=== PATIENT | female | born 1940 | race Caucasian/White ===

== ENCOUNTER 2016-07-29 08:00 | Outpatient (RCR) | payer MEDICARE, OTHER ==
--- OUTSIDE RECORDS SUMMARY | 2016-05-10 14:56 | XMS REPORT | Continuity of Care Document ---
Author Author [facility] Organization [facility] Address Unknown Phone Unavailable Care Team Providers Care Bulkhead Carpenter Name Role Phone CHALO FUENTES DO PCP Insurance Providers Payer Name Policy Number Subscriber Name Relationship Wps Medicare [id number] Jocelin Diaz 18 Self / Same As Patient [employer] [id number] Jocelin Diaz 18 Self / Same As Patient Advance Directives Directive Response Recorded Date/Time Advance Directives No 09/25/14 7:26am Health Care Power of Public Health Physician No 09/25/14 7:26am Organ Donor Yes 09/25/14 7:26am Resuscitation Status Full Code 09/25/14 7:26am Problems No known problems or medical conditions. Medications Medication Dose Route Sig Days/Qty Instructions Order Date Discontinued Date Status Montelukast Sodium 10 Mg PO BEDTIME 06/11/11 Active Potassium Chloride 1 Each PO DAILY 06/11/11 06/16/11 Discontinued Doxycycline Hyclate (Vibramycin) 100 Mg PO TWICE A DAY 100 mg BID x 10 days 06/11/11 09/25/14 Discontinued Simvastatin 40 Mg PO BEDTIME 06/11/11 09/25/14 Discontinued Cefuroxime Axetil (Ceftin) 1 Each PO TWICE A DAY 10 Days Date started: 2010 06/11/11 06/16/11 Discontinued Cyclobenzaprine HCl (Flexeril) 1 Each PO GIVE EVERY 8 HRS ON SCHEDULE PRN 06/11/11 09/25/14 Discontinued Levothyroxine Sodium (Levothroid) 1 Each PO DAILY 06/11/11 09/25/14 Discontinued Tramadol Hcl 2 Tab PO THREE TIMES A DAY PRN 06/11/11 09/25/14 Discontinued Estradiol 1 Mg PO DAILY 06/11/11 09/25/14 Discontinued Famotidine 20 Mg PO TWICE A DAY 06/11/11 09/25/14 Discontinued Clonazepam (Klonopin) 1 Each PO TID PRN 06/11/11 Active Sertraline Hcl 100 Mg PO BEDTIME 06/11/11 09/25/14 Discontinued Fluticasone Propionate 50 Mcg NS TWICE A DAY 1 spray each nostril 06/1106/16/11 Discontinued Furosemide 40 Mg PO DAILY 06/12/11 06/16/11 Discontinued Budesonide/Formoterol Fumarate 2 Puff IH TWICE A DAY 06/12/11 Discontinued Tiotropium [place] 0 IH DAILY 06/12/11 Active Aspirin 81 Mg PO BEDTIME 06/12/11 Active Budesonide/Formoterol Fumarate 2 Puff IH RESPIRATORY TWICE A DAY 04/1809/25/14 Discontinued Cefuroxime Axetil (Ceftin) 1 Each PO TWICE A DAY 06/16/11 09/25/14 Discontinued Prednisone 20 Mg PO TWICE A DAY 7 Days 06/16/11 09/25/14 Discontinued Levothyroxine Sodium (Levothroid) 50 Mcg PO DAILY 09/25/14 Active Sertraline Hcl 150 Mg PO BEDTIME 09/25/14 Active Hydrocodone Bit/Acetaminophen 1 Tab PO EVERY 6 HOURS PRN PAIN Active Fluticasone/Salmeterol 0 IH TWICE A DAY 1 PUFF 09/25/14 Active Fexofenadine Hcl 180 Mg PO DAILY 09/25/14 Active Ubidecarenone 200 Mg PO DAILY 09/25/14 Active Docosahexanoic Acid/Epa 3,000 Mg PO DAILY 09/25/14 Active Fluticasone Propionate 1 Sprays NS EACH NOSTRIL DAILY 09/25/14 Active Atorvastatin 20 Mg PO DAILY 09/25/14 Active Pyridoxine/Melatonin 3 Mg PO NEEDED PRN SLEEP 09/25/14 Active Multivitamins 1 Tab PO DAILY 09/25/14 Active Omeprazole 10 Mg PO DAILY 09/25/14 Active Albuterol Sulfate 2 Puff IH EVERY 4HRS PRN SHORTNESS OF BREATH Active Social History Social History Problem Response Recorded Date/Time Recent Foreign Travel No 09/25/2014 7:28am Smoking Status Former Smoker 09/25/2014 7:26am Query Response Start Date Stop Date Smoking Status Former Smoker 09/25/2004 Hospital Discharge Instructions No hospital discharge instructions. Plan of Care No plan of care. Functional Status No functional status results. Allergies, Adverse Reactions, Alerts Allergen Type Severity Reaction Status Last Updated Moxifloxacin HCl Allergy Active 06/11/11 azithromycin ([id number]) Allergy Active 06/11/11 Immunizations Name Given Type Date of Pneumonia Vaccine 07/25/14 Historical Date of Influenza Vaccine 07/25/14 Historical Vital Signs Acute Vital Signs Vital Response Date/Time Temperature (Fahrenheit) 98.9 degrees F (97.6 - 99.5) Temperature (Calculated Celsius) 37.15263 degrees C (36.4 - 37.5) Temperature Source Tympanic Pulse Rate (adult) 83 bpm (60 - 90) Respiratory Rate 18 bpm (12 - 24) O2 Sat by Pulse Oximetry 95 % (88 - 100) Blood Pressure 127/78 mm Hg Height (Feet) 5 feet Height (Inches) 6.00 inches Height (Calculated Centimeters) 167.616294 cm Weight (Pounds) 222 pounds Weight (Calculated Grams) 121511.507 gm Weight (Calculated Kilograms) 100.279604 kilograms Calculated BMI 35.83 Results Laboratory Results Test Name Result Units Flags Reference Collection Date/Time Result Date/ Time Comments Sodium Level 137 MMOL/L 135-145 09/18/2014 1:45pm 09/18/2014 2:16pm Potassium Level 4.6 MMOL/L 3.6-5.0 09/18/2014 1:45pm 09/18/2014 2:16pm Chloride Level 104 MMOL/L 98-107 09/18/2014 1:45pm 09/18/2014 2:16pm Carbon Dioxide Level 24 MMOL/L 21-32 09/18/2014 1:45pm 09/18/2014 2: 16pm Blood Urea Nitrogen 21 MG/DL H 7-18 09/18/2014 1:45pm 09/18/2014 2:16pm Creatinine 0.84 MG/DL 0.60-1.30 09/18/2014 1:45pm 09/18/2014 2:16pm BUN/Creatinine Ratio 25 09/18/2014 1:45pm 09/18/2014 2:16pm Estimat Glomerular Filtration Rate > 60 09/18/2014 1:45pm 2014 2:16pm GFR INTERPRETIVE DATA UNITS FOR ESTIMATED GFR (eGFR): mL/min/1.73 M2 REFERENCE RANGE FOR ESTIMATED GFR (eGFR) eGFR NORMAL eGFR >60 MODERATELY DECREASED eGFR 30-59 SEVERLY DECREASED eGFR 15-29 KIDNEY FAILURE <15 (OR DIALYSIS) Glucose Level 96 MG/DL 70-105 09/18/2014 1:45pm 09/18/2014 2:16pm Calcium Level 9.5 MG/DL 8.5-10.1 09/18/2014 1:45pm 09/18/2014 2:16pm Total Bilirubin 0.5 MG/DL 0.1-1.0 09/18/2014 1:45pm 09/18/2014 2:16pm Alkaline Phosphatase 92 U/L 40-136 09/18/2014 1:45pm 09/18/2014 2:16pm Aspartate Amino Transf (AST/SGOT) 25 U/L 5-34 09/18/2014 1:45pm 2014 2:16pm Alanine Aminotransferase (ALT/SGPT) 10 U/L 0-55 09/18/2014 1:45pm 09/18 2:16pm Total Protein 7.3 G/DL 6.4-8.2 09/18/2014 1:45pm 09/18/2014 2:16pm Albumin 3.8 G/DL 3.2-4.5 09/18/2014 1:45pm 09/18/2014 2:16pm Triglycerides Level 71 MG/DL <150 09/18/2014 1:45pm 09/18/2014 2:16pm Cholesterol Level 173 MG/DL < 200 09/18/2014 1:45pm 09/18/2014 2:16pm HDL Cholesterol 70 MG/DL H 40-60 09/18/2014 1:45pm 09/18/2014 2:16pm LDL Cholesterol Direct 85 MG/DL 1-129 09/18/2014 1:45pm 09/18/2014 2: 16pm VLDL Cholesterol 14 MG/DL 5-40 09/18/2014 1:45pm 09/18/2014 2:16pm White Blood Count 7.4 10^3/uL 4.3-11.0 09/25/2014 7:09/25/2014 7: 39am Red Blood Count 4.47 10^6/uL 4.35-5.85 09/25/2014 7:09/25/2014 7: 39am Hemoglobin 12.6 G/DL 11.5-16.0 09/25/2014 7:09/25/2014 7:39am Hematocrit 39 % 35-52 09/25/2014 7:09/25/2014 7:39am Mean Corpuscular Volume 86 FL 80-99 09/25/2014 7:09/25/2014 7: 39am Mean Corpuscular Hemoglobin 28 PG 25-34 09/25/2014 7:09/25/2014 7: 39am Mean Corpuscular Hemoglobin Concent 33 G/DL 32-36 09/25/2014 7: 7:39am Red Cell Distribution Width 14.6 % H 10.0-14.5 09/25/2014 7:2014 7:39am Platelet Count 273 10^3/uL 130-400 09/25/2014 7:09/25/2014 7:39am Mean Platelet Volume 9.2 FL 7.4-10.4 09/25/2014 7:09/25/2014 7: 39am Neutrophils (%) (Auto) 65 % 42-75 09/25/2014 7:09/25/2014 7:39am Lymphocytes (%) (Auto) 19 % 12-44 09/25/2014 7:09/25/2014 7:39am Monocytes (%) (Auto) 10 % 0-12 09/25/2014 7:09/25/2014 7:39am Eosinophils (%) (Auto) 5 % 0-10 09/25/2014 7:09/25/2014 7:39am Basophils (%) (Auto) 1 % 0-10 09/25/2014 7:09/25/2014 7:39am Neutrophils # (Auto) 4.8 X 10^3 1.8-7.8 09/25/2014 7:09/25/2014 7: 39am Lymphocytes # (Auto) 1.4 X 10^3 1.0-4.0 09/25/2014 7:09/25/2014 7: 39am Monocytes # (Auto) 0.7 X 10^3 0.0-1.0 09/25/2014 7:09/25/2014 7: 39am Eosinophils # (Auto) 0.4 10^3/uL H 0.0-0.3 09/25/2014 7:09/25/2014 7 :39am Basophils # (Auto) 0.1 10^3/uL 0.0-0.1 09/25/2014 7:09/25/2014 7: 39am Prothrombin Time 11.6 SEC L 12.2-14.7 09/25/2014 7:09/25/2014 7: 47am INR Comment 0.9 0.8-1.4 09/25/2014 7:09/25/2014 7:47am INTERPRETIVE DATA SUGGESTED THERAPEUTIC RANGE FOR INR'S: VENOUS THROMBOSIS, PULMONARY EMBOLISM, OR PREVENTION OF SYSTEMIC EMBOLISM (EG. IN ATRIAL FIBRILLATION): 2.0 - 3.0 MECHANICAL PROSTHETIC HEART VALVES: 2.5 - 3.5* *NOTE: INR'S UP TO 4.5 MAY BE NECESSARY IN SELECTED GROUPS OF HIGH RISK PATIENTS. [employer] [place] [employer] OF CHEST PHYSICIANS CONSENSUS CONFERENCE ON ANTITHROMBOTIC THERAPY (2000). Activated Partial Thromboplast Time 30 SEC 24-35 09/25/2014 7: 7:47am Sodium Level 140 MMOL/L 135-145 09/25/2014 7:09/25/2014 7:57am Potassium Level 4.2 MMOL/L 3.6-5.0 09/25/2014 7:09/25/2014 7:57am Chloride Level 106 MMOL/L 98-107 09/25/2014 7:09/25/2014 7:57am Carbon Dioxide Level 21 MMOL/L 21-32 09/25/2014 7:09/25/2014 7: 57am Blood Urea Nitrogen 25 MG/DL H 02-2209/25/2014 7:09/25/2014 7:57am Creatinine 0.88 MG/DL 0.60-1.30 09/25/2014 7:09/25/2014 7:57am BUN/Creatinine Ratio 28 09/25/2014 7:09/25/2014 7:57am Estimat Glomerular Filtration Rate > 60 09/25/2014 7:2014 7:57am GFR INTERPRETIVE DATA UNITS FOR ESTIMATED GFR (eGFR): mL/min/1.73 M2 REFERENCE RANGE FOR ESTIMATED GFR (eGFR) eGFR NORMAL eGFR >60 MODERATELY DECREASED eGFR 30-59 SEVERLY DECREASED eGFR 15-29 KIDNEY FAILURE <15 (OR DIALYSIS) Glucose Level 92 MG/DL 70-105 09/25/2014 7:09/25/2014 7:57am Calcium Level 9.3 MG/DL 8.5-10.1 09/25/2014 7:09/25/2014 7:57am Total Bilirubin 0.5 MG/DL 0.1-1.0 09/25/2014 7:09/25/2014 7:57am Alkaline Phosphatase 92 U/L 40-136 09/25/2014 7:09/25/2014 7:57am Aspartate Amino Transf (AST/SGOT) 28 U/L 5-34 09/25/2014 7:2014 7:57am Alanine Aminotransferase (ALT/SGPT) 9 U/L 0-55 09/25/2014 7:2014 7:57am Total Protein 7.3 G/DL 6.4-8.2 09/25/2014 7:09/25/2014 7:57am Albumin 3.8 G/DL 3.2-4.5 09/25/2014 7:09/25/2014 7:57am Triglycerides Level 95 MG/DL <150 09/25/2014 7:09/25/2014 7:57am Cholesterol Level 182 MG/DL < 200 09/25/2014 7:09/25/2014 7:57am HDL Cholesterol 71 MG/DL H 40-60 09/25/2014 7:09/25/2014 7:57am LDL Cholesterol Direct 92 MG/DL 1-129 09/25/2014 7:09/25/2014 7: 57am VLDL Cholesterol 19 MG/DL 5-40 09/25/2014 7:09/25/2014 7:57am Procedures Procedure Status Date Provider(s) Color Doppler echocardiography completed 08/29/14 CHALO FUENTES DO Tracing only of electrocardiogram completed 09/25/14 CARLOS RESENDIZ MD Encounters Encounter Location Date/Time Departed Surgical Day Care [facility] 09/25/14 7:09am Registered Clinic Via [facility] 09/18/14 12:09pm Registered Clinic Via [facility] 08/29/14 10:01am
[~2016-07-29 08:00] MED LIST: ACYC30OI TP; ASP81TEC PO; ASPI-808 PO; ATOR20TA66 PO; BACL10TA PO; BUDE6HFA IH; BUSP5TAB59 PO; CEFU500T5 PO; CHOL10007 PO; CLON0.5T PO; CLON0.5T3 PO; CYCL10TA9 PO; DOCU100C37 PO; DOXY100C2 PO; ESTR1TAB24 PO; FAMO20TA73 PO; FEXO180T84 PO; FLT05NA16 NS; FLUT1DIS3 IH; FLUT50DI NS; FRSM40T PO; HYDR-3714 PO; HYDR1TAB8 PO; IPRA3AMP IH; LACT1CAP64 PO; LVT.025T PO; LVT.05T PO; MAGN250T PO; MELA1TAB11 PO; MELA5TAB14 PO; MNTL10T PO; MONT10TA21 PO; MULT-608 PO; OMEG1CAP51 PO; OMEP10CA4 PO; OMEP20CA12 PO; OXYC-471 PO; POTA20TA15 PO; PRD20T PO; PREG75CA PO; RT-ALBUINH IH; SERT100T PO; SIMV40TA4 PO; TIOT18CA IH; TRAM50TA2 PO; UBID200C2 PO; VALA10004 PO
== END 2016-08-08 | disposition home or self-care (01) ==
LOC: PULM 08:00
PROVIDERS: ATTEND Family Medicine
DX: J44.9 Chronic obstructive pulmonary disease, unspecified (principal); I27.2 Other secondary pulmonary hypertension
CPT/HCPCS: 99211

== ENCOUNTER → 2016-08-11 | Outpatient (CLI) | payer MEDICARE, OTHER ==
--- OUTSIDE RECORDS SUMMARY | 2016-08-11 11:14 | XMS REPORT | Continuity of Care Document ---
Author Author [facility] Organization [facility] Address Unknown Phone Unavailable Care Team Providers Care Aluminum Container Tester Name Role Phone CHALO FUENTES DO PCP Insurance Providers Payer Name Policy Number Subscriber Name Relationship Wps Medicare [id number] Jocelin Diaz 18 Self / Same As Patient [employer] [employer] [id number] Jocelin Diaz 18 Self / Same As Patient Advance Directives Directive Response Recorded Date/Time Advance Directives No 09/25/14 7:26am Health Care Power of Gasket Maker No 09/25/14 7:26am Organ Donor Yes 09/25/14 [...] IH TWICE A DAY 06/12/11 Discontinued Tiotropium [place] 0 IH DAILY 06/12/11 Active Aspirin 81 [...] Updated Moxifloxacin HCl Allergy Active 06/11/11 azithromycin ([id number]) Allergy Active 06/11/11 Immunizations Name Given Type Date of Pneumonia Vaccine 07/25/14 Historical Date of Influenza Vaccine 07/25/14 Historical Vital Signs Acute Vital Signs Vital Response Date/Time Temperature (Fahrenheit) 98.9 degrees F (97.6 - 99.5) Temperature (Calculated Celsius) 37.87092 degrees C (36.4 - 37.5) Temperature Source Tympanic Pulse Rate (adult) 83 bpm (60 - 90) Respiratory Rate 18 bpm (12 - 24) O2 Sat by Pulse Oximetry 95 % (88 - 100) Blood Pressure 127/78 mm Hg Height (Feet) 5 feet Height (Inches) 6.00 inches Height (Calculated Centimeters) 167.769453 cm Weight (Pounds) 222 pounds Weight (Calculated Grams) 265931.507 gm Weight (Calculated Kilograms) 100.758303 kilograms Calculated BMI 35.83 Results Laboratory Results [...] SELECTED GROUPS OF HIGH RISK PATIENTS. [employer]IX[employer] [place] [employer] OF CHEST PHYSICIANS CONSENSUS CONFERENCE ON [...] Location Date/Time Departed Surgical Day Care Via [facility] 09/25/14 7:09am Registered Clinic [facility] 09/18/14 12:09pm Registered Clinic [facility] 08/29/14 10:01am
--- NOTE | 2016-08-11 22:17 | Diagnostic Imaging Report ---
EXAMINATION: Right breast ultrasound. INDICATION: Right axillary mass followup. COMPARISON: 05/04/16. FINDINGS: The right axilla demonstrates a 2.2 x 0.8 x 1.0 cm hyperechoic smoothly marginated lobulated lesion without significant change from 05/04/16. This is probably a lymph node. IMPRESSION: Unchanged 2.2 cm benign-appearing lesion in the right axilla, probably a mildly enlarged lymph node. A followup ultrasound is suggested when the patient is due for her next bilateral mammogram along with a clinical exam followup. ACR BI-RADS Category 3: Probably benign findings. Result letter will be mailed to the patient. Note: At least 10% of breast cancer is not imaged by mammography. Dictated by: Dictated on workstation # [id number]
== END ==
LOC: RAD 11:11
PROVIDERS: ATTEND Family Medicine
DX: R59.0 Localized enlarged lymph nodes (principal)

== ENCOUNTER → 2016-09-07 | Outpatient (CLI) | payer MEDICARE, OTHER ==
--- OUTSIDE RECORDS SUMMARY | 2016-09-07 12:27 | XMS REPORT | Continuity of Care Document ---
Author Author [facility] Organization [facility] Address Unknown Phone Unavailable Care Team Providers Care Helpdesk Administrator Name Role Phone CHALO FUENTES DO PCP Insurance Providers Payer Name Policy Number Subscriber Name Relationship Wps Medicare [id number] Jocelin Diaz 18 Self / Same As Patient [employer] [id number] Jocelin Diaz 18 Self / Same As Patient Advance Directives Directive Response Recorded Date/Time Advance Directives No 09/25/14 7:26am Health Care Power of Auto Clocks Repairer No 09/25/14 7:26am Organ Donor Yes 09/25/14 [...] IH TWICE A DAY 06/12/11 Discontinued Tiotropium [place] 0 IH DAILY 06/12/11 Active Aspirin 81 [...] Updated Moxifloxacin HCl Allergy Active 06/11/11 azithromycin ([id number]) Allergy Active 06/11/11 Immunizations Name Given Type Date of Pneumonia Vaccine 07/25/14 Historical Date of Influenza Vaccine 07/25/14 Historical Vital Signs Acute Vital Signs Vital Response Date/Time Temperature (Fahrenheit) 98.9 degrees F (97.6 - 99.5) Temperature (Calculated Celsius) 37.45880 degrees C (36.4 - 37.5) Temperature Source Tympanic Pulse Rate (adult) 83 bpm (60 - 90) Respiratory Rate 18 bpm (12 - 24) O2 Sat by Pulse Oximetry 95 % (88 - 100) Blood Pressure 127/78 mm Hg Height (Feet) 5 feet Height (Inches) 6.00 inches Height (Calculated Centimeters) 167.869923 cm Weight (Pounds) 222 pounds Weight (Calculated Grams) 136211.507 gm Weight (Calculated Kilograms) 100.304304 kilograms Calculated BMI 35.83 Results Laboratory Results [...] SELECTED GROUPS OF HIGH RISK PATIENTS. [employer]IX[employer] [place] [employer] OF CHEST PHYSICIANS CONSENSUS CONFERENCE ON [...] Location Date/Time Departed Surgical Day Care Via [facility] 09/25/14 7:09am Registered Clinic [facility] 09/18/14 12:09pm Registered Clinic Via [facility] 08/29/14 10:01am
--- NOTE | 2016-09-07 12:59 | Diagnostic Imaging Report ---
INDICATION: Cough for several weeks and antibiotics is not helping, feels like she has fluid on her lungs. FINDINGS: Frontal and lateral views of the chest are compared to an exam from April 16. The heart size is normal. There is calcification of the mitral valve annulus. Interstitial disease has increased. This is mainly central and probably represents pulmonary edema. No pleural effusions are present. Pulmonary vessels appear normal. A hiatal hernia is present. IMPRESSION: 1. Interstitial disease has increased. This is mainly central and probably represents some edema. 2. Heart size is normal. There is calcification of the mitral valve annulus. Dictated by: Dictated on workstation # [id number]
== END ==
LOC: RAD 12:23
PROVIDERS: ATTEND Family Medicine
DX: R05 Cough (principal); R06.00 Dyspnea, unspecified
CPT/HCPCS: 71020

== ENCOUNTER 2016-10-07 08:00 | Outpatient (RCR) | payer MEDICARE, OTHER ==
--- OUTSIDE RECORDS SUMMARY | 2016-10-05 08:16 | XMS REPORT | Continuity of Care Document ---
Author Author [facility] Organization [facility] Address Unknown Phone Unavailable Care Team Providers Care Critical Care Physician Assistant Name Role Phone CHALO FUENTES DO PCP Insurance Providers Payer Name Policy Number Subscriber Name Relationship Wps Medicare [id number] Jocelin Diaz 18 Self / Same As Patient [employer] [id number] Jocelin Diaz 18 Self / Same As Patient Advance Directives Directive Response Recorded Date/Time Advance Directives No 09/25/14 7:26am Health Care Power of Speeder Operator No 09/25/14 7:26am Organ Donor Yes 09/25/14 [...] IH TWICE A DAY 06/12/11 Discontinued Tiotropium [place] 0 IH DAILY 06/12/11 Active Aspirin 81 [...] Updated Moxifloxacin HCl Allergy Active 06/11/11 azithromycin ([id number]) Allergy Active 06/11/11 Immunizations Name Given Type Date of Pneumonia Vaccine 07/25/14 Historical Date of Influenza Vaccine 07/25/14 Historical Vital Signs Acute Vital Signs Vital Response Date/Time Temperature (Fahrenheit) 98.9 degrees F (97.6 - 99.5) Temperature (Calculated Celsius) 37.95472 degrees C (36.4 - 37.5) Temperature Source Tympanic Pulse Rate (adult) 83 bpm (60 - 90) Respiratory Rate 18 bpm (12 - 24) O2 Sat by Pulse Oximetry 95 % (88 - 100) Blood Pressure 127/78 mm Hg Height (Feet) 5 feet Height (Inches) 6.00 inches Height (Calculated Centimeters) 167.787818 cm Weight (Pounds) 222 pounds Weight (Calculated Grams) 196330.507 gm Weight (Calculated Kilograms) 100.688669 kilograms Calculated BMI 35.83 Results Laboratory Results [...] SELECTED GROUPS OF HIGH RISK PATIENTS. SIXTH [place] [employer] CHEST PHYSICIANS CONSENSUS CONFERENCE ON [...] Location Date/Time Departed Surgical Day Care Via [facility] 09/25/14 7:09am Registered Clinic Via [facility] 09/18/14 12:09pm Registered Clinic [facility] 08/29/14 10:01am
== END 2017-01-03 | disposition home or self-care (01) ==
LOC: PULM 08:00
PROVIDERS: ATTEND Family Medicine
DX: J44.9 Chronic obstructive pulmonary disease, unspecified (principal); I27.2 Other secondary pulmonary hypertension

== ENCOUNTER 2017-04-26 09:00 | Outpatient (RCR) | payer MEDICARE, OTHER ==
[~2017-04-26 09:00] MED LIST changes: -MAGN250T PO; +MAGN250T2 PO
== END 2017-05-01 | disposition home or self-care (01) ==
LOC: PULM 09:00
PROVIDERS: ATTEND Family Medicine
DX: J44.1 Chronic obstructive pulmonary disease with (acute) exacerbation (principal)
CPT/HCPCS: 99211

== ENCOUNTER 2017-05-05 09:54 | Outpatient (RCR) | payer MEDICARE, OTHER | END 2017-05-07 | disposition home or self-care (01) | LOC: PULM 09:54 | PROVIDERS: ATTEND Family Medicine | DX: J44.1 Chronic obstructive pulmonary disease with (acute) exacerbation (principal) ==

== ENCOUNTER 2017-07-26 09:00 | Outpatient (RCR) | payer MEDICARE, OTHER | END 2017-08-08 | disposition home or self-care (01) | LOC: PULM 09:00 | PROVIDERS: ATTEND Family Medicine | DX: J44.1 Chronic obstructive pulmonary disease with (acute) exacerbation (principal) ==

== ENCOUNTER 2017-10-11 10:00 | Outpatient (RCR) | payer MEDICARE, OTHER | END 2017-11-09 | disposition home or self-care (01) | LOC: PULM 10:00 | PROVIDERS: ATTEND Family Medicine | DX: J44.1 Chronic obstructive pulmonary disease with (acute) exacerbation (principal) ==

== ENCOUNTER 2018-06-12 06:46 | Outpatient (CLI) | payer MEDICARE, OTHER ==
[~2018-06-12] VITALS: Ht 165.1 cm; Wt 91.9 kg
[~2018-06-12 06:46] MED LIST changes: -IPRA3AMP IH; +IPRA3AMP31 IH
[2018-06-13] MEDS ORDERED: MONT10TA24 PO (14:48)
[2018-06-13] MEDS ORDERED: CALC-962 PO (14:48)
[2018-06-13] MEDS ORDERED: LEVO75TA6 PO (14:48)
[2018-06-13] MEDS ORDERED: ASPI-999 PO (14:48)
[2018-06-13] MEDS ORDERED: ATOR20TA66 PO (14:48)
[2018-06-13] MEDS ORDERED: SERT100T8 PO (14:48)
[2018-06-13] MEDS ORDERED: FLUT9.9S NS (14:48)
== END 2018-06-13 15:05 | disposition home or self-care (01) ==
LOC: PREOP 06:46
PROVIDERS: ATTEND Specialist
DX: Z01.818 Encounter for other preprocedural examination (principal)

== ENCOUNTER 2018-06-16 08:31 | Day surgery (SDC) | payer MEDICARE, OTHER ==
[~2018-06-16] VITALS: Ht 165.1 cm; Wt 91.9 kg
[~2018-06-16 08:31] MED LIST changes: +ASPI-999 PO; +CALC-962 PO; +FLUT9.9S NS; +LEVO75TA6 PO; +MONT10TA24 PO; +SERT100T8 PO
[2018-06-16] MEDS: TETRACAINE 0.5% OPHTH SOLN 4 ML BTL (SINGLE DOSE ONLY) OU PRN ×3 (08:44→09:00)
[2018-06-16] MEDS ORDERED: TIMOLOL MALEATE 0.5% 5 ML (TIMOPTIC) BTL OU PRN (08:45)
[2018-06-16] MEDS ORDERED: MOXIFLOXACIN OPHTH SOLN 5 MG/ML 0.3 ML SYRINGE OP ONE (08:45)
[2018-06-16] MEDS ORDERED: POVIDONE (BETADINE) OPHTH SOLN 5% 30 ML OP ONE (08:45)
[2018-06-16] MEDS ORDERED: LIDOCAINE PF 1% 2 ML AMP IR PRN (08:45)
[2018-06-16 08:48] VITALS: BP 112/73
[2018-06-16] MEDS: PHENYLEPHRINE 10% OPHTH (NEO-SYN) 5 ML BTL OU SCH ×3 (08:52→09:00)
[2018-06-16] MEDS: CYCLOPENTOLATE 1% (CYCLOGYL) 2 ML DROPS OP SCH ×3 (08:52→09:00)
[2018-06-16] MEDS ORDERED: MIDAZOLAM 2 MG/2 ML (VERSED) VIAL ONE (08:55)
--- NOTE | 2018-06-16 09:08 | Ophthalmologist Pre-Op Note ---
Pre-Operative Progress Note H&P Reviewed The H&P was reviewed, patient examined and no changes noted. Date H&P Reviewed: Jun 16, 2018 Time H&P Reviewed: 09:01 Pre-Op Dx Cataract, Right Eye GEMMA SCOTT MD Jun 16, 2018 09:08
[2018-06-16] MEDS ORDERED: acetaZOLAMIDE ER 500 MG CAP (DIAMOX SEQUELS) PO ONE (09:30)
--- NOTE | 2018-06-16 09:36 | Anesthesia-General Post-Op ---
MAC Patient Condition Mental Status/LOC: Same as Preop Cardiovascular: Satisfactory Nausea/Vomiting: Absent Respiratory: Satisfactory Pain: Controlled Complications: Absent Post Op Complications Complications None Follow Up Care/Instructions Patient Instructions None needed. Anesthesiology Discharge Order Discharge Order Patient is doing well, no complaints, stable vital signs, no apparent adverse anesthesia problems. No complications reported per nursing. AMY AGUIRRE CRNA Jun 16, 2018 09:36
--- NOTE | 2018-06-16 09:37 | Ophthalmology Operative Report ---
Cataract removal/placement IOL PREOPERATIVE DIAGNOSIS: Cataract Right Eye POSTOPERATIVE DIAGNOSIS: Cataract Right Eye PROCEDURE: Cataract removal and placement of posterior chamber implant, right eye SURGEON: Malcolm Scott ANESTHESIA: Topical with sedation COMPLICATIONS: None ESTIMATED BLOOD LOSS: Minimal DESCRIPTION OF PROCEDURE: After proper informed consent was obtained, the patient, a 77 female, was taken to the Operating Room and the right eye was anesthetized with tetracaine. The right eye was then prepped and draped in the usual manner. A wire lid speculum was placed. A paracentesis was made at the left hand position. Preservative free lidocaine was injected into the anterior chamber followed by viscoelastic. A clear corneal incision was made in the temporal position. A capsulorrhexis was preformed and the central nuclear and cortical material were removed. The posterior capsule was polished and Leodan 23.0 AU00T0 IOL was placed into the capsular bag. The residual viscoelastic was aspirated and balanced saline solution was injected into the anterior chamber. The wound was checked and found to be water tight. The patient tolerated the procedure well without complications. MALCOLM SCOTT MD Jun 16, 2018 09:37
[2018-06-16 09:47] VITALS: BP 117/65
== END 2018-06-16 09:47 | disposition home or self-care (01) ==
LOC: SDC 08:31
PROVIDERS: ATTEND Specialist
DX: H25.11 Age-related nuclear cataract, right eye (principal); F41.9 Anxiety disorder, unspecified; F32.9 Major depressive disorder, single episode, unspecified; E03.9 Hypothyroidism, unspecified; F43.10 Post-traumatic stress disorder, unspecified; I50.9 Heart failure, unspecified; G47.33 Obstructive sleep apnea (adult) (pediatric); Z87.891 Personal history of nicotine dependence; K21.9 Gastro-esophageal reflux disease without esophagitis; G62.9 Polyneuropathy, unspecified; Z79.82 Long term (current) use of aspirin; Z79.899 Other long term (current) drug therapy; Z96.659 Presence of unspecified artificial knee joint

== ENCOUNTER 2018-07-04 05:37 | Outpatient (CLI) | payer MEDICARE, OTHER | END 2018-07-04 09:42 | disposition home or self-care (01) | LOC: PREOP 05:37 | PROVIDERS: ATTEND Specialist | DX: Z01.818 Encounter for other preprocedural examination (principal) ==

== ENCOUNTER 2018-07-05 07:34 | Day surgery (SDC) | payer MEDICARE, OTHER ==
[~2018-07-05] VITALS: Ht 165.1 cm; Wt 91.9 kg
[2018-07-05] MEDS ORDERED: TIMOLOL MALEATE 0.5% 5 ML (TIMOPTIC) BTL OU PRN (07:45)
[2018-07-05] MEDS ORDERED: POVIDONE (BETADINE) OPHTH SOLN 5% 30 ML OP ONE (07:45)
[2018-07-05] MEDS ORDERED: LIDOCAINE PF 1% 2 ML AMP IR PRN (07:45)
[2018-07-05 07:47] VITALS: BP 97/60
[2018-07-05] MEDS: TETRACAINE 0.5% OPHTH SOLN 4 ML BTL (SINGLE DOSE ONLY) OU PRN ×4 (07:51→08:17)
[2018-07-05] MEDS: PHENYLEPHRINE 10% OPHTH (NEO-SYN) 5 ML BTL OU SCH ×3 (07:59→08:18)
[2018-07-05] MEDS: CYCLOPENTOLATE 1% (CYCLOGYL) 2 ML DROPS OP SCH ×3 (07:59→08:18)
[2018-07-05] MEDS ORDERED: MIDAZOLAM 2 MG/2 ML (VERSED) VIAL ONE (08:16)
--- NOTE | 2018-07-05 08:39 | Ophthalmologist Pre-Op Note ---
Pre-Operative Progress Note H&P Reviewed The H&P was reviewed, patient examined and no changes noted. Date H&P Reviewed: Jul 05, 2018 Time H&P Reviewed: 08:39 Pre-Op Dx Cataract, Left Eye GEMMA SCOTT MD Jul 05, 2018 08:39
[2018-07-05] MEDS ORDERED: acetaZOLAMIDE ER 500 MG CAP (DIAMOX SEQUELS) PO ONE (09:00)
--- NOTE | 2018-07-05 09:01 | Ophthalmology Operative Report ---
Cataract removal/placement IOL PREOPERATIVE DIAGNOSIS: Cataract Left Eye POSTOPERATIVE DIAGNOSIS: Cataract Left Eye PROCEDURE: Cataract removal and placement of posterior chamber implant, left eye SURGEON: Malcolm Scott ANESTHESIA: Topical with sedation COMPLICATIONS: None ESTIMATED BLOOD LOSS: Minimal DESCRIPTION OF PROCEDURE: After proper informed consent was obtained, the patient, a 77 female, was taken to the Operating Room and the left eye was anesthetized with tetracaine. The left eye was then prepped and draped in the usual manner. A wire lid speculum was placed. A paracentesis was made at the left hand position. Preservative free lidocaine was injected into the anterior chamber followed by viscoelastic. A clear corneal incision was made in the temporal position. A capsulorrhexis was preformed and the central nuclear and cortical material were removed. The posterior capsule was polished and an Leodan 24.0 AU00T0 was placed into the capsular bag. The residual viscoelastic was aspirated and balanced saline solution was injected into the anterior chamber. The wound was checked and found to be water tight. The patient tolerated the procedure well without complications. MALCOLM SCOTT MD Jul 05, 2018 09:01
[2018-07-05 09:10] VITALS: BP 113/50
--- NOTE | 2018-07-05 10:46 | Anesthesia-General Post-Op ---
MAC Patient Condition Mental Status/LOC: Same as Preop Cardiovascular: Satisfactory Nausea/Vomiting: Absent Respiratory: Satisfactory Pain: Controlled Complications: Absent Post Op Complications Complications None Follow Up Care/Instructions Patient Instructions None needed. Anesthesiology Discharge Order Discharge Order Patient is doing well, no complaints, stable vital signs, no apparent adverse anesthesia problems. No complications reported per nursing. AMY AGUIRRE CRNA Jul 05, 2018 10:46
== END 2018-07-05 09:10 | disposition home or self-care (01) ==
LOC: SDC 07:34
PROVIDERS: ATTEND Specialist
DX: H25.12 Age-related nuclear cataract, left eye (principal); Z80.1 Family history of malignant neoplasm of trachea, bronchus and lung; Z87.891 Personal history of nicotine dependence; Z96.652 Presence of left artificial knee joint; J43.9 Emphysema, unspecified; F43.10 Post-traumatic stress disorder, unspecified; F41.9 Anxiety disorder, unspecified; F32.9 Major depressive disorder, single episode, unspecified; E03.9 Hypothyroidism, unspecified; I27.20 Pulmonary hypertension, unspecified; I50.9 Heart failure, unspecified; Z99.81 Dependence on supplemental oxygen; G62.9 Polyneuropathy, unspecified; K21.9 Gastro-esophageal reflux disease without esophagitis; Z79.82 Long term (current) use of aspirin; Z79.899 Other long term (current) drug therapy

== ENCOUNTER 2019-01-29 01:52 | Emergency (ER) | payer MEDICARE, OTHER ==
[~2019-01-29] VITALS: Ht 165.1 cm; Wt 96.6 kg
--- OUTSIDE RECORDS SUMMARY | 2019-01-29 02:00 | XMS REPORT | Continuity of Care Document ---
Author Organization Unknown Address Unknown Allergies Active Description Code Type Severity Reaction Onset Reported/Identified Relationship to Patient Clinical Status Yes azithromycin [id number] Drug Allergy Unknown N/A 02/03/2016 Yes moxifloxacin HCl [id number] Drug Allergy Unknown N/A 02/03/2016 Yes gabapentin [id number] Drug Allergy Moderate MUSCLE WEAKNESS 06/13/2018 Yes pregabalin [id number] Drug Allergy Moderate MUSCLE WEAKNESS 06/13/2018 Medications There is no data. Problems Date Dx Coded Attending Type Code Diagnosis Diagnosed By 06/16/2011 Ot 244.9 HYPOTHYROIDISM NOS 06/16/2011 Ot 272.4 HYPERLIPIDEMIA NEC/NOS 06/16/2011 Ot 276.1 HYPOSMOLALITY 06/16/2011 Ot 300.00 ANXIETY STATE NOS 06/16/2011 Ot 309.81 POSTTRAUMATIC STRESS DISORDER 06/16/2011 Ot 486 PNEUMONIA, ORGANISM NOS 06/16/2011 Ot 491.21 OBSTR CHRONIC BRONCHITIS, W (ACUTE) EXAC 06/16/2011 Ot 493.90 ASTHMA, UNSPECIFIED 06/16/2011 Ot 780.57 UNSPECIFIED SLEEP APNEA 06/16/2011 Ot 799.02 HYPOXEMIA 06/16/2011 Ot V15.82 HISTORY OF TOBACCO USE 09/18/2014 Ot 241.0 09/18/2014 Ot 244.9 09/18/2014 Ot 241.0 09/18/2014 Ot 300.01 09/18/2014 Ot 311 09/18/2014 Ot 327.23 09/18/2014 Ot 401.9 09/18/2014 Ot 496 09/18/2014 Ot 716.90 09/18/2014 Ot V76.12 09/18/2014 Ot 784.0 09/18/2014 Ot 331.9 09/18/2014 Ot 379.91 09/18/2014 Ot 733.00 09/18/2014 Ot 780.4 09/18/2014 Ot 784.0 09/18/2014 Ot 433.10 09/18/2014 Ot 496 09/18/2014 Ot 397.0 09/18/2014 Ot 424.0 09/18/2014 Ot 429.3 09/18/2014 Ot 785.2 09/18/2014 Ot V76.12 09/18/2014 Ot 737.30 09/18/2014 Ot 786.09 09/18/2014 Ot 793.19 09/18/2014 Ot 786.2 09/18/2014 Ot V12.61 09/18/2014 Ot 443.9 09/18/2014 Ot 781.3 09/18/2014 Ot 781.99 09/18/2014 Ot V81.5 09/18/2014 Ot 733.90 09/18/2014 Ot 496 09/18/2014 Ot 780.60 09/18/2014 Ot 786.2 09/18/2014 YARONNDER DO, ISIS S Ot V76.12 09/18/2014 YARONNDKIMBERLY DO, ISIS S Ot 397.0 09/18/2014 YARONNDKIMBERLY DOJOVIISIS S Ot 424.0 09/18/2014 YARONNDKIMBERLY DO, ISIS S Ot 785.2 09/18/2014 YARONNDKIMBERLY DO, ISIS S Ot V76.12 09/18/2014 YARONNDER DO, ISIS S Ot 496 09/18/2014 YARONND DO, ISIS S Ot 786.09 09/18/2014 YARONNDKIMBERLY DO, ISIS S Ot 785.2 09/18/2014 ALFREDO DO, ISIS S Ot 786.09 09/25/2014 CARLOS RESENDIZ MD Ot 244.9 HYPOTHYROIDISM NOS 09/25/2014 CARLOS RESENDIZ MD Ot 272.4 HYPERLIPIDEMIA NEC/NOS 09/25/2014 CARLOS RESENDIZ MD Ot 278.00 OBESITY, NOS 09/25/2014 CARLOS RESENDIZ MD Ot 327.23 OBSTRUCTIVE SLEEP APNEA (ADULT) (PEDIATR 09/25/2014 CARLOS RESENDIZ MD Ot 401.9 HYPERTENSION NOS 09/25/2014 CARLOS RESENDIZ MD Ot 414.01 CORONARY ATHEROSCLEROSIS OF [place] CORON 09/25/2014 CARLOS RESENDIZ MD Ot 416.8 CHR PULMON HEART DIS NEC 09/25/2014 CARLOS RESENDIZ MD Ot 424.1 AORTIC VALVE DISORDER 09/25/2014 CARLOS RESENDIZ MD Ot 496 CHR AIRWAY OBSTRUCT NEC 09/25/2014 MARTÍN WORTHINGTON, CARLOS Chacon Ot 786.09 RESPIRATORY ABNORM NEC 09/25/2014 CARLOS RESENDIZ MD Ot 794.30 ABN CARDIOVASC STUDY NOS 09/25/2014 MARTÍN WORTHINGTON, CARLOS Chacon Ot V15.82 HISTORY OF TOBACCO USE 09/25/2014 CARLOS RESENDIZ MD Ot V58.69 OTH MED,LT,CURRENT USE 09/25/2014 CARLOS RESENDIZ MD Ot V85.35 BODY MASS INDEX 35.0-35.9, ADULT 09/26/2014 JOVI COLBY DOQUELINE S Ot 785.2 09/26/2014 JOVI COLBY DOQUELINE S Ot 786.09 06/22/2015 IRA SALMERON DO Ot B02.9 ZOSTER WITHOUT COMPLICATIONS 06/22/2015 IRA SALMERON DO Ot F17.211 NICOTINE DEPENDENCE, CIGARETTES, IN KEVEN 06/22/2015 IRA SALMERON DO Ot J44.9 CHRONIC OBSTRUCTIVE PULMONARY DISEASE, U 06/22/2015 IRA SALMERON DO Ot Z79.899 OTHER CERAMIC RESTORER (CURRENT) DRUG THERAPY 10/26/2015 YARONNDJOVI HARRIS DOQUELINE S Ot G47.33 OBSTRUCTIVE SLEEP APNEA (ADULT) (PEDIATR 10/26/2015 YARONNDJOVI HARRIS DOQUELINE S Ot G47.61 PERIODIC LIMB MOVEMENT DISORDER 10/30/2015 YARONNDKIMBERLY MARTINEZ ISIS S Ot G47.33 10/30/2015 YARONNDKIMBERLY MARTINEZ ISIS S Ot G47.61 02/05/2016 YARONNDJOVI HARRIS DOQUELINE S Ot E03.9 HYPOTHYROIDISM, UNSPECIFIED 02/05/2016 YARONNDER DO ISIS S Ot 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 02/05/2016 YARONNDKIMBERLY MARTINEZ ISIS S Ot F42 OBSESSIVE-COMPULSIVE DISORDER 02/05/2016 YARONNDKIMBERLY MARTINEZ ISIS S Ot I25.10 ATHSCL HEART DISEASE OF [place] CORONARY 02/05/2016 YARONNDKIMBERLY MARTINEZ ISIS S Ot I27.2 OTHER SECONDARY PULMONARY HYPERTENSION 02/05/2016 JOVI COLBY DOQUELINE S Ot J18.9 PNEUMONIA, UNSPECIFIED ORGANISM 02/05/2016 YARONNDER DO, ISIS S Ot J44.9 CHRONIC OBSTRUCTIVE PULMONARY DISEASE, U 02/05/2016 AMA COLBY DOLINE S Ot K21.9 GASTRO-ESOPHAGEAL REFLUX DISEASE WITHOUT 03/29/2016 Ot V76.12 OTH SCREEN MAMMO- MALIGN NEOPLASM OF [place] 03/29/2016 Ot 737.30 IDIOPATHIC SCOLIOSIS 03/29/2016 Ot 786.09 RESPIRATORY ABNORM NEC 03/29/2016 Ot 793.19 OTHER NONSPECIFIC ABNORMAL FINDING OF [place] 03/29/2016 Ot 786.2 COUGH 03/29/2016 Ot V12.61 PERSONAL HISTORY, PNEUMONIA (RECURRENT) 03/29/2016 Ot 443.9 PERIPH VASCULAR DIS NOS 03/29/2016 Ot 781.3 LACK OF COORDINATION 03/29/2016 Ot 781.99 NERV/MUSCULOSKEL SYS SYMP NEC 03/29/2016 Ot V81.5 SCREEN FOR NEPHROPATHY 03/29/2016 Ot 733.90 BONE CARTILAGE DIS NOS 03/29/2016 Ot 496 CHR AIRWAY OBSTRUCT NEC 03/29/2016 Ot 780.60 FEVER, UNSPECIFIED 03/29/2016 Ot 786.2 COUGH 03/29/2016 ALFREDO MARTINEZ ISIS S Ot V76.12 OTH SCREEN MAMMO-MALIGN NEOPLASM OF [place] 03/29/2016 AMA COLBY DOLINE S Ot 397.0 TRICUSPID VALVE DISEASE 03/29/2016 ALFREDO ISIS S Ot 424.0 MITRAL VALVE DISORDER 03/29/2016 ALFREDO ISIS S Ot 785.2 CARDIAC MURMURS NEC 03/29/2016 ALFREDO MARTINEZ ISIS S Ot V76.12 OTH SCREEN MAMMO-MALIGN NEOPLASM OF [place] 03/29/2016 PEDROKIMBERLY ISIS S Ot 496 CHR AIRWAY OBSTRUCT NEC 03/29/2016 YARONLUZMARIAKIMBERLY MARTINEZ ISIS S Ot 786.09 RESPIRATORY ABNORM NEC 03/29/2016 ALFREDO MARTINEZ ISIS S Ot 785.2 CARDIAC MURMURS NEC 03/29/2016 YARONNDKIMBERLY MARTINEZ ISIS S Ot 786.09 RESPIRATORY ABNORM NEC 03/29/2016 MARTÍN WORTHINGTON, CARLOS Chacon Ot 272.4 HYPERLIPIDEMIA NEC/NOS 03/29/2016 CARLOS RESENDIZ MD Ot 785.2 CARDIAC MURMURS NEC 03/29/2016 CARLOS RESENDIZ MD Ot 786.05 SHORTNESS OF BREATH 03/29/2016 MARTÍN WORTHINGTON, CARLOS Chacon Ot 786.50 CHEST PAIN NOS 04/19/2016 ORENDER DO, ISIS S Ot R06.00 DYSPNEA, UNSPECIFIED 04/19/2016 ORENDER DO, ISIS S Ot R50.9 FEVER, UNSPECIFIED 04/19/2016 ORENDER DO, ISIS S Ot R06.00 DYSPNEA, UNSPECIFIED 04/19/2016 ORENDER DO, ISIS S Ot R50.9 FEVER, UNSPECIFIED 04/23/2016 ORENDER DO, ISIS S Ot R06.00 DYSPNEA, UNSPECIFIED 04/23/2016 ORENDER DO, ISIS S Ot R50.9 FEVER, UNSPECIFIED 04/26/2016 ORENDER DO, ISIS S Ot R06.00 DYSPNEA, UNSPECIFIED 04/26/2016 ORENDER DO, ISIS S Ot R50.9 FEVER, UNSPECIFIED 05/04/2016 Ot 737.30 IDIOPATHIC SCOLIOSIS 05/04/2016 Ot 786.09 RESPIRATORY ABNORM NEC 05/04/2016 Ot 793.19 OTHER NONSPECIFIC ABNORMAL FINDING OF [place] 05/04/2016 Ot 786.2 COUGH 05/04/2016 Ot V12.61 PERSONAL HISTORY, PNEUMONIA (RECURRENT) 05/04/2016 Ot 443.9 PERIPH VASCULAR DIS NOS 05/04/2016 Ot 781.3 LACK OF COORDINATION 05/04/2016 Ot 781.99 NERV/MUSCULOSKEL SYS SYMP NEC 05/04/2016 Ot V81.5 SCREEN FOR NEPHROPATHY 05/04/2016 Ot 733.90 BONE CARTILAGE DIS NOS 05/04/2016 Ot 496 CHR AIRWAY OBSTRUCT NEC 05/04/2016 Ot 780.60 FEVER, UNSPECIFIED 05/04/2016 Ot 786.2 COUGH 05/04/2016 YARONNDER DO, ISIS S Ot V76.12 OTH SCREEN MAMMO-MALIGN NEOPLASM OF [place] 05/04/2016 YARONNDER DO, ISIS S Ot 397.0 TRICUSPID VALVE DISEASE 05/04/2016 YARONNDER DO, ISIS S Ot 424.0 MITRAL VALVE DISORDER 05/04/2016 YARONNDER DO, ISIS S Ot 785.2 CARDIAC MURMURS NEC 05/04/2016 YARONNDER DO, ISIS S Ot V76.12 OTH SCREEN MAMMO-MALIGN NEOPLASM OF [place] 05/04/2016 YARONNDKIMBERLY MARTINEZ, ISIS S Ot 496 CHR AIRWAY OBSTRUCT NEC 05/04/2016 ALFREDO MARTINEZ, ISIS S Ot 786.09 RESPIRATORY ABNORM NEC 05/04/2016 YARONNDER , ISIS S Ot 785.2 CARDIAC MURMURS NEC 05/04/2016 YARONNDKIMBERLY MARTINEZ, ISIS S Ot 786.09 RESPIRATORY ABNORM NEC 05/04/2016 MARTÍN WORTHINGTON, CARLOS Chacon Ot 272.4 HYPERLIPIDEMIA NEC/NOS 05/04/2016 MARTÍN WORTHINGTON, CARLOS Chacon Ot 785.2 CARDIAC MURMURS NEC 05/04/2016 MARTÍN WORTHINGTON, CARLOS Chacon Ot 786.05 SHORTNESS OF BREATH 05/04/2016 MARTÍN WORTHINGTON, CARLOS Chacon Ot 786.50 CHEST PAIN NOS 05/04/2016 YARONNDER DO ISIS S Ot R06.00 DYSPNEA, UNSPECIFIED 05/04/2016 YARONNDER DO, ISIS S Ot R50.9 FEVER, UNSPECIFIED 05/04/2016 YARONNDER DO, ISIS S Ot R06.00 DYSPNEA, UNSPECIFIED 05/04/2016 ORENDER DO, ISIS S Ot R50.9 FEVER, UNSPECIFIED 05/10/2016 ORENDER DO, ISIS S Ot R06.00 DYSPNEA, UNSPECIFIED 05/10/2016 ORENDER DO, ISIS S Ot R50.9 FEVER, UNSPECIFIED 05/11/2016 ORENDER DO, ISIS S Ot I27.2 OTHER SECONDARY PULMONARY HYPERTENSION 05/11/2016 YARONNDER DO ISIS S Ot J44.9 CHRONIC OBSTRUCTIVE PULMONARY DISEASE, U 05/13/2016 YARONNDER DO, ISIS S Ot N64.4 MASTODYNIA 05/13/2016 ORENDER DO, ISIS S Ot R06.00 DYSPNEA, UNSPECIFIED 05/13/2016 ORENDER DO, ISIS S Ot R50.9 FEVER, UNSPECIFIED 06/10/2016 Ot 737.30 IDIOPATHIC SCOLIOSIS 06/10/2016 Ot 786.09 RESPIRATORY ABNORM NEC 06/10/2016 Ot 793.19 OTHER NONSPECIFIC ABNORMAL FINDING OF [place] 06/10/2016 Ot 786.2 COUGH 06/10/2016 Ot V12.61 PERSONAL HISTORY, PNEUMONIA (RECURRENT) 06/10/2016 Ot 443.9 PERIPH VASCULAR DIS NOS 06/10/2016 Ot 781.3 LACK OF COORDINATION 06/10/2016 Ot 781.99 NERV/MUSCULOSKEL SYS SYMP NEC 06/10/2016 Ot V81.5 SCREEN FOR NEPHROPATHY 06/10/2016 Ot 733.90 BONE CARTILAGE DIS NOS 06/10/2016 Ot 496 CHR AIRWAY OBSTRUCT NEC 06/10/2016 Ot 780.60 FEVER, UNSPECIFIED 06/10/2016 Ot 786.2 COUGH 06/10/2016 YARONNDKIMBERLY DO, ISIS S Ot V76.12 OTH SCREEN MAMMO-MALIGN NEOPLASM OF [place] 06/10/2016 YARONNDER DO ISIS S Ot 397.0 TRICUSPID VALVE DISEASE 06/10/2016 ALFREDO DO, ISIS S Ot 424.0 MITRAL VALVE DISORDER 06/10/2016 YARONNDKIMBERLY DO, ISIS S Ot 785.2 CARDIAC MURMURS NEC 06/10/2016 JOVI COLBY DOQUELINE S Ot V76.12 OTH SCREEN MAMMO-MALIGN NEOPLASM OF [place] 06/10/2016 YARONNDER DO, ISIS S Ot 496 CHR AIRWAY OBSTRUCT NEC 06/10/2016 YARONNDJOVI HARRIS DOQUELINE S Ot 786.09 RESPIRATORY ABNORM NEC 06/10/2016 ALFREDO MARTINEZ ISIS S Ot 785.2 CARDIAC MURMURS NEC 06/10/2016 ALFREDO MARTINEZ ISIS S Ot 786.09 RESPIRATORY ABNORM NEC 06/10/2016 CARLOS RESENDIZ MD Ot 272.4 HYPERLIPIDEMIA NEC/NOS 06/10/2016 CARLOS RESENDIZ MD Ot 785.2 CARDIAC MURMURS NEC 06/10/2016 CARLOS RESENDIZ MD Ot 786.05 SHORTNESS OF BREATH 06/10/2016 CARLOS RESENDIZ MD Ot 786.50 CHEST PAIN NOS 06/10/2016 YARONNDKIMBERLY MARTINEZ ISIS S Ot 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 OTHER SECONDARY PULMONARY HYPERTENSION 06/10/2016 ALFREDO DO ISIS S Ot J44.9 CHRONIC OBSTRUCTIVE PULMONARY DISEASE, U 06/10/2016 YARONNDKIMBERLY MARTINEZ ISIS S Ot R06.00 DYSPNEA, UNSPECIFIED 06/10/2016 ALFREDO MARTINEZ ISIS S Ot R50.9 FEVER, UNSPECIFIED 06/10/2016 AMA CLOBY DOLINE S Ot N64.4 MASTODYNIA 06/10/2016 AMA COLBY DOLINE S Ot R06.00 DYSPNEA, UNSPECIFIED 06/10/2016 AMA COLBY DOLINE S Ot R50.9 FEVER, UNSPECIFIED 06/10/2016 ISIS COLBY DO S Ot M85.89 OTH DISRD OF BONE DENSITY AND STRUCTURE, 06/11/2016 Ot 737.30 IDIOPATHIC SCOLIOSIS 06/11/2016 Ot 786.09 RESPIRATORY ABNORM NEC 06/11/2016 Ot 793.19 OTHER NONSPECIFIC ABNORMAL FINDING OF [place] 06/11/2016 Ot 786.2 COUGH 06/11/2016 Ot V12.61 PERSONAL HISTORY, PNEUMONIA (RECURRENT) 06/11/2016 Ot 443.9 PERIPH VASCULAR DIS NOS 06/11/2016 Ot 781.3 LACK OF COORDINATION 06/11/2016 Ot 781.99 NERV/MUSCULOSKEL SYS SYMP NEC 06/11/2016 Ot V81.5 SCREEN FOR NEPHROPATHY 06/11/2016 Ot 733.90 BONE CARTILAGE DIS NOS 06/11/2016 Ot 496 CHR AIRWAY OBSTRUCT NEC 06/11/2016 Ot 780.60 FEVER, UNSPECIFIED 06/11/2016 Ot 786.2 COUGH 06/11/2016 AMA COLBY DOLINE S Ot V76.12 OTH SCREEN MAMMO-MALIGN NEOPLASM OF [place] 06/11/2016 ALFREDO MARTINEZ ISIS S Ot 397.0 TRICUSPID VALVE DISEASE 06/11/2016 PEDROKIMBERLY ISIS S Ot 424.0 MITRAL VALVE DISORDER 06/11/2016 ALFREDO MARTINEZ ISIS S Ot 785.2 CARDIAC MURMURS NEC 06/11/2016 ALFREDO MARTINEZ ISIS S Ot V76.12 OTH SCREEN MAMMO-MALIGN NEOPLASM OF [place] 06/11/2016 YARONNDER AMA MARTINEZLINE S Ot 496 CHR AIRWAY OBSTRUCT NEC 06/11/2016 YARONNDKIMBERLY MARTINEZ ISIS S Ot 786.09 RESPIRATORY ABNORM NEC 06/11/2016 ALFREDO MARTINEZ ISIS S Ot 785.2 CARDIAC MURMURS NEC 06/11/2016 YARONNDKIMBERLY MARTINEZ ISIS S Ot 786.09 RESPIRATORY ABNORM NEC 06/11/2016 MARTÍN WORTHINGTON, CARLOS Chacon Ot 272.4 HYPERLIPIDEMIA NEC/NOS 06/11/2016 CARLOS RESENDIZ MD Ot 785.2 CARDIAC MURMURS NEC 06/11/2016 CARLOS RESENDIZ MD Ot 786.05 SHORTNESS OF BREATH 06/11/2016 CARLOS RESENDIZ MD Ot 786.50 CHEST PAIN NOS 06/11/2016 ORENDER DO, ISIS S Ot I27.2 OTHER SECONDARY PULMONARY HYPERTENSION 06/11/2016 ORENDER DO, ISIS S Ot J44.9 CHRONIC OBSTRUCTIVE PULMONARY DISEASE, U 06/11/2016 ORENDER DO, ISSI S Ot R06.00 DYSPNEA, UNSPECIFIED 06/11/2016 ORENDER DO, ISIS S Ot R50.9 FEVER, UNSPECIFIED 06/11/2016 ORENDER DO, ISIS S Ot N64.4 MASTODYNIA 06/11/2016 ORENDER DO, ISIS S Ot R06.00 DYSPNEA, UNSPECIFIED 06/11/2016 ORENDER DO, ISIS S Ot R50.9 FEVER, UNSPECIFIED 06/11/2016 ORENDER DO, ISIS S Ot M85.89 OTH DISRD OF BONE DENSITY AND STRUCTURE, 06/29/2016 ORENDER DO, ISIS S Ot I27.2 OTHER SECONDARY PULMONARY HYPERTENSION 06/29/2016 ORENDER DO, ISIS S Ot J44.9 CHRONIC OBSTRUCTIVE PULMONARY DISEASE, U 06/30/2016 ORENDER DO, ISIS S Ot M85.80 OTH DISRD OF BONE DENSITY AND STRUCTURE, 07/05/2016 ORENDER DO, ISIS S Ot I27.2 OTHER SECONDARY PULMONARY HYPERTENSION 07/05/2016 ORENDER DO, ISIS S Ot J44.9 CHRONIC OBSTRUCTIVE PULMONARY DISEASE, U 07/13/2016 ORENDER DO, ISIS S Ot M81.0 AGE-RELATED OSTEOPOROSIS W/O CURRENT PAT 07/16/2016 ORENDER DO, ISIS S Ot M81.0 AGE-RELATED OSTEOPOROSIS W/O CURRENT PAT 07/16/2016 ORENDER DO, ISIS S Ot N64.4 MASTODYNIA 08/05/2016 ORENDER DO, ISIS S Ot M81.0 AGE-RELATED OSTEOPOROSIS W/O CURRENT PAT 08/05/2016 ORENDER DO, ISIS S Ot M81.0 AGE-RELATED OSTEOPOROSIS W/O CURRENT PAT 08/08/2016 ORENDER DO, ISIS S Ot I27.2 OTHER SECONDARY PULMONARY HYPERTENSION 08/08/2016 ORENDER DO, ISIS S Ot J44.9 CHRONIC OBSTRUCTIVE PULMONARY DISEASE, U 08/12/2016 ORENDER DO, ISIS S Ot R59.0 LOCALIZED ENLARGED LYMPH NODES 09/08/2016 ORENDER DO, ISIS S Ot R59.0 LOCALIZED ENLARGED LYMPH NODES 09/08/2016 ORENDER DO, ISIS S Ot R05 COUGH 09/08/2016 ORENDER DO, ISIS S Ot R06.00 DYSPNEA, UNSPECIFIED 09/09/2016 ORENDER DO, ISIS S Ot R59.0 LOCALIZED ENLARGED LYMPH NODES 09/29/2016 ORENDER DO, ISIS S Ot R05 COUGH 09/29/2016 ORENDER DO, ISIS S Ot R06.00 DYSPNEA, UNSPECIFIED 10/04/2016 ORENDER DO, ISIS S Ot R05 COUGH 10/04/2016 ORENDER DO, ISIS S Ot R06.00 DYSPNEA, UNSPECIFIED 10/05/2016 ORENDER DO, ISIS S Ot I27.2 OTHER SECONDARY PULMONARY HYPERTENSION 10/05/2016 ORENDER DO, ISIS S Ot J44.9 CHRONIC OBSTRUCTIVE PULMONARY DISEASE, U 10/06/2016 ORENDER DO, ISIS S Ot I27.2 OTHER SECONDARY PULMONARY HYPERTENSION 10/06/2016 ORENDER DO, ISIS S Ot J44.9 CHRONIC OBSTRUCTIVE PULMONARY DISEASE, U 10/28/2016 ORENDER DO, ISIS S Ot I27.2 OTHER SECONDARY PULMONARY HYPERTENSION 10/28/2016 ORENDER DO, ISIS S Ot J44.9 CHRONIC OBSTRUCTIVE PULMONARY DISEASE, U 11/01/2016 ORENDER DO, ISIS S Ot I27.2 OTHER SECONDARY PULMONARY HYPERTENSION 11/01/2016 ORENDER DO, ISIS S Ot J44.9 CHRONIC OBSTRUCTIVE PULMONARY DISEASE, U 01/03/2017 ORENDER DO, ISIS S Ot I27.2 OTHER SECONDARY PULMONARY HYPERTENSION 01/03/2017 ORENDER DO, ISIS S Ot J44.9 CHRONIC OBSTRUCTIVE PULMONARY DISEASE, U 02/02/2017 ORENDER DO, ISIS S Ot J44.1 CHRONIC OBSTRUCTIVE PULMONARY DISEASE W 02/28/2017 ORENDER DO, ISIS S Ot J44.1 CHRONIC OBSTRUCTIVE PULMONARY DISEASE W 03/04/2017 ORENDER DO, ISIS S Ot J44.1 CHRONIC OBSTRUCTIVE PULMONARY DISEASE W 04/14/2017 ORENDER DO, ISIS S Ot J44.1 CHRONIC OBSTRUCTIVE PULMONARY DISEASE W 05/01/2017 ORENDER DO, ISIS S Ot J44.1 CHRONIC OBSTRUCTIVE PULMONARY DISEASE W 05/06/2017 ORENDER DO, ISIS S Ot J44.1 CHRONIC OBSTRUCTIVE PULMONARY DISEASE W 05/07/2017 ORENDER DO, ISIS S Ot J44.1 CHRONIC OBSTRUCTIVE PULMONARY DISEASE W 05/10/2017 ORENDER DO, ISIS S Ot J44.1 CHRONIC OBSTRUCTIVE PULMONARY DISEASE W 05/11/2017 ORENDER DO, ISIS S Ot J44.1 CHRONIC OBSTRUCTIVE PULMONARY DISEASE W 06/15/2017 ORENDER DO, ISIS S Ot J44.1 CHRONIC OBSTRUCTIVE PULMONARY DISEASE W 07/05/2017 ORENDER DO, ISIS S Ot J44.1 CHRONIC OBSTRUCTIVE PULMONARY DISEASE W 07/08/2017 ORENDER DO, ISIS S Ot J44.1 CHRONIC OBSTRUCTIVE PULMONARY DISEASE W 08/08/2017 ORENDER DO, ISIS S Ot J44.1 CHRONIC OBSTRUCTIVE PULMONARY DISEASE W 08/11/2017 ORENDER DO, ISIS S Ot J44.1 CHRONIC OBSTRUCTIVE PULMONARY DISEASE W 08/12/2017 ORENDER DO, ISIS S Ot J44.1 CHRONIC OBSTRUCTIVE PULMONARY DISEASE W 09/30/2017 ORENDER DO, ISIS S Ot J44.1 CHRONIC OBSTRUCTIVE PULMONARY DISEASE W 11/02/2017 ORENDER DO, ISIS S Ot J44.1 CHRONIC OBSTRUCTIVE PULMONARY DISEASE W 11/09/2017 ORENDER DO, ISIS S Ot J44.1 CHRONIC OBSTRUCTIVE PULMONARY DISEASE W 11/10/2017 ORENDER DO, ISIS S Ot J44.1 CHRONIC OBSTRUCTIVE PULMONARY DISEASE W 06/13/2018 ORENDER DO, ISIS S Ot I27.2 OTHER SECONDARY PULMONARY HYPERTENSION 06/13/2018 ORENDER DO, ISIS S Ot J44.9 CHRONIC OBSTRUCTIVE PULMONARY DISEASE, U 06/13/2018 YARONNDER DO, ISIS S Ot J44.1 CHRONIC OBSTRUCTIVE PULMONARY DISEASE W 06/13/2018 SONIA WORTHINGTON, GEMMA Lee Ot Z01.818 ENCOUNTER FOR OTHER PREPROCEDURAL EXAMIN 06/14/2018 ORENDER DO, ISIS S Ot V76.12 OTH SCREEN MAMMO-MALIGN NEOPLASM OF [place] 06/14/2018 ORENDER DO, ISIS S Ot 397.0 TRICUSPID VALVE DISEASE 06/14/2018 ORENDER DO, ISIS S Ot 424.0 MITRAL VALVE DISORDER 06/14/2018 ORENDER DO, ISIS S Ot 785.2 CARDIAC MURMURS NEC 06/14/2018 ORENDER DO, ISIS S Ot V76.12 OTH SCREEN MAMMO-MALIGN NEOPLASM OF [place] 06/14/2018 ORENDER DO, ISIS S Ot 496 CHR AIRWAY OBSTRUCT NEC 06/14/2018 ORENDER DO, ISIS S Ot 786.09 RESPIRATORY ABNORM NEC 06/14/2018 ORENDER DO, ISIS S Ot 785.2 CARDIAC MURMURS NEC 06/14/2018 ORENDER DO, ISIS S Ot 786.09 RESPIRATORY ABNORM NEC 06/14/2018 MARTÍN WORTHINGTON, CARLOS Chacon Ot 272.4 HYPERLIPIDEMIA NEC/NOS 06/14/2018 MARTÍN WORTHINGTON, CARLOS Chacon Ot 785.2 CARDIAC MURMURS NEC 06/14/2018 MARTÍN WORTHINGTON, CARLOS Chacon Ot 786.05 SHORTNESS OF BREATH 06/14/2018 MARTÍN WORTHINGTON, CARLOS Chacon Ot 786.50 CHEST PAIN NOS 06/14/2018 ORENDER DO, ISIS S Ot R06.00 DYSPNEA, UNSPECIFIED 06/14/2018 ORENDER DO, ISIS S Ot R50.9 FEVER, UNSPECIFIED 06/14/2018 ORENDER DO, ISIS S Ot N64.4 MASTODYNIA 06/14/2018 ORENDER DO, ISIS S Ot R06.00 DYSPNEA, UNSPECIFIED 06/14/2018 ORENDER DO, ISIS S Ot R50.9 FEVER, UNSPECIFIED 06/14/2018 ORENDER DO, ISIS S Ot M85.80 OTH DISRD OF BONE DENSITY AND STRUCTURE, 06/14/2018 ORENDER DO, ISIS S Ot M81.0 AGE-RELATED OSTEOPOROSIS W/O CURRENT PAT 06/14/2018 YARONNDER DO, ISIS S Ot R59.0 LOCALIZED ENLARGED LYMPH NODES 06/14/2018 YARONNDER DO, ISIS S Ot R05 COUGH 06/14/2018 ORENDER DO, ISIS S Ot R06.00 DYSPNEA, UNSPECIFIED 06/14/2018 ORENDER DO, ISIS S Ot I27.2 OTHER SECONDARY PULMONARY HYPERTENSION 06/14/2018 YARONNDER DO, ISIS S Ot J44.9 CHRONIC OBSTRUCTIVE PULMONARY DISEASE, U 06/14/2018 ORENDER DO, ISIS S Ot J44.1 CHRONIC OBSTRUCTIVE PULMONARY DISEASE W 06/16/2018 GEMMA SCOTT MD, Ot E03.9 HYPOTHYROIDISM, UNSPECIFIED 06/16/2018 GEMMA SCOTT MD, Ot F32.9 MAJOR DEPRESSIVE DISORDER, SINGLE EPISOD 06/16/2018 GEMMA SCOTT MD, Ot F41.9 ANXIETY DISORDER, UNSPECIFIED 06/16/2018 GEMMA SCOTT MD, Ot F43.10 POST-TRAUMATIC STRESS DISORDER, UNSPECIF 06/16/2018 GEMMA SCOTT MD, Ot G47.33 OBSTRUCTIVE SLEEP APNEA (ADULT) (PEDIATR 06/16/2018 GEMMA SCOTT MD, Ot G62.9 POLYNEUROPATHY, UNSPECIFIED 06/16/2018 GEMMA SCOTT MD, Ot H25.11 AGE-RELATED NUCLEAR CATARACT, RIGHT EYE 06/16/2018 GEMMA SCOTT MD, Ot I50.9 HEART FAILURE, UNSPECIFIED 06/16/2018 GEMMA SCOTT MD, Ot K21.9 GASTRO-ESOPHAGEAL REFLUX DISEASE WITHOUT 06/16/2018 GEMMA SCOTT MD, Ot Z79.82 CERAMIC RESTORER (CURRENT) USE OF ASPIRIN 06/16/2018 GEMMA SCOTT MD, Ot Z79.899 OTHER ALF (CURRENT) DRUG THERAPY 06/16/2018 GEMMA SCOTT MD, Ot Z87.891 PERSONAL HISTORY OF NICOTINE DEPENDENCE 06/16/2018 GEMMA SCOTT MD, Ot Z96.659 PRESENCE OF UNSPECIFIED ARTIFICIAL KNEE 06/20/2018 GEMMA SCOTT MD, Ot E03.9 HYPOTHYROIDISM, UNSPECIFIED 06/20/2018 GEMMA SCOTT MD Ot F32.9 MAJOR DEPRESSIVE DISORDER, SINGLE EPISOD 06/20/2018 GEMMA SCOTT MD, Ot F41.9 ANXIETY DISORDER, UNSPECIFIED 06/20/2018 GEMMA SCOTT MD Ot F43.10 POST-TRAUMATIC STRESS DISORDER, UNSPECIF 06/20/2018 GEMMA SCOTT MD Ot G47.33 OBSTRUCTIVE SLEEP APNEA (ADULT) (PEDIATR 06/20/2018 GEMMA SCOTT MD Ot G62.9 POLYNEUROPATHY, UNSPECIFIED 06/20/2018 GEMMA SCOTT MD Ot H25.11 AGE-RELATED NUCLEAR CATARACT, RIGHT EYE 06/20/2018 GEMMA SCOTT MD Ot I50.9 HEART FAILURE, UNSPECIFIED 06/20/2018 GEMMA SCOTT MD, Ot K21.9 GASTRO-ESOPHAGEAL REFLUX DISEASE WITHOUT 06/20/2018 GEMMA SCOTT MD Ot Z79.82 CERAMIC RESTORER (CURRENT) USE OF ASPIRIN 06/20/2018 GEMMA SCOTT MD Ot Z79.899 OTHER CERAMIC RESTORER (CURRENT) DRUG THERAPY 06/20/2018 GEMMA SCOTT MD Ot Z87.891 PERSONAL HISTORY OF NICOTINE DEPENDENCE 06/20/2018 GEMMA SCOTT MD Ot Z96.659 PRESENCE OF UNSPECIFIED ARTIFICIAL KNEE 07/04/2018 GEMMA SCOTT MD Ot Z01.818 ENCOUNTER FOR OTHER PREPROCEDURAL EXAMIN 07/05/2018 GEMMA SCOTT MD Ot E03.9 HYPOTHYROIDISM, UNSPECIFIED 07/05/2018 GEMMA SCOTT MD Ot F32.9 MAJOR DEPRESSIVE DISORDER, SINGLE EPISOD 07/05/2018 GEMMA SCOTT MD, Ot F41.9 ANXIETY DISORDER, UNSPECIFIED 07/05/2018 GEMMA SCOTT MD Ot F43.10 POST-TRAUMATIC STRESS DISORDER, UNSPECIF 07/05/2018 GEMAM SCOTT MD Ot G62.9 POLYNEUROPATHY, UNSPECIFIED 07/05/2018 GEMMA SCOTT MD Ot H25.12 AGE-RELATED NUCLEAR CATARACT, LEFT EYE 07/05/2018 GEMMA SCOTT MD Ot I27.20 PULMONARY HYPERTENSION, UNSPECIFIED 07/05/2018 GEMMA SCOTT MD, Ot I50.9 HEART FAILURE, UNSPECIFIED 07/05/2018 GEMAM SCOTT MD, Ot J43.9 EMPHYSEMA, UNSPECIFIED 07/05/2018 GEMMA SCOTT MD, Ot K21.9 GASTRO-ESOPHAGEAL REFLUX DISEASE WITHOUT 07/05/2018 GEMMA SCOTT MD, Ot Z79.82 CERAMIC RESTORER (CURRENT) USE OF ASPIRIN 07/05/2018 GEMMA SCOTT MD Ot Z79.899 OTHER CERAMIC RESTORER (CURRENT) DRUG THERAPY 07/05/2018 GEMMA SCOTT MD, Ot Z80.1 FAMILY HISTORY OF MALIG NEOPLASM OF TRAC 07/05/2018 GEMMA SCOTT MD, Ot Z87.891 PERSONAL HISTORY OF NICOTINE DEPENDENCE 07/05/2018 GEMMA SCOTT MD Ot Z96.652 PRESENCE OF LEFT ARTIFICIAL KNEE JOINT 07/05/2018 GEMMA SCOTT MD Ot Z99.81 DEPENDENCE ON SUPPLEMENTAL OXYGEN 07/06/2018 GEMMA SCOTT MD Ot E03.9 HYPOTHYROIDISM, UNSPECIFIED 07/06/2018 GEMMA SCOTT MD Ot F32.9 MAJOR DEPRESSIVE DISORDER, SINGLE EPISOD 07/06/2018 GEMMA SCOTT MD, Ot F41.9 ANXIETY DISORDER, UNSPECIFIED 07/06/2018 GEMMA SCOTT MD, Ot F43.10 POST-TRAUMATIC STRESS DISORDER, UNSPECIF 07/06/2018 GEMMA SCOTT MD Ot G62.9 POLYNEUROPATHY, UNSPECIFIED 07/06/2018 GEMMA SCOTT MD Ot H25.12 AGE-RELATED NUCLEAR CATARACT, LEFT EYE 07/06/2018 GEMMA SCOTT MD Ot I27.20 PULMONARY HYPERTENSION, UNSPECIFIED 07/06/2018 GEMMA SCOTT MD Ot I50.9 HEART FAILURE, UNSPECIFIED 07/06/2018 GEMMA SCOTT MD, Ot J43.9 EMPHYSEMA, UNSPECIFIED 07/06/2018 GEMMA SCOTT MD, Ot K21.9 GASTRO-ESOPHAGEAL REFLUX DISEASE WITHOUT 07/06/2018 GEMMA SCOTT MD, Ot Z79.82 CERAMIC RESTORER (CURRENT) USE OF ASPIRIN 07/06/2018 GEMMA SCOTT MD Ot Z79.899 OTHER CERAMIC RESTORER (CURRENT) DRUG THERAPY 07/06/2018 GEMMA SCOTT MD Ot Z80.1 FAMILY HISTORY OF MALIG NEOPLASM OF TRAC 07/06/2018 GEMMA SCOTT MD Ot Z87.891 PERSONAL HISTORY OF NICOTINE DEPENDENCE 07/06/2018 GEMMA SCOTT MD Ot Z96.652 PRESENCE OF LEFT ARTIFICIAL KNEE JOINT 07/06/2018 GEMMA SCOTT MD Ot Z99.81 DEPENDENCE ON SUPPLEMENTAL OXYGEN Procedures There is no data. Results Test Result Range Complete blood count (CBC) with automated white blood cell (WBC) differential - 03/29/16 13:19 Blood leukocytes automated count (number/volume) 6.9 10*3/uL 4.3-11.0 Blood erythrocytes automated count (number/volume) 4.56 10*6/uL 4.35-5.85 Venous blood hemoglobin measurement (mass/volume) 12.5 g/dL 11.5-16.0 Blood hematocrit (volume fraction) 39 % 35-52 Automated erythrocyte mean corpuscular volume 86 [foz_us] 80-99 Automated erythrocyte mean corpuscular hemoglobin (mass per erythrocyte) 27 pg 25-34 Automated erythrocyte mean corpuscular hemoglobin concentration measurement (mass/volume) 32 g/dL 32-36 Automated erythrocyte distribution width ratio 14.7 % 10.0- 14.5 Automated blood platelet count (count/volume) 238 10*3/uL 130-400 Automated blood platelet mean volume measurement 9.4 [foz_us] 7.4-10.4 Automated blood neutrophils/100 leukocytes 67 % 42-75 Automated blood lymphocytes/100 leukocytes 20 % 12-44 Blood monocytes/100 leukocytes 13 % 0-12 Automated blood eosinophils/100 leukocytes 0 % 0-10 Automated blood basophils/100 leukocytes 0 % 0-10 Blood neutrophils automated count (number/volume) 4.6 10*3 1.8-7.8 Blood lymphocytes automated count (number/volume) 1.4 10*3 1.0-4.0 Blood monocytes automated count (number/volume) 0.9 10*3 0.0- 1.0 Automated eosinophil count 0.0 10*3/uL 0.0-0.3 Automated blood basophil count (count/volume) 0.0 10*3/uL 0.0-0.1 Encounters ACCT No. Visit Date/Time Discharge Status Pt. Type Provider Facility Loc./Unit Complaint 05/201801/17/2019 08:50:38 01/17/2019 23:59:59 CLS Outpatient Isis Colby S. [id number] 07/05/2018 07:34:00 07/05/2018 09:10:00 DIS Outpatient GEMMA SCOTT MD [facility] CATARACT LEFT EYE [id number] 07/04/2018 05:37:00 07/04/2018 09:42:00 DIS Outpatient GEMMA SCOTT MD [facility] PREOP CATARACT LEFT [id number] 06/16/2018 08:31:00 06/16/2018 09:47:00 DIS Outpatient GEMMA SCOTT MD [facility] CATARACT RIGHT EYE [id number] 06/12/2018 06:46:00 06/13/2018 15:05:00 DIS Outpatient GEMMA SCOTT MD [facility] PREOP CATARACT RIGHT EYE [id number] 11/10/2017 13:00:00 11/10/2017 23:59:59 CLS Preadmit ORENDER DO ISIS S [facility] PUL COPD [id number] 10/11/2017 10:00:00 11/09/2017 00:01:00 DIS Outpatient ORENDER DO ISIS S [facility] PUL COPD [id number] 08/29/2017 16:28:00 08/29/2017 23:59:59 CLS Preadmit ORENDER DO, ISIS S [facility] M85.89 [id number] 07/26/2017 09:00:00 08/08/2017 00:01:00 DIS Outpatient ORENDER DO ISIS S [facility] PUL COPD [id number] 05/05/2017 09:54:00 05/07/2017 00:01:00 DIS Outpatient ORENDER DO ISIS S [facility] PUL COPD [id number] 04/26/2017 09:00:00 05/01/2017 00:01:00 DIS Outpatient ORENDER DO, ISIS S [facility] PULM COPD [id number] 01/04/2017 15:00:00 01/04/2017 23:59:59 CLS Preadmit YARONNDER DO, ISIS S [facility] PUL COPD, PULMONARY HYPERTENSION [id number] 10/07/2016 08:00:00 01/03/2017 00:01:00 DIS Outpatient ORENDER DO ISIS S [facility] PUL COPD, PULMONARY HYPERTENSION [id number] 09/07/2016 12:23:00 09/07/2016 23:59:59 CLS Outpatient ORENDER DO ISIS S [facility] RAD COUGH,DYSPNEA [id number] 08/11/2016 11:11:00 08/11/2016 23:59:59 CLS Outpatient ORENDER DO ISIS S [facility] RAD RT AXILLA LYMPH NODE [id number] 07/29/2016 08:00:00 08/08/2016 00:01:00 DIS Outpatient ORENDER DO ISIS S [facility] COPD, PULMONARY HYPERTENSION [id number] 07/09/2016 13:03:00 07/09/2016 23:59:59 CLS Outpatient ORENDER DO ISIS S [facility] SDC OSTEOPOROSIS WO CURRENT FRACTURE [id number] 06/10/2016 10:54:00 06/10/2016 23:59:59 CLS Outpatient ORENDER DO ISIS S [facility] RAD OSTEOPENIA [id number] 05/04/2016 09:47:00 05/04/2016 23:59:59 CLS Outpatient ORENDER DO, ISIS S [facility] RAD L AXILLARY TENDERNESS/FULLNESS [id number] 04/16/2016 09:33:00 04/16/2016 23:59:59 CLS Outpatient ORENDER DO, ISIS S [facility] RAD FEBRILE ILLNESS,DYSPNEA [id number] 03/29/2016 13:01:00 03/29/2016 23:59:59 CLS Outpatient ORENDER DO ISIS S [facility] RAD FEBRILE ILLNESS,DYSPNEA [id number] 02/03/2016 19:20:00 02/05/2016 14:45:00 DIS Inpatient YARONJOVI GUTHRIE DOQUELINE S [facility] 4TH HYPOXIA, FLUID OVERLOAD [id number] 10/25/2015 20:15:00 10/26/2015 06:40:00 DIS Outpatient JOVI COLBY DOQUELINE S [facility] SLEEP LANEY, [id number] 06/22/2015 03:54:00 06/22/2015 05:47:00 DIS Emergency IRA SALMERON DO [facility] ER POSSIBLE ALLERGIC REACTION [id number] 09/25/2014 08:00:00 09/25/2014 23:59:59 CLS Outpatient CARLOS RESENIDZ MD [facility] CATH ABNORMAL STRESS, CAD,LVH [id number] 09/18/2014 12:09:00 09/18/2014 23:59:59 CLS Outpatient CARLOS RESENDIZ MD [facility] CARD CP,HEART MURMUR,SOB [id number] 08/29/2014 10:00:00 08/29/2014 23:59:59 CLS Outpatient ALFREDO MARTINEZ ISIS S [facility] CARD CARDIAC MURMUR [id number] 05/15/2014 14:14:00 05/15/2014 23:59:59 CLS Outpatient ALFREDO MARTINEZ ISIS S [facility] RT DYSPNEA,COPD [id number] 04/25/2014 13:30:00 04/25/2014 23:59:59 CLS Outpatient YARONNDER DO ISIS S [facility] RAD ROUTINE [id number] 10/09/2013 10:52:00 10/09/2013 23:59:59 CLS Outpatient ALFREDO MARTINEZ ISIS S [facility] CARD CARDIAC MURMUR,LVH [id number] 04/04/2013 09:49:00 04/04/2013 23:59:59 CLS Outpatient ALFREDO MARTINEZ ISIS S [facility] RAD SCREENING [id number] 09/04/2012 13:24:00 Document Registration [id number] 10/01/2011 08:28:00 Document Registration [id number] 08/10/2011 09:26:00 Document Registration [id number] 07/05/2011 13:07:00 Document Registration [id number] 06/11/2011 18:17:00 Document Registration [id number] 06/08/2011 15:18:00 Document Registration [id number] 04/23/2011 13:22:00 Document Registration [id number] 11/11/2010 07:15:00 Document Registration [id number] 10/01/2010 08:56:00 Document Registration [id number] 06/30/2010 17:07:00 Document Registration [id number] 06/08/2010 12:43:00 Document Registration [id number] 06/01/2010 11:22:00 Document Registration [id number] 05/01/2010 17:45:00 Document Registration [id number] 10/29/2009 13:14:00 Document Registration [id number] 08/27/2009 20:54:00 Document Registration [id number] 08/14/2009 11:07:00 Document Registration [id number] 07/30/2009 12:17:00 Document Registration
--- NOTE | 2019-01-29 03:36 | ED Fall/Injury ---
General Chief Complaint: General Problems/Pain Stated Complaint: HEAD IS SORE Nursing Triage Note: Patient advises that she fell asleep and fell off the couch. She has bruising noted to the right cheek as well as a hematoma to the right side of her head. Source: patient Exam Limitations: no limitations History of Present Illness Date Seen by Provider: Jan 29, 2019 Time Seen by Provider: 02:20 Initial Comments Here with report of fall off a couch onto a hardwood floor. She complains of pain to the area of the right side of the head and right cheek. She has bruising over the same areas including over the right baptist. Denies loss of consciousness. States that she was on the couch, which is a leather couch, and had fallen asleep. She slipped off because the couches slippery and fell to the floor. This is the second time she's done that. Denies other significant injury but does have some pain in the right shoulder. She is able to move the shoulder without difficulty and is not worried about fracture there. She is on oxygen at nighttime or when sleeping and as needed. She was a little hypoxic on arrival and that cleared with oxygen pretty quickly. Occurred: just prior to arrival (approximately one hour ago) Severity: moderate Injuries/Pain Location: head, face Context: other Loss of Consciousness: no loss of consciousness Associated Symptoms (Fall): No Abdominal Pain, No Chest Pain, No Confusion; Headache; No Nausea/Vomiting Allergies and Home Medications Allergies Coded Allergies: gabapentin (Verified Allergy, Intermediate, MUSCLE WEAKNESS, 01/29/19) pregabalin (Verified Allergy, Intermediate, MUSCLE WEAKNESS, 01/29/19) azithromycin (Verified Allergy, Unknown, 01/29/19) moxifloxacin HCl (Verified Allergy, Unknown, 01/29/19) Home Medications Aspirin 81 Mg Tab.chew, 81 MG PO DAILY, (Reported) Atorvastatin Calcium 20 Mg Tablet, 20 MG PO HS, (Reported) Buspirone HCl 5 Mg Tablet, 5 MG PO TID, (Reported) Calcium Citrate/Vitamin D3 1 Each Tablet, 1 EACH PO DAILY, (Reported) Clonazepam 0.5 Mg Tablet, 0.5 MG PO BID, (Reported) Fluticasone Propionate 9.9 Ml [place].susp, 1 SPRAY NS BID, (Reported) 1 SPRAY EACH NARE DAILY Levothyroxine Sodium 75 Mcg Tablet, 75 MCG PO DAILY, (Reported) Montelukast Sodium 10 Mg Tablet, 10 MG PO DAILY, (Reported) Omeprazole 20 Mg Capsule.dr, 20 MG PO DAILY, (Reported) Sertraline HCl 100 Mg Tablet, 200 MG PO HS, (Reported) Patient Home Medication List Home Medication List Reviewed: Yes Review of Systems Review of Systems Constitutional: see HPI; No chills, No fever Eyes: No Symptoms Reported Ears, Nose, Mouth, Throat: see HPI; denies epistaxis Respiratory: short of breath; No wheezing Cardiovascular: no symptoms reported Gastrointestinal: no symptoms reported Musculoskeletal: see HPI, joint pain, muscle pain Skin: change in color; No lesions Psychiatric/Neurological: Headache; Denies Weakness Past Qrsqxyq-Bozyhg-Mjeoow Hx Past Med/Social Hx: Reviewed Nursing Past Med/Soc Hx Patient Social History Alcohol Use: Denies Use Recreational Drug Use: No Recent Foreign Travel: No Contact w/Someone Who Travel: No Recent Infectious Disease Expo: No Recent Hopitalizations: Yes Immunizations Up To Date Date of Pneumonia Vaccine: Jul 25, 2014 Date of Influenza Vaccine: Jul 25, 2014 Past Medical History Surgeries: Yes (EGD/COLONOSCOPY, CARDIAC CATH; TLK 01/2016 Dr. Gastelum) Orthopedic Respiratory: Yes (o2 @ night, COPD) Pneumonia, Chronic Bronchitis, Sleep Apnea, COPD Currently Using CPAP: Yes Cardiac: Yes (changes in last echo, CAROTID DISEASE) Coronary Artery Disease, High Cholesterol, Valvular Heart Disease Neurological: No Reproductive Disorders: No Gastrointestinal: Yes Colitis, Gastroesophageal Reflux Musculoskeletal: No Osteoporosis, Arthritis, Chronic Back Pain Endocrine: Yes Hypothyroidsim Cancer: No Psychosocial: Yes Anxiety, Depression Integumentary: Yes (SHINGLES LEFT ARM 06/22/15) Blood Disorders: No Family Medical History Reviewed Nursing Family Hx Cardiovascular disease 19 FATHER 19 MOTHER Deafness or hearing loss 19 FATHER Diabetes mellitus 19 MOTHER FH: COPD (chronic obstructive pulmonary disease) 19 FATHER FH: cancer 19 FATHER G8 SISTER FH: emphysema 19 FATHER Thyroid disease 19 MOTHER (hypothyroidism) Physical Exam Vital Signs Vital Signs - First Documented 01/29/19 02:07 Temp 98.4 Pulse 67 Resp 14 B/P (MAP) 139/79 (99) Pulse Ox 94 O2 Delivery Room Air Capillary Refill : Less Than 3 Seconds Height, Weight, BMI Height: 5'5.00" Weight: 213lbs. 9.0oz. 96.468679rw; 37.5 BMI Method:Stated General Appearance: WD/WN, no apparent distress HEENT: PERRL/EOMI, pharynx normal Neck: non-tender, full range of motion, supple, normal inspection Cardiovascular: regular rate, rhythm, no murmur Respiratory: lungs clear, normal breath sounds Back: normal inspection, no CVA tenderness, no vertebral tenderness Extremities: normal range of motion, other (mild tenderness around the left shoulder but normal range of motion) Neurologic/Psychiatric: alert, oriented x 3 Skin: warm/dry, ecchymosis (right cheek and right-sided head just above the baptist. Both areas about 3 x 3 cm.) Progress/Results/Core Measures Results/Orders My Orders Orders - KATIE FANG MD Ct Head/Face/Cervical Wo (01/29/19 02:20) Vital Signs/I&O 01/29/19 02:07 Temp 98.4 Pulse 67 Resp 14 B/P (MAP) 139/79 (99) Pulse Ox 94 O2 Delivery Room Air Blood Pressure Mean: 99 Progress Progress Note : Progress Note Seen and evaluated. CT head, face and neck ordered. Patient placed on O2 and had rapid resolution of oxygen saturation. 0330: No acute findings on CT. I did discuss with her regarding safety at home as well as use of oxygen and CPAP. Discharged home with return precautions. Patient verbalize understanding instructions and agreement with plan. Diagnostic Imaging Diagonstic Imaging: CT Plain Films/CT/US/NM/MRI: facial bones, c-spine, head Comments Right frontal scalp contusion. No skull fracture or intracranial hemorrhage. There is right facial soft tissue swelling. Otherwise negative maxillofacial CT. Cervical spondylosis. No cervical fracture. Departure Impression Primary Impression: Scalp contusion Qualified Codes: S00.03XA - Contusion of scalp, initial encounter Additional Impressions: Facial contusion Qualified Codes: S00.83XA - Contusion of other part of head, initial encounter Minor closed head injury Disposition: HOME, SELF-CARE Condition: Improved Departure-Patient Inst. Decision time for Depature: 03:37 Referrals: CHALO FUENTES DO (PCP/Family) Primary Care Physician Patient Instructions: Closed Head Injury (DC), Contusion (DC) Add. Discharge Instructions: All discharge instructions reviewed with patient and/or family. Voiced understanding. Continue home medications as previously prescribed. You should use her nebulizer treatments as prescribed. Use oxygen and CPAP while sleeping at all times when sleeping. Follow up with your Dr. in a few days for recheck. Return for worsening, fever, vomiting, weakness, breathing problems or other concerns as needed. Give plenty of rest and take it easy over the next few days to allow yourself to heal. Copy Copies To 1: CHALO FUENTES TIMOTHY D MD Jan 29, 2019 03:36
[2019-01-29 03:46] VITALS: BP 136/77
--- NOTE | 2019-01-29 06:24 | Diagnostic Imaging Report ---
PROCEDURE: CT head, face, and cervical spine without contrast. TECHNIQUE: Multiple contiguous axial images were obtained through the head, neck, and facial bones without the use of intravenous contrast. Sagittal and coronal reformations through the cervical spine and facial bones were also performed. Auto Exposure Controls were utilized during the CT exam to meet ALARA standards for radiation dose reduction. INDICATION: Right head and facial bruising. COMPARISON: MRI brain without and with IV contrast 08/10/2011 FINDINGS: CT head and maxillofacial: Scalp contusion overlying the right frontal convexity. No underlying calvarial fracture. The skull base and maxillofacial structures are intact. The paranasal sinuses and mastoids are clear. Moderate to advanced generalized cerebral and cerebellar parenchymal volume loss. No intracranial hemorrhage, mass effect, hydrocephalus or extra-axial fluid collections. CT cervical spine: Normal alignment. Vertebral body heights are preserved. No fractures. Moderate degenerative endplate changes are greatest at C4-C5. Soft tissue windows demonstrate no evidence of high-grade spinal canal narrowing. Moderate atherosclerotic calcifications in the carotid bifurcations. IMPRESSION: 1. Scalp contusion overlying the right frontal convexity. No fractures. 2. No acute intracranial or cervical spine CT findings. Dictated by: Dictated on workstation # [id number]
== END 2019-01-29 03:48 | disposition home or self-care (01) ==
LOC: EDUNIT# 01:52 → ER 01:55
DX: S09.90XA Unspecified injury of head, initial encounter (principal); S00.03XA Contusion of scalp, initial encounter; S00.83XA Contusion of other part of head, initial encounter; J44.9 Chronic obstructive pulmonary disease, unspecified; I25.10 Atherosclerotic heart disease of native coronary artery without angina pectoris; E78.00 Pure hypercholesterolemia, unspecified; K21.9 Gastro-esophageal reflux disease without esophagitis; E03.9 Hypothyroidism, unspecified; F41.9 Anxiety disorder, unspecified; F32.9 Major depressive disorder, single episode, unspecified; M81.0 Age-related osteoporosis without current pathological fracture; Z82.49 Family history of ischemic heart disease and other diseases of the circulatory system; Z87.19 Personal history of other diseases of the digestive system; Z87.01 Personal history of pneumonia (recurrent); Z88.8 Allergy status to other drugs, medicaments and biological substances; Z88.1 Allergy status to other antibiotic agents; Z79.82 Long term (current) use of aspirin; Z79.51 Long term (current) use of inhaled steroids; W08.XXXA Fall from other furniture, initial encounter
CPT/HCPCS: 70450; 70486; 72125

== ENCOUNTER → 2019-02-21 | Outpatient (CLI) | payer MEDICARE, OTHER ==
--- NOTE | 2019-02-21 14:12 | Diagnostic Imaging Report ---
Indication: Head trauma AP and lateral views of the skull show no linear skull fractures. Paranasal sinuses are clear. Impression: Negative skull Dictated by: Dictated on workstation # [id number]
== END ==
LOC: RAD 13:22
PROVIDERS: ATTEND Family Medicine
DX: S09.90XA Unspecified injury of head, initial encounter (principal)
CPT/HCPCS: 70250

== ENCOUNTER → 2019-03-21 | Outpatient (CLI) | payer MEDICARE, OTHER ==
[~2019-03-21] MED LIST changes: -OMEP20CA12 PO; +OMEP20CA13 PO
--- NOTE | 2019-03-21 15:08 | Diagnostic Imaging Report ---
PROCEDURE: US left lower extremity venous. TECHNIQUE: Multiple real-time grayscale images were obtained over the left lower extremity in various projections. Additional duplex Doppler and color Doppler images were also obtained. INDICATION: Left lower extremity pain and swelling. FINDINGS: There is no evidence of a left lower extremity DVT. Left lower extremity deep venous system shows normal compressibility with normal response to augmentation and Valsalva. No fluid collection or mass is seen. IMPRESSION: No evidence of left lower extremity DVT. Dictated by: Dictated on workstation # [id number]
== END ==
LOC: RAD 14:33
PROVIDERS: ATTEND Nurse Practitioner Family
DX: M79.89 Other specified soft tissue disorders (principal)

== ENCOUNTER → 2019-05-23 | Outpatient (CLI) | payer MEDICARE, OTHER ==
--- NOTE | 2019-05-23 16:33 | Diagnostic Imaging Report ---
INDICATION: Redness and swelling of the right foot. Two weeks post toenail removal of the great toe. TECHNIQUE: Multiple real time hairston scale sonographic images were obtained of the soft tissues of the right foot. CORRELATION STUDY: None. FINDINGS: Limited ultrasound imaging of the soft tissues of the right foot demonstrates subcutaneous soft tissue edema to be present. This is most pronounced along the anterior aspect of the right foot in lateral right ankle region. This is in the area of the redness and swelling. A definitive encapsulated and/or potentially drainable fluid collection reflecting abscess does not appear to be suggested. IMPRESSION: 1.Extensive subcutaneous edema over the foot and ankle. However, definitive drainable abscess does not appear to be suggested. Features may be reflective of underlying cellulitis. Dictated by: Dictated on workstation # [id number]
== END ==
LOC: RAD 15:55
PROVIDERS: ATTEND Nurse Practitioner Family
DX: M79.89 Other specified soft tissue disorders (principal); R60.9 Edema, unspecified
CPT/HCPCS: 76881

== ENCOUNTER 2019-08-29 13:15 | Outpatient (RCR) | payer MEDICARE, OTHER ==
[2019-08-22] MEDS: FERRIC CARBOXYMALTOSE INJ 750 MG in NS (IVPB) 250 ML IV SCH (13:38)
[2019-08-22 15:00] VITALS: BP 115/73
[~2019-08-29] VITALS: Ht 165.1 cm; Wt 96.6 kg
[2019-08-29 13:00] VITALS: BP 134/62
[~2019-08-29 13:15] MED LIST changes: +OMEP-280 PO; -OMEP20CA13 PO
[2019-08-29] MEDS: FERRIC CARBOXYMALTOSE INJ 750 MG in NS (IVPB) 250 ML IV SCH (13:41)
== END 2019-08-29 14:05 | disposition home or self-care (01) ==
LOC: SDC 13:15
PROVIDERS: ATTEND Family Medicine
DX: D50.9 Iron deficiency anemia, unspecified (principal)
CPT/HCPCS: 96365

== ENCOUNTER 2019-10-04 10:00 | Outpatient (CLI) | payer MEDICARE, OTHER ==
[~2019-10-04] VITALS: Ht 165.1 cm; Wt 96.6 kg
[~2019-10-04 10:00] MED LIST changes: -MONT10TA24 PO; +MONT10TA26 PO; -OMEP-280 PO; +OMEP20CA18 PO
[2019-10-04] MEDS ORDERED: MULT-1021 PO (10:08)
[2019-10-04] MEDS ORDERED: UBID100C17 PO (10:08)
== END 2019-10-04 11:48 | disposition home or self-care (01) ==
LOC: PREOP 10:00
PROVIDERS: ATTEND Specialist
DX: Z01.818 Encounter for other preprocedural examination (principal)

== ENCOUNTER 2019-10-05 08:58 | Day surgery (SDC) | payer MEDICARE, OTHER ==
[~2019-10-05] VITALS: Ht 165 cm; Wt 96.6 kg
[~2019-10-05 08:58] MED LIST changes: +MULT-1021 PO; +UBID100C17 PO
[2019-10-05] MEDS ORDERED: PHENYLEPHRINE 10% OPHTH (NEO-SYN) 5 ML BTL OU PRN (09:00)
[2019-10-05] MEDS ORDERED: TROPICAMIDE 1% OPH SOLN (MYDRIACYL) 15 ML BTL OU PRN (09:00)
[2019-10-05] MEDS ORDERED: TETRACAINE 0.5% OPHTH SOLN 4 ML BTL (SINGLE DOSE ONLY) OU PRN (09:00)
--- NOTE | 2019-10-05 09:37 | Ophthalmologist Pre-Op Note ---
Pre-Operative Progress Note H&P Reviewed The H&P was reviewed, patient examined and no changes noted. Date H&P Reviewed: Oct 05, 2019 Time H&P Reviewed: 09:36 Pre-Op Dx Secondary Cataract, Bilateral Eyes GEMMA SCOTT MD Oct 05, 2019 09:36
[2019-10-05 09:52] VITALS: BP 115/52
--- NOTE | 2019-10-05 09:58 | Ophthalmology Operative Report ---
YAG Capsulotomy PREOPERATIVE DIAGNOSIS: Secondary Cataract Bilateral POSTOPERATIVE DIAGNOSIS: Secondary Cataract Bilateral PROCEDURE: YAG Capsulotomy, Bilateral SURGEON: Malcolm Scott ANESTHESIA: Topical anesthesia COMPLICATIONS: None ESTIMATED BLOOD LOSS: Minimal DESCRIPTION OF PROCEDURE: After proper informed consent was obtained, the patient's, a 78 female , received one drop of Tropicamide and one drop of Tetracaine in each eye. The patient was then placed at the YAG laser and using a power of [ 4.8] millijoules and bursts [ 28] right eye and [ 26] left eye were used to fashion a central capsulotomy. The patient tolerated the procedure well without complications. MALCOLM SCOTT MD Oct 05, 2019 09:58
== END 2019-10-05 09:45 | disposition home or self-care (01) ==
LOC: SDC 08:58
PROVIDERS: ATTEND Specialist
DX: H26.493 Other secondary cataract, bilateral (principal); I51.9 Heart disease, unspecified; J43.9 Emphysema, unspecified; E03.9 Hypothyroidism, unspecified; F32.9 Major depressive disorder, single episode, unspecified; F43.10 Post-traumatic stress disorder, unspecified; F41.9 Anxiety disorder, unspecified; Z79.899 Other long term (current) drug therapy; Z96.652 Presence of left artificial knee joint; Z87.891 Personal history of nicotine dependence; Z83.511 Family history of glaucoma; Z83.3 Family history of diabetes mellitus; Z80.7 Family history of other malignant neoplasms of lymphoid, hematopoietic and related tissues; Z80.1 Family history of malignant neoplasm of trachea, bronchus and lung

== ENCOUNTER → 2019-10-22 | Outpatient (CLI) | payer MEDICARE, OTHER ==
--- NOTE | 2019-10-22 14:45 | Diagnostic Imaging Report ---
INDICATION: Lower back pain. COMPARISON: Imaging from the same date as well as radiographs of the chest dated 09/07/2016. TECHNIQUE: Three radiographs of the thoracic spine dated 10/22/2019. FINDINGS: Moderate vertebral body height loss and anterior wedge deformity is identified associated with T12. This is new since prior radiographs from 2017. There is approximately 50% loss of vertebral body height. There appears to be some vertebral body height loss involving the middle column of the T12 vertebral body. Vertebral body heights otherwise appear similar to the prior examination. Mild multilevel disc space height loss with associated multilevel anterior osteophyte formation. These degenerative changes are greatest within the lower thoracic spine. No large volume pleural effusion. IMPRESSION: Moderate compression and wedge deformity of T12, possibly involving two columns, appearing new since 2017. Recommend clinical correlation for pain at this location. If there is clinical concern that this is recent in nature, a CT of the thoracic spine at this location would be recommended. Mild scattered degenerative changes. Called and faxed at 2:44 p.m. by cvb. Dictated by: Dictated on workstation # [id number]
--- NOTE | 2019-10-22 15:26 | Diagnostic Imaging Report ---
INDICATION: Back injury. COMPARISON: Imaging from same date as well as radiographs dated 09/07/2016. TECHNIQUE: Frontal and lateral radiographs of the lumbar spine dated 10/22/2019. FINDINGS: Five lumbar type vertebral bodies are present. Mild apex left curvature of the visualized thoracolumbar spine. No significant anterolisthesis or retrolisthesis. Moderate vertebral body height loss and anterior wedge deformity of T12 is present, which is new since 2017. Otherwise, vertebral body heights are well-maintained. Mild disc space height loss at L2/L3. Mild multilevel anterior osteophyte formation. Scattered facet joint degenerative changes. The sacroiliac joints are intact. Mild scattered vascular calcifications. IMPRESSION: Moderate compression deformity of the T12 vertebral body. This is of uncertain chronicity, though this does appear new since 2017. If this is the region of clinical concern, then a dedicated CT of the thoracic spine is recommended for further evaluation as this could relate to a two column fracture. Mild curvature of the spine with associated mild multilevel degenerative changes. Report faxed to Yadira Bales APRN, at 3:20 p.m. 10/22/2019/cb Report given to nurse (Lois) at 3:26 p.m. 10/22/2019/cb Dictated by: Dictated on workstation # [id number]
== END ==
LOC: RAD 13:56
PROVIDERS: ATTEND Nurse Practitioner Family
DX: M47.816 Spondylosis without myelopathy or radiculopathy, lumbar region (principal); M47.814 Spondylosis without myelopathy or radiculopathy, thoracic region
CPT/HCPCS: 72072; 72100

== ENCOUNTER → 2019-10-24 | Outpatient (CLI) | payer MEDICARE, OTHER ==
--- NOTE | 2019-10-24 11:04 | Diagnostic Imaging Report ---
PROCEDURE: CT thoracic spine without contrast. TECHNIQUE: Multiple axial computerized tomography images were obtained from the base of the thoracic spine to the vertex without intravenous contrast. Auto Exposure Controls were utilized during the CT exam to meet ALARA standards for radiation dose reduction. INDICATION: A lower thoracic compression fracture. Study is performed for further evaluation. Correlation made with plain films from 10/22/2019. There is normal thoracic kyphotic curvature. There is a fracture involving the T12 vertebral body, correlating with plain films performed 2 days earlier. This does show some involvement of the superior endplate. There is slight retropulsion present. Although, acuity of this is indeterminate. No paraspinous hematoma is identified. Remaining thoracic vertebrae show normal stature. Bony canal is patent. IMPRESSION: Age-indeterminate T12 vertebral body fracture with slight retropulsion. MRI of the thoracic spine could be performed to evaluate acuity. If this is acute, this may be amenable to kyphoplasty. Dictated by: Dictated on workstation # [id number]
== END ==
LOC: RAD 09:44
PROVIDERS: ATTEND Family Medicine
DX: M48.54XA Collapsed vertebra, not elsewhere classified, thoracic region, initial encounter for fracture (principal)
CPT/HCPCS: 72128

== ENCOUNTER 2019-11-16 13:45 | Emergency (ER) | payer MEDICARE, OTHER ==
[~2019-11-16] VITALS: Ht 162.5 cm; Wt 88.9 kg
[2019-11-16 14:27] LABS: BASOPHILS # (AUTO) 0.1 10^3/uL (0.0-0.1); BASOPHILS % (AUTO) 1 % (0-10); EOSINOPHILS # (AUTO) 0.3 10^3/uL (0.0-0.3); EOSINOPHILS % (AUTO) 3 % (0-10); HEMATOCRIT 43 % (35-52); HEMOGLOBIN 13.8 G/DL (11.5-16.0); LYMPHOCYTES # (AUTO) 1.1 X 10^3 (1.0-4.0); LYMPHOCYTES % (AUTO) 11 % (12-44); MEAN CORPUSCULAR HEMOGLOBIN 29 PG (25-34); MEAN CORPUSCULAR HGB CONC 32 G/DL (32-36); MEAN CORPUSCULAR VOLUME 90 FL (80-99); MEAN PLATELET VOLUME 9.4 FL (7.4-10.4); MONOCYTES # (AUTO) 0.8 X 10^3 (0.0-1.0); MONOCYTES % (AUTO) 8 % (0-12); NEUTROPHILS # (AUTO) 7.7 X 10^3 (1.8-7.8); NEUTROPHILS % (AUTO) 77 % (42-75); PLATELET COUNT 299 10^3/uL (130-400); RED CELL DISTRIBUTION WIDTH 17.9 % (10.0-14.5)
--- NOTE | 2019-11-16 14:27 | ED GI ---
General Chief Complaint: Rect Problems Stated Complaint: BLOODY STOOL Nursing Triage Note: Pt c/o blood in stool for 3-4 days. Pt describes as black and tarry with red. Pt reports taking Ultram when this began but doctor recently switched to hydrocodone 5/325. Sepsis Screen: No Definite Risk Source of Information: Patient Exam Limitations: No Limitations History of Present Illness Date Seen by Provider: Nov 16, 2019 Time Seen by Provider: 14:25 Initial Comments To ER by private vehicle with reports of blood in stool for 3-4 days. She states it started dark and tarry a few days ago and she brought a sample of this in a plastic Ziploc bag. Today it became more bright red, so she added this to the sample from a few days ago in the Ziploc bag for us to view. Had some abdominal pain at the onset of this but hasn't had any abdominal pain. She does have a history of anemia about that. Timing/Duration: 3-4 Days Severity/Quality: Mild Radiation: No Radiation Activities at Onset: None Associated Symptoms: Denies Symptoms Allergies and Home Medications Allergies Coded Allergies: gabapentin (Verified Allergy, Intermediate, MUSCLE WEAKNESS, 01/29/19) pregabalin (Verified Allergy, Intermediate, MUSCLE WEAKNESS, 01/29/19) azithromycin (Verified Allergy, Unknown, 01/29/19) moxifloxacin HCl (Verified Allergy, Unknown, 01/29/19) Home Medications Aspirin 81 Mg Tab.chew, 81 MG PO DAILY, (Reported) Atorvastatin Calcium 20 Mg Tablet, 20 MG PO HS, (Reported) Buspirone HCl 5 Mg Tablet, 5 MG PO TID, (Reported) Calcium Citrate/Vitamin D3 1 Each Tablet, 1 EACH PO DAILY, (Reported) Clonazepam 0.5 Mg Tablet, 0.5 MG PO BID, (Reported) Fluticasone Propionate 9.9 Ml [place].susp, 1 SPRAY NS BID, (Reported) 1 SPRAY EACH NARE DAILY Levothyroxine Sodium 75 Mcg Tablet, 75 MCG PO DAILY, (Reported) Montelukast Sodium 10 Mg Tablet, 10 MG PO DAILY, (Reported) Multivits-Min/Iron/FA/Lutein 1 Each Tablet, 1 EACH PO DAILY, (Reported) Omeprazole 20 Mg Capsule.dr, 20 MG PO DAILY, (Reported) Sertraline HCl 100 Mg Tablet, 200 MG PO HS, (Reported) Ubidecarenone 100 Mg Capsule, 100 MG PO DAILY, (Reported) Patient Home Medication List Home Medication List Reviewed: Yes Review of Systems Review of Systems Constitutional: see HPI EENTM: No Symptoms Reported Respiratory: No Symptoms Reported Cardiovascular: No Symptoms Reported Gastrointestinal: See HPI, Abdominal Pain, Rectal Bleeding Genitourinary: No Symptoms Reported Musculoskeletal: no symptoms reported Skin: no symptoms reported Psychiatric/Neurological: No Symptoms Reported Endocrine: No Symptoms Reported Hematologic/Lymphatic: No Symptoms Reported Past Mzhqrjd-Jexahj-Cjxunz Hx Patient Social History Alcohol Use: Occasionally Uses Recreational Drug Use: No Smoking Status: Former Smoker 2nd Hand Smoke Exposure: No Recent Foreign Travel: No Contact w/Someone Who Travel: No Recent Infectious Disease Expo: No Recent Hopitalizations: Yes Immunizations Up To Date Date of Pneumonia Vaccine: Jul 25, 2014 Date of Influenza Vaccine: Jul 25, 2014 Past Medical History Surgeries: Yes (EGD/COLONOSCOPY, CARDIAC CATH; TLK 01/2016 Dr. Gastelum) Orthopedic Respiratory: Yes (o2 @ night, COPD) Pneumonia, Chronic Bronchitis, Sleep Apnea, COPD Currently Using CPAP: Yes Cardiac: Yes (changes in last echo, CAROTID DISEASE) Coronary Artery Disease, High Cholesterol, Valvular Heart Disease Neurological: No Reproductive Disorders: No Gastrointestinal: Yes Colitis, Gastroesophageal Reflux Musculoskeletal: No Osteoporosis, Arthritis, Chronic Back Pain Endocrine: Yes Hypothyroidsim Cancer: No Psychosocial: Yes Anxiety, Depression Integumentary: Yes (SHINGLES LEFT ARM 06/22/15) Blood Disorders: No Family Medical History Cardiovascular disease 19 FATHER 19 MOTHER Deafness or hearing loss 19 FATHER Diabetes mellitus 19 MOTHER FH: COPD (chronic obstructive pulmonary disease) 19 FATHER FH: cancer 19 FATHER G8 SISTER FH: emphysema 19 FATHER Thyroid disease 19 MOTHER (hypothyroidism) Physical Exam Vital Signs Vital Signs - First Documented 11/16/19 14:09 Temp 36.1 Pulse 106 Resp 20 B/P (MAP) 128/91 (103) Pulse Ox 96 O2 Delivery Room Air Capillary Refill : Less Than 3 Seconds Height/Weight/BMI Height: 5'5.00" Weight: 213lbs. 9.0oz. [id number]; 33.00 BMI Method:Stated General Appearance: WD/WN, no apparent distress Respiratory: no respiratory distress, no accessory muscle use Gastrointestinal: normal bowel sounds, non tender, soft; No distended, No guarding, No rebound, No tenderness Extremities: normal range of motion, non-tender Neurologic/Psychiatric: alert, normal mood/affect, oriented x 3 Skin: normal color, warm/dry Progress/Results/Core Measures Results/Orders Lab Results Laboratory Tests Test 11/16/19 14:19 Range/Units White Blood Count 10.0 4.3-11.0 10^3/uL Red Blood Count 4.75 4.35-5.85 10^6/uL Hemoglobin 13.8 11.5-16.0 G/DL Hematocrit 43 35-52 % Mean Corpuscular Volume 90 80-99 FL Mean Corpuscular Hemoglobin 29 25-34 PG Mean Corpuscular Hemoglobin Concent 32 32-36 G/DL Red Cell Distribution Width 17.9 H 10.0-14.5 % Platelet Count 299 130-400 10^3/uL Mean Platelet Volume 9.4 7.4-10.4 FL Neutrophils (%) (Auto) 77 H 42-75 % Lymphocytes (%) (Auto) 11 L 12-44 % Monocytes (%) (Auto) 8 0-12 % Eosinophils (%) (Auto) 3 0-10 % Basophils (%) (Auto) 1 0-10 % Neutrophils # (Auto) 7.7 1.8-7.8 X 10^3 Lymphocytes # (Auto) 1.1 1.0-4.0 X 10^3 Monocytes # (Auto) 0.8 0.0-1.0 X 10^3 Eosinophils # (Auto) 0.3 0.0-0.3 10^3/uL Basophils # (Auto) 0.1 0.0-0.1 10^3/uL Prothrombin Time 13.1 12.2-14.7 SEC INR Comment 1.0 0.8-1.4 Sodium Level 136 135-145 MMOL/L Potassium Level 4.3 3.6-5.0 MMOL/L Chloride Level 102 98-107 MMOL/L Carbon Dioxide Level 21 21-32 MMOL/L Anion Gap 13 5-14 MMOL/L Blood Urea Nitrogen 17 7-18 MG/DL Creatinine 0.99 0.60-1.30 MG/DL Estimat Glomerular Filtration Rate 54 BUN/Creatinine Ratio 17 Glucose Level 103 70-105 MG/DL Calcium Level 9.5 8.5-10.1 MG/DL Corrected Calcium 9.2 8.5-10.1 MG/DL Total Bilirubin 0.3 0.1-1.0 MG/DL Aspartate Amino Transf (AST/SGOT) 34 5-34 U/L Alanine Aminotransferase (ALT/SGPT) 11 0-55 U/L Alkaline Phosphatase 140 H 40-136 U/L Total Protein 8.5 H 6.4-8.2 GM/DL Albumin 4.4 3.2-4.5 GM/DL My Orders Orders - BESSY MARTINEZ APRN Cbc With Automated Diff (11/16/19 14:04) Comprehensive Metabolic Panel (11/16/19 14:04) Protime With Inr (11/16/19 14:04) Ct Abdomen/Pelvis W (11/16/19 14:45) Ns Iv 500 Ml (Sodium Chloride 0.9%) (11/16/19 14:45) Iohexol Injection (Omnipaque 350 Mg/Ml 1 (11/16/19 15:00) Received Contrast (Hold Metformin- Contr (11/16/19 15:00) Ns (Ivpb) (Sodium Chloride 0.9% Ivpb Bag (11/16/19 15:00) Medications Given in ED Current Medications Medications Dose Ordered Sig/Belén Route Start Time Stop Time Status Last Admin Dose Admin Iohexol 100 ml ONCE ONCE IV 11/16/19 15:00 11/16/19 15:01 DC 11/16/19 15:16 100 ML Sodium Chloride 100 ml ONCE ONCE IV 11/16/19 15:00 11/16/19 15:01 DC 11/16/19 15:16 80 ML Vital Signs/I&O 11/16/19 14:09 Temp 36.1 Pulse 106 Resp 20 B/P (MAP) 128/91 (103) Pulse Ox 96 O2 Delivery Room Air Blood Pressure Mean: 103 Departure Communication (Admissions) She is hemodynamically stable without laboratory abnormality. No indication for admission, she is not on anticoagulation. No fever no chills no nausea. I would suspect that the abdominal pain that she had last was related to a bout of diverticulitis as she points to the left lower quadrant as the site of her pain though she is nontender there today. Because of the ongoing rectal bleeding I will prescribe antibiotics using Bactrim plus metronidazole. Have her follow-up with surgery for colonoscopy. Impression Primary Impression: Diverticulosis Disposition: HOME, SELF-CARE Condition: Stable Departure-Patient Inst. Decision time for Depature: 15:23 Referrals: CHALO FUENTES DO (PCP/Family) Primary Care Physician Patient Instructions: Diverticulosis Add. Discharge Instructions: 1. Continue the stool softeners 2. Start the antibiotics as directed. Do not mix it with alcohol. Return to ER for any fevers vomiting or recurrent abdominal pain. Call one of the surgeons listed next week to make an appointment to be seen to discuss whether or not they feel a colonoscopy is warranted. All discharge instructions reviewed with patient and/or family. Voiced unde rstanding. Scripts Metronidazole (Metronidazole) 500 Mg Tablet 500 MG PO TID, #15 TAB 0 Refills Prov: BESSY MARTINEZ APRN 11/16/19 Sulfamethoxazole/Trimethoprim (Bactrim Ds Tablet) 1 Each Tablet 1 EACH PO BID, #10 TAB Prov: BESSY MARTINEZ APRN 11/16/19 Copy Copies To 1: SAW AVILES DO; JANKI PAGAN DO; CHALO FUENTES PETER J APRN Nov 16, 2019 14:27
[2019-11-16 14:36] LABS: PROTHROMBIN TIME PATIENT 13.1 SEC (12.2-14.7)
[2019-11-16 14:37] LABS: ALBUMIN 4.4 GM/DL (3.2-4.5); POTASSIUM 4.3 MMOL/L (3.6-5.0)
[2019-11-16 14:38] LABS: CALCIUM 9.5 MG/DL (8.5-10.1)
[2019-11-16 14:39] LABS: TOTAL PROTEIN 8.5 GM/DL (6.4-8.2)
[2019-11-16 14:41] LABS: BILIRUBIN,TOTAL 0.3 MG/DL (0.1-1.0)
[2019-11-16 14:43] LABS: CREATININE SERUM 0.99 MG/DL (0.60-1.30)
[2019-11-16] MEDS ORDERED: NS IV 500 ML 500 ML IV SCH (14:45)
[2019-11-16] MEDS ORDERED: IOHEXOL 350 MG/ML 100 ML (OMNIPAQUE 350) VIAL IV ONE (15:00)
[2019-11-16] MEDS ORDERED: HOLD METFORMIN - RECEIVED CONTRAST 20 ML VIAL IV SCH (15:00)
[2019-11-16] MEDS ORDERED: NS 100 ML (IVPB) BAG IV ONE (15:00)
[2019-11-16] MEDS ORDERED: METR-145 PO (15:25)
[2019-11-16] MEDS ORDERED: SULF1TAB35 PO (15:25)
--- NOTE | 2019-11-16 15:38 | Diagnostic Imaging Report ---
PROCEDURE: CT abdomen and pelvis with contrast. TECHNIQUE: Multiple contiguous axial images were obtained through the abdomen and pelvis after administration of intravenous contrast. Auto Exposure Controls were utilized during the CT exam to meet ALARA standards for radiation dose reduction. INDICATION: Blood in stool. COMPARISON: 03/07/2009. FINDINGS: Included portions of the lung bases show background chronic-appearing interstitial changes. No acute abnormalities are seen. Note is made of mild hiatal hernia. CT abdomen: There is colonic diverticulosis, but no CT evidence of acute diverticulitis. Small bowel loops are nondistended. Normal appendix is identified. Benign-appearing left renal cyst is noted. Otherwise, kidneys, adrenal glands, spleen, pancreas, and liver have a normal CT appearance. There is no loculated fluid collection, free fluid, nor free air within the abdomen. No abnormal mesenteric or retroperitoneal adenopathy is seen. There is mild scattered calcified aortic and arterial atherosclerosis. T12 fracture is again identified. There has been interval loss in vertebral body height Osseous structures show no acute abnormalities. CT pelvis: Urinary bladder is grossly unremarkable. There is no loculated fluid collection, free fluid, nor free air within the pelvis. No abnormal lymph nodes are identified. Osseous structures show no new acute abnormalities. IMPRESSION: 1. No acute abnormalities are seen within the abdomen or pelvis. 2. Colonic diverticulosis, but no CT evidence of acute diverticulitis. 3. Small hiatal hernia. Dictated by: Dictated on workstation # [id number]
[2019-11-16 17:18] VITALS: BP 138/64
== END 2019-11-16 17:18 | disposition home or self-care (01) ==
LOC: EDUNIT# 13:45 → ER 13:48
DX: K57.90 Diverticulosis of intestine, part unspecified, without perforation or abscess without bleeding (principal); J44.9 Chronic obstructive pulmonary disease, unspecified; I25.10 Atherosclerotic heart disease of native coronary artery without angina pectoris; E78.00 Pure hypercholesterolemia, unspecified; K21.9 Gastro-esophageal reflux disease without esophagitis; E03.9 Hypothyroidism, unspecified; F41.9 Anxiety disorder, unspecified; F32.9 Major depressive disorder, single episode, unspecified; Z79.82 Long term (current) use of aspirin; Z88.1 Allergy status to other antibiotic agents; Z88.8 Allergy status to other drugs, medicaments and biological substances; Z79.51 Long term (current) use of inhaled steroids; Z87.891 Personal history of nicotine dependence; Z82.49 Family history of ischemic heart disease and other diseases of the circulatory system
CPT/HCPCS: 36415; 74177; 80053; 85025; 85610

== ENCOUNTER → 2020-10-10 | Outpatient (CLI) | payer MEDICARE, OTHER ==
[~2020-10-10] MED LIST changes: +METR-145 PO; -MONT10TA26 PO; +MONT10TA32 PO; -OXYC-471 PO; +OXYC1TAB11 PO; +SERT-414 PO; -SERT100T8 PO; +SULF1TAB35 PO
--- NOTE | 2020-10-10 11:14 | Diagnostic Imaging Report ---
PROCEDURE: US Gallbladder. TECHNIQUE: Multiple real-time grayscale images were obtained over the right upper quadrant in various projections. INDICATION: Abdominal pain and nausea. FINDINGS: Liver is normal in size at 16 cm. No discrete liver mass is detected. Portal vein is patent and shows normal direction of flow. Gallbladder is without stones or sludge. No wall thickening or biliary ductal dilatation is seen. The visualized pancreas is unremarkable. Aorta is mostly obscured by bowel gas. IVC is patent. Right kidney is without calculi or hydronephrosis. There is no ascites. IMPRESSION: Unremarkable gallbladder ultrasound. Dictated by: Dictated on workstation # [id number]
== END ==
LOC: RAD 09:28
PROVIDERS: ATTEND Internal Medicine Gastroenterology
DX: R11.0 Nausea (principal); R10.9 Unspecified abdominal pain
CPT/HCPCS: 76705

== ENCOUNTER → 2020-10-17 | Outpatient (CLI) | payer MEDICARE, OTHER ==
--- NOTE | 2020-10-17 12:05 | Diagnostic Imaging Report ---
INDICATION: Abdominal pain INDICATION: Abdominal pain TECHNIQUE: Multiple real time hairston scale sonographic images along with duplex Doppler imaging was obtained of the abdominal aorta and mesenteric arteries. CORRELATION STUDY: None FINDINGS: This is a very markedly limited and essentially nondiagnostic mesenteric arterial Doppler examination. A large amount of bowel gas obscures assessment in visualization of the abdominal aorta as well as the mesenteric artery branches. IMPRESSION: 1. Nondiagnostic abdominal Doppler ultrasound examination. Dictated by: Dictated on workstation # [id number]
== END ==
LOC: RAD 08:41
PROVIDERS: ATTEND Internal Medicine Gastroenterology
DX: R10.9 Unspecified abdominal pain (principal); R11.2 Nausea with vomiting, unspecified; R14.0 Abdominal distension (gaseous)
CPT/HCPCS: 76705

== ENCOUNTER → 2020-10-24 | Outpatient (CLI) | payer MEDICARE, OTHER ==
[~2020-10-24] MED LIST changes: +CATHETER FLUSH 10 ML SYR IV PRN
--- NOTE | 2020-10-24 14:29 | Diagnostic Imaging Report ---
INDICATION: Nausea Patient received of 5.45 mCi intravenous dose Tc 99 Choletec. After 45 minutes the patient ingested 8 ounces of a fatty meal of ensure and imaging continued an additional one hour. There is prompt homogenous distribution of radiopharmacy throughout the liver parenchyma activity was accumulating within the central biliary ducts as well as in the gallbladder within 15 minutes. Activity promptly spilled into the proximal small bowel. With stimulation via a fatty meal ingestion. There was vigorous gallbladder contraction. The ejection fraction was 81%. IMPRESSION: This is a normal HIDA scan with normal gallbladder ejection fraction. Dictated by: Dictated on workstation # [id number]
== END ==
LOC: CARD 10:57
PROVIDERS: ATTEND Internal Medicine Gastroenterology
DX: R10.9 Unspecified abdominal pain (principal); R11.0 Nausea
CPT/HCPCS: 78227; A9537

== ENCOUNTER 2021-03-27 11:52 | Inpatient (IN) | payer MEDICARE, OTHER ==
[~2021-03-27] VITALS: Ht 160 cm; Wt 86.9 kg
[~2021-03-27 11:52] MED LIST changes: -CATHETER FLUSH 10 ML SYR IV PRN; -SULF1TAB35 PO; +SULF1TAB38 PO
[2021-03-27 12:37] LABS: BASOPHILS # (AUTO) 0.1 10^3/uL (0.0-0.1); BASOPHILS % (AUTO) 1 % (0-10); EOSINOPHILS % (AUTO) 0 % (0-10); HEMATOCRIT 25 % (35-52); HEMOGLOBIN 7.6 g/dL (11.5-16.0); LYMPHOCYTES # (AUTO) 1.1 10^3/uL (1.0-4.0); LYMPHOCYTES % (AUTO) 9 % (12-44); MEAN CORPUSCULAR HEMOGLOBIN 28 pg (25-34); MEAN CORPUSCULAR HGB CONC 30 g/dL (32-36); MEAN CORPUSCULAR VOLUME 91 fL (80-99); MEAN PLATELET VOLUME 9.6 fL (9.0-12.2); MONOCYTES # (AUTO) 0.9 10^3/uL (0.0-1.0); MONOCYTES % (AUTO) 7 % (0-12); NEUTROPHILS # (AUTO) 9.8 10^3/uL (1.8-7.8); NEUTROPHILS % (AUTO) 82 % (42-75); PLATELET COUNT 282 10^3/uL (130-400)
[2021-03-27 12:54] LABS: ALBUMIN 3.4 GM/DL (3.2-4.5); POTASSIUM 4.1 MMOL/L (3.6-5.0)
[2021-03-27 12:55] LABS: CALCIUM 8.5 MG/DL (8.5-10.1)
[2021-03-27 12:56] LABS: TOTAL PROTEIN 6.5 GM/DL (6.4-8.2)
[2021-03-27 12:58] LABS: BILIRUBIN,TOTAL 0.3 MG/DL (0.1-1.0)
[2021-03-27 13:00] LABS: CREATININE SERUM 1.05 MG/DL (0.60-1.30)
[2021-03-27 13:12] LABS: PROTHROMBIN TIME PATIENT 13.8 SEC (12.2-14.7)
--- NOTE | 2021-03-27 13:21 | ED GI ---
General Chief Complaint: Rect Problems Stated Complaint: RECTAL BLEEDING, WEAKNESS Nursing Triage Note: Pt arrival to ER via wheelchair with complaint of blood in stool last PM. Pt states that this has been going on for months off and on. Pt had a hemagloban in the 9.4 range in February and it then went back up. Pt states that she had one yesterday with results of 9.7 Pt states that she takes iron for the anemia. Pt believes that this is probably caused by her recent constipation. Pt states that she took stool softners for two days prior to last nights BM which was hard and dark with some bleeding. Source of Information: Patient Exam Limitations: No Limitations (BESSY MARTINEZ APRN) History of Present Illness Date Seen by Provider: Mar 27, 2021 Time Seen by Provider: 13:17 Initial Comments To ER with rectal bleeding and general weakness. She is had some issues with rectal bleeding over the years. She had colonoscopy, stool studies lab studies done by Dr. Hussein from gastroenterology at [facility]. 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 Starting last night she had some grape jelly consistency blood (which she has pictures of) per rectum. She has had some intermittent periumbilical abdominal pain though none currently no fever no chills and she is only on a baby aspirin daily. She has had a small amount of rectal bleeding today. She does report feeling generally weak. Her hemoglobin yesterday was 9.4. Timing/Duration: 2-3 Days Severity/Quality: Other Activities at Onset: None Associated Symptoms: Nausea/Vomiting (BESSY MARTINEZ APRN) Allergies and Home Medications Allergies Coded Allergies: gabapentin (Verified Allergy, Intermediate, MUSCLE WEAKNESS, 01/29/19) pregabalin (Verified Allergy, Intermediate, MUSCLE WEAKNESS, 01/29/19) azithromycin (Verified Allergy, Unknown, 01/29/19) moxifloxacin HCl (Verified Allergy, Unknown, 01/29/19) Home Medications Amoxicillin 500 Mg Capsule, 1,000 MG PO BID Prescribed by: BESSY MARTINEZ on 03/27/21 5288 Last Action: New Order Aspirin 81 Mg Tab.chew, 81 MG PO DAILY, (Reported) Atorvastatin Calcium 20 Mg Tablet, 20 MG PO HS, (Reported) Buspirone HCl 5 Mg Tablet, 5 MG PO TID, (Reported) Last Action: Continued Calcium Citrate/Vitamin D3 1 Each Tablet, 1 EACH PO DAILY, (Reported) Clonazepam 0.5 Mg Tablet, 0.5 MG PO BID, (Reported) Fluticasone Propionate 9.9 Ml [place].susp, 1 SPRAY NS BID, (Reported) 1 SPRAY EACH NARE DAILY Levothyroxine Sodium 75 Mcg Tablet, 75 MCG PO DAILY, (Reported) Last Action: Continued Metronidazole 500 Mg Tablet, 500 MG PO TID Prescribed by: BESSY MARTINEZ on 11/16/19 1525 Montelukast Sodium 10 Mg Tablet, 10 MG PO DAILY, (Reported) Multivits-Min/Iron/FA/Lutein 1 Each Tablet, 1 EACH PO DAILY, (Reported) Omeprazole 20 Mg Capsule.dr, 20 MG PO DAILY, (Reported) Sertraline HCl 100 Mg Tablet, 200 MG PO HS, (Reported) Last Action: Continued Sulfamethoxazole/Trimethoprim 1 Each Tablet, 1 EACH PO BID Prescribed by: BESSY MARTINEZ on 11/16/19 1525 Ubidecarenone 100 Mg Capsule, 100 MG PO DAILY, (Reported) Patient Home Medication List Home Medication List Reviewed: Yes (BESSY MARTINEZ APRN) Review of Systems Review of Systems Constitutional: see HPI EENTM: No Symptoms Reported Respiratory: No Symptoms Reported Cardiovascular: No Symptoms Reported Gastrointestinal: See HPI, Rectal Bleeding Genitourinary: No Symptoms Reported Musculoskeletal: no symptoms reported Skin: no symptoms reported Psychiatric/Neurological: No Symptoms Reported Endocrine: No Symptoms Reported Hematologic/Lymphatic: No Symptoms Reported (BESSY MARTINEZ APRN) Past Bkkatqq-Ojesdo-Tyiour Hx Patient Social History Tobacco Use?: No Use of E-Cig and/or Vaping dev: No Substance use?: No Alcohol Use?: No Pt feels they are or have been: No (BESSY MARTINEZ APRN) Immunizations Up To Date Influenza Vaccine Up-to-Date: No; Not Current Second COVID19 Vaccination Maikel: 12/26 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 Gastelum) Orthopedic Respiratory: Yes (o2 @ night, COPD) Pneumonia, Chronic Bronchitis, Sleep Apnea, COPD Currently Using CPAP: Yes Cardiac: Yes (changes in last echo, CAROTID DISEASE) Coronary Artery Disease, High Cholesterol, Valvular Heart Disease Neurological: No Reproductive Disorders: No Gastrointestinal: Yes Colitis, Gastroesophageal Reflux Musculoskeletal: No Osteoporosis, Arthritis, Chronic Back Pain Endocrine: Yes Hypothyroidsim Cancer: No Psychosocial: Yes Anxiety, Depression Integumentary: Yes (SHINGLES LEFT ARM 06/22/15) Blood Disorders: No (BESSY MARTINEZ APRN) Family Medical History Cardiovascular disease 19 FATHER 19 MOTHER Deafness or hearing loss 19 FATHER Diabetes mellitus 19 MOTHER FH: COPD (chronic obstructive pulmonary disease) 19 FATHER FH: cancer 19 FATHER G8 SISTER FH: emphysema 19 FATHER Thyroid disease 19 MOTHER (hypothyroidism) Physical Exam Vital Signs Vital Signs - First Documented 03/27/21 11:59 Temp 36.8 Pulse 100 Resp 20 B/P (MAP) 143/81 (101) Pulse Ox 97 O2 Delivery Room Air (MAGDALENA JOHNSON MD) Vital Signs Capillary Refill : (BESSY MARTINEZ APRN) Height/Weight/BMI Height: 5'5.00" Weight: 213lbs. 9.0oz. 96.390796nu; 32.00 BMI Method:Stated General Appearance: WD/WN, no apparent distress Neck: non-tender, full range of motion Respiratory: no respiratory distress, no accessory muscle use Cardiovascular: regular rate, rhythm, no murmur Gastrointestinal: normal bowel sounds, non tender, soft Extremities: normal range of motion, non-tender Neurologic/Psychiatric: alert, normal mood/affect, oriented x 3 Skin: normal color, warm/dry (BESSY MARTINEZ APRN) Progress/Results/Core Measures Results/Orders Lab Results Laboratory Tests Test 03/27/21 12:20 03/27/21 12:30 03/27/21 12:57 Range/Units B-Type Natriuretic Peptide 36.6 <100.0 PG/ML White Blood Count 12.0 H 4.3-11.0 10^3/uL Red Blood Count 2.76 L 3.80-5.11 10^6/uL Hemoglobin 7.6 L 11.5-16.0 g/dL Hematocrit 25 L 35-52 % Mean Corpuscular Volume 91 80-99 fL Mean Corpuscular Hemoglobin 28 25-34 pg Mean Corpuscular Hemoglobin Concent 30 L 32-36 g/dL Red Cell Distribution Width 13.7 10.0-14.5 % Platelet Count 282 130-400 10^3/uL Mean Platelet Volume 9.6 9.0-12.2 fL Immature Granulocyte % (Auto) 2 % Neutrophils (%) (Auto) 82 H 42-75 % Lymphocytes (%) (Auto) 9 L 12-44 % Monocytes (%) (Auto) 7 0-12 % Eosinophils (%) (Auto) 0 0-10 % Basophils (%) (Auto) 1 0-10 % Neutrophils # (Auto) 9.8 H 1.8-7.8 10^3/uL Lymphocytes # (Auto) 1.1 1.0-4.0 10^3/uL Monocytes # (Auto) 0.9 0.0-1.0 10^3/uL Eosinophils # (Auto) 0.0 0.0-0.3 10^3/uL Basophils # (Auto) 0.1 0.0-0.1 10^3/uL Immature Granulocyte # (Auto) 0.2 H 0.0-0.1 10^3/uL Sodium Level 135 135-145 MMOL/L Potassium Level 4.1 3.6-5.0 MMOL/L Chloride Level 104 98-107 MMOL/L Carbon Dioxide Level 20 L 21-32 MMOL/L Anion Gap 11 5-14 MMOL/L Blood Urea Nitrogen 25 H 7-18 MG/DL Creatinine 1.05 0.60-1.30 MG/DL Estimat Glomerular Filtration Rate 50 BUN/Creatinine Ratio 24 Glucose Level 108 H 70-105 MG/DL Calcium Level 8.5 8.5-10.1 MG/DL Corrected Calcium 9.0 8.5-10.1 MG/DL Total Bilirubin 0.3 0.1-1.0 MG/DL Aspartate Amino Transf (AST/SGOT) 27 5-34 U/L Alanine Aminotransferase (ALT/SGPT) 12 0-55 U/L Alkaline Phosphatase 56 40-136 U/L Total Protein 6.5 6.4-8.2 GM/DL Albumin 3.4 3.2-4.5 GM/DL Prothrombin Time 13.8 12.2-14.7 SEC INR Comment 1.0 0.8-1.4 (MAGDALENA JOHNSON MD) Vital Signs/I&O 03/27/21 03/27/21 03/27/21 03/27/21 11:59 14:41 14:56 15:43 Temp 36.8 36.3 36.4 36.5 Pulse 100 93 92 91 Resp 20 18 18 18 B/P (MAP) 143/81 (101) 116/87 115/55 115/60 Pulse Ox 97 95 97 96 O2 Delivery Room Air Room Air Room Air (MAGDALENA JOHNSON MD) Blood Pressure Mean: 101 Departure Communication (Admissions) 1320-her abdomen is flat soft and nontender her blood pressure is 10 over 70 her heart rate is 80s. She is alert and oriented very pleasant. 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 She feels very strongly about not being admitted to the hospital. As such we will give her a unit of blood here and discharged home. This is likely a diverticular bleed that has stopped. She has no abdominal cramping pain or bleeding for at least 6 hours now. 1544-remains hemodynamically stable here. I discussed the case with Dr. Chaves including the drop in hemoglobin. 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 Additionally we only have 1 bed in the entire hospital and needs intensive care. She does not need intensive care unit monitoring. Other local hospitals are on diversion so if she were to be admitted she would need to be transferred and at this time her condition is not grave enough to warrant that. 1727-Had recurrent large volume blood stool here. Will admit observation. I did send in some amoxicillin for right lower dental pain that shes been having as well. Remains hemodynamically stable. (BESSY MARTINEZ APRN) Impression Primary Impression: Rectal bleed Additional Impression: Symptomatic anemia Disposition: 01 HOME, SELF-CARE Condition: Stable Departure-Patient Inst. Decision time for Depature: 16:16 (BESSY MARTINEZ APRN) Referrals: CHALO FUENTES DO (PCP/Family) Primary Care Physician Patient Instructions: Bloody Stools Add. Discharge Instructions: All discharge instructions reviewed with patient and/or family. Voiced understanding. 1. Call Dr. Hussein Tuesday to make an appointment to be seen for follow-up. Return to ER for any concerns. Do not take your aspirin for the next week. Return promptly to ER for any pain or recurrent bleeding. Scripts Amoxicillin (Amoxicillin) 500 Mg Capsule 1000 MG PO BID, #28 CAP Prov: BESSY MARTINEZ APRN 03/27/21 ATTENDING PHYSICIAN NOTE: I was physically present as attending physician in the emergency department during the care of this patient, but I was not directly involved in the decision making or delivery of care for this patient. (MAGDALENA JOHNSON MD) BESSY MARTINEZ APRN Mar 27, 2021 13:21 MAGDALENA JOHNSON MD Mar 29, 2021 20:23
[2021-03-27] MEDS ORDERED: NS (IVPB) 250 ML ONE (14:20)
[2021-03-27 14:41] VITALS: BP 116/87
[2021-03-27 14:56] VITALS: BP 115/55
[2021-03-27 15:43] VITALS: BP 115/60
--- NOTE | 2021-03-27 16:59 | Diagnostic Imaging Report ---
INDICATION: Cough, shortness of breath. COMPARISON: 06/22/2015. EXAMINATION: Single view of the chest. FINDINGS: Cardiac enlargement and mild central vascular congestion. There is no pneumothorax or effusion. Osseous structures are normal. IMPRESSION: Cardiac enlargement with central vascular congestion. Dictated by: Dictated on workstation # [id number]
[2021-03-27] MEDS ORDERED: AMOX500C2 PO (17:27)
[2021-03-27] MEDS ORDERED: CATHETER FLUSH 10 ML SYR IV PRN (18:30)
[2021-03-27 21:33] LABS: HEMOGLOBIN 8.1 g/dL (11.5-16.0)
[2021-03-27] MEDS: CATHETER FLUSH 10 ML SYR IV SCH (22:20)
[2021-03-28 01:47] LABS: HEMOGLOBIN 7.7 g/dL (11.5-16.0)
[2021-03-28 06:42] LABS: BASOPHILS # (AUTO) 0.1 10^3/uL (0.0-0.1); BASOPHILS % (AUTO) 1 % (0-10); EOSINOPHILS # (AUTO) 0.1 10^3/uL (0.0-0.3); EOSINOPHILS % (AUTO) 1 % (0-10); HEMATOCRIT 24 % (35-52); HEMOGLOBIN 7.4 g/dL (11.5-16.0); LYMPHOCYTES # (AUTO) 1.7 10^3/uL (1.0-4.0); LYMPHOCYTES % (AUTO) 13 % (12-44); MEAN CORPUSCULAR HEMOGLOBIN 28 pg (25-34); MEAN CORPUSCULAR HGB CONC 31 g/dL (32-36); MEAN CORPUSCULAR VOLUME 90 fL (80-99); MEAN PLATELET VOLUME 9.7 fL (9.0-12.2); MONOCYTES # (AUTO) 1.4 10^3/uL (0.0-1.0); MONOCYTES % (AUTO) 11 % (0-12); NEUTROPHILS # (AUTO) 9.3 10^3/uL (1.8-7.8); NEUTROPHILS % (AUTO) 73 % (42-75); PLATELET COUNT 257 10^3/uL (130-400); WHITE BLOOD COUNT 12.8 10^3/uL (4.3-11.0)
[2021-03-28 06:54] LABS: POTASSIUM 4.3 MMOL/L (3.6-5.0)
[2021-03-28] MEDS: CATHETER FLUSH 10 ML SYR IV SCH ×3 (06:54→22:00)
[2021-03-28 06:55] LABS: CALCIUM 8.1 MG/DL (8.5-10.1)
[2021-03-28 07:00] LABS: CREATININE SERUM 1.05 MG/DL (0.60-1.30)
--- NOTE | 2021-03-28 08:43 | Consultation - Surgery ---
ZONIA RAMIREZ 03/28/21 0843: History of Present Illness History of Present Illness Patient Consulted On(davis/time) 03/28/21 08:38 Date Seen by Provider: Mar 28, 2021 Time Seen by Provider: 08:30 History of Present Illness PT is an 80 y.o female in hospital for rectal bleeding. PT reports a history of rectal bleeding since about October or November. She reports rectal bleeding which started on Tuesday and increased in amount on . She also complained of weakness that started at that time. She went to the ED on Tuesday, and reports they were going to send her home but had another bout of rectal bleeding just before leaving the ED, which resulted in her hospital admission. The bleeding consisted of dark clots and red blood, no stool mixed with the blood/ clots. Reports some periumblical pain associated with the bleeding. She denies vomiting, fevers and chills. Allergies and Home Medications Allergies Coded Allergies: gabapentin (Verified Allergy, Intermediate, MUSCLE WEAKNESS, 01/29/19) pregabalin (Verified Allergy, Intermediate, MUSCLE WEAKNESS, 01/29/19) azithromycin (Verified Allergy, Unknown, 01/29/19) moxifloxacin HCl (Verified Allergy, Unknown, 01/29/19) Home Medications Amoxicillin 500 Mg Capsule, 1,000 MG PO BID Prescribed by: BESSY MARTINEZ on 03/27/217 Last Action: New Order Aspirin 81 Mg Tab.chew, 81 MG PO DAILY, (Reported) Atorvastatin Calcium 20 Mg Tablet, 20 MG PO HS, (Reported) Buspirone HCl 5 Mg Tablet, 5 MG PO TID, (Reported) Last Action: Continued Calcium Citrate/Vitamin D3 1 Each Tablet, 1 EACH PO DAILY, (Reported) Clonazepam 0.5 Mg Tablet, 0.5 MG PO BID, (Reported) Fluticasone Propionate 9.9 Ml Graham.susp, 1 SPRAY NS BID, (Reported) 1 SPRAY EACH NARE DAILY Levothyroxine Sodium 75 Mcg Tablet, 75 MCG PO DAILY, (Reported) Last Action: Continued Metronidazole 500 Mg Tablet, 500 MG PO TID Prescribed by: BESSY MARTINEZ on 11/16/19 1525 Montelukast Sodium 10 Mg Tablet, 10 MG PO DAILY, (Reported) Multivits-Min/Iron/FA/Lutein 1 Each Tablet, 1 EACH PO DAILY, (Reported) Omeprazole 20 Mg Capsule.dr, 20 MG PO DAILY, (Reported) Sertraline HCl 100 Mg Tablet, 200 MG PO HS, (Reported) Last Action: Continued Sulfamethoxazole/Trimethoprim 1 Each Tablet, 1 EACH PO BID Prescribed by: BESSY MARTINEZ on 11/16/19 1525 Ubidecarenone 100 Mg Capsule, 100 MG PO DAILY, (Reported) Past Bngiyfk-Mhezhp-Rjxigl Hx Patient Social History Smoking Status: Former Smoker 2nd Hand Smoke Exposure: No Recent Hopitalizations: Yes Alcohol Use?: No Have you traveled recently?: No Immunizations Up To Date Date of Pneumonia Vaccine: Jul 25, 2014 Date of Influenza Vaccine: Jul 25, 2014 Surgeries History of Surgeries: Yes (EGD/COLONOSCOPY, CARDIAC CATH; TLK 01/2016 Dr. Gastelum) Surgeries: Orthopedic Respiratory History of Respiratory Disorde: Yes (o2 @ night, COPD) Respiratory Disorders: Pneumonia, Chronic Bronchitis, Sleep Apnea, COPD Cardiovascular History of Cardiac Disorders: Yes (changes in last echo, CAROTID DISEASE) Cardiac Disorders: High Cholesterol, Valvular Heart Disease Neurological History of Neurological Disord: No Reproductive System Hx Reproductive Disorders: No Gastrointestinal History of Gastrointestinal Di: Yes Gastrointestinal Disorders: Gastroesophageal Reflux, Diverticulosis Musculoskeletal History of Musculoskeletal Dis: No Cancer History of Cancer: No Psychosocial History of Psychiatric Problem: Yes Behavioral Health Disorders: Anxiety, Depression Integumentary History of Skin or Integumenta: Yes (SHINGLES LEFT ARM ) Blood Transfusions History of Blood Disorders: No Family Medical History Family Medial History: Cardiovascular disease 19 FATHER 19 MOTHER Deafness or hearing loss 19 FATHER Diabetes mellitus 19 MOTHER FH: COPD (chronic obstructive pulmonary disease) 19 FATHER FH: cancer 19 FATHER G8 SISTER FH: emphysema 19 FATHER Thyroid disease 19 MOTHER (hypothyroidism) Review of Systems-General Constitutional: No chills, No fever EENTM: No hearing loss, No blurred vision Respiratory: No cough; short of breath Gastrointestinal: RLQ; No vomiting Genitourinary: No dysuria, No frequency Musculoskeletal: No back pain, No muscle cramps Skin: No change in color, No change in hair/nails Psychiatric/Neurological: Anxiety Physical Exam-General Problems Physical Exam Vital Signs Vital Signs - First Documented 03/27/21 11:59 Temp 36.8 Pulse 100 Resp 20 B/P (MAP) 143/81 (101) Pulse Ox 97 O2 Delivery Room Air Capillary Refill : Eyes: Bilateral Eye PERRL HEENT: PERRL/EOMI; No scleral icterus (R), No scleral icterus (L) Neck: non-tender, full range of motion, supple, normal inspection Respiratory: chest non-tender, normal breath sounds Cardiovascular: regular rate, rhythm, no edema, no JVD Gastrointestinal: non tender, soft, no organomegaly, no pulsatile mass Skin: normal color, warm/dry Lymphatic: no adenopathy Data Review Labs Laboratory Tests 03/27/21 12:20: B-Type Natriuretic Peptide 36.6 03/27/21 12:30: White Blood Count 12.0H, Red Blood Count 2.76L, Hemoglobin 7.6L, Hematocrit 25L, Mean Corpuscular Volume 91, Mean Corpuscular Hemoglobin 28, Mean Corpuscular Hemoglobin Concent 30L, Red Cell Distribution Width 13.7, Platelet Count 282, Mean Platelet Volume 9.6, Immature Granulocyte % (Auto) 2, Neutrophils (%) (Auto) 82H, Lymphocytes (%) (Auto) 9L, Monocytes (%) (Auto) 7, Eosinophils (%) (Auto) 0, Basophils (%) (Auto) 1, Neutrophils # (Auto) 9.8H, Lymphocytes # (Auto) 1.1, Monocytes # (Auto) 0.9, Eosinophils # (Auto) 0.0, Basophils # (Auto) 0.1, Immature Granulocyte # (Auto) 0.2H, Sodium Level 135, Potassium Level 4.1, Chloride Level 104, Carbon Dioxide Level 20L, Anion Gap 11, Blood Urea Nitrogen 25H, Creatinine 1.05, Estimat Glomerular Filtration Rate 50, BUN/Creatinine Ratio 24, Glucose Level 108H, Calcium Level 8.5, Corrected Calcium 9.0, Total Bilirubin 0.3, Aspartate Amino Transf (AST/SGOT) 27, Alanine Aminotransferase (ALT/SGPT) 12, Alkaline Phosphatase 56, Total Protein 6.5, Albumin 3.4 03/27/21 12:57: Prothrombin Time 13.8, INR Comment 1.0 03/27/21 21:21: Hemoglobin 8.1L, Hematocrit 26L 03/28/21 00:02: Hemoglobin 7.7L, Hematocrit 25L 03/28/21 06:04: Hemoglobin 7.4L, Hematocrit 24L, White Blood Count 12.8H, Red Blood Count 2.67L, Mean Corpuscular Volume 90, Mean Corpuscular Hemoglobin 28, Mean Corpuscular Hemoglobin Concent 31L, Red Cell Distribution Width 15.2H, Platelet Count 257, Mean Platelet Volume 9.7, Immature Granulocyte % (Auto) 3, Neutrophils (%) (Auto) 73, Lymphocytes (%) (Auto) 13, Monocytes (%) (Auto) 11, Eosinophils (%) (Auto) 1, Basophils (%) (Auto) 1, Neutrophils # (Auto) 9.3H, Lymphocytes # (Auto) 1.7, Monocytes # (Auto) 1.4H, Eosinophils # (Auto) 0.1, Basophils # (Auto) 0.1, Immature Granulocyte # (Auto) 0.3H, Sodium Level 134L, Potassium Level 4.3, Chloride Level 104, Carbon Dioxide Level 20L, Anion Gap 10, Blood Urea Nitrogen 26H, Creatinine 1.05, Estimat Glomerular Filtration Rate 50, BUN/Creatinine Ratio 25, Glucose Level 137H, Calcium Level 8.1L Assessment/Plan Assessment/Plan Assessment/Plan blood per rectum Monitor medical status per hospitalist. Schedule outpatient EGD and Colonoscopy d/t Hx of rectal bleeding and GERD. JANKI PAGAN DO 03/28/21 1429: History of Present Illness History of Present Illness History of Present Illness Consult requested for lower GI bleed by Dr. Bo. Patient is an 80-year-old female who has had multiple episodes of bleeding per rectum. She has had colonoscopy last December from GI she states for lower bleeding. Patient states this is approximately the third time that she has had bleeding. Patient states that this is been going on since last Tuesday so she has had 4 days of bright red blood and clots. She has no abdominal pain at this time but states that she had some slight discomfort in the periumbilical region. Patient was transfused 1 u nit of packed red blood cells in the emergency department. Patient has not required transfusion again. Patient hemoglobin last check was 7.4. Patient states it seems like she might be slowing down on the amount of bleeding. No other complaints at this time. She denies any nausea vomiting fever sweats chills shortness of breath or chest pain. Allergies and Home Medications Allergies Coded Allergies: gabapentin (Verified Allergy, Intermediate, MUSCLE WEAKNESS, 01/29/19) pregabalin (Verified Allergy, Intermediate, MUSCLE WEAKNESS, 01/29/19) azithromycin (Verified Allergy, Unknown, 01/29/19) moxifloxacin HCl (Verified Allergy, Unknown, 01/29/19) Home Medications Amoxicillin 500 Mg Capsule, 1,000 MG PO BID Prescribed by: BESSY MARTINEZ on 03/27/21 1727 Last Action: New Order Aspirin 81 Mg Tab.chew, 81 MG PO DAILY, (Reported) Atorvastatin Calcium 20 Mg Tablet, 20 MG PO HS, (Reported) Buspirone HCl 5 Mg Tablet, 5 MG PO TID, (Reported) Last Action: Continued Calcium Citrate/Vitamin D3 1 Each Tablet, 1 EACH PO DAILY, (Reported) Clonazepam 0.5 Mg Tablet, 0.5 MG PO BID, (Reported) Fluticasone Propionate 9.9 Ml Graham.susp, 1 SPRAY NS BID, (Reported) 1 SPRAY EACH NARE DAILY Levothyroxine Sodium 75 Mcg Tablet, 75 MCG PO DAILY, (Reported) Last Action: Continued Metronidazole 500 Mg Tablet, 500 MG PO TID Prescribed by: BESSY MARTINEZ on 11/16/19 152 Montelukast Sodium 10 Mg Tablet, 10 MG PO DAILY, (Reported) Multivits-Min/Iron/FA/Lutein 1 Each Tablet, 1 EACH PO DAILY, (Reported) Omeprazole 20 Mg Capsule.dr, 20 MG PO DAILY, (Reported) Sertraline HCl 100 Mg Tablet, 200 MG PO HS, (Reported) Last Action: Continued Sulfamethoxazole/Trimethoprim 1 Each Tablet, 1 EACH PO BID Prescribed by: BESSY MARTINEZ on 11/16/19 1525 Ubidecarenone 100 Mg Capsule, 100 MG PO DAILY, (Reported) Patient Home Medication List Home Medication List Reviewed: Yes Past Iltgisu-Zswfxf-Hvwzcx Hx Reviewed Nursing Assessment Reviewed/Agree w Nursing PMH: Yes Family Medical History Significant Family History: No Pertinent Family Hx Family Medial History: Cardiovascular disease 19 FATHER 19 MOTHER Deafness or hearing loss 19 FATHER Diabetes mellitus 19 MOTHER FH: COPD (chronic obstructive pulmonary disease) 19 FATHER FH: cancer 19 FATHER G8 SISTER FH: emphysema 19 FATHER Thyroid disease 19 MOTHER (hypothyroidism) Review of Systems-General Constitutional: No chills, No fever EENTM: No hearing loss, No blurred vision Respiratory: No cough, No short of breath Gastrointestinal: No RLQ, No nausea, No vomiting; other (Bright red blood in stool) Genitourinary: No dysuria, No frequency Musculoskeletal: No back pain, No muscle cramps Skin: No change in color, No change in hair/nails Psychiatric/Neurological: Anxiety All Other Systems Reviewed Negative Unless Noted: Yes (Negative excepted noted.) Physical Exam-General Problems Physical Exam General Appearance: WD/WN, no apparent distress HEENT: PERRL/EOMI, normal ENT inspection Neck: non-tender, supple, normal inspection Respiratory: chest non-tender, no respiratory distress, no accessory muscle use Cardiovascular: regular rate, rhythm, no JVD Gastrointestinal: non tender, soft, no organomegaly Rectal: deferred Back: no CVA tenderness, no vertebral tenderness Extremities: non-tender, no pedal edema, no calf tenderness Neurologic/Psychiatric: alert, normal mood/affect, oriented x 3 Skin: normal color, warm/dry Lymphatic: no adenopathy Assessment/Plan Assessment/Plan Assessment/Plan Bright red blood per rectum Diverticulosis Anemia secondary to lower GI bleed Patient 80-year-old female with known history of diverticulosis. She has had previous gastrointestinal bleed which she has had colonoscopy by GI with the latest being in December she states. Patient we will follow hemoglobin and transfuse PRBC as needed. Patient on clear liquids at this time. If patient continues to drop would recommend colonoscopy repeat. Would need prep. If stabilizes could advance diet and do as outpatient. Patient agrees with plan. Supervisory-Addendum Brief Verification & Attestation Participated in pt care: history, MDM, physical Personally performed: exam, history, MDM, supervision of care Care discussed with: Medical Student Procedures: n/a Results interpretation: Verified all documentation Verification and Attestation of Medical Student E/M Service A medical student performed and documented this service in my presence. I reviewed and verified all information documented by the medical student and made modifications to such information, when appropriate. I personally performed the physical exam and medical decision making. Janki Pagan, Mar 28, 2021,14:30 ZONIA RAMIREZ Mar 28, 2021 08:43 JANKI PAGAN DO Mar 28, 2021 14:29
[2021-03-28] MEDS ORDERED: clonazePAM 0.5 MG (KlonoPIN) TAB PO PRN (11:15)
--- NOTE | 2021-03-28 11:15 | History & Physical ---
History of Present Illness History of Present Illness Reason for visit/HPI 80 yo F admitted for acute blood loss anemia due to lower GI bleed. She normally follows with Dr. Hussein for her GI issues. Patient had some jelly like stool. ER was contemplating sending her home last night but she had another bowel movement of blood. Hgb had dropped from 9 to 7. She is on aspirin but did not take it the last 2 days. She also is on oral iron. Patient this am reports doing better- but really gets her heart a beating fast when she gets up. She did have more blood per rectum since last night. Reviewed nurses notes and Linda tried to contact me twice (not sure if by phone or text) but I did get either. If it was by text then it likely did not go through with imessage- Patient was not happy with me this AM but is called down now that she knows the call/text to did not reach me. Date of Admission Mar 27, 2021 at 17:17 Date Seen by a Provider: Mar 28, 2021 Time Seen by a Provider: 10:00 I consulted on this patient on 03/28/21 11:00 Attending Physician Bradford Mays MD Admitting Physician Isis Colby DO Consult Allergies and Home Medications Allergies Coded Allergies: gabapentin (Verified Allergy, Intermediate, MUSCLE WEAKNESS, 01/29/19) pregabalin (Verified Allergy, Intermediate, MUSCLE WEAKNESS, 01/29/19) azithromycin (Verified Allergy, Unknown, 01/29/19) moxifloxacin HCl (Verified Allergy, Unknown, 01/29/19) Home Medications Amoxicillin 500 Mg Capsule, 1,000 MG PO BID Prescribed by: BESSY MARTINEZ on 03/27/21 3970 Last Action: New Order Aspirin 81 Mg Tab.chew, 81 MG PO DAILY, (Reported) Atorvastatin Calcium 20 Mg Tablet, 20 MG PO HS, (Reported) Buspirone HCl 5 Mg Tablet, 5 MG PO TID, (Reported) Last Action: Continued Calcium Citrate/Vitamin D3 1 Each Tablet, 1 EACH PO DAILY, (Reported) Clonazepam 0.5 Mg Tablet, 0.5 MG PO BID, (Reported) Fluticasone Propionate 9.9 Ml Parrish.susp, 1 SPRAY NS BID, (Reported) 1 SPRAY EACH NARE DAILY Levothyroxine Sodium 75 Mcg Tablet, 75 MCG PO DAILY, (Reported) Last Action: Continued Metronidazole 500 Mg Tablet, 500 MG PO TID Prescribed by: BESSY MARTINEZ on 11/16/19 152 Montelukast Sodium 10 Mg Tablet, 10 MG PO DAILY, (Reported) Multivits-Min/Iron/FA/Lutein 1 Each Tablet, 1 EACH PO DAILY, (Reported) Omeprazole 20 Mg Capsule.dr, 20 MG PO DAILY, (Reported) Sertraline HCl 100 Mg Tablet, 200 MG PO HS, (Reported) Last Action: Continued Sulfamethoxazole/Trimethoprim 1 Each Tablet, 1 EACH PO BID Prescribed by: BESSY MARTINEZ on 11/16/191524 Ubidecarenone 100 Mg Capsule, 100 MG PO DAILY, (Reported) Patient Home Medication List Home Medication List Reviewed: Yes Past Nniqcdt-Kridfl-Ridyhg Hx Patient Social History Tobacco Use?: No Smoking Status: Former Smoker Use of E-Cig and/or Vaping dev: No Substance use?: No Alcohol Use?: No Pt feels they are or have been: No Immunizations Up To Date Date of Influenza Vaccine: Jul 25, 2014 First/Initial COVID19 Vaccinat: 12/26 Second COVID19 Vaccination Maikel: 12/26 Tetanus Booster (TDap): Less Than 5 Years Date of Pneumonia Vaccine: Jul 25, 2014 Current Status Advance Directives: No Communicates: Verbally Primary Language: Cymro Preferred Spoken Language: Cymro Is interpretation needed?: No Sensory deficits: Vision impairment Implanted or Applied Medical D: Orthopedic hardware Past Medical History Surgeries: Orthopedic Pneumonia, Chronic Bronchitis, Sleep Apnea, COPD Currently Using CPAP: Yes High Cholesterol, Valvular Heart Disease Gastroesophageal Reflux, Diverticulosis Anxiety, Depression Blood Disorders: No Family Medical History Cardiovascular disease 19 FATHER 19 MOTHER Deafness or hearing loss 19 FATHER Diabetes mellitus 19 MOTHER FH: COPD (chronic obstructive pulmonary disease) 19 FATHER FH: cancer 19 FATHER G8 SISTER FH: emphysema 19 FATHER Thyroid disease 19 MOTHER (hypothyroidism) Review of Systems Review of Systems General: No Chills, No Night Sweats HEENT: No Head Aches, No Visual Changes Pulmonary: No Dyspnea Cardiovascular: Palpitations Gastrointestinal: No: Nausea, Vomiting Genitourinary: No Dysuria Neurological: Weakness Physical Exam Vital Signs Vital Signs - First Documented 03/27/21 11:59 Temp 36.8 Pulse 100 Resp 20 B/P (MAP) 143/81 (101) Pulse Ox 97 O2 Delivery Room Air Capillary Refill : Height, Weight, BMI Height: 5'5.00" Weight: 213lbs. 9.0oz. [id number]; 32.03 BMI Method:Stated General Appearance: No Apparent Distress HEENT: PERRL/EOMI Neck: Non Tender, Supple Respiratory: Chest Non Tender, Lungs Clear, Normal Breath Sounds, No Accessory Muscle Use Cardiovascular: Regular Rate, Rhythm, No Edema Gastrointestinal: Non Tender, Soft Rectal: Deferred Back: No CVA Tenderness Extremity: Non Tender, No Calf Tenderness Neurologic/Psychiatric: Alert (anxious), Oriented x3 Skin: Warm/Dry Assessment/Plan Assessment/Plan Admission Dx acute blood loss anemia lower GI bleed Admission Status: Inpatient Order (span 2 midnights) Reason for Inpatient Admission: acute blood loss anemia- will likely take over 2 midnights to monitor and stabilize patient. Assessment and Plan 80 yo F admitted for a lower GI bleed. -1 unit pRBC yesterday- hgb back down to 7.4- will recheck this evening and again in AM. If approaches 7 will order another unit of blood. -restarting her home medications- as she reports she did not sleep last night. Too anxious. -Dr. Chaves consulted- will monitor blood loss and hemoglobin may need to do a colonoscopy. -Fe infusion. hold any po Fe. DVT ppx: scds. chemoppx contraindicated due to GI bleed Problems: (1) Anxiety (2) Lower GI bleed (3) Acute blood loss anemia (4) Hypothyroid Assessment & Plan: continue levothyroxine BRADFORD MAYS MD Mar 28, 2021 11:15
[2021-03-28] MEDS: busPIRone 5 MG (BUSPAR) TAB PO SCH ×2 (11:32→20:05)
[2021-03-28 11:59] LABS: HEMOGLOBIN 7.6 g/dL (11.5-16.0)
[2021-03-28] MEDS: IRON SUCROSE 200 MG/10 ML (VENOFER) VIAL IV SCH (12:08)
[2021-03-28] MEDS: SERTRALINE 100 MG (ZOLOFT) TAB PO SCH (20:05)
[2021-03-28] MEDS ORDERED: ACETAMINOPHEN 325 MG TABLET PO PRN (21:15)
[2021-03-28] MEDS: ONDANSETRON 4 MG/2 ML (SDV) Z0FRAN IVP PRN (21:51)
[2021-03-29 04:18] LABS: HEMATOCRIT 21 % (35-52); MEAN CORPUSCULAR HEMOGLOBIN 29 pg (25-34); MEAN CORPUSCULAR HGB CONC 32 g/dL (32-36); MEAN CORPUSCULAR VOLUME 91 fL (80-99); MEAN PLATELET VOLUME 9.7 fL (9.0-12.2); PLATELET COUNT 306 10^3/uL (130-400); WHITE BLOOD COUNT 20.9 10^3/uL (4.3-11.0)
[2021-03-29 04:24] LABS: HEMOGLOBIN 6.6 g/dL (11.5-16.0)
[2021-03-29 04:42] LABS: POTASSIUM 4.5 MMOL/L (3.6-5.0)
[2021-03-29 04:43] LABS: CALCIUM 8.2 MG/DL (8.5-10.1)
[2021-03-29 04:48] LABS: CREATININE SERUM 1.16 MG/DL (0.60-1.30)
[2021-03-29] MEDS ORDERED: NS IV 500 ML 500 ML IV SCH (05:15)
[2021-03-29] MEDS: LEVOTHYROXINE 75 MCG (LEVOTHROID) TABLET PO SCH (05:34)
[2021-03-29] MEDS: CATHETER FLUSH 10 ML SYR IV SCH ×3 (05:35→22:46)
--- NOTE | 2021-03-29 08:06 | Progress Note - Surgery ---
ZONIA RAMIREZ 03/29/21 0806: Subjective Date Seen by a Provider: Mar 29, 2021 Time Seen by a Provider: 07:30 Subjective/Events-last exam Continues in hospital. Reports 4x of blood per rectum last night. She also had nausea last night and was given Zofran but vomited x1. She reports an instance of LLQ last night as well. Denies fever. Hemoglobin of 6.6 today. Review of Systems General: No Chills, No Night Sweats HEENT: No Head Aches, No Visual Changes Pulmonary: No Cough, No Pleuritic Chest Pain Genitourinary: No Dysuria, No Frequency Musculoskeletal: No: neck pain, shoulder pain Neurological: Weakness; No: Change in speech Objective Exam Vital Signs Date Time Temp Pulse Resp B/P (MAP) Pulse Ox O2 Delivery O2 Flow Rate FiO2 03/29/21 07:54 37.0 100 16 124/64 (84) 96 Room Air 03/29/21 04:00 36.6 111 19 125/59 (81) 95 Room Air 03/29/21 03:09 Room Air 03/29/21 01:00 118 03/29/21 00:00 36.6 102 18 98/63 (75) 93 Room Air 03/29/21 00:00 Room Air 03/28/21 20:05 Room Air 03/28/21 19:39 37.3 96 22 103/68 (80) 94 Room Air 03/28/21 19:00 100 03/28/21 16:45 36.7 94 22 143/64 (90) 95 Room Air 03/28/21 16:00 Room Air 03/28/21 12:00 Room Air 03/28/21 12:00 36.3 105 22 123/59 (80) 94 Room Air 03/28/21 09:04 Room Air I & O 03/29/21 07:00 Intake Total 2170 ml Balance 2170 ml Capillary Refill : General Appearance: No Apparent Distress Respiratory: Chest Non Tender, Lungs Clear, Normal Breath Sounds, No Accessory Muscle Use Cardiovascular: No Edema, Tachycardia Gastrointestinal: non tender, soft, no organomegaly Extremity: Non Tender, No Calf Tenderness Neurologic/Psychiatric: Alert (anxious), Oriented x3 Skin: Warm/Dry Results Lab Laboratory Tests 03/28/21 11:37: Hemoglobin 7.6L, Hematocrit 24L 03/29/21 03:53: Hemoglobin 6.6*L, Hematocrit 21L, White Blood Count 20.9H, Red Blood Count 2.30L , Mean Corpuscular Volume 91, Mean Corpuscular Hemoglobin 29, Mean Corpuscular Hemoglobin Concent 32, Red Cell Distribution Width 15.0H, Platelet Count 306, Mean Platelet Volume 9.7, Sodium Level 132L, Potassium Level 4.5, Chloride Level 102, Carbon Dioxide Level 20L, Anion Gap 10, Blood Urea Nitrogen 26H, Creatinine 1.16, Estimat Glomerular Filtration Rate 45, BUN/Creatinine Ratio 22, Glucose Level 121H, Calcium Level 8.2L Assessment/Plan Assessment/Plan Assessment/Plan Bright red blood per rectum Diverticulosis Anemia secondary to lower GI bleed Discuss and schedule colonoscopy to work up lower GI bleed. Blood transfusion for hgb of 6.6. JANKI CHAVES DO 03/29/21 1104: Subjective Subjective/Events-last exam Continues to have bloody bm. Hgb down. Transfusing prbc now. No new complaints. Denies n/v fever sweats chills shortness of breath or chest pain. Objective Exam General Appearance: No Apparent Distress HEENT: PERRL/EOMI Neck: Non Tender Respiratory: Chest Non Tender, No Accessory Muscle Use, No Respiratory Distress Cardiovascular: Regular Rate, Rhythm, No JVD Gastrointestinal: non tender, soft, no organomegaly Extremity: Non Tender, No Calf Tenderness Neurologic/Psychiatric: Alert (anxious), Oriented x3 Skin: Normal Color, Warm/Dry Lymphatic: No Adenopathy Assessment/Plan Assessment/Plan Assessment/Plan Bright red blood per rectum Diverticulosis Anemia secondary to likely ower GI bleed we discussed risks and benefits of egd/colonoscopy to further evaluate and she understands and wishes to proceed. Go lytely today. NPO after midnight Scope tomorrow. Supervisory-Addendum Brief Verification & Attestation Participated in pt care: history, MDM, physical Personally performed: exam, history, MDM, supervision of care Care discussed with: Medical Student Procedures: n/a Results interpretation: Verified all documentation Verification and Attestation of Medical Student E/M Service A medical student performed and documented this service in my presence. I reviewed and verified all information documented by the medical student and made modifications to such information, when appropriate. I personally performed the physical exam and medical decision making. Janki Chaves, Mar 29, 2021,11:03 ZONIA RAMIREZ Mar 29, 2021 08:06 JANKI CHAVES DO Mar 29, 2021 11:04
[2021-03-29] MEDS ORDERED: NS IV 500 ML 500 ML ONE (08:13)
[2021-03-29 08:15] VITALS: BP_SYST 117; BP_SYST 121; BP_DIAS 61
[2021-03-29 08:30] VITALS: BP 119/59
[2021-03-29] MEDS: busPIRone 5 MG (BUSPAR) TAB PO SCH ×3 (09:02→20:51)
--- NOTE | 2021-03-29 09:11 | Progress Note ---
Subjective Subjective Date Seen by Provider: Mar 29, 2021 Time Seen by Provider: 07:45 Patient slept 2hour overnight with clonazepam and she reports feeling alright. Denies much pain- Vomited a couple times last night and zofran helped. She has had a couple bloody bowel movements. hgb 6.6 this AM. Patient would like melatonin to help sleep tonight. Review of Systems General: No Chills, No Night Sweats HEENT: No Head Aches, No Visual Changes Pulmonary: No Dyspnea Cardiovascular: Palpitations Gastrointestinal: No: Nausea, Vomiting Genitourinary: No Dysuria Musculoskeletal: No: neck pain, shoulder pain Neurological: Weakness All Other Systems Reviewed All Other Systems Reviewed: Yes (Negative excepted noted.) Objective Exam Vital Signs Vital Signs Date Time Temp Pulse Resp B/P (MAP) Pulse Ox O2 Delivery O2 Flow Rate FiO2 03/29/21 08:30 37.0 99 18 119/59 97 Room Air 03/29/21 08:15 37.0 104 22 121/61 97 Room Air 03/29/21 07:54 37.0 100 16 124/64 (84) 96 Room Air 03/29/21 04:00 36.6 111 19 125/59 (81) 95 Room Air 03/29/21 03:09 Room Air 03/29/21 01:00 118 03/29/21 00:00 36.6 102 18 98/63 (75) 93 Room Air 03/29/21 00:00 Room Air 03/28/21 20:05 Room Air 03/28/21 19:39 37.3 96 22 103/68 (80) 94 Room Air 03/28/21 19:00 100 03/28/21 16:45 36.7 94 22 143/64 (90) 95 Room Air 03/28/21 16:00 Room Air 03/28/21 12:00 Room Air 03/28/21 12:00 36.3 105 22 123/59 (80) 94 Room Air I & O 03/29/21 07:00 Intake Total 2170 ml Balance 2170 ml General Appearance: No Apparent Distress Eyes: Bilateral Eye PERRL HEENT: PERRL/EOMI Neck: Non Tender, Supple Respiratory: Chest Non Tender, Lungs Clear, Normal Breath Sounds, No Accessory Muscle Use Cardiovascular: Regular Rate, Rhythm, No Edema Gastrointestinal: Non Tender, Soft Rectal: Deferred Back: No CVA Tenderness Extremity: Non Tender, No Calf Tenderness Neurologic/Psychiatric: Alert (anxious), Oriented x3 Skin: Warm/Dry Results Lab Laboratory Tests 03/28/21 11:37: Hemoglobin 7.6L, Hematocrit 24L 03/29/21 03:53: Hemoglobin 6.6*L, Hematocrit 21L, White Blood Count 20.9H, Red Blood Count 2.30L , Mean Corpuscular Volume 91, Mean Corpuscular Hemoglobin 29, Mean Corpuscular Hemoglobin Concent 32, Red Cell Distribution Width 15.0H, Platelet Count 306, Mean Platelet Volume 9.7, Sodium Level 132L, Potassium Level 4.5, Chloride Level 102, Carbon Dioxide Level 20L, Anion Gap 10, Blood Urea Nitrogen 26H, Creatinine 1.16, Estimat Glomerular Filtration Rate 45, BUN/Creatinine Ratio 22, Glucose Level 121H, Calcium Level 8.2L Assessment/Plan Assessment/Plan Admission Dx acute blood loss anemia lower GI bleed Assessment and Plan 80 yo F admitted for a lower GI bleed. 03/28/21 -1 unit pRBC yesterday- hgb back down to 7.4- will recheck this evening and again in AM. If approaches 7 will order another unit of blood. -restarting her home medications- as she reports she did not sleep last night. Too anxious. -Dr. Chaves consulted- will monitor blood loss and hemoglobin may need to do a colonoscopy. -Fe infusion. hold any po Fe. 03/29/21- hgb down to 6.6 ordered 2 units pRBC. Suspect surgery will scope her. Starting amoxicillin for her right lower jaw pain- that usually is a tooth infection. Starting melatonin for sleep aid. DVT ppx: scds. chemoppx contraindicated due to GI bleed Problems: (1) Anxiety (2) Lower GI bleed (3) Acute blood loss anemia (4) Hypothyroid Assessment & Plan: continue levothyroxine Admission Dx acute blood loss anemia lower GI bleed Clinical Quality Measures Admission Status Admission Dx acute blood loss anemia lower GI bleed LAZ MAYS MD Mar 29, 2021 09:11
[2021-03-29] MEDS ORDERED: AMOXICILLIN 250 MG (POLYMOX) CAP PO SCH (09:15)
[2021-03-29 11:00] VITALS: BP 127/48
[2021-03-29] MEDS ORDERED: GOLYTELY POWDER 4000 ML BTL PO ONE (11:00)
[2021-03-29 11:20] VITALS: BP 109/55
[2021-03-29 11:35] VITALS: BP 120/60
[2021-03-29] MEDS: AMOXICILLIN 500 MG (POLYMOX) CAP PO SCH ×2 (11:52→20:51)
[2021-03-29 13:35] VITALS: BP 101/66
[2021-03-29] MEDS ORDERED: clonazePAM 0.5 MG (KlonoPIN) TAB PO PRN (18:30)
[2021-03-29 20:13] LABS: BASOPHILS # (AUTO) 0.1 10^3/uL (0.0-0.1); BASOPHILS % (AUTO) 1 % (0-10); EOSINOPHILS % (AUTO) 0 % (0-10); HEMATOCRIT 27 % (35-52); HEMOGLOBIN 8.9 g/dL (11.5-16.0); LYMPHOCYTES # (AUTO) 1.4 10^3/uL (1.0-4.0); LYMPHOCYTES % (AUTO) 7 % (12-44); MEAN CORPUSCULAR HEMOGLOBIN 29 pg (25-34); MEAN CORPUSCULAR HGB CONC 33 g/dL (32-36); MEAN CORPUSCULAR VOLUME 89 fL (80-99); MEAN PLATELET VOLUME 9.3 fL (9.0-12.2); MONOCYTES % (AUTO) 10 % (0-12); NEUTROPHILS # (AUTO) 15.5 10^3/uL (1.8-7.8); NEUTROPHILS % (AUTO) 78 % (42-75); PLATELET COUNT 262 10^3/uL (130-400); WHITE BLOOD COUNT 19.9 10^3/uL (4.3-11.0)
[2021-03-29 20:40] LABS: BAND NEUTROPHILS 2 %; LYMPHOCYTES % (MANUAL) 10 %; MONOCYTES % (MANUAL) 4 %; NEUTROPHILS % (MANUAL) 84 %; NUCLEATED RED BLOOD CELLS 3; POLYCHROMASIA MARKED
[2021-03-29 20:41] LABS: ANISOCYTOSIS MODERATE
[2021-03-29] MEDS: SERTRALINE 100 MG (ZOLOFT) TAB PO SCH (20:51)
[2021-03-29] MEDS: MELATONIN 10 MG TABLET PO SCH (20:52)
[2021-03-29] MEDS: ONDANSETRON 4 MG/2 ML (SDV) Z0FRAN IVP PRN (23:23)
[2021-03-30 03:03] LABS: BASOPHILS # (AUTO) 0.1 10^3/uL (0.0-0.1); BASOPHILS % (AUTO) 1 % (0-10); EOSINOPHILS # (AUTO) 0.1 10^3/uL (0.0-0.3); EOSINOPHILS % (AUTO) 0 % (0-10); HEMATOCRIT 24 % (35-52); HEMOGLOBIN 7.7 g/dL (11.5-16.0); LYMPHOCYTES # (AUTO) 1.2 10^3/uL (1.0-4.0); LYMPHOCYTES % (AUTO) 8 % (12-44); MEAN CORPUSCULAR HEMOGLOBIN 29 pg (25-34); MEAN CORPUSCULAR HGB CONC 32 g/dL (32-36); MEAN CORPUSCULAR VOLUME 90 fL (80-99); MEAN PLATELET VOLUME 9.3 fL (9.0-12.2); MONOCYTES # (AUTO) 1.5 10^3/uL (0.0-1.0); MONOCYTES % (AUTO) 10 % (0-12); NEUTROPHILS # (AUTO) 11.1 10^3/uL (1.8-7.8); NEUTROPHILS % (AUTO) 76 % (42-75); PLATELET COUNT 201 10^3/uL (130-400); WHITE BLOOD COUNT 14.7 10^3/uL (4.3-11.0)
[2021-03-30 03:15] LABS: POTASSIUM 3.2 MMOL/L (3.6-5.0)
[2021-03-30 03:16] LABS: CALCIUM 7.7 MG/DL (8.5-10.1)
[2021-03-30 03:21] LABS: CREATININE SERUM 0.95 MG/DL (0.60-1.30)
[2021-03-30] MEDS: CATHETER FLUSH 10 ML SYR IV SCH ×3 (06:39→21:29)
[2021-03-30] MEDS: LEVOTHYROXINE 75 MCG (LEVOTHROID) TABLET PO SCH (06:39)
--- NOTE | 2021-03-30 07:11 | Progress Note - Surgery ---
ZONIA RAMIREZ 03/30/21 0711: Subjective Date Seen by a Provider: Mar 30, 2021 Time Seen by a Provider: 06:40 Subjective/Events-last exam Pt continues in hospital. She will have a egd and colonoscopy this morning. Reports seeing "dark" blood in BM after prep. Had nausea last night with x1 vom iting. Denies fever. Last Hgb was 7.7. Last white count was14.7. Review of Systems General: No Chills, No Night Sweats HEENT: No Head Aches, No Visual Changes Pulmonary: No Cough, No Pleuritic Chest Pain Cardiovascular: No: Chest Pain, Lt Headedness Gastrointestinal: No: Constipation Genitourinary: No Dysuria, No Frequency Musculoskeletal: No: neck pain, shoulder pain Neurological: No: Numbness, Change in speech Objective Exam Vital Signs Date Time Temp Pulse Resp B/P (MAP) Pulse Ox O2 Delivery O2 Flow Rate FiO2 03/30/21 04:00 Room Air 03/30/21 03:34 98 24 121/48 (72) 93 Room Air 03/30/21 01:00 103 03/30/21 00:00 96 20 109/53 (71) 92 Room Air 03/30/21 00:00 Room Air 03/29/21 20:00 Room Air 03/29/21 19:33 36.6 99 18 120/61 (80) 94 Room Air 03/29/21 19:00 99 03/29/21 16:40 37.3 96 16 118/53 (74) 99 Room Air 03/29/21 16:00 Room Air 03/29/21 13:35 37.2 84 24 101/66 98 Room Air 03/29/21 12:00 Room Air 03/29/21 11:51 37.5 96 18 119/59 (79) 97 Room Air 03/29/21 11:35 37.3 92 14 120/60 97 Room Air 03/29/21 11:20 37.3 92 21 109/55 97 Room Air 03/29/21 11:00 37.3 97 22 127/48 97 Room Air 03/29/21 08:30 37.0 99 18 119/59 97 Room Air 03/29/21 08:15 37.0 104 22 121/61 97 Room Air 03/29/21 08:00 Room Air 03/29/21 07:54 37.0 100 16 124/64 (84) 96 Room Air I & O 03/30/21 07:00 Intake Total 1630 ml Balance 1630 ml Capillary Refill : General Appearance: No Apparent Distress Cardiovascular: Regular Rate, Rhythm, No JVD Gastrointestinal: non tender, soft, no organomegaly Neurologic/Psychiatric: Alert (anxious), Oriented x3 Skin: Normal Color, Warm/Dry Results Lab Laboratory Tests 03/29/21 16:00: Influenza Type A (RT-PCR) Not Detected, Influenza Type B (RT-PCR) Not Detected, SARS-CoV-2 RNA (RT-PCR) Not Detected 03/29/21 20:00: White Blood Count 19.9H, Red Blood Count 3.04L, Hemoglobin 8.9#L, Hematocrit 27L , Mean Corpuscular Volume 89, Mean Corpuscular Hemoglobin 29, Mean Corpuscular Hemoglobin Concent 33, Red Cell Distribution Width 14.9H, Platelet Count 262, Mean Platelet Volume 9.3, Immature Granulocyte % (Auto) 5, Neutrophils (%) (Auto) 78H, Lymphocytes (%) (Auto) 7L, Monocytes (%) (Auto) 10, Eosinophils (%) (Auto) 0, Basophils (%) (Auto) 1, Neutrophils # (Auto) 15.5H, Lymphocytes # (Auto) 1.4, Monocytes # (Auto) 2.0H, Eosinophils # (Auto) 0.0, Basophils # (Auto) 0.1, Immature Granulocyte # (Auto) 0.9H, Neutrophils % (Manual) 84, Lymphocytes % (Manual) 10, Monocytes % (Manual) 4, Band Neutrophils 2, Nucleated Red Blood Cells 3, Polychromasia MARKED, Anisocytosis MODERATE 03/30/21 02:55: White Blood Count 14.7H, Red Blood Count 2.64L, Hemoglobin 7.7L, Hematocrit 24L, Mean Corpuscular Volume 90, Mean Corpuscular Hemoglobin 29, Mean Corpuscular Hemoglobin Concent 32, Red Cell Distribution Width 14.8H, Platelet Count 201, Mean Platelet Volume 9.3, Immature Granulocyte % (Auto) 5, Neutrophils (%) (Auto) 76H, Lymphocytes (%) (Auto) 8L, Monocytes (%) (Auto) 10, Eosinophils (%) (Auto) 0, Basophils (%) (Auto) 1, Neutrophils # (Auto) 11.1H, Lymphocytes # (Auto) 1.2, Monocytes # (Auto) 1.5H, Eosinophils # (Auto) 0.1, Basophils # (Auto) 0.1, Immature Granulocyte # (Auto) 0.8H, Sodium Level 135, Potassium Level 3.2L, Chloride Level 104, Carbon Dioxide Level 22, Anion Gap 9, Blood Urea Nitrogen 17, Creatinine 0.95, Estimat Glomerular Filtration Rate 57, BUN/Creatinine Ratio 18, Glucose Level 109H, Calcium Level 7.7L Assessment/Plan Assessment/Plan Assessment/Plan Bright red blood per rectum Diverticulosis Anemia secondary to likely ower GI bleed EGD and Colonoscopy this morning. JANKI CHAVES DO 03/30/21 1512: Subjective Subjective/Events-last exam Tolerated prep. Had slight nausea. Transfusion prbc yesterday. Hgb 7.7. NPO currently for EGD Colonoscopy. Denies n/v fever sweats chills shortness of ana th or chest pain at this time. Objective Exam General Appearance: No Apparent Distress HEENT: PERRL/EOMI, Normal ENT Inspection Neck: Non Tender, Supple Respiratory: Chest Non Tender, No Accessory Muscle Use Cardiovascular: Regular Rate, Rhythm, No JVD Gastrointestinal: non tender, soft Neurologic/Psychiatric: Alert (anxious), Oriented x3 Skin: Normal Color, Warm/Dry Lymphatic: No Adenopathy Assessment/Plan Assessment/Plan Assessment/Plan Bright red blood per rectum Diverticulosis Anemia secondary to likely lower GI bleed EGD and Colonoscopy this morning. Currently NPO All questions answered. Supervisory-Addendum Brief Verification & Attestation Participated in pt care: history, MDM, physical Personally performed: exam, history, MDM, supervision of care Care discussed with: Medical Student Procedures: n/a Results interpretation: Verified all documentation Verification and Attestation of Medical Student E/M Service A medical student performed and documented this service in my presence. I reviewed and verified all information documented by the medical student and made modifications to such information, when appropriate. I personally performed the physical exam and medical decision making. Janki Chaves, Mar 30, 2021,07:12 ZONIA RAMIREZ Mar 30, 2021 07:11 JANKI CHAVES DO Mar 30, 2021 15:12
[2021-03-30] MEDS ORDERED: HURRICAINE EXT TUBE (BENZOCAINE) ONE (07:40)
[2021-03-30] MEDS ORDERED: LACTATED RINGERS 1,000 ML IV ONE (07:41)
[2021-03-30] MEDS ORDERED: PROPOFOL INJECTION 50 ML IV ONE (07:45)
[2021-03-30] MEDS ORDERED: LACTATED RINGERS 1,000 ML IV STA (08:03)
[2021-03-30] MEDS ORDERED: HURRICAINE EXT TUBE (BENZOCAINE) XX PRN (08:15)
[2021-03-30] MEDS ORDERED: proPOfol 200 MG/20 ML (DIPRIVAN) VIAL IV ONE (08:16)
[2021-03-30 08:35] VITALS: BP 95/52
[2021-03-30 08:40] VITALS: BP 109/84
[2021-03-30] MEDS: AMOXICILLIN 500 MG (POLYMOX) CAP PO SCH ×2 (09:09→20:39)
[2021-03-30] MEDS: PANTOPRAZOLE 40 MG (PROTONIX) TAB PO SCH ×2 (09:09→20:39)
[2021-03-30] MEDS: busPIRone 5 MG (BUSPAR) TAB PO SCH ×2 (09:10→12:07)
[2021-03-30] MEDS: IRON SUCROSE 200 MG/10 ML (VENOFER) VIAL IV SCH (09:10)
[2021-03-30] MEDS ORDERED: CHOL500044 PO (10:06)
[2021-03-30] MEDS ORDERED: B&C/1TAB2 PO (10:06)
[2021-03-30] MEDS ORDERED: MILK175T2 PO (10:06)
[2021-03-30] MEDS ORDERED: MESA1.2T3 PO (10:06)
[2021-03-30] MEDS ORDERED: FERR325T24 PO (10:06)
[2021-03-30] MEDS ORDERED: MELA10TA2 PO (10:06)
[2021-03-30] MEDS ORDERED: ACET600C5 PO (10:06)
[2021-03-30] MEDS ORDERED: FLUT16SP22 NSEACH (10:06)
[2021-03-30] MEDS ORDERED: ZINC220T3 PO (10:06)
[2021-03-30] MEDS ORDERED: ASPI-1238 PO (10:06)
[2021-03-30] MEDS ORDERED: BUSP15TA60 PO (10:06)
[2021-03-30] MEDS ORDERED: POTA10TA36 PO (10:13)
[2021-03-30] MEDS ORDERED: FURO20TA4 PO (10:13)
[2021-03-30] MEDS ORDERED: LEVO1CAP11 PO (10:22)
--- NOTE | 2021-03-30 11:17 | Anesthesia-General Post-Op ---
MAC Patient Condition Mental Status/LOC: Same as Preop Cardiovascular: Satisfactory Nausea/Vomiting: Absent Respiratory: Satisfactory Pain: Controlled Complications: Absent Post Op Complications Complications None Follow Up Care/Instructions Patient Instructions None needed. Anesthesiology Discharge Order Discharge Order Patient is doing well, no complaints, stable vital signs, no apparent adverse anesthesia problems. No complications reported per nursing. ZINA FUENTES CRNA Mar 30, 2021 11:17
--- NOTE | 2021-03-30 12:22 | Progress Note ---
Subjective Date Seen by a Provider: Mar 30, 2021 Time Seen by a Provider: 12:19 Subjective/Events-last exam Fwup acute blood loss anemia, anxiety, weakness. Patient had EGD and c olonoscopy this morning and found healing ulcer on EGD and removed 9 polyps from colon. Objective Exam Vital Signs Date Time Temp Pulse Resp B/P (MAP) Pulse Ox O2 Delivery O2 Flow Rate FiO2 03/30/21 12:07 Room Air 03/30/21 10:01 Nasal Cannula 2.00 03/30/21 09:13 81 12 116/57 (76) 97 Room Air 03/30/21 09:00 Room Air 03/30/21 08:40 84 16 96 Room Air 03/30/21 08:35 80 16 97 Room Air 03/30/21 04:00 Room Air 03/30/21 03:34 98 24 121/48 (72) 93 Room Air 03/30/21 01:00 103 03/30/21 00:00 96 20 109/53 (71) 92 Room Air 03/30/21 00:00 Room Air 03/29/21 20:00 Room Air 03/29/21 19:33 36.6 99 18 120/61 (80) 94 Room Air 03/29/21 19:00 99 03/29/21 16:40 37.3 96 16 118/53 (74) 99 Room Air 03/29/21 16:00 Room Air 03/29/21 13:35 37.2 84 24 101/66 98 Room Air I & O 03/30/21 07:00 Intake Total 1630 ml Balance 1630 ml Capillary Refill : General Appearance: No Apparent Distress Neck: Supple Respiratory: Lungs Clear Cardiovascular: Regular Rate, Rhythm, Systolic Murmur, Gallop/S4 Gastrointestinal: normal bowel sounds, non tender, soft Extremity: Non Tender, No Calf Tenderness, No Pedal Edema Neurologic/Psychiatric: Alert, Oriented x3 Results Lab Laboratory Tests 03/29/21 16:00: Influenza Type A (RT-PCR) Not Detected, Influenza Type B (RT-PCR) Not Detected, SARS-CoV-2 RNA (RT-PCR) Not Detected 03/29/21 20:00: White Blood Count 19.9H, Red Blood Count 3.04L, Hemoglobin 8.9#L, Hematocrit 27L , Mean Corpuscular Volume 89, Mean Corpuscular Hemoglobin 29, Mean Corpuscular Hemoglobin Concent 33, Red Cell Distribution Width 14.9H, Platelet Count 262, Mean Platelet Volume 9.3, Immature Granulocyte % (Auto) 5, Neutrophils (%) (Auto) 78H, Lymphocytes (%) (Auto) 7L, Monocytes (%) (Auto) 10, Eosinophils (%) (Auto) 0, Basophils (%) (Auto) 1, Neutrophils # (Auto) 15.5H, Lymphocytes # (Auto) 1.4, Monocytes # (Auto) 2.0H, Eosinophils # (Auto) 0.0, Basophils # (Auto) 0.1, Immature Granulocyte # (Auto) 0.9H, Neutrophils % (Manual) 84, Lymphocytes % (Manual) 10, Monocytes % (Manual) 4, Band Neutrophils 2, Nucleated Red Blood Cells 3, Polychromasia MARKED, Anisocytosis MODERATE 03/30/21 02:55: White Blood Count 14.7H, Red Blood Count 2.64L, Hemoglobin 7.7L, Hematocrit 24L, Mean Corpuscular Volume 90, Mean Corpuscular Hemoglobin 29, Mean Corpuscular Hemoglobin Concent 32, Red Cell Distribution Width 14.8H, Platelet Count 201, Mean Platelet Volume 9.3, Immature Granulocyte % (Auto) 5, Neutrophils (%) (Auto) 76H, Lymphocytes (%) (Auto) 8L, Monocytes (%) (Auto) 10, Eosinophils (%) (Auto) 0, Basophils (%) (Auto) 1, Neutrophils # (Auto) 11.1H, Lymphocytes # (Auto) 1.2, Monocytes # (Auto) 1.5H, Eosinophils # (Auto) 0.1, Basophils # (Auto) 0.1, Immature Granulocyte # (Auto) 0.8H, Sodium Level 135, Potassium Level 3.2L, Chloride Level 104, Carbon Dioxide Level 22, Anion Gap 9, Blood Urea Nitrogen 17, Creatinine 0.95, Estimat Glomerular Filtration Rate 57, BUN/Creatinine Ratio 18, Glucose Level 109H, Calcium Level 7.7L 03/30/21 09:35: Lab Scanned Report Transfusion Reaction Form Assessment/Plan Assessment/Plan Assess & Plan/Chief Complaint 1. Acute Blood Loss Anemia--S/P transfusion and iron, monitor H/H 2. Upper and Lower Gastrointestinal Hemorrhage--S/P EGD and colonoscopy--healing ulcer as well as numerous polyps, continue protonix and will await pathology results and monitor H/H, has been on clear liquid diet--will advance per surgery once H/H stable 3. COPD--stable 4. Anxiety--back on home meds CHALO FUENTES DO Mar 30, 2021 12:22
[2021-03-30] MEDS ORDERED: KCL 20 MEQ TAB (K-DUR) PO ONE (13:00)
[2021-03-30] MEDS: SERTRALINE 100 MG (ZOLOFT) TAB PO SCH (20:39)
[2021-03-30] MEDS: busPIRone 15 MG (BUSPAR) TABLET PO SCH (20:39)
[2021-03-30] MEDS: MELATONIN 10 MG TABLET PO SCH (20:39)
--- NOTE | 2021-03-31 03:23 | OPERATIVE REPORT ---
DATE OF SERVICE: 03/30/2021 PREOPERATIVE DIAGNOSES: Gastrointestinal bleed, likely lower, diverticulosis, anemia. POSTOPERATIVE DIAGNOSES: Hiatal hernia, healing duodenal ulcers, colon polyps. PROCEDURE: EGD with biopsies, colonoscopy with hot biopsy polypectomy x9. SURGEON: Janki Chaves DO ANESTHESIA: Per JACK WINDER. ESTIMATED BLOOD LOSS: None. COMPLICATIONS: None. INDICATIONS: The patient is an 80-year-old female who is anemic and having bright red blood and some clots per rectum. She has had several previous colonoscopies. She has never found the source of bleeding. She is continued to bleed. She understands risks and benefits of procedures and wished to proceed. Consent was signed in the chart. DESCRIPTION OF PROCEDURE: The patient was taken to the endoscopy suite, placed in left lateral recumbent position. Timeout was performed. Scope was inserted in mouth, down the esophagus, stomach and into the duodenum without difficulty. In the first and second portion of the duodenum, there were appearing of multiple healing ulcerations with one larger. Biopsy of the duodenum was obtained. Scope was then slowly retracted back into the stomach where it was further insufflated. There were no polyps, masses or ulcerations. Biopsy of the antrum was obtained. Scope was retroflexed noting no other pathology except for a hiatal hernia. Scope was returned to its normal position, slowly withdrawn to distal esophagus, which had normal appearance. Scope was then slowly retracted back to completely remove, noting no other pathology. No active source of bleeding present. Digital rectal exam was performed. There were no palpable polyps, masses or ulcerations. Scope was inserted in the rectum, advanced all the way to cecum with minimal difficulty. Prep was adequate. Scope was then slowly retracted back. There were no polyps, masses or ulcerations in the cecum, ascending colon and transverse colon. No polyps, masses or ulcerations within the cecum. In the ascending colon, there were 2 small polyps were present, which hot biopsy polypectomy was performed. Scope was then continuously retracted back into the transverse colon, another 2 polyps were present, which hot biopsy polypectomies were performed on these. Scope was then continuously retracted back in the descending colon, there were 5 small polyp present, which hot biopsy polypectomies were performed. Scope was then continuously slowly retracted back noting diverticulosis of the sigmoid colon. In the sigmoid colon, there were no polyps, masses or ulcerations. Scope was then continuously retracted back until the rectum where it was inserted and retracted multiple times, noting no other pathology and scope completely removed. The patient tolerated procedure well without any complications. She was taken to recovery room in stable condition. RECOMMENDATIONS: The patient to continue conservative management. The patient was started on Protonix 40 mg daily. The patient will follow her hemoglobin, transfuse packed red blood cells as needed. Further recommendations pending biopsy results and hospital course. Job ID: [id number] DocumentID: [id number] Dictated Date: 03/30/2021 19:50:21 Instrumental Musician Date: 03/31/2021 03:22:36 Dictated By: JANKI CHAVES DO
[2021-03-31 03:53] LABS: HEMATOCRIT 23 % (35-52); HEMOGLOBIN 7.3 g/dL (11.5-16.0); MEAN CORPUSCULAR HEMOGLOBIN 29 pg (25-34); MEAN CORPUSCULAR HGB CONC 31 g/dL (32-36); MEAN CORPUSCULAR VOLUME 93 fL (80-99); MEAN PLATELET VOLUME 9.3 fL (9.0-12.2); PLATELET COUNT 193 10^3/uL (130-400); WHITE BLOOD COUNT 12.5 10^3/uL (4.3-11.0)
[2021-03-31 04:04] LABS: POTASSIUM 3.3 MMOL/L (3.6-5.0)
[2021-03-31 04:06] LABS: CALCIUM 7.9 MG/DL (8.5-10.1)
[2021-03-31 04:10] LABS: CREATININE SERUM 0.86 MG/DL (0.60-1.30)
[2021-03-31] MEDS: LEVOTHYROXINE 75 MCG (LEVOTHROID) TABLET PO SCH (05:48)
[2021-03-31] MEDS: CATHETER FLUSH 10 ML SYR IV SCH ×3 (05:48→22:26)
--- NOTE | 2021-03-31 07:37 | Progress Note - Surgery ---
ZONIA RAMIREZ 03/31/21 0737: Subjective Date Seen by a Provider: Mar 31, 2021 Time Seen by a Provider: 07:15 Subjective/Events-last exam S/P EGD and colonoscopy. PT reports not passing any blood per rectum since the bowel prep. Denies fevers. No new or worsening abdominal pain, compared to her normal. Review of Systems General: No Chills, No Night Sweats HEENT: No Head Aches, No Visual Changes Cardiovascular: No: Chest Pain, Lt Headedness Gastrointestinal: No: Vomiting, Constipation Genitourinary: No Dysuria, No Frequency Musculoskeletal: No: neck pain, shoulder pain Neurological: No: Weakness, Numbness Objective Exam Vital Signs Date Time Temp Pulse Resp B/P (MAP) Pulse Ox O2 Delivery O2 Flow Rate FiO2 03/31/21 03:52 37.8 87 20 121/48 (72) 93 Room Air 03/31/21 03:33 Room Air 03/31/21 00:04 Room Air 03/30/21 23:35 37.8 84 16 134/69 (90) 99 Nasal Cannula 3.00 03/30/21 20:00 Room Air 03/30/21 19:44 37.8 87 18 100/57 (71) 94 03/30/21 16:00 36.7 87 20 107/58 (74) 98 03/30/21 15:10 Room Air 03/30/21 12:07 Room Air 03/30/21 12:00 36.6 80 19 104/57 (73) 98 Room Air 03/30/21 10:01 Nasal Cannula 2.00 03/30/21 09:13 81 12 116/57 (76) 97 Room Air 03/30/21 09:00 Room Air 03/30/21 08:40 84 16 96 Room Air 03/30/21 08:35 80 16 97 Room Air I & O 03/31/21 06:59 Intake Total 2350 ml Balance 2350 ml Capillary Refill : General Appearance: No Apparent Distress Respiratory: No Accessory Muscle Use Cardiovascular: Regular Rate, Rhythm, No JVD Gastrointestinal: non tender, soft Extremity: Non Tender, No Calf Tenderness, No Pedal Edema Neurologic/Psychiatric: Alert (anxious), Oriented x3 Skin: Normal Color, Warm/Dry Results Lab Laboratory Tests 03/30/21 09:35: Lab Scanned Report Transfusion Reaction Form 03/31/21 03:40: White Blood Count 12.5H, Red Blood Count 2.50L, Hemoglobin 7.3L, Hematocrit 23L, Mean Corpuscular Volume 93, Mean Corpuscular Hemoglobin 29, Mean Corpuscular Hemoglobin Concent 31L, Red Cell Distribution Width 15.4H, Platelet Count 193, Mean Platelet Volume 9.3, Sodium Level 136, Potassium Level 3.3L, Chloride Level 106, Carbon Dioxide Level 24, Anion Gap 6, Blood Urea Nitrogen 10, Creatinine 0.86, Estimat Glomerular Filtration Rate 63, BUN/Creatinine Ratio 12, Glucose Level 96, Calcium Level 7.9L Microbiology 03/29/21 MRSA Screen - Final, Complete MRSA not isolated Assessment/Plan Assessment/Plan Assessment/Plan Bright red blood per rectum Diverticulosis hiatal hernia healing duodenal ulcer Discharge today. Discuss concerns of anemia. JANKI CHAVES DO 03/31/212119: Subjective Subjective/Events-last exam Patient is doing well. Patient patient is doing well. Patient has no abdominal pain. She has had no more bleeding per rectum since having EGD and colonoscopy with hot biopsy polypectomy. Patient hemoglobin went from 7.7-7.4. Patient wanting food. Patient being transfused 1 unit PRBC. Patient feeling weak but better than yesterday. Denies any nausea vomiting fever sweats chills shortness of breath or chest pain. Objective Exam General Appearance: No Apparent Distress, Anxious HEENT: PERRL/EOMI, Normal ENT Inspection Neck: Non Tender, Supple Respiratory: Chest Non Tender, No Accessory Muscle Use, No Respiratory Distress Cardiovascular: Regular Rate, Rhythm, No JVD Gastrointestinal: non tender, soft Extremity: Normal Capillary Refill, Non Tender, No Calf Tenderness Neurologic/Psychiatric: Alert (anxious), Oriented x3 Skin: Normal Color, Warm/Dry Lymphatic: No Adenopathy Assessment/Plan Assessment/Plan Assessment/Plan Bright red blood per rectum Diverticulosis hiatal hernia healing duodenal ulcer Status post EGD colonoscopy with hot biopsy polypectomies Patient doing well. We will advance her diet. Patient getting 1 unit packed red blood cells. Patient will repeat labs tomorrow. On Protonix.. Supervisory-Addendum Brief Verification & Attestation Participated in pt care: history, MDM, physical Personally performed: exam, history, MDM, supervision of care Care discussed with: Medical Student Procedures: n/a Results interpretation: Verified all documentation Verification and Attestation of Medical Student E/M Service A medical student performed and documented this service in my presence. I reviewed and verified all information documented by the medical student and made modifications to such information, when appropriate. I personally performed the physical exam and medical decision making. Janki Chaves, Mar 31, 2021,21:20 ZONIA RAMIREZ Mar 31, 2021 07:37 JANKI CHAVES DO Mar 31, 2021 21:20
[2021-03-31] MEDS: PANTOPRAZOLE 40 MG (PROTONIX) TAB PO SCH ×2 (08:28→19:56)
[2021-03-31] MEDS: busPIRone 15 MG (BUSPAR) TABLET PO SCH ×2 (08:28→19:56)
[2021-03-31] MEDS: AMOXICILLIN 500 MG (POLYMOX) CAP PO SCH ×2 (08:28→19:56)
[2021-03-31] MEDS ORDERED: KCL 20 MEQ TAB (K-DUR) PO ONE (12:30)
[2021-03-31] MEDS ORDERED: NS IV 500 ML 500 ML IV SCH (12:30)
--- NOTE | 2021-03-31 12:30 | Progress Note ---
Subjective Date Seen by a Provider: Mar 31, 2021 Time Seen by a Provider: 12:24 Subjective/Events-last exam Fwup acute blood loss anemia, anxiety, weakness. Objective Exam Vital Signs Date Time Temp Pulse Resp B/P (MAP) Pulse Ox O2 Delivery O2 Flow Rate FiO2 03/31/21 08:00 Room Air 03/31/21 08:00 36.9 78 18 129/56 (80) 96 Room Air 03/31/21 03:52 37.8 87 20 121/48 (72) 93 Room Air 03/31/21 03:33 Room Air 03/31/21 00:04 Room Air 03/30/21 23:35 37.8 84 16 134/69 (90) 99 Nasal Cannula 3.00 03/30/21 20:00 Room Air 03/30/21 19:44 37.8 87 18 100/57 (71) 94 03/30/21 16:00 36.7 87 20 107/58 (74) 98 03/30/21 15:10 Room Air I & O 03/31/21 07:00 Intake Total 2350 ml Balance 2350 ml Capillary Refill : General Appearance: No Apparent Distress Respiratory: Lungs Clear Cardiovascular: Regular Rate, Rhythm Gastrointestinal: normal bowel sounds, non tender, soft Extremity: Non Tender, No Calf Tenderness, No Pedal Edema Neurologic/Psychiatric: Alert, Oriented x3 Skin: Warm/Dry Results Lab Laboratory Tests 03/31/21 03:40: White Blood Count 12.5H, Red Blood Count 2.50L, Hemoglobin 7.3L, Hematocrit 23L, Mean Corpuscular Volume 93, Mean Corpuscular Hemoglobin 29, Mean Corpuscular Hemoglobin Concent 31L, Red Cell Distribution Width 15.4H, Platelet Count 193, Mean Platelet Volume 9.3, Sodium Level 136, Potassium Level 3.3L, Chloride Level 106, Carbon Dioxide Level 24, Anion Gap 6, Blood Urea Nitrogen 10, Creatinine 0.86, Estimat Glomerular Filtration Rate 63, BUN/Creatinine Ratio 12, Glucose Level 96, Calcium Level 7.9L Microbiology 03/29/21 MRSA Screen - Final, Complete MRSA not isolated Assessment/Plan Assessment/Plan Assess & Plan/Chief Complaint 1. Acute Blood Loss Anemia--S/P transfusion and iron, H/H down to 7.3/23 so will give another unit of pRBCs today 2. Upper and Lower Gastrointestinal Hemorrhage--S/P EGD and colonoscopy--healing ulcer as well as numerous polyps, continue protonix and will await pathology results and monitor H/H--another unit today, diet advanced 3. COPD--stable 4. Anxiety--back on home meds CHALO FUENTES DO Mar 31, 2021 12:29
--- NOTE | 2021-03-31 14:32 | Physical Therapy Evaluation ---
PT Evaluation-General Medical Diagnosis Admission Date Mar 27, 2021 at 17:17 Medical Diagnosis: GI Bleed Onset Date: Mar 27, 2021 Therapy Diagnosis Therapy Diagnosis: debility/weakness Height/Weight Height (Feet): 5 Height (Inches): 5.00 Weight (Pounds): 213 Weight (Ounces): 9.0 Precautions Precautions/Isolations: Fall Prevention, Standard Precautions Referral Physician: Earnestine Reason for Referral: Evaluation/Treatment Medical History Pertinent Medical History: CAD, COPD, GERD, HTN, Hypothroidism Current History ER with blood in her stool/weakness Reviewed History: Yes Social History Home: Apartment Prior Prior Level of Function SCALE: Activities may be completed with or without assistive devices. 0-Eplirufgrv-aszzvzm completes the activity by him/herself with no assistance from a helper. 5-Set-up or Clean-up Assistance-helper sets up or cleans up; patient completes activity. [place] assists only prior to or following the activity. 4-Supervision or Touching Assistance-helper provides verbal cues and/or touching/steadying and/or contact guard assistance as patient completes activity. Assistance may be provided throughout the activity or intermittently. 3-Partial/Moderate Assistance-helper does LESS THAN HALF the effort. [place] lifts, holds or supports trunk or limbs, but provides less than half the effort. 2-Substantial/Maximal Assistance-helper does MORE THAN HALF the effort. [place] lifts or holds trunk or limbs and provides more than half the effort. 6-Fgnngukdf-xvpdml does ALL the effort. Patient does none of the effort to complete the activity. Or, the assistance of 2 or more helpers is required for the patient to complete the activity. If activity was not attempted, code reason: 7-Patient Refused. 9-Not Applicable-not attempted and the patient did not perform the activity before the current illness, exacerbation or injury. 10-Not Attempted due to Environmental Limitations-(lack of equipment, weather restraints, etc.). 88-Not Attempted due to Medical Conditions or Safety Concerns. Bed Mobility: 6 Transfers (B,C,W/C): 6 Gait: 6 Indoor Mobility (Ambulation): Independent Prior Device Use: cane PT Evaluation-Current Subjective Patient agrees to PT. Objective Patient Orientation: Normal For Age ROM/Strength ROM Lower Extremities bilateral LE WFL Strength Lower Extremities 4-/5 grossly bilateral LE Integumentary/Posture Bowel Incontinence: No Bladder Incontinence: No Posture kyphotic Neuromuscular (Tone, Coordination, Reflexes) grossly intact Sensory Vision: Functional Hearing: Functional Transfers Roll Left to Right (QC): 6 Sit to Lying (QC): 6 Lying to Sitting/Side of Bed(Q: 6 Sit to Stand (QC): 4 Chair/Zzi-rp-Jslgu Xfer(QC): 4 Gait Does the Patient Walk?: Yes Mode of Locomotion: Walk Anticipated Mode of Locomotion: Walk Walk 10 feet (QC): 4 Walk 50 ft with 2 Turns(QC): 4 Walk 150 ft (QC): 4 Distance: 275' Gait Assistive Device: FWW Comments/Gait Description slightly unsteady initially with improvement with distance Balance Sitting Static: Normal Sitting Dynamic: Normal Standing Static: Fair Standing Dynamic: Fair Assessment/Needs 80 y.o. female, will be seen short term by skilled PT to address functional mobility to ensure safe return to home at maximum LOF. Rehab Potential: Fair PT Short Term Goals Short Term Goals Time Frame: Apr 04, 2021 Roll Left & Right: 6 Sit to lyin Lying to sitting on side of be: 6 Sit to stand: 6 Chair/cro-iz-fhaio transfer: 6 Toilet transfer: 6 Car transfer: 6 Walk 10 feet: 6 Walk 50 feet with two turns: 6 Walk 150 feet: 6 PT Plan Problem List Problem List: Activity Tolerance, Functional Strength, Safety, Balance, Gait, Bed Mobility Treatment/Plan Treatment Plan: Continue Plan of Care Treatment Plan: Education, Functional Activity Burak, Functional Strength, Gait, Safety, Therapeutic Exercise, Transfers Treatment Duration: Apr 04, 2021 Frequency: 5 times per week Estimated Hrs Per Day: .25 hour per day Patient and/or Family Agrees t: Yes Time/GCodes Time In: 1315 Time Out: 1331 Total Billed Treatment Time: 16 Total Billed Treatment 1 visit EVMod 16 min SRAVANI HOOD PT Mar 31, 2021 14:32
[2021-03-31 14:40] VITALS: BP 115/47
[2021-03-31 15:00] VITALS: BP 104/52
[2021-03-31 17:46] VITALS: BP 110/59
[2021-03-31] MEDS: SERTRALINE 100 MG (ZOLOFT) TAB PO SCH (19:56)
[2021-03-31] MEDS: MELATONIN 10 MG TABLET PO SCH (19:56)
[2021-04-01 03:39] LABS: HEMATOCRIT 28 % (35-52); HEMOGLOBIN 8.8 g/dL (11.5-16.0); MEAN CORPUSCULAR HEMOGLOBIN 29 pg (25-34); MEAN CORPUSCULAR HGB CONC 31 g/dL (32-36); MEAN CORPUSCULAR VOLUME 94 fL (80-99); MEAN PLATELET VOLUME 9.1 fL (9.0-12.2); PLATELET COUNT 231 10^3/uL (130-400); WHITE BLOOD COUNT 13.1 10^3/uL (4.3-11.0)
[2021-04-01 03:52] LABS: POTASSIUM 4.2 MMOL/L (3.6-5.0)
[2021-04-01 03:53] LABS: CALCIUM 8.6 MG/DL (8.5-10.1)
[2021-04-01 03:58] LABS: CREATININE SERUM 0.93 MG/DL (0.60-1.30)
[2021-04-01] MEDS: CATHETER FLUSH 10 ML SYR IV SCH ×3 (06:33→21:46)
[2021-04-01] MEDS: LEVOTHYROXINE 75 MCG (LEVOTHROID) TABLET PO SCH (06:34)
[2021-04-01] MEDS: KCL 20 MEQ TAB (K-DUR) PO SCH (06:34)
--- NOTE | 2021-04-01 07:53 | Progress Note - Surgery ---
ZONIA RAMIREZ 04/01/21 0753: Subjective Date Seen by a Provider: Apr 01, 2021 Time Seen by a Provider: 07:15 Subjective/Events-last exam PT reports another episode of blood per rectum this morning, this is the first time of blood since her colonoscopy prep. She reports some abdominal pain as sociated with passing the blood. No fever and chills. Denies vomiting. Review of Systems General: No Chills, No Night Sweats HEENT: No Head Aches, No Visual Changes Cardiovascular: No: Chest Pain, Lt Headedness Gastrointestinal: No: Vomiting, Constipation Genitourinary: No Dysuria, No Frequency Musculoskeletal: No: neck pain, shoulder pain Neurological: No: Incoordination, Change in speech Objective Exam Vital Signs Date Time Temp Pulse Resp B/P (MAP) Pulse Ox O2 Delivery O2 Flow Rate FiO2 04/01/21 06:37 Nasal Cannula 2.00 04/01/21 04:00 36.4 84 18 116/51 (72) 95 Room Air 04/01/21 00:01 36.8 91 20 108/58 (75) 93 Room Air 03/31/21 20:12 Room Air 03/31/21 20:00 36.4 81 18 102/57 (72) 94 Room Air 03/31/21 17:46 36.8 89 18 110/59 96 Room Air 03/31/21 15:15 36.5 89 13 104/52 (69) 95 Room Air 03/31/21 15:00 36.5 89 13 104/52 95 Room Air 03/31/21 14:40 36.9 89 18 115/47 97 Room Air 03/31/21 12:00 37.1 87 20 121/52 (75) 93 Room Air 03/31/21 08:00 Room Air 03/31/21 08:00 36.9 78 18 129/56 (80) 96 Room Air I & O 04/01/21 07:00 Intake Total 900 ml Balance 900 ml Capillary Refill : General Appearance: No Apparent Distress, Anxious Neck: Non Tender, Supple Respiratory: No Accessory Muscle Use, No Respiratory Distress Cardiovascular: Regular Rate, Rhythm, No JVD Gastrointestinal: non tender, soft Extremity: Non Tender, No Calf Tenderness Neurologic/Psychiatric: Alert (anxious), Oriented x3 Skin: Normal Color, Warm/Dry Lymphatic: No Adenopathy Results Lab Laboratory Tests 04/01/21 03:30: White Blood Count 13.1H, Red Blood Count 3.00L, Hemoglobin 8.8#L, Hematocrit 28L , Mean Corpuscular Volume 94, Mean Corpuscular Hemoglobin 29, Mean Corpuscular Hemoglobin Concent 31L, Red Cell Distribution Width 16.9H, Platelet Count 231, Mean Platelet Volume 9.1, Sodium Level 137, Potassium Level 4.2, Chloride Level 106, Carbon Dioxide Level 24, Anion Gap 7, Blood Urea Nitrogen 12, Creatinine 0.93, Estimat Glomerular Filtration Rate 58, BUN/Creatinine Ratio 13, Glucose Level 113H, Calcium Level 8.6 Microbiology 03/29/21 MRSA Screen - Final, Complete MRSA not isolated Assessment/Plan Assessment/Plan Assessment/Plan Bright red blood per rectum Diverticulosis hiatal hernia healing duodenal ulcer Status post EGD colonoscopy with hot biopsy polypectomies Discuss blood per rectum with patient. Restart clear liquid diet. Continue on Protonix. JANKI CHAVES DO 04/01/21 1255: Subjective Subjective/Events-last exam Reports bright red blood stool again. Hgb increased appropriately with transfusing of prbc yesterday. Was advanced diet. Some abdominal pain middle of abdomen but resolved now. Denies n/v fever sweats chills shortness of breath or chest pain at this time. Objective Exam General Appearance: No Apparent Distress, Anxious HEENT: PERRL/EOMI, Normal ENT Inspection Neck: Normal Inspection, Non Tender, Supple Respiratory: Chest Non Tender, No Accessory Muscle Use, No Respiratory Distress Cardiovascular: Regular Rate, Rhythm, No JVD Gastrointestinal: non tender, soft Extremity: Normal Inspection, Non Tender, No Calf Tenderness Neurologic/Psychiatric: Alert (anxious), Oriented x3 Skin: Normal Color, Warm/Dry Lymphatic: No Adenopathy Assessment/Plan Assessment/Plan Assessment/Plan Bright red blood per rectum Diverticulosis hiatal hernia healing duodenal ulcer Status post EGD colonoscopy with hot biopsy polypectomies Back to clear liquid diet. \ Follow hgb If continues to drop would consider repeat endoscopy. Supervisory-Addendum Brief Verification & Attestation Participated in pt care: history, MDM, physical Personally performed: exam, history, MDM, supervision of care Care discussed with: Medical Student Procedures: n/a Results interpretation: Verified all documentation Verification and Attestation of Medical Student E/M Service A medical student performed and documented this service in my presence. I reviewed and verified all information documented by the medical student and made modifications to such information, when appropriate. I personally performed the physical exam and medical decision making. Janki Chaves, Apr 01, 2021,12:55 ZONIA RAMIREZ Apr 01, 2021 07:53 JANKI CHAVES DO Apr 01, 2021 12:55
[2021-04-01] MEDS: IRON SUCROSE 200 MG/10 ML (VENOFER) VIAL IV SCH (08:19)
[2021-04-01] MEDS: AMOXICILLIN 500 MG (POLYMOX) CAP PO SCH (08:19)
[2021-04-01] MEDS: PANTOPRAZOLE 40 MG (PROTONIX) TAB PO SCH ×2 (08:19→20:03)
[2021-04-01] MEDS: busPIRone 15 MG (BUSPAR) TABLET PO SCH ×2 (08:19→20:03)
[2021-04-01] MEDS ORDERED: PANT40TA52 PO (08:55)
[2021-04-01] MEDS ORDERED: cefTRIAXone 1,000 MG in WATER (STERILE) FOR INJECTION 10 ML IV ONE (09:00)
--- NOTE | 2021-04-01 10:16 | Physical Therapy Daily Note ---
PT Daily Note-Current Subjective Pt reports she continues to lose blood through her bowels. She says that she is weaker today than yesterday and is having some dizzy spells. Transfers SCALE: Activities may be completed with or without assistive devices. 2-Genoqrykbc-fbrtust completes the activity by him/herself with no assistance from a helper. 5-Set-up or Clean-up Assistance-helper sets up or cleans up; patient completes activity. [place] assists only prior to or following the activity. 4-Supervision or Touching Assistance-helper provides verbal cues and/or touching/steadying and/or contact guard assistance as patient completes activity. Assistance may be provided throughout the activity or intermittently. 3-Partial/Moderate Assistance-helper does LESS THAN HALF the effort. [place] lifts, holds or supports trunk or limbs, but provides less than half the effort. 2-Substantial/Maximal Assistance-helper does MORE THAN HALF the effort. [place] lifts or holds trunk or limbs and provides more than half the effort. 1-Zqhdcnfib-wsmxxm does ALL the effort. Patient does none of the effort to complete the activity. Or, the assistance of 2 or more helpers is required for the patient to complete the activity. If activity was not attempted, code reason: 7-Patient Refused. 9-Not Applicable-not attempted and the patient did not perform the activity before the current illness, exacerbation or injury. 10-Not Attempted due to Environmental Limitations-(lack of equipment, weather restraints, etc.). 88-Not Attempted due to Medical Conditions or Safety Concerns. Transfers with close CGA due to low BP Gait Training Ambulates 250ft with FWW and CGA. Pt did not have any loss of balance. close contact guard in the event she would become orthostatic. ambulation ceased due to SOB. Assessment Current Status: Fair Progress Continue PT for gait and balance training. PT Short Term Goals Short Term Goals Time Frame: Apr 04, 2021 Roll Left & Right: 6 Sit to lyin Lying to sitting on side of be: 6 Sit to stand: 6 Chair/yjt-yq-dksbq transfer: 6 Toilet transfer: 6 Car transfer: 6 Walk 10 feet: 6 Walk 50 feet with two turns: 6 Walk 150 feet: 6 PT Plan Treatment/Plan Treatment Plan: Continue Plan of Care Treatment Plan: Education, Functional Activity Burak, Functional Strength, Gait, Safety, Therapeutic Exercise, Transfers Treatment Duration: Apr 04, 2021 Frequency: 5 times per week Estimated Hrs Per Day: .25 hour per day Patient and/or Family Agrees t: Yes Time/GCodes Time In: 915 Time Out: 935 Total Billed Treatment Time: 20 Total Billed Treatment visit, FA 5 min, GT 15 min DESMOND MCGUIRE PT Apr 01, 2021 10:16
[2021-04-01] MEDS ORDERED: methylPREDNISolone 125 MG (Solu-MEDROL) VIAL IVP NR (12:45)
--- NOTE | 2021-04-01 12:45 | Progress Note ---
Subjective Date Seen by a Provider: Apr 01, 2021 Time Seen by a Provider: 12:41 Subjective/Events-last exam Fwup acute blood loss anemia, anxiety, weakness. Having bright red blood per rectum again this morning. Objective Exam Vital Signs Date Time Temp Pulse Resp B/P (MAP) Pulse Ox O2 Delivery O2 Flow Rate FiO2 04/01/21 09:00 36.4 79 18 105/50 (68) 95 Room Air 04/01/21 09:00 Room Air 04/01/21 06:37 Nasal Cannula 2.00 04/01/21 04:00 36.4 84 18 116/51 (72) 95 Room Air 04/01/21 00:01 36.8 91 20 108/58 (75) 93 Room Air 03/31/21 20:12 Room Air 03/31/21 20:00 36.4 81 18 102/57 (72) 94 Room Air 03/31/21 17:46 36.8 89 18 110/59 96 Room Air 03/31/21 15:15 36.5 89 13 104/52 (69) 95 Room Air 03/31/21 15:00 36.5 89 13 104/52 95 Room Air 03/31/21 14:40 36.9 89 18 115/47 97 Room Air I & O 04/01/21 07:00 Intake Total 900 ml Balance 900 ml Capillary Refill : General Appearance: No Apparent Distress Neck: Supple Respiratory: Lungs Clear Cardiovascular: Regular Rate, Rhythm, Systolic Murmur Gastrointestinal: normal bowel sounds, non tender, soft Extremity: Non Tender, No Calf Tenderness, No Pedal Edema Neurologic/Psychiatric: Alert, Oriented x3 Results Lab Laboratory Tests 04/01/21 03:30: White Blood Count 13.1H, Red Blood Count 3.00L, Hemoglobin 8.8#L, Hematocrit 28L , Mean Corpuscular Volume 94, Mean Corpuscular Hemoglobin 29, Mean Corpuscular Hemoglobin Concent 31L, Red Cell Distribution Width 16.9H, Platelet Count 231, Mean Platelet Volume 9.1, Sodium Level 137, Potassium Level 4.2, Chloride Level 106, Carbon Dioxide Level 24, Anion Gap 7, Blood Urea Nitrogen 12, Creatinine 0.93, Estimat Glomerular Filtration Rate 58, BUN/Creatinine Ratio 13, Glucose Level 113H, Calcium Level 8.6 Microbiology 03/29/21 MRSA Screen - Final, Complete MRSA not isolated Assessment/Plan Assessment/Plan Assess & Plan/Chief Complaint 1. Acute Blood Loss Anemia--S/P transfusion and iron, H/H up to 8.04/04 but bleeding again so back to clear liquids and will add solumedrol and repeat H/H later today 2. Upper and Lower Gastrointestinal Hemorrhage--S/P EGD and colonos copy--healing ulcer as well as numerous polyps, continue protonix and will await pathology results and monitor H/H, add solumedrol and back to clear liquids 3. COPD--stable 4. Anxiety--back on home meds CHALO FUENTES DO Apr 01, 2021 12:45
[2021-04-01 16:02] LABS: HEMOGLOBIN 8.9 g/dL (11.5-16.0)
[2021-04-01] MEDS: methylPREDNISolone 125 MG (Solu-MEDROL) VIAL IVP SCH ×2 (18:26→23:53)
[2021-04-01] MEDS: MELATONIN 10 MG TABLET PO SCH (20:03)
[2021-04-01] MEDS: SERTRALINE 100 MG (ZOLOFT) TAB PO SCH (20:03)
[2021-04-02 03:58] LABS: HEMATOCRIT 25 % (35-52); HEMOGLOBIN 7.8 g/dL (11.5-16.0); MEAN CORPUSCULAR HEMOGLOBIN 30 pg (25-34); MEAN CORPUSCULAR HGB CONC 32 g/dL (32-36); MEAN CORPUSCULAR VOLUME 95 fL (80-99); MEAN PLATELET VOLUME 9.4 fL (9.0-12.2); PLATELET COUNT 228 10^3/uL (130-400); WHITE BLOOD COUNT 10.7 10^3/uL (4.3-11.0)
[2021-04-02 04:10] LABS: POTASSIUM 4.7 MMOL/L (3.6-5.0)
[2021-04-02 04:11] LABS: CALCIUM 8.5 MG/DL (8.5-10.1)
[2021-04-02 04:15] LABS: CREATININE SERUM 0.76 MG/DL (0.60-1.30)
[2021-04-02] MEDS: CATHETER FLUSH 10 ML SYR IV SCH ×3 (06:15→22:04)
[2021-04-02] MEDS: KCL 20 MEQ TAB (K-DUR) PO SCH (06:22)
[2021-04-02] MEDS: LEVOTHYROXINE 75 MCG (LEVOTHROID) TABLET PO SCH (06:22)
[2021-04-02] MEDS: methylPREDNISolone 125 MG (Solu-MEDROL) VIAL IVP SCH ×3 (06:22→17:28)
--- NOTE | 2021-04-02 07:13 | Progress Note - Surgery ---
ZONIA RAMIREZ 04/02/21 0712: Subjective Date Seen by a Provider: Apr 02, 2021 Time Seen by a Provider: 07:10 Subjective/Events-last exam PT reports 3x of passing only blood per rectum, and 1x of stool mix with blood yesterday. Denies passing blood per rectum today. Some nausea at 3-4/10. No vomiting, no fevers. Some abdominal pain can be felt before or after passing blood per rectum, she reports. Review of Systems General: No Chills, No Night Sweats HEENT: No Head Aches, No Ear Pain Cardiovascular: No: Chest Pain, Lt Headedness Gastrointestinal: No: Vomiting, Constipation Genitourinary: No Dysuria, No Frequency Musculoskeletal: No: neck pain, arm pain Neurological: No: Incoordination, Change in speech Objective Exam Vital Signs Date Time Temp Pulse Resp B/P (MAP) Pulse Ox O2 Delivery O2 Flow Rate FiO2 04/02/21 04:00 36.4 85 20 113/64 (80) 94 Room Air 04/01/21 23:53 36.8 87 20 119/61 (80) 93 Room Air 04/01/21 20:02 Room Air 04/01/21 20:00 36.8 77 20 96/54 (68) 94 Room Air 04/01/21 16:23 37.0 80 16 101/41 (61) 92 Room Air 04/01/21 16:10 36.8 80 20 101/41 (61) 93 Room Air 04/01/21 12:00 36.4 81 18 112/46 (68) 95 Room Air 04/01/21 09:00 36.4 79 18 105/50 (68) 95 Room Air 04/01/21 09:00 Room Air I & O 04/02/21 07:00 Intake Total 1710 ml Balance 1710 ml Capillary Refill : General Appearance: No Apparent Distress, Anxious Neck: Normal Inspection Respiratory: Chest Non Tender, No Accessory Muscle Use, No Respiratory Distress Cardiovascular: Regular Rate, Rhythm, No JVD Gastrointestinal: non tender, soft Extremity: Normal Inspection, Non Tender, No Calf Tenderness Neurologic/Psychiatric: Alert (anxious), Oriented x3 Skin: Normal Color, Warm/Dry Results Lab Laboratory Tests 04/01/21 13:23: Lab Scanned Report Transfusion Reaction Form 04/01/21 15:45: Hemoglobin 8.9L, Hematocrit 28L 04/02/21 03:50: Hemoglobin 7.8L, Hematocrit 25L, White Blood Count 10.7, Red Blood Count 2.61L, Mean Corpuscular Volume 95, Mean Corpuscular Hemoglobin 30, Mean Corpuscular Hemoglobin Concent 32, Red Cell Distribution Width 17.0H, Platelet Count 228, Mean Platelet Volume 9.4, Sodium Level 136, Potassium Level 4.7, Chloride Level 105, Carbon Dioxide Level 25, Anion Gap 6, Blood Urea Nitrogen 13, Creatinine 0.76, Estimat Glomerular Filtration Rate 73, BUN/Creatinine Ratio 17, Glucose Level 148H, Calcium Level 8.5 Microbiology 03/29/21 MRSA Screen - Final, Complete MRSA not isolated Assessment/Plan Assessment/Plan Assessment/Plan Bright red blood per rectum Diverticulosis hiatal hernia healing duodenal ulcer Status post EGD colonoscopy with hot biopsy polypectomies Continue on clear liquid diet. Keep following hgb If blood per rectum continues and HBG continues to drop consider repeat endoscopy. JANKI CHAVES DO 04/02/21 185: Subjective Subjective/Events-last exam Patient without blood per rectum today. Hgb did drop. No abdominal pain at this time, but having at times. No n/v. Denies fever sweats chills shortness of breath or chest pain. Objective Exam General Appearance: No Apparent Distress, Anxious HEENT: PERRL/EOMI, Normal ENT Inspection Neck: Normal Inspection, Non Tender Respiratory: Chest Non Tender, No Accessory Muscle Use, No Respiratory Distress Cardiovascular: Regular Rate, Rhythm, No JVD Gastrointestinal: non tender, soft Extremity: Normal Inspection, Non Tender, No Calf Tenderness Neurologic/Psychiatric: Alert (anxious), Oriented x3 Skin: Normal Color, Warm/Dry Lymphatic: No Adenopathy Assessment/Plan Assessment/Plan Assessment/Plan Bright red blood per rectum Diverticulosis hiatal hernia healing duodenal ulcer Status post EGD colonoscopy with hot biopsy polypectomies Continue on clear liquid diet today Keep following hgb If stable or increased tomorrow advance diet If blood per rectum continues and HBG continues to drop consider repeat endos copy. Supervisory-Addendum Brief Verification & Attestation Participated in pt care: history, MDM, physical Personally performed: exam, history, MDM, supervision of care Care discussed with: Medical Student Procedures: n/a Results interpretation: Verified all documentation Verification and Attestation of Medical Student E/M Service A medical student performed and documented this service in my presence. I reviewed and verified all information documented by the medical student and made modifications to such information, when appropriate. I personally performed the physical exam and medical decision making. Janki Chaves, Apr 02, 2021,18:50 ZONIA RAMIREZ Apr 02, 2021 07:12 JANKI CHAVES DO Apr 02, 2021 18:51
[2021-04-02] MEDS: busPIRone 15 MG (BUSPAR) TABLET PO SCH ×2 (09:19→21:29)
[2021-04-02] MEDS: PANTOPRAZOLE 40 MG (PROTONIX) TAB PO SCH ×2 (09:19→21:29)
[2021-04-02] MEDS: cefTRIAXone 1,000 MG in WATER (STERILE) FOR INJECTION 10 ML IV SCH (09:19)
--- NOTE | 2021-04-02 10:02 | Physical Therapy Daily Note ---
PT Daily Note-Current Subjective Patient agrees to PT. Mental Status Patient Orientation: Normal For Age Transfers SCALE: Activities may be completed with or without assistive devices. 9-Sdhojxnvvv-znkmpti completes the activity by him/herself with no assistance from a helper. 5-Set-up or Clean-up Assistance-helper sets up or cleans up; patient completes activity. [place] assists only prior to or following the activity. 4-Supervision or Touching Assistance-helper provides verbal cues and/or touching/steadying and/or contact guard assistance as patient completes activity. Assistance may be provided throughout the activity or intermittently. 3-Partial/Moderate Assistance-helper does LESS THAN HALF the effort. [place] lifts, holds or supports trunk or limbs, but provides less than half the effort. 2-Substantial/Maximal Assistance-helper does MORE THAN HALF the effort. [place] lifts or holds trunk or limbs and provides more than half the effort. 3-Fzbopbvos-ujnuhd does ALL the effort. Patient does none of the effort to complete the activity. Or, the assistance of 2 or more helpers is required for the patient to complete the activity. If activity was not attempted, code reason: 7-Patient Refused. 9-Not Applicable-not attempted and the patient did not perform the activity befo re the current illness, exacerbation or injury. 10-Not Attempted due to Environmental Limitations-(lack of equipment, weather re straints, etc.). 88-Not Attempted due to Medical Conditions or Safety Concerns. Sit to Stand (QC): 6 Gait Training Does the Patient Walk?: Yes Distance: 400' Walk 10 feet (QC): 6 Walk 50 ft with 2 Turns(QC): 6 Walk 150 ft (QC): 6 Gait Assistive Device: FWW safe and functional with no deviation Exercises Seated Therapy Exercises: Ankle pumps, Long arc quads Seated Reps: 12 Assessment Patient voiced frustration with Hgb. Patient tolerated treatment well. PT Short Term Goals Short Term Goals Time Frame: Apr 04, 2021 Roll Left & Right: 6 Sit to lyin Lying to sitting on side of be: 6 Sit to stand: 6 Chair/ejl-zv-jkvex transfer: 6 Toilet transfer: 6 Car transfer: 6 Walk 10 feet: 6 Walk 50 feet with two turns: 6 Walk 150 feet: 6 PT Plan Treatment/Plan Treatment Plan: Continue Plan of Care Treatment Plan: Education, Functional Activity Burak, Functional Strength, Gait, Safety, Therapeutic Exercise, Transfers Treatment Duration: Apr 04, 2021 Frequency: 5 times per week Estimated Hrs Per Day: .25 hour per day Patient and/or Family Agrees t: Yes Time/GCodes Time In: 800 Time Out: 812 Total Billed Treatment Time: 12 Total Billed Treatment 1 visit FA 12 min SRAVANI HOOD PT Apr 02, 2021 10:02
--- NOTE | 2021-04-02 13:05 | Progress Note ---
Subjective Date Seen by a Provider: Apr 02, 2021 Time Seen by a Provider: 13:02 Subjective/Events-last exam Fwup acute blood loss anemia, anxiety, weakness. No BM since last night but was bloody. On clear liquids. Objective Exam Vital Signs Date Time Temp Pulse Resp B/P (MAP) Pulse Ox O2 Delivery O2 Flow Rate FiO2 04/02/21 12:39 87 15 127/67 (87) 95 Room Air 04/02/21 08:30 Room Air 04/02/21 08:17 36.9 81 12 109/61 (77) 95 Room Air 04/02/21 04:00 36.4 85 20 113/64 (80) 94 Room Air 04/01/21 23:53 36.8 87 20 119/61 (80) 93 Room Air 04/01/21 20:02 Room Air 04/01/21 20:00 36.8 77 20 96/54 (68) 94 Room Air 04/01/21 16:23 37.0 80 16 101/41 (61) 92 Room Air 04/01/21 16:10 36.8 80 20 101/41 (61) 93 Room Air I & O 04/02/21 07:00 Intake Total 1710 ml Balance 1710 ml Capillary Refill : General Appearance: No Apparent Distress Neck: Supple Respiratory: Lungs Clear Cardiovascular: Regular Rate, Rhythm Gastrointestinal: normal bowel sounds, non tender, soft Extremity: Non Tender, No Calf Tenderness, No Pedal Edema Neurologic/Psychiatric: Alert, Oriented x3 Results Lab Laboratory Tests 04/01/21 13:23: Lab Scanned Report Transfusion Reaction Form 04/01/21 15:45: Hemoglobin 8.9L, Hematocrit 28L 04/02/21 03:50: Hemoglobin 7.8L, Hematocrit 25L, White Blood Count 10.7, Red Blood Count 2.61L, Mean Corpuscular Volume 95, Mean Corpuscular Hemoglobin 30, Mean Corpuscular Hemoglobin Concent 32, Red Cell Distribution Width 17.0H, Platelet Count 228, Mean Platelet Volume 9.4, Sodium Level 136, Potassium Level 4.7, Chloride Level 105, Carbon Dioxide Level 25, Anion Gap 6, Blood Urea Nitrogen 13, Creatinine 0.76, Estimat Glomerular Filtration Rate 73, BUN/Creatinine Ratio 17, Glucose Level 148H, Calcium Level 8.5 Microbiology 8/22/21 MRSA Screen - Final, Complete MRSA not isolated Assessment/Plan Assessment/Plan Assess & Plan/Chief Complaint 1. Acute Blood Loss Anemia--S/P transfusion and iron, H/H down to 7.8/25--will repeat H/H at 3pm and in AM--will transfuse if remains below 8 or has dropped further due to cardiac issues 2. Upper and Lower Gastrointestinal Hemorrhage--S/P EGD and colonoscopy--healing ulcer as well as numerous polyps, continue protonix and will await pathology results and monitor H/H, continue solumedrol and clear liquids--will need to advance to at least dysphagia diet and monitor for repeat bleeding prior to discharge 3. COPD--stable 4. Anxiety--back on home meds CHALO FUENTES DO Apr 02, 2021 13:05
[2021-04-02] MEDS ORDERED: RT-ALBUTEROL HFA 8.5 GM INHALER IH PRN (13:15)
[2021-04-02 15:34] LABS: HEMOGLOBIN 8.7 g/dL (11.5-16.0)
[2021-04-02] MEDS ORDERED: FUROSEMIDE 40 MG (LASIX) TAB PO ONE (16:15)
[2021-04-02] MEDS: SERTRALINE 100 MG (ZOLOFT) TAB PO SCH (21:28)
[2021-04-02] MEDS: MONTELUKAST 10 MG (SINGULAIR) TAB PO SCH (21:29)
[2021-04-02] MEDS: MELATONIN 10 MG TABLET PO SCH (21:29)
[2021-04-03] MEDS: methylPREDNISolone 125 MG (Solu-MEDROL) VIAL IVP SCH ×5 (00:06→23:19)
[2021-04-03 03:48] LABS: HEMATOCRIT 25 % (35-52); HEMOGLOBIN 7.7 g/dL (11.5-16.0); MEAN CORPUSCULAR HEMOGLOBIN 30 pg (25-34); MEAN CORPUSCULAR HGB CONC 31 g/dL (32-36); MEAN CORPUSCULAR VOLUME 96 fL (80-99); MEAN PLATELET VOLUME 9.3 fL (9.0-12.2); PLATELET COUNT 254 10^3/uL (130-400); WHITE BLOOD COUNT 13.3 10^3/uL (4.3-11.0)
[2021-04-03 04:09] LABS: POTASSIUM 3.9 MMOL/L (3.6-5.0)
[2021-04-03 04:10] LABS: CALCIUM 8.5 MG/DL (8.5-10.1)
[2021-04-03 04:14] LABS: CREATININE SERUM 0.86 MG/DL (0.60-1.30)
[2021-04-03] MEDS: LEVOTHYROXINE 75 MCG (LEVOTHROID) TABLET PO SCH (05:57)
[2021-04-03] MEDS: KCL 20 MEQ TAB (K-DUR) PO SCH (05:57)
[2021-04-03] MEDS: CATHETER FLUSH 10 ML SYR IV SCH ×3 (05:57→23:18)
--- NOTE | 2021-04-03 08:04 | Progress Note - Surgery ---
ZONIA RAMIREZ 04/03/21 0804: Subjective Date Seen by a Provider: Apr 03, 2021 Time Seen by a Provider: 07:30 Subjective/Events-last exam PT reports 2 episodes of blood per rectum around 7pm last night, and 1 episode of blood per rectum around midnight. No change in the nausea/ abdominal pain associated with her blood per rectum. Denies fevers. Denies vomiting. Reports worsening edema of lower extremity last night and was given Lasix 40mg and reports improvement of the edema. Reports difficulty breathing associated c the edema. Review of Systems General: No Chills, No Night Sweats HEENT: No Head Aches Cardiovascular: No: Chest Pain, Lt Headedness Gastrointestinal: No: Vomiting, Constipation Genitourinary: No Dysuria, No Frequency Musculoskeletal: No: neck pain, arm pain Neurological: No: Incoordination, Change in speech Objective Exam Vital Signs Date Time Temp Pulse Resp B/P (MAP) Pulse Ox O2 Delivery O2 Flow Rate FiO2 04/03/21 04:00 36.8 04/03/21 00:00 36.6 04/02/21 21:56 36.9 04/02/21 21:00 Room Air 04/02/21 19:57 94 Room Air 04/02/21 16:00 78 16 112/47 (68) 96 Room Air 04/02/21 12:39 87 15 127/67 (87) 95 Room Air 04/02/21 08:30 Room Air 04/02/21 08:17 36.9 81 12 109/61 (77) 95 Room Air I & O 04/03/21 07:00 Intake Total 1950 ml Balance 1950 ml Capillary Refill : General Appearance: No Apparent Distress, Anxious Neck: Normal Inspection, Non Tender Respiratory: Chest Non Tender, No Accessory Muscle Use, No Respiratory Distress Cardiovascular: Regular Rate, Rhythm, No JVD Gastrointestinal: non tender, soft Extremity: Normal Inspection, Non Tender, No Calf Tenderness Neurologic/Psychiatric: Alert (anxious), Oriented x3 Skin: Normal Color, Warm/Dry Lymphatic: No Adenopathy Results Lab Laboratory Tests 04/02/21 15:00: Hemoglobin 8.7L, Hematocrit 28L 04/03/21 03:40: Hemoglobin 7.7L, Hematocrit 25L, White Blood Count 13.3H, Red Blood Count 2.56L, Mean Corpuscular Volume 96, Mean Corpuscular Hemoglobin 30, Mean Corpuscular Hemoglobin Concent 31L, Red Cell Distribution Width 18.2H, Platelet Count 254, Mean Platelet Volume 9.3, Sodium Level 135, Potassium Level 3.9, Chloride Level 102, Carbon Dioxide Level 24, Anion Gap 9, Blood Urea Nitrogen 18, Creatinine 0.86, Estimat Glomerular Filtration Rate 63, BUN/Creatinine Ratio 21, Glucose Level 140H, Calcium Level 8.5 Microbiology 03/29/21 MRSA Screen - Final, Complete MRSA not isolated Assessment/Plan Assessment/Plan Assessment/Plan Bright red blood per rectum Diverticulosis hiatal hernia healing duodenal ulcer Status post EGD colonoscopy with hot biopsy polypectomies Continue on clear liquid diet at this time Keep following hgb. If blood per rectum continues and HBG continues to drop consider repeat endoscopy. JANKI CHAVES DO 04/03/21 0921: Subjective Subjective/Events-last exam Had some bloody bm last night. Hgb 7.7. On clear liquids. Had swelling of lower extremities and given lasix and improved. Denies n/v fever sweats chills shortness of breath or chest pain. Objective Exam General Appearance: No Apparent Distress, Anxious HEENT: PERRL/EOMI Neck: Normal Inspection, Non Tender Respiratory: Chest Non Tender, No Accessory Muscle Use, No Respiratory Distress Cardiovascular: Regular Rate, Rhythm, No JVD Gastrointestinal: non tender, soft Extremity: Normal Inspection, Non Tender, No Calf Tenderness Neurologic/Psychiatric: Alert (anxious), Oriented x3 Skin: Normal Color, Warm/Dry Lymphatic: No Adenopathy Assessment/Plan Assessment/Plan Assessment/Plan Bright red blood per rectum Diverticulosis hiatal hernia healing duodenal ulcer Status post EGD colonoscopy with hot biopsy polypectomies Continue on clear liquid diet at this time Keep following hgb, transfuse as needed. If blood continues and HBG continues will repeat endoscopy upper and lower endoscopy. Supervisory-Addendum Brief Verification & Attestation Participated in pt care: history, MDM, physical Personally performed: exam, history, MDM, supervision of care Care discussed with: Medical Student Procedures: n/a Results interpretation: Verified all documentation Verification and Attestation of Medical Student E/M Service A medical student performed and documented this service in my presence. I reviewed and verified all information documented by the medical student and made modifications to such information, when appropriate. I personally performed the physical exam and medical decision making. Janki Chaves, Apr 03, 2021,09:21 ZONIA RAMIREZ Apr 03, 2021 08:04 JANKI CHAVES DO Apr 03, 2021 09:21
[2021-04-03] MEDS: PANTOPRAZOLE 40 MG (PROTONIX) TAB PO SCH ×2 (09:08→20:03)
[2021-04-03] MEDS: busPIRone 15 MG (BUSPAR) TABLET PO SCH ×2 (09:08→20:03)
[2021-04-03] MEDS: cefTRIAXone 1,000 MG in WATER (STERILE) FOR INJECTION 10 ML IV SCH (09:09)
[2021-04-03] MEDS: IRON SUCROSE 200 MG/10 ML (VENOFER) VIAL IV SCH (09:09)
--- NOTE | 2021-04-03 10:20 | Progress Note ---
Subjective Date Seen by a Provider: Apr 03, 2021 Time Seen by a Provider: 10:17 Subjective/Events-last exam Fwup acute blood loss anemia, anxiety, weakness. Had edema yesterday so given IV lasix and had good results. Had another 2 BMs this morning with scant blood per nursing--patient reports it was pure blood. Objective Exam Vital Signs Date Time Temp Pulse Resp B/P (MAP) Pulse Ox O2 Delivery O2 Flow Rate FiO2 04/03/21 09:00 36.6 80 18 107/52 (70) 97 Room Air 04/03/21 09:00 Room Air 04/03/21 04:00 36.8 04/03/21 00:00 36.6 04/02/21 21:56 36.9 04/02/21 21:00 Room Air 04/02/21 19:57 94 Room Air 04/02/21 16:00 78 16 112/47 (68) 96 Room Air 04/02/21 12:39 87 15 127/67 (87) 95 Room Air I & O 04/03/21 07:00 Intake Total 1950 ml Balance 1950 ml Capillary Refill : General Appearance: No Apparent Distress Neck: Supple Respiratory: Lungs Clear Cardiovascular: Regular Rate, Rhythm, Systolic Murmur, Gallop/S4 Gastrointestinal: non tender, soft, no organomegaly Extremity: Non Tender, No Calf Tenderness, Pedal Edema (trace) Neurologic/Psychiatric: Alert, Oriented x3 Results Lab Laboratory Tests 04/02/21 15:00: Hemoglobin 8.7L, Hematocrit 28L 04/03/21 03:40: Hemoglobin 7.7L, Hematocrit 25L, White Blood Count 13.3H, Red Blood Count 2.56L, Mean Corpuscular Volume 96, Mean Corpuscular Hemoglobin 30, Mean Corpuscular Hemoglobin Concent 31L, Red Cell Distribution Width 18.2H, Platelet Count 254, Mean Platelet Volume 9.3, Sodium Level 135, Potassium Level 3.9, Chloride Level 102, Carbon Dioxide Level 24, Anion Gap 9, Blood Urea Nitrogen 18, Creatinine 0.86, Estimat Glomerular Filtration Rate 63, BUN/Creatinine Ratio 21, Glucose Level 140H, Calcium Level 8.5 Microbiology 03/29/21 MRSA Screen - Final, Complete MRSA not isolated Assessment/Plan Assessment/Plan Assess & Plan/Chief Complaint 1. Acute Blood Loss Anemia--H/H down to 7.7/25--will transfuse 1u pRBCs 2. Upper and Lower Gastrointestinal Hemorrhage--S/P EGD and colonoscopy--healing ulcer as well as numerous polyps, continue protonix and will await pathology results and monitor H/H, continue solumedrol and clear liquids 3. COPD--stable 4. Anxiety--back on home meds 5. Edema--lasix after blood transfusion today CHALO FUENTES DO Apr 03, 2021 10:20
[2021-04-03] MEDS ORDERED: NS IV 500 ML 500 ML IV SCH (10:30)
[2021-04-03 11:09] VITALS: BP 98/50
[2021-04-03 11:24] VITALS: BP 99/54
[2021-04-03 13:30] VITALS: BP 110/83
--- NOTE | 2021-04-03 13:46 | Physical Therapy Progress Note ---
Therapy Progress Note PT checked on pt approx 1340, pt stated she just received IV LASIX and can't do therapy att. Will check back on pt later. KIRIT ACUNA AUDI[employer]RIST Apr 03, 2021 13:46
[2021-04-03 14:24] LABS: HEMOGLOBIN 9.7 g/dL (11.5-16.0)
--- NOTE | 2021-04-03 14:44 | Physical Therapy Progress Note ---
Therapy Progress Note [employer] checked on pt x3 w pt refusal d/t receiving blood earlier in day. RN notified and agreed pt may be fatigued. PT will continue next available date. KIRIT ACUNA [employer] Apr 03, 2021 14:44
[2021-04-03] MEDS ORDERED: KCL 20 MEQ TAB (K-DUR) PO ONE (15:00)
[2021-04-03] MEDS ORDERED: FUROSEMIDE 40 MG/4 ML INJ (LASIX) IVP ONE (15:00)
[2021-04-03] MEDS: MONTELUKAST 10 MG (SINGULAIR) TAB PO SCH (20:03)
[2021-04-03] MEDS: SERTRALINE 100 MG (ZOLOFT) TAB PO SCH (20:03)
[2021-04-03] MEDS: MELATONIN 10 MG TABLET PO SCH (20:03)
[2021-04-04 05:24] LABS: HEMATOCRIT 27 % (35-52); HEMOGLOBIN 8.5 g/dL (11.5-16.0); MEAN CORPUSCULAR HEMOGLOBIN 30 pg (25-34); MEAN CORPUSCULAR HGB CONC 31 g/dL (32-36); MEAN CORPUSCULAR VOLUME 95 fL (80-99); MEAN PLATELET VOLUME 9.3 fL (9.0-12.2); PLATELET COUNT 236 10^3/uL (130-400); WHITE BLOOD COUNT 11.5 10^3/uL (4.3-11.0)
[2021-04-04 05:35] LABS: POTASSIUM 4.3 MMOL/L (3.6-5.0)
[2021-04-04 05:36] LABS: CALCIUM 8.4 MG/DL (8.5-10.1)
[2021-04-04 05:40] LABS: CREATININE SERUM 0.81 MG/DL (0.60-1.30)
[2021-04-04] MEDS: methylPREDNISolone 125 MG (Solu-MEDROL) VIAL IVP SCH ×3 (05:57→17:28)
[2021-04-04] MEDS: KCL 20 MEQ TAB (K-DUR) PO SCH (05:57)
[2021-04-04] MEDS: LEVOTHYROXINE 75 MCG (LEVOTHROID) TABLET PO SCH (05:58)
[2021-04-04] MEDS: CATHETER FLUSH 10 ML SYR IV SCH ×2 (05:58→11:25)
[2021-04-04] MEDS: busPIRone 15 MG (BUSPAR) TABLET PO SCH ×2 (08:21→20:24)
[2021-04-04] MEDS: cefTRIAXone 1,000 MG in WATER (STERILE) FOR INJECTION 10 ML IV SCH (08:21)
[2021-04-04] MEDS: PANTOPRAZOLE 40 MG (PROTONIX) TAB PO SCH ×2 (08:21→20:24)
--- NOTE | 2021-04-04 09:07 | Progress Note - Surgery ---
TIAN LÓPEZ 04/04/21 0907: Subjective Date Seen by a Provider: Apr 04, 2021 Time Seen by a Provider: 08:16 Subjective/Events-last exam PT resting comfortably in chair at bedside. Had one bloody bm last night. PT on clear liquids, and requesting soft foods. PT Denies n/v fever sweats chills shortness of breath or chest pain. Review of Systems General: No Chills, No Night Sweats; Fatigue; No Malaise; Appetite HEENT: No Head Aches, No Visual Changes, No Eye Pain, No Ear Pain, No Dysphasia , No Sinus Congestion, No Post Nasal Drip, No Sore Throat Pulmonary: No Dyspnea, No Cough, No Pleuritic Chest Pain Cardiovascular: No: Chest Pain, Palpitations, Orthopnea, Paroxysmal Noc. Dyspnea, Edema, Lt Headedness Gastrointestinal: Hematochezia; No: Nausea, Vomiting, Abdominal Pain, Diarrhea, Constipation, Melena Genitourinary: No Dysuria, No Frequency, No Incontinence, No Hematuria, No Retention Musculoskeletal: No: neck pain, shoulder pain, arm pain, back pain, hand pain, leg pain, foot pain Neurological: No: Weakness, Numbness, Incoordination, Change in speech, Confusion, Seizures Objective Exam Vital Signs Date Time Temp Pulse Resp B/P (MAP) Pulse Ox O2 Delivery O2 Flow Rate FiO2 04/04/21 08:43 Room Air 04/04/21 08:00 36.5 74 19 119/57 (77) 97 Room Air 04/04/21 06:40 93 Room Air 04/04/21 06:30 Nasal Cannula 2.00 04/04/21 04:00 36.5 04/04/21 01:00 80 04/03/21 23:55 36.4 04/03/21 21:00 Room Air 04/03/21 20:05 36.7 104 21 125/66 (85) 99 Room Air 04/03/21 19:00 100 04/03/21 15:52 36.8 82 19 116/54 (74) 95 Room Air 04/03/21 13:30 36.7 103 18 110/83 96 Room Air 04/03/21 12:00 36.6 103 17 110/85 (93) 96 Nasal Cannula 2.00 04/03/21 11:24 36.5 78 18 99/54 97 Room Air 04/03/21 11:09 36.8 80 18 98/50 97 Room Air 04/03/21 09:00 36.6 80 18 107/52 (70) 97 Room Air 04/03/21 09:00 Room Air I & O 04/04/21 07:00 Intake Total 2787 ml Balance 2787 ml Capillary Refill : General Appearance: No Apparent Distress, WD/WN HEENT: PERRL/EOMI, Pharynx Normal Neck: Full Range of Motion, Non Tender, Supple Respiratory: Lungs Clear, Normal Breath Sounds, No Accessory Muscle Use, No Respiratory Distress Cardiovascular: Regular Rate, Rhythm, No Edema, Normal Peripheral Pulses, Systolic Murmur, Gallop/S4 Peripheral Pulses: 2+ Dorsalis Pedis (R), 2+ Left Dors-Pedis (L) Gastrointestinal: non tender, soft, no organomegaly Extremity: Normal Capillary Refill, Non Tender, No Calf Tenderness, No Pedal Edema Neurologic/Psychiatric: Alert, Oriented x3, No Motor/Sensory Deficits, Normal Mood/Affect, rn document improvement II-XII Norm as Tested Skin: Normal Color, Warm/Dry Lymphatic: No Adenopathy (cervical and axillary) Results Lab Laboratory Tests 04/03/21 14:17: Hemoglobin 9.7#L, Hematocrit 31L 04/04/21 05:15: Hemoglobin 8.5L, Hematocrit 27L, White Blood Count 11.5H, Red Blood Count 2.88L, Mean Corpuscular Volume 95, Mean Corpuscular Hemoglobin 30, Mean Corpuscular Hemoglobin Concent 31L, Red Cell Distribution Width 18.4H, Platelet Count 236, Mean Platelet Volume 9.3, Sodium Level 137, Potassium Level 4.3, Chloride Level 103, Carbon Dioxide Level 27, Anion Gap 7, Blood Urea Nitrogen 15, Creatinine 0.81, Estimat Glomerular Filtration Rate 68, BUN/Creatinine Ratio 19, Glucose Level 138H, Calcium Level 8.4L Microbiology 03/29/21 MRSA Screen - Final, Complete MRSA not isolated Assessment/Plan Assessment/Plan Assessment/Plan Acute Blood Loss Anemia-- 8.5 this am (7.7 am to 9.7 pm after 1 unit yesterday) S/P EGD and colonoscopy--healing ulcer as well as numerous polyps COPD--stable Anxiety Edema--resolved after Lasix Plan - introduce soft foods to diet & closely monitor. STEFANCHAZ 04/04/21 1235: Subjective Time Seen by a Provider: 09:15 Subjective/Events-last exam Pt seen and examined, had just walked in the hood (actually met her outside room) and was very short of breath. She denied abdominal pain, had small BM with blood and mainly is asking if she can eat a soft diet. Review of Systems General: No Chills, No Night Sweats; Fatigue Pulmonary: Dyspnea; No Cough Cardiovascular: No: Chest Pain, Palpitations Gastrointestinal: Hematochezia; No: Vomiting, Abdominal Pain Objective Exam General Appearance: No Apparent Distress, Chronically ill Respiratory: Lungs Clear, Normal Breath Sounds, No Accessory Muscle Use, No Respiratory Distress Cardiovascular: Regular Rate, Rhythm, Systolic Murmur, Gallop/S4 Gastrointestinal: non tender, soft, no organomegaly Neurologic/Psychiatric: Alert, Oriented x3 Assessment/Plan Assessment/Plan Assessment/Plan GI Bleed with anemia COPD Anxiety Edema Pt will be advanced to soft diet and will check her Hg in the am. She will continue PPI and carafate, if she has acute blood drop or hematochezia or hematemesis; then will do EGD. Monitor for now and max medical management. Supervisory-Addendum Brief Verification & Attestation Participated in pt care: history, MDM, physical Personally performed: exam, history, MDM, supervision of care Care discussed with: Medical Student Procedures: n/a Verification and Attestation of Medical Student E/M Service A medical student performed and documented this service. I then reviewed and verified all information documented by the medical student and made modifications to such information, when appropriate. I personally performed a physical exam, medical decision making and then discussed any differences be tween the notes and made revisions as necessary to create one note. Chaz Hammond , 04/04/21 , 12:35 TIAN LÓPEZ Apr 04, 2021 09:07 CHAZ HAMMOND DO Apr 04, 2021 12:35
--- NOTE | 2021-04-04 09:56 | Physical Therapy Daily Note ---
PT Daily Note-Current Subjective States that she is doing well and wants to walk. Transfers SCALE: Activities may be completed with or without assistive devices. 1-[id number]-vxzprzu completes the activity by him/herself with no assistance from a helper. 5-Set-up or Clean-up Assistance-helper sets up or cleans up; patient completes activity. [place] assists only prior to or following the activity. 4-Supervision or Touching Assistance-helper provides verbal cues and/or touching/steadying and/or contact guard assistance as patient completes activity. Assistance may be provided throughout the activity or intermittently. 3-Partial/Moderate Assistance-helper does LESS THAN HALF the effort. [place] lifts, holds or supports trunk or limbs, but provides less than half the effort. 2-Substantial/Maximal Assistance-helper does MORE THAN HALF the effort. [place] lifts or holds trunk or limbs and provides more than half the effort. 5-[id number]-lnvxhh does ALL the effort. Patient does none of the effort to complete the activity. Or, the assistance of 2 or more helpers is required for the patient to complete the activity. If activity was not attempted, code reason: 7-Patient Refused. 9-Not Applicable-not attempted and the patient did not perform the activity before the current illness, exacerbation or injury. 10-Not Attempted due to Environmental Limitations-(lack of equipment, weather restraints, etc.). 88-Not Attempted due to Medical Conditions or Safety Concerns. Sit to Stand (QC): 6 Toilet Transfer (QC): 6 Gait Training Does the Patient Walk?: Yes Distance: 500' Walk 10 feet (QC): 5 Walk 50 ft with 2 Turns(QC): 5 Walk 150 ft (QC): 5 Gait Persons Needed: 1 Gait Assistive Device: FWW Assessment Current Status: Excellent Progress Patient did well with treatment however she does have some SOB. PT Short Term Goals Short Term Goals Time Frame: Apr 04, 2021 Roll Left & Right: 6 Sit to lyin Lying to sitting on side of be: 6 Sit to stand: 6 Chair/sok-wj-lrvgw transfer: 6 Toilet transfer: 6 Car transfer: 6 Walk 10 feet: 6 Walk 50 feet with two turns: 6 Walk 150 feet: 6 PT Plan Treatment/Plan Treatment Plan: Continue Plan of Care Treatment Plan: Education, Functional Activity [place], Functional Strength, Gait, Safety, Therapeutic Exercise, Transfers Treatment Duration: Apr 04, 2021 Frequency: 5 times per week Estimated Hrs Per Day: .25 hour per day Patient and/or Family Agrees t: Yes Time/GCodes Time In: 940 Time Out: 955 Total Billed Treatment Time: 15 Total Billed Treatment 1, GT x 15' LEANNE LORENZANA PT Apr 04, 2021 09:56
--- NOTE | 2021-04-04 10:43 | Progress Note ---
Subjective Date Seen by a Provider: Apr 04, 2021 Time Seen by a Provider: 10:38 Subjective/Events-last exam Fwup acute blood loss anemia, anxiety, weakness, edema. Last BM yesterday evening and stool was more formed and less blood in stool water. Objective Exam Vital Signs Date Time Temp Pulse Resp B/P (MAP) Pulse Ox O2 Delivery O2 Flow Rate FiO2 04/04/21 08:43 Room Air 04/04/21 08:00 36.5 74 19 119/57 (77) 97 Room Air 04/04/21 06:40 93 Room Air 04/04/21 06:30 Nasal Cannula 2.00 04/04/21 04:00 36.5 04/04/21 01:00 80 04/03/21 23:55 36.4 04/03/21 21:00 Room Air 04/03/21 20:05 36.7 104 21 125/66 (85) 99 Room Air 04/03/21 19:00 100 04/03/21 15:52 36.8 82 19 116/54 (74) 95 Room Air 04/03/21 13:30 36.7 103 18 110/83 96 Room Air 04/03/21 12:00 36.6 103 17 110/85 (93) 96 Nasal Cannula 2.00 04/03/21 11:24 36.5 78 18 99/54 97 Room Air 04/03/21 11:09 36.8 80 18 98/50 97 Room Air I & O 04/04/21 07:00 Intake Total 2787 ml Balance 2787 ml Capillary Refill : General Appearance: No Apparent Distress Neck: Supple Respiratory: Lungs Clear Cardiovascular: Regular Rate, Rhythm, Systolic Murmur Gastrointestinal: normal bowel sounds, non tender, soft Extremity: Non Tender, No Calf Tenderness, No Pedal Edema Neurologic/Psychiatric: Alert, Oriented x3 Results Lab Laboratory Tests 04/03/21 14:17: Hemoglobin 9.7#L, Hematocrit 31L 04/04/21 05:15: Hemoglobin 8.5L, Hematocrit 27L, White Blood Count 11.5H, Red Blood Count 2.88L, Mean Corpuscular Volume 95, Mean Corpuscular Hemoglobin 30, Mean Corpuscular Hemoglobin Concent 31L, Red Cell Distribution Width 18.4H, Platelet Count 236, Mean Platelet Volume 9.3, Sodium Level 137, Potassium Level 4.3, Chloride Level 103, Carbon Dioxide Level 27, Anion Gap 7, Blood Urea Nitrogen 15, Creatinine 0.81, Estimat Glomerular Filtration Rate 68, BUN/Creatinine Ratio 19, Glucose Level 138H, Calcium Level 8.4L Microbiology 03/29/21 MRSA Screen - Final, Complete MRSA not isolated Assessment/Plan Assessment/Plan Assess & Plan/Chief Complaint 1. Acute Blood Loss Anemia--H/H --got a unit of blood yesterday 2. Upper and Lower Gastrointestinal Hemorrhage--S/P EGD and col onoscopy--healing ulcer as well as numerous polyps, continue protonix and will await pathology results and monitor H/H, continue solumedrol, advance to dysphagia diet 3. COPD--stable 4. Anxiety--back on home meds 5. Edema--improved CHALO FUENTES DO Apr 04, 2021 10:43
[2021-04-04] MEDS: MONTELUKAST 10 MG (SINGULAIR) TAB PO SCH (20:24)
[2021-04-04] MEDS: SERTRALINE 100 MG (ZOLOFT) TAB PO SCH (20:24)
[2021-04-04] MEDS: MELATONIN 10 MG TABLET PO SCH (20:24)
[2021-04-05] MEDS: methylPREDNISolone 125 MG (Solu-MEDROL) VIAL IVP SCH ×4 (00:14→17:52)
[2021-04-05] MEDS: CATHETER FLUSH 10 ML SYR IV SCH ×3 (00:14→12:03)
[2021-04-05] MEDS: KCL 20 MEQ TAB (K-DUR) PO SCH (05:41)
[2021-04-05] MEDS: LEVOTHYROXINE 75 MCG (LEVOTHROID) TABLET PO SCH (05:41)
[2021-04-05 06:18] LABS: HEMATOCRIT 30 % (35-52); HEMOGLOBIN 9.2 g/dL (11.5-16.0); MEAN CORPUSCULAR HEMOGLOBIN 29 pg (25-34); MEAN CORPUSCULAR HGB CONC 31 g/dL (32-36); MEAN CORPUSCULAR VOLUME 96 fL (80-99); PLATELET COUNT 255 10^3/uL (130-400); WHITE BLOOD COUNT 8.5 10^3/uL (4.3-11.0)
[2021-04-05 06:34] LABS: POTASSIUM 4.5 MMOL/L (3.6-5.0)
[2021-04-05 06:35] LABS: CALCIUM 8.7 MG/DL (8.5-10.1)
[2021-04-05 06:39] LABS: CREATININE SERUM 0.84 MG/DL (0.60-1.30)
--- NOTE | 2021-04-05 08:23 | Progress Note ---
Subjective Date Seen by a Provider: Apr 05, 2021 Time Seen by a Provider: 08:20 Subjective/Events-last exam Fwup acute blood loss anemia, anxiety, weakness, edema. Advanced to dysphagia diet yesterday. No BM since diet advancement. Has had minimal blood on tissues when wipes since diet advancement. Objective Exam Vital Signs Date Time Temp Pulse Resp B/P (MAP) Pulse Ox O2 Delivery O2 Flow Rate FiO2 04/05/21 08:04 Room Air 04/05/21 07:04 35.6 79 18 148/74 (98) 94 Room Air 04/05/21 03:21 36.4 76 18 129/74 (92) 98 Nasal Cannula 2.00 04/04/21 23:30 36.6 72 18 124/75 (91) 99 Nasal Cannula 2.00 04/04/21 20:25 Room Air 04/04/21 19:26 92 Room Air 04/04/21 19:23 37.4 88 18 113/70 (84) 95 Room Air 04/04/21 15:24 36.6 76 20 130/65 (86) 94 Room Air 04/04/21 12:00 36.0 94 18 115/54 (74) 98 Room Air 04/04/21 08:43 Room Air I & O 04/05/21 06:59 Intake Total 2360 ml Balance 2360 ml Capillary Refill : General Appearance: No Apparent Distress Respiratory: Lungs Clear Cardiovascular: Regular Rate, Rhythm, Systolic Murmur Gastrointestinal: normal bowel sounds, non tender, soft Extremity: Non Tender, No Calf Tenderness, No Pedal Edema Neurologic/Psychiatric: Alert, Oriented x3 Results Lab Laboratory Tests 04/05/21 06:08: White Blood Count 8.5, Red Blood Count 3.13L, Hemoglobin 9.2L, Hematocrit 30L, Mean Corpuscular Volume 96, Mean Corpuscular Hemoglobin 29, Mean Corpuscular Hemoglobin Concent 31L, Red Cell Distribution Width 18.4H, Platelet Count 255, Mean Platelet Volume 10.0, Sodium Level 140, Potassium Level 4.5, Chloride Level 105, Carbon Dioxide Level 28, Anion Gap 7, Blood Urea Nitrogen 17, Creatinine 0.84, Estimat Glomerular Filtration Rate 65, BUN/Creatinine Ratio 20, Glucose Level 132H, Calcium Level 8.7 Microbiology 03/29/21 MRSA Screen - Final, Complete MRSA not isolated Assessment/Plan Assessment/Plan Assess & Plan/Chief Complaint 1. Acute Blood Loss Anemia--H/H up to . 2. Upper and Lower Gastrointestinal Hemorrhage--S/P EGD and colonoscopy--healing ulcer as well as numerous polyps, continue protonix and will await pathology results and monitor H/H, continue solumedrol, advanced to dysphagia diet so will await BM to see if ongoing bleeding 3. COPD--stable 4. Anxiety--back on home meds 5. Edema--improved CHALO FUENTES DO Apr 05, 2021 08:23
[2021-04-05] MEDS: PANTOPRAZOLE 40 MG (PROTONIX) TAB PO SCH ×2 (08:34→21:50)
[2021-04-05] MEDS: IRON SUCROSE 200 MG/10 ML (VENOFER) VIAL IV SCH (08:35)
[2021-04-05] MEDS: cefTRIAXone 1,000 MG in WATER (STERILE) FOR INJECTION 10 ML IV SCH (08:35)
[2021-04-05] MEDS: busPIRone 15 MG (BUSPAR) TABLET PO SCH ×2 (08:38→21:50)
--- NOTE | 2021-04-05 10:12 | Progress Note - Surgery ---
MARIBELTIAN 04/05/21 1012: Subjective Date Seen by a Provider: Apr 05, 2021 Time Seen by a Provider: 08:16 Subjective/Events-last exam PT resting comfortably in chair at bedside, and states she is feeling much stronger today. Had one bloody bm last night with minimal amounts of blood when wiping. 2 more BM overnight without blood. PT on soft foods, and tolerating well but concerned of reoccurrence, she would like to stay at least one more day to be sure that bleeding does not reoccur. PT is walking to keep her strength up. PT Denies n/v fever sweats chills shortness of breath or chest pain. Review of Systems General: No Chills, No Night Sweats, No Fatigue, No Malaise; Appetite HEENT: No Head Aches, No Visual Changes, No Eye Pain, No Ear Pain, No Dysphasia, No Sinus Congestion, No Post Nasal Drip, No Sore Throat Pulmonary: No Dyspnea, No Cough, No Pleuritic Chest Pain Cardiovascular: No: Chest Pain, Palpitations, Orthopnea, Paroxysmal Noc. Dyspne a, Edema Gastrointestinal: Hematochezia; No: Nausea, Vomiting, Abdominal Pain, Diarrhea, Constipation, Melena Genitourinary: No Dysuria, No Frequency, No Incontinence, No Hematuria, No Retention Musculoskeletal: No: neck pain, shoulder pain, arm pain, back pain, hand pain, leg pain, foot pain Neurological: Weakness; No: Numbness, Incoordination, Change in speech, Confusion, Seizures Objective Exam Vital Signs Date Time Temp Pulse Resp B/P (MAP) Pulse Ox O2 Delivery O2 Flow Rate FiO2 04/05/21 08:04 Room Air 04/05/21 07:04 35.6 79 18 148/74 (98) 94 Room Air 04/05/21 03:21 36.4 76 18 129/74 (92) 98 Nasal Cannula 2.00 04/04/21 23:30 36.6 72 18 124/75 (91) 99 Nasal Cannula 2.00 04/04/21 20:25 Room Air 04/04/21 19:26 92 Room Air 04/04/21 19:23 37.4 88 18 113/70 (84) 95 Room Air 04/04/21 15:24 36.6 76 20 130/65 (86) 94 Room Air 04/04/21 12:00 36.0 94 18 115/54 (74) 98 Room Air I & O 04/05/21 07:00 Intake Total 2360 ml Balance 2360 ml Capillary Refill : General Appearance: No Apparent Distress, WD/WN HEENT: PERRL/EOMI, Pharynx Normal, Moist Mucous Membranes Neck: Full Range of Motion, Non Tender, Supple Respiratory: Chest Non Tender, Lungs Clear, Normal Breath Sounds, No Accessory Muscle Use, No Respiratory Distress Cardiovascular: Regular Rate, Rhythm, No Edema, No Gallop, Normal Peripheral Pulses, Systolic Murmur Peripheral Pulses: 2+ Radial Pulses (R), 2+ Radial Pulses (L) Gastrointestinal: normal bowel sounds, non tender, soft, no organomegaly, no pulsatile mass Extremity: Normal Capillary Refill, Normal Range of Motion, Non Tender, No Calf Tenderness, No Pedal Edema Neurologic/Psychiatric: Alert, Oriented x3, No Motor/Sensory Deficits, Normal Mood/Affect, 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 Norm as Tested Skin: Normal Color, Warm/Dry Lymphatic: No Adenopathy (cervical and axillary) Results Lab Laboratory Tests 04/05/21 06:08: White Blood Count 8.5, Red Blood Count 3.13L, Hemoglobin 9.2L, Hematocrit 30L, Mean Corpuscular Volume 96, Mean Corpuscular Hemoglobin 29, Mean Corpuscular Hemoglobin Concent 31L, Red Cell Distribution Width 18.4H, Platelet Count 255, Mean Platelet Volume 10.0, Sodium Level 140, Potassium Level 4.5, Chloride Level 105, Carbon Dioxide Level 28, Anion Gap 7, Blood Urea Nitrogen 17, Creatinine 0.84, Estimat Glomerular Filtration Rate 65, BUN/Creatinine Ratio 20, Glucose Level 132H, Calcium Level 8.7 Microbiology 03/29/21 MRSA Screen - Final, Complete MRSA not isolated Assessment/Plan Assessment/Plan Assessment/Plan 1. Acute Blood Loss Anemia--H/H up to 2. Upper and Lower Gastrointestinal Hemorrhage--S/P EGD and colonoscopy--healing ulcer as well as numerous polyps, continue protonix and will await pathology results and monitor H/H, continue solumedrol, advanced to dysphagia diet so will await BM to see if ongoing bleeding 3. COPD--stable 4. Anxiety--back on home meds 5. Edema--improved Plan- continue soft foods and monitor for return of blood, continue walking STEFANSAW 04/05/21 1340: Subjective Time Seen by a Provider: 11:08 Subjective/Events-last exam Pt seen and examined, appears more comfortable than yesterday. She did not have any blood with recent BM. States she does feel a little stronger. Review of Systems General: No Chills, No Night Sweats Pulmonary: Dyspnea (with exertion); No Cough Cardiovascular: No: Chest Pain, Palpitations Neurological: Weakness, Other (anxious) Objective Exam General Appearance: No Apparent Distress, WD/WN Respiratory: Lungs Clear, Normal Breath Sounds, No Accessory Muscle Use, No Respiratory Distress Cardiovascular: Regular Rate, Rhythm, Systolic Murmur Gastrointestinal: non tender, soft, no organomegaly Assessment/Plan Assessment/Plan Assessment/Plan 1. Acute Blood Loss Anemia--H/H up to 2. Upper and Lower Gastrointestinal Hemorrhage--S/P EGD and colonoscopy--healing ulcer as well as numerous polyps, continue protonix and will await pathology results and monitor H/H, continue solumedrol, advanced to dysphagia diet so will await BM to see if ongoing bleeding 3. COPD--stable 4. Anxiety--back on home meds 5. Edema--improved Plan- continue soft foods and monitor for return of blood, continue walking Supervisory-Addendum Brief Verification & Attestation Participated in pt care: history, MDM, physical Personally performed: exam, history, MDM, supervision of care Care discussed with: Medical Student Procedures: n/a Verification and Attestation of Medical Student E/M Service A medical student performed and documented this service. I then reviewed and verified all information documented by the medical student and made modifications to such information, when appropriate. I personally performed a physical exam, medical decision making and then discussed any differences betw een the notes and made revisions as necessary to create one note. Saw Hammond , 04/05/21 , 13:40 TIAN LÓPEZ Apr 05, 2021 10:12 SAW HAMMOND DO Apr 05, 2021 13:40
[2021-04-05 16:00] VITALS: BP 150/70
[2021-04-05 20:42] VITALS: BP 119/57
[2021-04-05] MEDS: SERTRALINE 100 MG (ZOLOFT) TAB PO SCH (21:50)
[2021-04-05] MEDS: MELATONIN 10 MG TABLET PO SCH (21:50)
[2021-04-05] MEDS: MONTELUKAST 10 MG (SINGULAIR) TAB PO SCH (21:50)
[2021-04-05 23:22] VITALS: BP 134/63
[2021-04-06] MEDS: methylPREDNISolone 125 MG (Solu-MEDROL) VIAL IVP SCH ×3 (00:58→12:06)
[2021-04-06] MEDS: CATHETER FLUSH 10 ML SYR IV SCH ×3 (00:58→15:10)
[2021-04-06 03:16] VITALS: BP 130/64
[2021-04-06] MEDS: LEVOTHYROXINE 75 MCG (LEVOTHROID) TABLET PO SCH (06:12)
[2021-04-06] MEDS: KCL 20 MEQ TAB (K-DUR) PO SCH (06:12)
--- NOTE | 2021-04-06 07:50 | Progress Note - Surgery ---
JACK MONTOYA 04/06/21 0750: Subjective Date Seen by a Provider: Apr 06, 2021 Time Seen by a Provider: 07:39 Subjective/Events-last exam Patient appears anxious but states feels stronger than before and slowly getting better. Patient reports no blood in the stool, but she had scant blood when w iping once. Patient states she has been walking, but it really exhausts her. Patient denies N/V, fever, chills, abdominal pain. After blood transfusion patient's hgb was 9.7 -> 8.5 ->9.2. Awaiting labs today. Review of Systems General: No Chills, No Night Sweats Pulmonary: No Cough Cardiovascular: No: Chest Pain, Palpitations Gastrointestinal: No: Nausea, Vomiting, Abdominal Pain Objective Exam Vital Signs Date Time Temp Pulse Resp B/P (MAP) Pulse Ox O2 Delivery O2 Flow Rate FiO2 04/06/21 07:25 Room Air 04/06/21 03:16 36.3 83 22 130/64 (86) 94 Nasal Cannula 2.00 04/05/21 23:22 36.4 77 22 134/63 (86) 92 Room Air 04/05/21 20:42 35.9 82 20 119/57 (77) 95 Room Air 04/05/21 19:30 Room Air 04/05/21 16:00 36.4 81 20 150/70 (96) 95 Room Air 04/05/21 11:42 36.2 90 18 159/73 (101) 94 Room Air 04/05/21 08:04 Room Air I & O 04/06/21 07:00 Intake Total 2460 ml Balance 2460 ml Capillary Refill : General Appearance: WD/WN, Anxious HEENT: PERRL/EOMI Neck: Non Tender, Supple Respiratory: Lungs Clear, Normal Breath Sounds, No Accessory Muscle Use, No Respiratory Distress Cardiovascular: Regular Rate, Rhythm, Systolic Murmur Peripheral Pulses: 2+ Radial Pulses (R), 2+ Radial Pulses (L) Gastrointestinal: non tender, soft, no organomegaly Extremity: Normal Capillary Refill, Normal Range of Motion, Non Tender, No Calf Tenderness, No Pedal Edema Neurologic/Psychiatric: Alert, Oriented x3, Normal Mood/Affect Skin: Normal Color, Warm/Dry Results Lab Microbiology 03/29/21 MRSA Screen - Final, Complete MRSA not isolated Assessment/Plan Assessment/Plan Assessment/Plan 1. Acute Blood Loss Anemia - following labs 2. Upper and Lower Gastrointestinal Hemorrhage - S/P EGD and colonoscopy, continue protonix, monitor Hgb 3. Anxiety - back on home meds 4. COPD - stable 5. Edema - improved Plan- continue soft foods and monitor for return of blood. Up and ambulating. If no blood today consider progressing diet. Home tomorrow if no adverse events today. JANKI CHAVES DO 04/06/21 1110: Subjective Subjective/Events-last exam Patient no blood in stool. Patient tolerating diet. No abdominal pain. Still feels fatigued. Denies n/v fever sweats chills shortness of breath or chest pain at this time. Objective Exam General Appearance: No Apparent Distress, Anxious HEENT: PERRL/EOMI, Normal ENT Inspection Neck: Non Tender, Supple Respiratory: Chest Non Tender, No Accessory Muscle Use, No Respiratory Distress Cardiovascular: Regular Rate, Rhythm, No JVD Gastrointestinal: non tender, soft, no organomegaly Extremity: Normal Capillary Refill, Normal Range of Motion, Non Tender, No Calf Tenderness Neurologic/Psychiatric: Alert, Oriented x3, Normal Mood/Affect Skin: Normal Color, Warm/Dry Lymphatic: No Adenopathy Assessment/Plan Assessment/Plan Assessment/Plan Bright red blood per rectum Diverticulosis hiatal hernia healing duodenal ulcer S/p egd c biopsies colonoscopy c hot bx polypectomies Hgb stable advance diet as tolerates. If has re-bleed wound consider repeat endoscopy Continue protonix Supervisory-Addendum Brief Verification & Attestation Participated in pt care: history, MDM, physical Personally performed: exam, history, MDM, supervision of care Care discussed with: Medical Student Procedures: n/a Results interpretation: Verified all documentation Verification and Attestation of Medical Student E/M Service A medical student performed and documented this service in my presence. I reviewed and verified all information documented by the medical student and made modifications to such information, when appropriate. I personally performed the physical exam and medical decision making. Janki Chaves, Apr 06, 2021,11:10 LINDSAYGURPREETJACK Apr 06, 2021 07:50 JANKI CHAVES DO Apr 06, 2021 11:10
[2021-04-06 08:00] VITALS: BP 147/63
[2021-04-06] MEDS: busPIRone 15 MG (BUSPAR) TABLET PO SCH (09:25)
[2021-04-06] MEDS: PANTOPRAZOLE 40 MG (PROTONIX) TAB PO SCH (09:25)
[2021-04-06 12:29] LABS: HEMOGLOBIN 9.8 g/dL (11.5-16.0)
[2021-04-06] MEDS ORDERED: PRD20T PO (12:41)
== END 2021-04-06 16:25 | disposition home or self-care (01) | DRG 378 ==
LOC: EDUNIT# 11:52 → ER 11:54 → UNDOADMOB 17:17 → CSD 17:17 → OBSVTOIN 03-29 15:14 → 4TH 04-04 14:15
PROVIDERS: ADMIT Family Medicine; ATTEND Family Medicine
PROC: 0DBK8ZX Excision of Ascending Colon, Via Natural or Artificial Opening Endoscopic, Diagnostic (ICD-10-PCS; 2021-03-30)
PROC: 0DBL8ZX Excision of Transverse Colon, Via Natural or Artificial Opening Endoscopic, Diagnostic (ICD-10-PCS; 2021-03-30)
PROC: 0DBM8ZX Excision of Descending Colon, Via Natural or Artificial Opening Endoscopic, Diagnostic (ICD-10-PCS; 2021-03-30)
PROC: 0DB98ZX Excision of Duodenum, Via Natural or Artificial Opening Endoscopic, Diagnostic (ICD-10-PCS; principal; 2021-03-30 07:35)
PROC: 0DB68ZX Excision of Stomach, Via Natural or Artificial Opening Endoscopic, Diagnostic (ICD-10-PCS; 2021-03-30 07:35)
DX: K57.31 Diverticulosis of large intestine without perforation or abscess with bleeding (principal); D62 Acute posthemorrhagic anemia; Z79.82 Long term (current) use of aspirin; K26.4 Chronic or unspecified duodenal ulcer with hemorrhage; Z79.890 Hormone replacement therapy; Z79.899 Other long term (current) drug therapy; I25.10 Atherosclerotic heart disease of native coronary artery without angina pectoris; E78.00 Pure hypercholesterolemia, unspecified; K21.9 Gastro-esophageal reflux disease without esophagitis; M81.0 Age-related osteoporosis without current pathological fracture; J44.9 Chronic obstructive pulmonary disease, unspecified; Z20.822 Contact with and (suspected) exposure to COVID-19; M19.90 Unspecified osteoarthritis, unspecified site; G89.29 Other chronic pain; M54.9 Dorsalgia, unspecified; E03.9 Hypothyroidism, unspecified; F41.9 Anxiety disorder, unspecified; F32.9 Major depressive disorder, single episode, unspecified; G47.39 Other sleep apnea; R60.9 Edema, unspecified; Z87.891 Personal history of nicotine dependence; K63.5 Polyp of colon; K44.9 Diaphragmatic hernia without obstruction or gangrene
CPT/HCPCS: 36415; 36430; 71045; 80048; 80053; 83880; 85007; 85014; 85018; 85025; 85027; 85610; 86850; 86900; 86901; 86920; 87081; 87636; 88305; 88342

== ENCOUNTER 2021-07-26 16:20 | Emergency (ER) | payer MEDICARE, OTHER ==
[~2021-07-26] VITALS: Ht 162 cm; Wt 81.6 kg
[~2021-07-26 16:20] MED LIST changes: +ACET600C5 PO; +AMOX500C2 PO; +ASPI-1238 PO; +B&C/1TAB2 PO; +BUSP15TA60 PO; +CHOL500044 PO; +FERR325T24 PO; +FLUT16SP22 NSEACH; +FURO20TA4 PO; +LEVO1CAP11 PO; +MELA10TA2 PO; +MESA1.2T3 PO; +MILK175T2 PO; +MONT-40 PO; -MONT10TA32 PO; +PANT40TA52 PO; +POTA10TA37 PO; +ZINC220T3 PO
--- NOTE | 2021-07-26 16:48 | ED Integumentary General ---
General Chief Complaint: Skin/Wound Problems Stated Complaint: R LEG REDNESS/HOT TO TOUCH, R ARM SWELLING History of Present Illness Date Seen by Provider: Jul 26, 2021 Time Seen by Provider: 16:30 Initial Comments 80-year-old female presents for erythema and swelling to her right upper arm and rash to her lower legs, right greater than left. She received her Moderna booster vaccine on 07/23/2021. She had not had a reaction to either of her first vaccinations. She started with itching to the top of her right foot on 07/24/21. A petechial rash developed and spread up her right leg to the mid tib/fib. Yesterday, she noticed the rash on her left leg, to a lesser extent. No pain or itching on rash. The right deltoid is swollen, mild erythema and warmth. Trace tenderness to palpation, but no LOM to right shoulder or elbow, denies any pain in neck or axilla. She does not take anticoagulants or aspirin, after having a GI bleeding ulcer. No history of allergic reactions with vaccines. No positive COVID test or known illness, had testing due to fever and other symptoms in the last 12 months, all negative. Timing/Duration: yesterday Severity: mild Possible Cause: medications (possible COVID vaccine) Associated Symptoms: denies symptoms Allergies and Home Medications Allergies Coded Allergies: gabapentin (Verified Allergy, Intermediate, MUSCLE WEAKNESS, 01/29/19) pregabalin (Verified Allergy, Intermediate, MUSCLE WEAKNESS, 01/29/19) azithromycin (Verified Allergy, Unknown, 01/29/19) moxifloxacin HCl (Verified Allergy, Unknown, 01/29/19) Patient Home Medication List Home Medication List Reviewed: Yes Acetylcysteine (K-Emgmiw-u-Cysteine) 600 Mg Capsule, 600 MG PO DAILY, (Reported) Entered as Reported by: KYLAH GERONIMO on 03/30/21 1006 Amoxicillin (Amoxicillin) 500 Mg Capsule, 1,000 MG PO BID Prescribed by: BESSY MARTINEZ on 03/27/21 1727 Aspirin (Aspirin EC) 81 Mg Tablet.dr, 81 MG PO HS, (Reported) Entered as Reported by: KYLAH GERONIMO on 03/30/21 1006 Atorvastatin Calcium (Atorvastatin Calcium) 20 Mg Tablet, 20 MG PO HS, (Reported) Entered as Reported by: AGUSTO PLASENCIA on 06/13/18 1448 B&C/FA/Zinc/Copper Oxide/Vit E (Stress B-Complex Tablet) 1 Each Tablet, 1 EACH PO DAILY, (Reported) Entered as Reported by: KYLAH GERONIMO on 03/30/21 1006 Buspirone HCl (Buspirone HCl) 15 Mg Tablet, 15 MG PO BID, (Reported) Entered as Reported by: KYLAH GERONIMO on 03/30/21 1006 Calcium Citrate/Vitamin D3 (Calcium Citrate +Vit D3 Tablet) 1 Each Tablet, 2 EACH PO 1200, (Reported) Entered as Reported by: AGUSTO PLASENCIA on 06/13/18 1448 Cholecalciferol (Vitamin D3) (Vitamin D3) 125 Mcg Tablet, 125 MCG PO DAILY, (Reported) Entered as Reported by: KYLAH GERONIMO on 03/30/21 1006 Ferrous Sulfate (Ferosul) 325 Mg Tablet, 325 MG PO DAILY, (Reported) Entered as Reported by: KYLAH GERONIMO on 03/30/21 1006 Fluticasone Propionate (Fluticasone Propionate) 16 Gm [place].susp, 1 SPRAY NSEACH BID, (Reported) Entered as Reported by: KYLAH GERONIMO on 03/30/21 1006 Furosemide (Furosemide) 20 Mg Tablet, 20 MG PO DAILY PRN for FLUID RETENTION, (Reported) Entered as Reported by: KYLAH GERONIMO on 03/30/21 1013 Levomefolate/B6/B12/Algal Oil (Metanx Capsule) 1 Each Capsule, 1 EACH PO HS, (Reported) Entered as Reported by: KYLAH GERONIMO on 03/30/21 1022 Levothyroxine Sodium (Levothyroxine Sodium) 75 Mcg Tablet, 75 MCG PO DAILY, (Reported) Entered as Reported by: AGUSTO PLASENCIA on 06/13/18 1448 Melatonin (Melatonin) 10 Mg Tablet, 10 MG PO HS PRN for SLEEP, (Reported) Entered as Reported by: KYLAH GERONIMO on 03/30/21 1006 Mesalamine (Mesalamine) 1.2 Gm Tablet.dr, 2.4 GM PO 1200 W/MEAL, (Reported) Entered as Reported by: KYLAH GERONIMO on 03/30/21 1006 Montelukast Sodium (Montelukast Sodium) 10 Mg Tablet, 10 MG PO HS, (Reported) Entered as Reported by: AGUSTO PLASENCIA on 06/13/18 1448 Multivits-Min/Iron/FA/Lutein (Centrum Silver Women Tablet) 1 Each Tablet, 1 EACH PO DAILY, (Reported) Entered as Reported by: ESTEE MCFARLAND on 10/04/19 1008 Pantoprazole Sodium (Pantoprazole Sodium) 40 Mg Tablet.dr, 40 MG PO BID Prescribed by: CHALO COLBY on 04/01/21 0855 Potassium Chloride (Potassium Chloride) 10 Meq Tab.er.prt, 10 MEQ PO DAILY PRN for WHEN TAKING FUROSEMIDE, (Reported) Entered as Reported by: KYLAH GERONIMO on 03/30/21 1013 Prednisone (Prednisone) 20 Mg Tab, 20 MG PO BID Prescribed by: CHALO COLBY on 04/06/21 1241 Sertraline HCl (Sertraline HCl) 100 Mg Tablet, 200 MG PO HS, (Reported) Entered as Reported by: AGUSTO PLASENCIA on 06/13/18 1448 Ubidecarenone (Coq-10) 100 Mg Capsule, 100 MG PO DAILY, (Reported) Entered as Reported by: ESTEE MCFARLAND on 10/04/19 1008 Review of Systems Review of Systems Constitutional: no symptoms reported, see HPI Skin: see HPI, change in color (erythema, right deltoid. ), rash (Petechial rash bilateral lower extremities, right greater than left) All Other Systems Reviewed Negative Unless Noted: Yes Past Jmdrgsa-Huakwk-Nebzpg Hx Immunizations Up To Date First/Initial COVID19 Vaccinat: 12/26 Second COVID19 Vaccination Maikel: 12/26 Past Medical History Surgeries: Yes (EGD/COLONOSCOPY, CARDIAC CATH; TLK 01/2016 Dr. Gastelum) Orthopedic Respiratory: Yes (o2 @ night, COPD) Pneumonia, Chronic Bronchitis, Sleep Apnea, COPD Currently Using CPAP: Yes Cardiac: Yes (changes in last echo, CAROTID DISEASE) High Cholesterol, Valvular Heart Disease Neurological: No Reproductive Disorders: No Gastrointestinal: Yes Gastroesophageal Reflux, Diverticulosis Musculoskeletal: No Cancer: No Psychosocial: Yes Anxiety, Depression Integumentary: Yes (SHINGLES LEFT ARM ) Blood Disorders: No Family Medical History Reviewed Nursing Family Hx Cardiovascular disease 19 FATHER 19 MOTHER Deafness or hearing loss 19 FATHER Diabetes mellitus 19 MOTHER FH: COPD (chronic obstructive pulmonary disease) 19 FATHER FH: cancer 19 FATHER G8 SISTER FH: emphysema 19 FATHER Thyroid disease 19 MOTHER (hypothyroidism) No Pertinent Family Hx Physical Exam Vital Signs Vital Signs - First Documented 07/26/21 16:35 Temp 35.9 Pulse 92 Resp 18 B/P (MAP) 145/81 (102) Pulse Ox 94 Capillary Refill : General Appearance: WD/WN, no apparent distress HEENT: PERRL/EOMI, normal ENT inspection, TMs normal, pharynx normal Neck: non-tender, full range of motion, supple, normal inspection Cardiovascular: normal peripheral pulses, regular rate, rhythm, no edema, no murmur Respiratory: chest non-tender, lungs clear, normal breath sounds Gastrointestinal: normal bowel sounds, non tender, soft Back: normal inspection, no CVA tenderness, no vertebral tenderness Extremities: normal range of motion, non-tender, no pedal edema, no calf tender ness Neurologic/Psychiatric: no motor/sensory deficits, alert, normal mood/affect, oriented x 3 Skin: normal color Skin Problem Location: upper extremities (right delotid), lower extremities (rash bilat LEs, Right > Left) Skin Problem Character: petechial (nontender, non puritic) Lymphatic: no adenopathy; No axilla node tender (R), No axilla node tender (L) Progress/Results/Core Measures Results/Orders Vital Signs/I&O 07/26/21 07/26/21 16:35 17:17 Temp 35.9 35.9 Pulse 92 92 Resp 18 18 B/P (MAP) 145/81 (102) 145/81 Pulse Ox 94 94 Progress Progress Note : Time: 16:30 Progress Note Patient seen and evaluated, discussed findings with Dr. Najera. Similar fi ndings reported with COVID vaccines on CDC. Treatment is symptomatic. Discharge instructions and return precautions discussed with the patient. Departure Impression Primary Impression: Adverse reaction to vaccine Qualified Codes: T50.Z95A - Adverse effect of other vaccines and biological substances, initial encounter Disposition: 01 HOME, SELF-CARE Condition: Improved Departure-Patient Inst. Decision time for Depature: 16:45 Referrals: CHALO COLBY DO (PCP/Family) Primary Care Physician Patient Instructions: COVID-19 Vaccine (mRNA) Moderna FDA Fact Sheet Add. Discharge Instructions: You can take over the counter anithistamines, Zyrtec 1 tablet daily; Benadryl 25 mg ever 8 hours, as needed for symptoms. Apply ice pack to right arm, 20 min ever 2 hours. Monitor symptoms, if it worsens, follow up with your Primary Care Provider. Discuss with Dr. Colby, prior to get a follow up Booster, if recommended If you develop worsening shortness of air, chest pain, calf pain, or numbness/tingling in your legs/feet, return to the emergency dept. All discharge instructions reviewed with patient and/or family. Voiced understanding. Copy Copies To 1: CHALO COLBY AMY ARNP Jul 26, 2021 16:48
[2021-07-26 17:17] VITALS: BP 145/81
== END 2021-07-26 17:17 | disposition home or self-care (01) ==
LOC: EDUNIT# 16:20 → ER 16:21
DX: T50.Z95A Adverse effect of other vaccines and biological substances, initial encounter (principal); J44.9 Chronic obstructive pulmonary disease, unspecified; G47.30 Sleep apnea, unspecified; K21.9 Gastro-esophageal reflux disease without esophagitis; F41.9 Anxiety disorder, unspecified; F32.9 Major depressive disorder, single episode, unspecified; E78.00 Pure hypercholesterolemia, unspecified; Z79.82 Long term (current) use of aspirin; Z79.899 Other long term (current) drug therapy
CPT/HCPCS: 99281

== ENCOUNTER → 2021-08-06 | Outpatient (CLI) | payer MEDICARE, OTHER | LOC: LABNPT 08:22 | PROVIDERS: ATTEND Family Medicine | DX: R50.9 Fever, unspecified (principal); R05.9 Cough, unspecified; R06.02 Shortness of breath; Z20.822 Contact with and (suspected) exposure to COVID-19 | CPT/HCPCS: 87635 ==

== ENCOUNTER 2021-08-10 10:37 | Emergency (ER) | payer MEDICARE, OTHER ==
[~2021-08-10] VITALS: Ht 162 cm; Wt 81.8 kg
--- NOTE | 2021-08-10 12:05 | Diagnostic Imaging Report ---
INDICATION: Cough and fever Portable chest 11:59 AM Heart size and pulmonary vascularity both mildly increased. There is consolidating infiltrate in the right upper lobe with some alveolar infiltrate also noted in the right lower lung. IMPRESSION: Infiltrates right upper and right lower lung consistent with pneumonia with some superimposed pulmonary venous hypertension. Dictated by: Dictated on workstation # [id number]
[2021-08-10 12:10] LABS: BASOPHILS % (AUTO) 0 % (0-10); EOSINOPHILS # (AUTO) 0.1 10^3/uL (0.0-0.3); EOSINOPHILS % (AUTO) 0 % (0-10); HEMATOCRIT 35 % (35-52); HEMOGLOBIN 11.1 g/dL (11.5-16.0); LYMPHOCYTES # (AUTO) 0.8 10^3/uL (1.0-4.0); LYMPHOCYTES % (AUTO) 2 % (12-44); MEAN CORPUSCULAR HEMOGLOBIN 26 pg (25-34); MEAN CORPUSCULAR HGB CONC 32 g/dL (32-36); MEAN CORPUSCULAR VOLUME 81 fL (80-99); MEAN PLATELET VOLUME 11.2 fL (9.0-12.2); MONOCYTES # (AUTO) 1.6 10^3/uL (0.0-1.0); MONOCYTES % (AUTO) 3 % (0-12); NEUTROPHILS # (AUTO) 40.6 10^3/uL (1.8-7.8); NEUTROPHILS % (AUTO) 85 % (42-75); PLATELET COUNT 282 10^3/uL (130-400)
[2021-08-10] MEDS ORDERED: NS IV 1000 ML 1,000 ML ONE ×2 (12:12→14:25)
[2021-08-10 12:15] LABS: POTASSIUM 3.7 MMOL/L (3.6-5.0)
[2021-08-10 12:17] LABS: TOTAL PROTEIN 7.4 GM/DL (6.4-8.2)
[2021-08-10 12:19] LABS: BILIRUBIN,TOTAL 1.4 MG/DL (0.1-1.0)
[2021-08-10 12:21] LABS: CREATININE SERUM 1.19 MG/DL (0.60-1.30)
[2021-08-10] MEDS ORDERED: NS IV 1000 ML 1,000 ML IV SCH (12:30)
--- NOTE | 2021-08-10 12:33 | ED Cough/URI ---
General Chief Complaint: COVID19 Suspect/Confirmed Stated Complaint: SOB, LOW O2,FEVER,COUGH,CONGESTION-COPD Nursing Triage Note: Pt presents to ED per POV w/ c/o low oxygen levels, weakness, falls, and diarrhea. (TRISHA LOZANO) History of Present Illness Date Seen by Provider: Aug 10, 2021 Time Seen by Provider: 11:10 Initial Comments 80-year old female presents for respiratory congestion, shortness of air, recent falls, weakness and low SaO2s. Hx of COPD. She has been wearing O2 2-3 L per NC at home, but continues to be SOA. Resp rate 24-32/min, depending on if she is trying to talk. When resting 18-24/min. She had COVID test last week that was negative. She has received her COVID vaccine and Boster, Flu Vaccine this fall. She has been experiencing some diarrhea, concerned with C diff. She hasn't had antibiotics since early Jul 2021 for dental work, one round of Amoxicillin. She fell last week and had right rib pain, today she fell and complains of mild left ant chest wall pain and has some ecchymosis in the epigastric region, no TTP over ribs. She did not have LOC or head injury. Timing/Duration: week, getting worse Severity/Quality: moderate, productive cough Prior Episodes/Possible Cause: occasional episodes Modifying Factors: Improves With Oxygen, Improves With Rest Associated Symptoms: cough, fever/chills, muscle aches, nasal congestion, shortness of breath, wheezing (TRISHA LOZANO) Allergies and Home Medications Allergies Coded Allergies: gabapentin (Verified Allergy, Intermediate, MUSCLE WEAKNESS, 01/29/19) pregabalin (Verified Allergy, Intermediate, MUSCLE WEAKNESS, 01/29/19) azithromycin (Verified Allergy, Unknown, 01/29/19) moxifloxacin HCl (Verified Allergy, Unknown, 01/29/19) Patient Home Medication List Home Medication List Reviewed: Yes (TRISHA LOZANO) Acetylcysteine (L-Mppxci-e-Cysteine) 600 Mg Capsule, 600 MG PO DAILY, (Reported) Entered as Reported by: KYLAH GERONIMO on 03/30/21 1006 Amoxicillin (Amoxicillin) 500 Mg Capsule, 1,000 MG PO BID Prescribed by: BESSY MARTINEZ on 03/27/21 1727 Aspirin (Aspirin EC) 81 Mg Tablet.dr, 81 MG PO HS, (Reported) Entered as Reported by: KYLAH GERONIMO on 03/30/21 1006 Atorvastatin Calcium (Atorvastatin Calcium) 20 Mg Tablet, 20 MG PO HS, (Reported) Entered as Reported by: AGUSTO PLASENCIA on 06/13/18 1448 B&C/FA/Zinc/Copper Oxide/Vit E (Stress B-Complex Tablet) 1 Each Tablet, 1 EACH PO DAILY, (Reported) Entered as Reported by: KYLAH GERONIMO on 03/30/21 1006 Buspirone HCl (Buspirone HCl) 15 Mg Tablet, 15 MG PO BID, (Reported) Entered as Reported by: KYLAH GERONIMO on 03/30/21 100 Calcium Citrate/Vitamin D3 (Calcium Citrate +Vit D3 Tablet) 1 Each Tablet, 2 EACH PO 1200, (Reported) Entered as Reported by: AGUSTO PLASENCIA on 06/13/18 1448 Cholecalciferol (Vitamin D3) (Vitamin D3) 125 Mcg Tablet, 125 MCG PO DAILY, (Reported) Entered as Reported by: KYLAH GERONIMO on 03/30/21 100 Ferrous Sulfate (Ferosul) 325 Mg Tablet, 325 MG PO DAILY, (Reported) Entered as Reported by: KYLAH GERONIMO on 03/30/21 1006 Fluticasone Propionate (Fluticasone Propionate) 16 Gm [place].susp, 1 SPRAY NSEACH BID, (Reported) Entered as Reported by: KYLAH GERONIMO on 03/30/21 1006 Furosemide (Furosemide) 20 Mg Tablet, 20 MG PO DAILY PRN for FLUID RETENTION, (Reported) Entered as Reported by: KYLAH GERONIMO on 03/30/21 1013 Levomefolate/B6/B12/Algal Oil (Metanx Capsule) 1 Each Capsule, 1 EACH PO HS, (Reported) Entered as Reported by: KYLAH GERONIMO on 03/30/21 1022 Levothyroxine Sodium (Levothyroxine Sodium) 75 Mcg Tablet, 75 MCG PO DAILY, (Reported) Entered as Reported by: AGUSTO PLASENCIA on 06/13/18 1448 Melatonin (Melatonin) 10 Mg Tablet, 10 MG PO HS PRN for SLEEP, (Reported) Entered as Reported by: KYLAH GERONIMO on 03/30/21 100 Mesalamine (Mesalamine) 1.2 Gm Tablet.dr, 2.4 GM PO 1200 W/MEAL, (Reported) Entered as Reported by: KYLAH GERONIMO on 03/30/21 1006 Montelukast Sodium (Montelukast Sodium) 10 Mg Tablet, 10 MG PO HS, (Reported) Entered as Reported by: AGUSTO PLASENCIA on 06/13/18 1448 Multivits-Min/Iron/FA/Lutein (Centrum Silver Women Tablet) 1 Each Tablet, 1 EACH PO DAILY, (Reported) Entered as Reported by: ESTEE MCFARLAND on 10/04/19 1008 Pantoprazole Sodium (Pantoprazole Sodium) 40 Mg Tablet.dr, 40 MG PO BID Prescribed by: CHALO COLBY on 04/01/21 0855 Potassium Chloride (Potassium Chloride) 10 Meq Tab.er.prt, 10 MEQ PO DAILY PRN for WHEN TAKING FUROSEMIDE, (Reported) Entered as Reported by: KYLAH GERONIMO on 03/30/21 1013 Prednisone (Prednisone) 20 Mg Tab, 20 MG PO BID Prescribed by: CHALO COLBY on 04/06/21 1241 Sertraline HCl (Sertraline HCl) 100 Mg Tablet, 200 MG PO HS, (Reported) Entered as Reported by: AGUSTO PLASENCIA on 06/13/18 1448 Ubidecarenone (Coq-10) 100 Mg Capsule, 100 MG PO DAILY, (Reported) Entered as Reported by: ESTEE MCFARLAND on 10/04/19 1008 Review of Systems Review of Systems Constitutional: see HPI, fever, malaise, weakness EENTM: see HPI, no symptoms reported Respiratory: see HPI, cough, dyspnea on exertion, phlegm, short of breath, wh eezing Cardiovascular: no symptoms reported, see HPI; No chest pain Gastrointestinal: see HPI; No abdominal pain; diarrhea, loss of appetite; No nausea, No vomiting (TRISHA LOZANO) All Other Systems Reviewed Negative Unless Noted: Yes (TRISHA LOZANO) Past Eziqgsc-Eajgsr-Fedaxw Hx Patient Social History Smoking Status: Former Smoker Substance use?: No Alcohol Use?: No (TRISHA LOZANO) Immunizations Up To Date First/Initial COVID19 Vaccinat: 2020 Second COVID19 Vaccination Maikel: 2020 Third COVID19 Vaccination Date: 12/26 (BLAKE,TRISHA VEGA) Past Medical History Surgery/Hospitalization HX: In ED in the last week, and has had a previous GI Bleed in the last year Surgeries: Yes (EGD/COLONOSCOPY, CARDIAC CATH; TLK 01/2016 Dr. Gastelum) Orthopedic Respiratory: Yes (o2 @ night, COPD) Pneumonia, Chronic Bronchitis, Sleep Apnea, COPD Currently Using CPAP: Yes Cardiac: Yes (changes in last echo, CAROTID DISEASE) High Cholesterol, Valvular Heart Disease Neurological: No Reproductive Disorders: No Gastrointestinal: Yes Gastroesophageal Reflux, Diverticulosis Musculoskeletal: No Cancer: No Psychosocial: Yes Anxiety, Depression Integumentary: Yes (SHINGLES LEFT ARM ) Blood Disorders: No (TRISHA LOZANO) Family Medical History Reviewed Nursing Family Hx (TRISHA LOZANO) Cardiovascular disease 19 FATHER 19 MOTHER Deafness or hearing loss 19 FATHER Diabetes mellitus 19 MOTHER FH: COPD (chronic obstructive pulmonary disease) 19 FATHER FH: cancer 19 FATHER G8 SISTER FH: emphysema 19 FATHER Thyroid disease 19 MOTHER (hypothyroidism) No Pertinent Family Hx (TRISHA LOZANO) Physical Exam Vital Signs - First Documented 08/10/21 08/10/21 10:45 12:05 Temp 36.7 Pulse 105 Resp 34 B/P (MAP) 117/62 (80) Pulse Ox 92 O2 Delivery Nasal Cannula O2 Flow Rate 4.00 (CLEMENTE JAMES MD) Capillary Refill : (TRISHA LOZANO) Height: 5'5.00" Weight: 213lbs. 9.0oz. 96.407024vl; 31.00 BMI Method:Stated General Appearance: moderate distress HEENT: PERRL/EOMI, normal ENT inspection, TMs normal, pharynx normal, other (oral mucosa pink and dry) Neck: non-tender, full range of motion, supple, normal inspection Respiratory: chest non-tender, decreased breath sounds, rhonchi, wheezing, other (labored breathing Resp rate 20-28/min. ) Cardiovascular: tachycardia Gastrointestinal: normal bowel sounds, non tender, soft; No tenderness; other (eccymosis to epigastric region) Extremities: normal range of motion, pedal edema (1+) Neurologic/Psychiatric: no motor/sensory deficits, alert, normal mood/affect, oriented x 3 Skin: normal color, warm/dry Lymphatic: no adenopathy (TRISHA LOZANO) Focused Exam Lactate Level 08/10/21 12:30: Lactic Acid Level 0.97 (CLEMENTE JAMES MD) Time of Focused Exam: 13:45 Respiratory: Chest Non Tender, Accessory Muscle Use, Decreased Breath Sounds, Respiratory Distress, Rhonci Cardiovascular: Tachycardia (100-110) Capillary Refill: Less Than 3 Seconds Skin: normal color, diaphoresis; No rash, No ulcerations (TRISHA LOZANO) Lactic Acid Level Laboratory Tests Test 08/10/21 12:30 Lactic Acid Level 0.97 MMOL/L (0.50-2.00) (CLEMENTE JAMES MD) Within 3hrs of presentation: Admin fluids, Admin 30ml/kg IBW due to BMI>30, Admin ABX, Blood cultures prior to ABX's, Lactate level (TRISHA LOZANO) Progress/Results/Core Measures Suspected Sepsis Recent Fever Within 48 Hours: Yes Infection Criteria Present: Documented Infection New/Unexplained Altered Menta: No Within 3hrs of presentation: Admin fluids, Admin 30ml/kg IBW due to BMI>30, Admin ABX, Blood cultures prior to ABX's, Focus exam, Lactate level SIRS Temperature: Pulse: 105 Respiratory Rate: 34 Laboratory Tests 08/10/21 10:59: White Blood Count 48.0*H 08/10/21 13:40: White Blood Count 50.3*H Blood Pressure 117 /62 Mean: 80 08/10/21 12:30: Lactic Acid Level 0.97 Laboratory Tests 08/10/21 10:59: Creatinine 1.19, INR Comment 1.3, Platelet Count 282, Total Bilirubin 1.4H 08/10/21 13:40: Platelet Count 327 (TRISHA LOZANOP) Results/Orders Lab Results Laboratory Tests Test 08/10/21 10:59 08/10/21 11:00 08/10/21 12:30 08/10/21 13:14 Range/Units White Blood Count 48.0 *H 4.3-11.0 10^3/uL Red Blood Count 4.31 3.80-5.11 10^6/uL Hemoglobin 11.1 L 11.5-16.0 g/dL Hematocrit 35 35-52 % Mean Corpuscular Volume 81 80-99 fL Mean Corpuscular Hemoglobin 26 25-34 pg Mean Corpuscular Hemoglobin Concent 32 32-36 g/dL Red Cell Distribution Width 17.8 H 10.0-14.5 % Platelet Count 282 130-400 10^3/uL Mean Platelet Volume 11.2 9.0-12.2 fL Immature Granulocyte % (Auto) 10 % Neutrophils (%) (Auto) 85 H 42-75 % Lymphocytes (%) (Auto) 2 L 12-44 % Monocytes (%) (Auto) 3 0-12 % Eosinophils (%) (Auto) 0 0-10 % Basophils (%) (Auto) 0 0-10 % Neutrophils # (Auto) 40.6 H 1.8-7.8 10^3/uL Lymphocytes # (Auto) 0.8 L 1.0-4.0 10^3/uL Monocytes # (Auto) 1.6 H 0.0-1.0 10^3/uL Eosinophils # (Auto) 0.1 0.0-0.3 10^3/uL Basophils # (Auto) 0.0 0.0-0.1 10^3/uL Immature Granulocyte # (Auto) 5.0 H 0.0-0.1 10^3/uL Neutrophils % (Manual) 71 % Lymphocytes % (Manual) 3 % Monocytes % (Manual) 4 % Metamyelocytes % 2 % Myelocytes % 7 % Band Neutrophils 13 % Polychromasia SLIGHT Hypochromasia SLIGHT Poikilocytosis SLIGHT Anisocytosis SLIGHT Microcytosis SLIGHT Prothrombin Time 16.3 H 12.2-14.7 SEC INR Comment 1.3 0.8-1.4 Activated Partial Thromboplast Time 31 24-35 SEC D-Dimer 5.89 H 0.00-0.49 UG/ML Sodium Level 130 L 135-145 MMOL/L Potassium Level 3.7 3.6-5.0 MMOL/L Chloride Level 96 L 98-107 MMOL/L Carbon Dioxide Level 21 21-32 MMOL/L Anion Gap 13 5-14 MMOL/L Blood Urea Nitrogen 37 H 7-18 MG/DL Creatinine 1.19 0.60-1.30 MG/DL Estimat Glomerular Filtration Rate 44 BUN/Creatinine Ratio 31 Glucose Level 79 70-105 MG/DL Calcium Level 9.0 8.5-10.1 MG/DL Corrected Calcium 9.8 8.5-10.1 MG/DL Total Bilirubin 1.4 H 0.1-1.0 MG/DL Aspartate Amino Transf (AST/SGOT) 71 H 5-34 U/L Alanine Aminotransferase (ALT/SGPT) 22 0-55 U/L Alkaline Phosphatase 115 40-136 U/L Lactate Dehydrogenase 339 H 125-220 U/L C-Reactive Protein High Sensitivity 43.82 H 0.00-0.50 MG/DL B-Type Natriuretic Peptide 201.0 H <100.0 PG/ML Total Protein 7.4 6.4-8.2 GM/DL Albumin 3.0 L 3.2-4.5 GM/DL Procalcitonin 6.26 H <0.10 NG/ML Influenza Type A Antigen NEGATIVE NEGATIVE Influenza Type B Antigen NEGATIVE NEGATIVE SARS-CoV-2 RNA (RT-PCR) Negative Negative Lactic Acid Level 0.97 0.50-2.00 MMOL/L Coronavirus (COVID-19)(PCR) Negative Negative Test 08/10/21 13:40 08/10/21 13:48 08/10/21 14:10 Range/Units White Blood Count 50.3 *H 4.3-11.0 10^3/uL Red Blood Count 4.21 3.80-5.11 10^6/uL Hemoglobin 11.0 L 11.5-16.0 g/dL Hematocrit 34 L 35-52 % Mean Corpuscular Volume 80 80-99 fL Mean Corpuscular Hemoglobin 26 25-34 pg Mean Corpuscular Hemoglobin Concent 33 32-36 g/dL Red Cell Distribution Width 17.7 H 10.0-14.5 % Platelet Count 327 130-400 10^3/uL Mean Platelet Volume 9.6 9.0-12.2 fL Immature Granulocyte % (Auto) 8 % Neutrophils (%) (Auto) 85 H 42-75 % Lymphocytes (%) (Auto) 2 L 12-44 % Monocytes (%) (Auto) 4 0-12 % Eosinophils (%) (Auto) 0 0-10 % Basophils (%) (Auto) 0 0-10 % Neutrophils # (Auto) 43.0 H 1.8-7.8 10^3/uL Lymphocytes # (Auto) 1.2 1.0-4.0 10^3/uL Monocytes # (Auto) 1.9 H 0.0-1.0 10^3/uL Eosinophils # (Auto) 0.0 0.0-0.3 10^3/uL Basophils # (Auto) 0.0 0.0-0.1 10^3/uL Immature Granulocyte # (Auto) 4.2 H 0.0-0.1 10^3/uL Neutrophils % (Manual) 79 % Lymphocytes % (Manual) 3 % Monocytes % (Manual) 2 % Metamyelocytes % 2 % Myelocytes % 5 % Band Neutrophils 9 % Toxic Granulation 1+ Percent Immature Platelet Fraction 4.0 0.0-7.6 % Poikilocytosis SLIGHT Macrocytosis SLIGHT Absolute Reticulocyte Count 36 24-90 10e9/uL Percent Reticulocyte Count 0.85 0.50-2.40 % Urine Color YELLOW Urine Clarity CLEAR Urine pH 6.0 5-9 Urine Specific [place] 1.020 1.016-1.022 Urine Protein TRACE H NEGATIVE Urine Glucose (UA) NEGATIVE NEGATIVE Urine Ketones NEGATIVE NEGATIVE Urine Nitrite NEGATIVE NEGATIVE Urine Bilirubin 1+ H NEGATIVE Urine Urobilinogen 1.0 < = 1.0 MG/DL Urine Leukocyte Esterase NEGATIVE NEGATIVE Urine RBC (Auto) NEGATIVE NEGATIVE Urine RBC RARE /HPF Urine WBC 0-2 /HPF Urine Squamous Epithelial Cells 0-2 /HPF Urine Crystals NONE /LPF Urine Bacteria LARGE H /HPF Urine Casts PRESENT /LPF Urine Hyaline Casts 2-5 H /LPF Urine Mucus SMALL H /LPF Urine Culture Indicated YES Blood Gas Puncture Site RT RAD Blood Gas Patient Temperature 99.7 Arterial Blood pH 7.31 *L 7.37-7.43 Arterial Blood Partial Pressure CO2 39 35-45 MMHG Arterial Blood Partial Pressure O2 200 H 79-93 MMHG Arterial Blood HCO3 19 L 23-27 MMOL/L Arterial Blood Total CO2 19.8 L 21.0-31.0 MMOL/L Arterial Blood Oxygen Saturation 99 94-100 % Arterial Blood Base Excess -6.3 L -2.5-2.5 MMOL/L Matthew Test NA Blood Gas Ventilator Setting NO Blood Gas Inspired Oxygen 100% (CLEMENTE JAMES MD) Micro Results Microbiology 08/10/21 Urine Culture - Final, Complete NO GROWTH 08/10/21 Blood Culture - Preliminary, Resulted No growth 08/10/21 Blood Culture - Preliminary, Resulted No growth (CLEMENTE JAMES MD) Vital Signs/I&O 1/10/2708/10/21 08/10/21 08/10/21 10:45 12:05 12:16 14:00 Temp 36.7 Pulse 105 116 Resp 34 36 B/P (MAP) 117/62 (80) Pulse Ox 92 85 100 O2 Delivery Nasal Cannula Room Air O2 Flow Rate 4.00 4.00 100.00 08/10/21 14:46 Temp 37.6 Pulse 110 Resp 28 B/P (MAP) 114/81 Pulse Ox 95 O2 Delivery NIV CPAP O2 Flow Rate 100.00 (CLEMENTE JAMES MD) Vital Signs/I&O Capillary Refill : (TRISHA LOZANO) Blood Pressure Mean: 80 Progress Note : Time: 11:10 Progress Note Patient seen and evaluated. Will obtain chest x-ray, EKG, labs normal saline 1 L per IV, sepsis protocol including sputum culture. She is maintaining SaO2 in the 90s with 4 L per nasal cannula. However if she is talking, her sats will drop to the mid 80s. She is tachy but afebrile. B/P has been labile, will monitor 1200 right sided pneumonia per CXR, WBC 48. Spoke to Dr. De La Fuente, concerned with elevation, will have peripheral smear read by pathology. Will give NS at 30 ml/kg for sepsis protocol. 1250 Labs reviewed with patient and daughter, due to critical situation and after discussion with Dr. 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 1300 call to [facility] Transfer, they will call back if bed available. She is flu neg and COVID is neg but send out is required for confirmation, so she will remain a COVID PUI. Peripheral smear is reactive, no signs of malignancy per Pathologist. Patient and daughter notified. 1340 Dr. Saba agreeable to accept patient to [facility]. Discussed D-dimer, CT angio can be completed at [place]. [facility] notified of transfer, room assignment received from [facility]. 1345 B/P 100/50s, increased resp distress and SaO2 in low 80s despite O2 per NC at 4-5 L and non-rebreather at 10 L. Will have RT start Bi-Pap. 1410 improved resp status and VS, SaO2 95-98% on Bipap. HR 100-110 and B/P 110- 120/70s. Patient continues to try and talk, which causes drop in SaO2. (TRISHA LOZANO) ECG Initial ECG Impression Date: Aug 10, 2021 Initial ECG Impression Time: 14:02 Initial ECG Rate: 112 Initial ECG Rhythm: S.Tach Initial ECG Intervals: Normal Initial ECG Intervals DC 168, QRSD 92, QT 344, QTc 470. [place] P 49, QRS 51, T- 8 Initial ECG Impression: Normal Initial ECG Comparisson: Unchanged (TRISHA LOZANO) Diagnostic Imaging Diagonstic Imaging: Xray Plain Films/CT/US/NM/MRI: chest Comments NAME: [facility] REC#: [id number] PT STATUS: REG ER : 1940 PHYSICIAN: TRISHA LOZANO ADMIT DATE: 08/10/21/ER Draft Date of Exam:08/10/21 CHEST 1 VIEW, AP/PA ONLY INDICATION: Cough and fever Portable chest 11:59 AM Heart size and pulmonary vascularity both mildly increased. There is consolidating infiltrate in the right upper lobe with some alveolar infiltrate also noted in the right lower lung. IMPRESSION: Infiltrates right upper and right lower lung consistent with pneumonia with some superimposed pulmonary venous hypertension. Dictated on workstation # [id number] Dict: 08/10/21 1203 Trans: 08/10/21 1204 CVB [id number] Interpreted by: KATIE EM MD Electronically signed by: (TRISHA LOZANO) Departure Impression Primary Impression: Pneumonia Qualified Codes: J18.9 - Pneumonia, unspecified organism Additional Impressions: COPD exacerbation Person under investigation for COVID-19 Hypoxia Respiratory distress Disposition: XF [facility]-TRM HOSP Condition: Critical Transfer Transfer Reason: Exceeds level of care Time Spoke to Accepting Phy: 13:40 Transfer Progress Notes Discussed patient's past history and current critical status. Recommended starting Rocephin 2 g IV and doxycycline IV. Agreeable with previous treatment and use of BiPAP. We will repeat Covid test when she arrives at [facility] and do the CT angio of the chest for PE rule out Method of Transfer: EMS (TRISHA LOZANO) Departure-Patient Inst. Referrals: CHALO COLBY DO (PCP/Family) Primary Care Physician Copy Copies To 1: CHALO COLBY AMY ARNP Aug 10, 2021 12:33 CLEMENTE JAMES MD Aug 12, 2021 06:33
[2021-08-10 12:45] LABS: NEUTROPHILS % (MANUAL) 71 %
[2021-08-10 12:46] LABS: ANISOCYTOSIS SLIGHT; BAND NEUTROPHILS 13 %; HYPOCHROMASIA SLIGHT; LYMPHOCYTES % (MANUAL) 3 %; METAMYELOCYTES % 2 %; MICROCYTOSIS SLIGHT; MONOCYTES % (MANUAL) 4 %; MYELOCYTES % 7 %; POIKILOCYTOSIS SLIGHT; POLYCHROMASIA SLIGHT
[2021-08-10] MEDS ORDERED: FUROSEMIDE 40 MG/4 ML INJ (LASIX) IVP STA (13:15)
[2021-08-10] MEDS ORDERED: methylPREDNISolone 125 MG (Solu-MEDROL) VIAL IVP STA (13:15)
[2021-08-10 13:27] LABS: INR 1.3 (0.8-1.4); PROTHROMBIN TIME PATIENT 16.3 SEC (12.2-14.7)
[2021-08-10 13:54] LABS: CLARITY,URINE CLEAR; COLOR,URINE YELLOW; GLUCOSE, URINE (UA) NEGATIVE (NEGATIVE); KETONES,URINE NEGATIVE (NEGATIVE); LEUKOCYTE ESTERASE ,URINE NEGATIVE (NEGATIVE); NITRITE,URINE NEGATIVE (NEGATIVE); PROTEIN,URINE TRACE (NEGATIVE)
[2021-08-10 14:00] VITALS: BP 117/64
[2021-08-10] MEDS ORDERED: cefTRIAXone 2,000 MG in NS (IVPB) 50 ML IV ONE (14:00)
[2021-08-10 14:12] LABS: ABSOLUTE RETIC # 36 10e9/uL (24-90); BASOPHILS % (AUTO) 0 % (0-10); EOSINOPHILS % (AUTO) 0 % (0-10); HEMATOCRIT 34 % (35-52); LYMPHOCYTES # (AUTO) 1.2 10^3/uL (1.0-4.0); LYMPHOCYTES % (AUTO) 2 % (12-44); MEAN CORPUSCULAR HEMOGLOBIN 26 pg (25-34); MEAN CORPUSCULAR HGB CONC 33 g/dL (32-36); MEAN CORPUSCULAR VOLUME 80 fL (80-99); MEAN PLATELET VOLUME 9.6 fL (9.0-12.2); MONOCYTES # (AUTO) 1.9 10^3/uL (0.0-1.0); MONOCYTES % (AUTO) 4 % (0-12); NEUTROPHILS % (AUTO) 85 % (42-75); PLATELET COUNT 327 10^3/uL (130-400); RETICULOCYTE % 0.85 % (0.50-2.40)
[2021-08-10] MEDS ORDERED: KETOROLAC 30 MG/ML VIAL IVP STA (14:12)
[2021-08-10 14:15] LABS: WHITE BLOOD COUNT 50.3 10^3/uL (4.3-11.0)
[2021-08-10] MEDS ORDERED: DOXYCYCLINE INJECTION 100 MG in NS (IVPB) 100 ML IV ONE (14:15)
[2021-08-10 14:17] LABS: ABG BASE EXCESS -6.3 MMOL/L (-2.5-2.5); ABG OXYGEN SATURATION 99 % (94-100); ABG PCO2 39 MMHG (35-45); ABG PO2 200 MMHG (79-93); ABG TCO2 19.8 MMOL/L (21.0-31.0)
[2021-08-10 14:19] LABS: ABG PH 7.31 (7.37-7.43); INSPIRED O2 100%; PATIENT TEMP 99.7; VENTILATOR NO
[2021-08-10 14:25] LABS: BACTERIA,URINE LARGE /HPF; RBC,URINE RARE /HPF; SQUAMOUS EPITHELIAL CELL,UR 0-2 /HPF; WBC,URINE 0-2 /HPF
[2021-08-10 14:33] LABS: BILIRUBIN,URINE 1+ (NEGATIVE)
[2021-08-10 14:46] VITALS: BP 114/81
[2021-08-10 14:56] LABS: BAND NEUTROPHILS 9 %; NEUTROPHILS % (MANUAL) 79 %
[2021-08-10 14:57] LABS: LYMPHOCYTES % (MANUAL) 3 %; METAMYELOCYTES % 2 %; MONOCYTES % (MANUAL) 2 %; MYELOCYTES % 5 %; POIKILOCYTOSIS SLIGHT; TOXIC GRANULATION/VACUOLAZATIO 1+
== END 2021-08-10 14:50 | disposition short-term general hospital (02) ==
LOC: EDUNIT# 10:37 → ER 10:39
DX: J18.9 Pneumonia, unspecified organism (principal); J44.1 Chronic obstructive pulmonary disease with (acute) exacerbation; R09.02 Hypoxemia; R06.03 Acute respiratory distress; G47.30 Sleep apnea, unspecified; E78.00 Pure hypercholesterolemia, unspecified; K21.9 Gastro-esophageal reflux disease without esophagitis; F41.9 Anxiety disorder, unspecified; F32.9 Major depressive disorder, single episode, unspecified; Z20.822 Contact with and (suspected) exposure to COVID-19; Z79.82 Long term (current) use of aspirin; Z79.899 Other long term (current) drug therapy
CPT/HCPCS: 36415; 71045; 80053; 81000; 82805; 83605; 83615; 83880; 84145; 85007; 85027; 85045; 85055; 85379; 85610; 85730; 86141; 87040; 87088; 87635; 87636; 87804; 93005; 94660; 99291

== ENCOUNTER → 2022-01-28 | Outpatient (CLI) | payer MEDICARE, OTHER ==
[~2022-01-28] MED LIST changes: -MAGN250T2 PO; +MAGN250T31 PO
[2022-01-28 12:14] LABS: BASOPHILS # (AUTO) 0.1 10^3/uL (0.0-0.1); BASOPHILS % (AUTO) 1 % (0-10); EOSINOPHILS # (AUTO) 0.3 10^3/uL (0.0-0.3); EOSINOPHILS % (AUTO) 4 % (0-10); HEMATOCRIT 41 % (35-52); HEMOGLOBIN 12.8 g/dL (11.5-16.0); LYMPHOCYTES % (AUTO) 13 % (12-44); MEAN CORPUSCULAR HEMOGLOBIN 28 pg (25-34); MEAN CORPUSCULAR HGB CONC 31 g/dL (32-36); MEAN CORPUSCULAR VOLUME 91 fL (80-99); MEAN PLATELET VOLUME 9.3 fL (9.0-12.2); MONOCYTES # (AUTO) 0.6 10^3/uL (0.0-1.0); MONOCYTES % (AUTO) 7 % (0-12); NEUTROPHILS # (AUTO) 5.6 10^3/uL (1.8-7.8); NEUTROPHILS % (AUTO) 74 % (42-75); PLATELET COUNT 207 10^3/uL (130-400); WHITE BLOOD COUNT 7.5 10^3/uL (4.3-11.0)
--- NOTE | 2022-01-28 13:52 | Diagnostic Imaging Report ---
INDICATION: Hemoptysis. COMPARISON: 08/10/2021. FINDINGS: Frontal and lateral radiographic views of the chest were obtained and show significant overall improved aeration when compared to prior exam. There is, however, persistent diffuse coarse prominence of the interstitium. This, however, appears to be a chronic finding when compared to more remote exams. There is no focal consolidation or large effusion. Cardiac silhouette and pulmonary vasculature are within normal limits. Osseous structures show no gross acute abnormalities. IMPRESSION: 1. Significant overall improved aeration. 2. Findings suggestive of residual chronic interstitial lung disease. Dictated by: Dictated on workstation # [id number]
== END ==
LOC: RAD 11:52
PROVIDERS: ATTEND Family Medicine
DX: R04.2 Hemoptysis (principal); D64.9 Anemia, unspecified; R05.9 Cough, unspecified
CPT/HCPCS: 36415; 71046; 85025; 87070; 87205

== ENCOUNTER 2022-06-08 11:27 | Inpatient (IN) | payer MEDICARE, OTHER ==
[~2022-06-08] VITALS: Ht 162 cm; Wt 88.7 kg
[~2022-06-08 11:27] MED LIST changes: +POTA-177 PO; -POTA10TA37 PO
--- NOTE | 2022-06-08 11:44 | ED Respiratory ---
General Chief Complaint: Respiratory Problems Stated Complaint: SOB Nursing Triage Note: Patient to ED via wheelchair with complaints of SOA and low grade feversince (06/03). Patient took home COVID test which was negative. Patient was seen by PCP yesterday and prescribed doxycycline and medrol dose pack. Pt has hx COPD and pulmonary hypertension. Pt is on home o2 and cpap at night. Source: patient Exam Limitations: no limitations History of Present Illness Date Seen by Provider: Jun 08, 2022 Time Seen by Provider: 11:30 Initial Comments 81-year-old female with past medical history of COPD on nighttime oxygen, CHF, pulmonary hypertension coming in due to shortness of breath. Started feeling this way after a vacation with a lot of seafood. Went to her PCP yesterday, concern was for COPD exacerbation so started on antibiotics and steroids which he has had 24 hours of. Worsened today, worse with exertion. No chest pain, nausea, vomiting, abdominal pain, weakness, numbness, dysuria, diarrhea, rash, or any other concerns. She does not believe she has had a fever as well. Allergies and Home Medications Allergies Coded Allergies: gabapentin (Verified Allergy, Intermediate, MUSCLE WEAKNESS, 01/29/19) pregabalin (Verified Allergy, Intermediate, MUSCLE WEAKNESS, 01/29/19) azithromycin (Verified Allergy, Unknown, 01/29/19) moxifloxacin HCl (Verified Allergy, Unknown, 01/29/19) Patient Home Medication List Home Medication List Reviewed: Yes Acetylcysteine (Z-Obvdcg-p-Cysteine) 600 Mg Capsule, 600 MG PO DAILY, (Reported) Entered as Reported by: KYLAH GERONIMO on 03/30/21 1006 Amoxicillin (Amoxicillin) 500 Mg Capsule, 1,000 MG PO BID Prescribed by: BESSY MARTINEZ on 03/27/21 1727 Aspirin (Aspirin EC) 81 Mg Tablet.dr, 81 MG PO HS, (Reported) Entered as Reported by: KYLAH GERONIMO on 03/30/21 1006 Atorvastatin Calcium (Atorvastatin Calcium) 20 Mg Tablet, 20 MG PO HS, (Reported) Entered as Reported by: AGUSTO PLASENCIA on 06/13/18 1448 B&C/FA/Zinc/Copper Oxide/Vit E (Stress B-Complex Tablet) 1 Each Tablet, 1 EACH PO DAILY, (Reported) Entered as Reported by: KYLAH GERONIMO on 03/30/21 1006 Buspirone HCl (Buspirone HCl) 15 Mg Tablet, 15 MG PO BID, (Reported) Entered as Reported by: KYLAH GERONIMO on 03/30/21 1006 Calcium Citrate/Vitamin D3 (Calcium Citrate +Vit D3 Tablet) 1 Each Tablet, 2 EACH PO 1200, (Reported) Entered as Reported by: AGUSTO PLASENCIA on 06/13/18 1448 Cholecalciferol (Vitamin D3) (Vitamin D3) 125 Mcg Tablet, 125 MCG PO DAILY, (Reported) Entered as Reported by: KYLAH GERONIMO on 03/30/21 1006 Ferrous Sulfate (Ferosul) 325 Mg Tablet, 325 MG PO DAILY, (Reported) Entered as Reported by: KYLAH GERONIMO on 03/30/21 1006 Fluticasone Propionate (Fluticasone Propionate) 16 Gm [place].susp, 1 SPRAY NSEACH BID, (Reported) Entered as Reported by: KYLAH GERONIMO on 03/30/21 1006 Furosemide (Furosemide) 20 Mg Tablet, 20 MG PO DAILY PRN for FLUID RETENTION, (Reported) Entered as Reported by: KYLAH GERONIMO on 03/30/21 1013 Levomefolate/B6/B12/Algal Oil (Metanx Capsule) 1 Each Capsule, 1 EACH PO HS, (Reported) Entered as Reported by: KYLAH GERONIMO on 03/30/21 1022 Levothyroxine Sodium (Levothyroxine Sodium) 75 Mcg Tablet, 75 MCG PO DAILY, (Reported) Entered as Reported by: AGUSTO PLASENCIA on 06/13/18 1448 Melatonin (Melatonin) 10 Mg Tablet, 10 MG PO HS PRN for SLEEP, (Reported) Entered as Reported by: KYLAH GERONIMO on 03/30/21 1006 Mesalamine (Mesalamine) 1.2 Gm Tablet.dr, 2.4 GM PO 1200 W/MEAL, (Reported) Entered as Reported by: KYLAH GERONIMO on 03/30/21 1006 Montelukast Sodium (Montelukast Sodium) 10 Mg Tablet, 10 MG PO HS, (Reported) Entered as Reported by: AGUSTO PLASENCIA on 06/13/18 1448 Multivits-Min/Iron/FA/Lutein (Centrum Silver Women Tablet) 1 Each Tablet, 1 EACH PO DAILY, (Reported) Entered as Reported by: ESTEE MCFARLAND on 10/04/19 1008 Pantoprazole Sodium (Pantoprazole Sodium) 40 Mg Tablet.dr, 40 MG PO BID Prescribed by: CHALO COLBY on 04/01/21 0855 Potassium Chloride (Potassium Chloride) 10 Meq Tab.er.prt, 10 MEQ PO DAILY PRN for WHEN TAKING FUROSEMIDE, (Reported) Entered as Reported by: KYLAH GERONIMO on 03/30/21 1013 Prednisone (Prednisone) 20 Mg Tab, 20 MG PO BID Prescribed by: CHALO COLBY on 04/06/21 1241 Sertraline HCl (Sertraline HCl) 100 Mg Tablet, 200 MG PO HS, (Reported) Entered as Reported by: AGUSTO PLASENCIA on 06/13/18 1448 Ubidecarenone (Coq-10) 100 Mg Capsule, 100 MG PO DAILY, (Reported) Entered as Reported by: ESTEE MCFARLAND on 10/04/19 1008 Review of Systems Review of Systems Constitutional: No fever EENTM: No blurred vision Respiratory: cough, dyspnea on exertion, short of breath Cardiovascular: No chest pain Gastrointestinal: No abdominal pain Genitourinary: no symptoms reported Musculoskeletal: no symptoms reported Skin: no symptoms reported Psychiatric/Neurological: No Symptoms Reported Hematologic/Lymphatic: No Symptoms Reported Immunological/Allergic: no symptoms reported All Other Systems Reviewed Negative Unless Noted: Yes Past Gyppopg-Upwflm-Nhohbe Hx Patient Social History Substance use?: No Immunizations Up To Date First/Initial COVID19 Vaccinat: 2020 Second COVID19 Vaccination Maikel: 2020 Third COVID19 Vaccination Date: 12/26 Past Medical History Surgery/Hospitalization HX: In ED in the last week, and has had a previous GI Bleed in the last year Surgeries: Yes (EGD/COLONOSCOPY, CARDIAC CATH; TLK 01/2016 Dr. Gastelum) Orthopedic Respiratory: Yes (o2 @ night, COPD) Pneumonia, Chronic Bronchitis, Sleep Apnea, COPD Currently Using CPAP: Yes Cardiac: Yes (changes in last echo, CAROTID DISEASE) High Cholesterol, Valvular Heart Disease Neurological: No Reproductive Disorders: No Gastrointestinal: Yes Gastroesophageal Reflux, Diverticulosis Musculoskeletal: No Cancer: No Psychosocial: Yes Anxiety, Depression Integumentary: Yes (SHINGLES LEFT ARM ) Blood Disorders: No Family Medical History Cardiovascular disease 19 FATHER 19 MOTHER Deafness or hearing loss 19 FATHER Diabetes mellitus 19 MOTHER FH: COPD (chronic obstructive pulmonary disease) 19 FATHER FH: cancer 19 FATHER G8 SISTER FH: emphysema 19 FATHER Thyroid disease 19 MOTHER (hypothyroidism) No Pertinent Family Hx Physical Exam Vital Signs - First Documented 06/08/22 11:31 Temp 36.8 Pulse 110 Resp 36 B/P (MAP) 161/97 (118) Pulse Ox 92 O2 Delivery Nasal Cannula O2 Flow Rate 2.00 Capillary Refill : Less Than 3 Seconds Height: 5'5.00" Weight: 213lbs. 9.0oz. 96.365831jo; 32.00 BMI Method:Stated General Appearance: WD/WN, mild distress Eyes: Bilateral Eye Normal Inspection HEENT: PERRL/EOMI, normal ENT inspection, pharynx normal Neck: non-tender, full range of motion, supple, normal inspection Respiratory: chest non-tender, accessory muscle use, crackles, wheezing Cardiovascular: regular rate, rhythm, no edema, no murmur Gastrointestinal: normal bowel sounds, non tender, soft; No distended, No guarding, No rebound Extremities: normal range of motion, non-tender, normal inspection, no pedal edema, no calf tenderness, normal capillary refill Neurologic/Psychiatric: no motor/sensory deficits, alert, normal mood/affect Skin: normal color, warm/dry Lymphatic: no adenopathy Progress/Results/Core Measures Suspected Sepsis SIRS Temperature: Pulse: 110 Respiratory Rate: 36 Laboratory Tests 06/08/22 11:57: White Blood Count 12.9H Blood Pressure 161 /97 Mean: 118 Laboratory Tests 06/08/22 11:57: Creatinine 0.79, INR Comment 0.9, Platelet Count 225, Total Bilirubin 0.6 Results/Orders Lab Results Laboratory Tests Test 06/08/22 11:57 06/08/22 12:00 Range/Units White Blood Count 12.9 H 4.3-11.0 10^3/uL Red Blood Count 4.15 3.80-5.11 10^6/uL Hemoglobin 12.3 11.5-16.0 g/dL Hematocrit 38 35-52 % Mean Corpuscular Volume 91 80-99 fL Mean Corpuscular Hemoglobin 30 25-34 pg Mean Corpuscular Hemoglobin Concent 33 32-36 g/dL Red Cell Distribution Width 14.6 H 10.0-14.5 % Platelet Count 225 130-400 10^3/uL Mean Platelet Volume 9.0 9.0-12.2 fL Immature Granulocyte % (Auto) 1 % Neutrophils (%) (Auto) 87 H 42-75 % Lymphocytes (%) (Auto) 4 L 12-44 % Monocytes (%) (Auto) 6 0-12 % Eosinophils (%) (Auto) 2 0-10 % Basophils (%) (Auto) 1 0-10 % Neutrophils # (Auto) 11.2 H 1.8-7.8 10^3/uL Lymphocytes # (Auto) 0.5 L 1.0-4.0 10^3/uL Monocytes # (Auto) 0.8 0.0-1.0 10^3/uL Eosinophils # (Auto) 0.2 0.0-0.3 10^3/uL Basophils # (Auto) 0.1 0.0-0.1 10^3/uL Immature Granulocyte # (Auto) 0.1 0.0-0.1 10^3/uL Neutrophils % (Manual) 91 % Lymphocytes % (Manual) 2 % Monocytes % (Manual) 5 % Eosinophils % (Manual) 2 % Basophils % (Manual) 0 % Band Neutrophils 0 % Blood Morphology Comment NORMAL Prothrombin Time 12.7 12.2-14.7 SEC INR Comment 0.9 0.8-1.4 Activated Partial Thromboplast Time 26 24-35 SEC Sodium Level 141 135-145 MMOL/L Potassium Level 3.8 3.6-5.0 MMOL/L Chloride Level 106 98-107 MMOL/L Carbon Dioxide Level 24 21-32 MMOL/L Anion Gap 11 5-14 MMOL/L Blood Urea Nitrogen 15 7-18 MG/DL Creatinine 0.79 0.60-1.30 MG/DL Estimat Glomerular Filtration Rate 75 BUN/Creatinine Ratio 19 Glucose Level 132 H 70-105 MG/DL Calcium Level 9.1 8.5-10.1 MG/DL Corrected Calcium 9.4 8.5-10.1 MG/DL Magnesium Level 2.0 1.6-2.4 MG/DL Total Bilirubin 0.6 0.1-1.0 MG/DL Aspartate Amino Transf (AST/SGOT) 32 5-34 U/L Alanine Aminotransferase (ALT/SGPT) 12 0-55 U/L Alkaline Phosphatase 53 40-136 U/L Troponin I < 0.028 <0.028 NG/ML B-Type Natriuretic Peptide 512.0 H <100.0 PG/ML Total Protein 7.1 6.4-8.2 GM/DL Albumin 3.6 3.2-4.5 GM/DL Influenza Type A (RT-PCR) Not Detected Not Detecte Influenza Type B (RT-PCR) Not Detected Not Detecte SARS-CoV-2 RNA (RT-PCR) Not Detected Not Detecte My Orders Orders - HEATHER MCKEON MD Cbc With Automated Diff (06/08/22 11:40) Magnesium (06/08/22 11:40) Chest 1 View, Ap/Pa Only (06/08/22 11:40) Ekg Tracing (06/08/22 11:40) Comprehensive Metabolic Panel (06/08/22 11:40) Protime With Inr (06/08/22 11:40) Partial Thromboplastin Time (06/08/22 11:40) O2 (06/08/22 11:40) Monitor-Rhythm Ecg Trace Only (06/08/22 11:40) Ed Iv/Invasive Line Start (06/08/22 11:40) Bnp [place] (06/08/22 11:40) Troponin I [place] (06/08/22 11:40) Albuterol/Ipra Inhalation Soln (Duoneb I (06/08/22 11:45) Ceftriaxone 1 Gm Pre-Mix (Rocephin 1 Gm (06/08/22 11:45) Influenza A And B By Pcr (06/08/22 11:40) Covid 19 Inhouse Test (06/08/22 11:40) Furosemide Injection (Lasix Injection) (06/08/22 11:45) Manual Differential (06/08/22 11:57) Medications Given in ED Current Medications Medications Dose Ordered Sig/Belén Route Start Time Stop Time Status Last Admin Dose Admin Albuterol/ Ipratropium 3 ml ONCE ONCE IH 06/08/22 11:45 06/08/22 11:46 DC 06/08/22 12:04 3 ML Vital Signs/I&O 06/08/22 06/08/22 11:31 12:05 Temp 36.8 Pulse 110 Resp 36 B/P (MAP) 161/97 (118) Pulse Ox 92 94 O2 Delivery Nasal Cannula Nasal Cannula O2 Flow Rate 2.00 3.00 Capillary Refill : Less Than 3 Seconds Blood Pressure Mean: 118 Progress Note : Progress Note 81-year-old female presenting due to shortness of breath. She was in the 80s on room air, placed on 3 L oxygen with improvement to the low 90s. Chest x-ray with bilateral pneumonia with potentially pulmonary edema. An IV was placed and she was given ceftriaxone as well as Lasix. Dr. Colby was contacted who will admit the patient to the hospital under inpatient status for further evaluation and management. I also contacted Dr. Ward in consultation. ECG Initial ECG Impression Date: Jun 08, 2022 Initial ECG Impression Time: 11:57 Initial ECG Rate: 96 Initial ECG Rhythm: Normal Sinus Comment Narrow QRS, normal axis, subtle ST depression in the inferior leads and lateral leads, no STEMI Diagnostic Imaging Diagonstic Imaging: Xray (chest) Comments [facility], [place] NAME: WENDI DIAZMAYUR Spivey [facility] REC#: [id number] PT STATUS: REG ER : 1940 PHYSICIAN: HEATHER MCKOEN MD ADMIT DATE: 06/08/22/ER Draft Date of Exam:06/08/22 CHEST 1 VIEW, AP/PA ONLY CLINICAL INDICATION: Patient with chest pain, shortness of air and low grade fever since . EXAM: Portable chest x-ray upright view. COMPARISON: Chest x-ray dated 08/10/2021. FINDINGS: There is diffuse groundglass opacifications throughout both lungs with some patchy airspace opacities involving both lung bases right upper lobe regions. There is slight improved aeration of the right upper lobe and right lung base with progression of diffuse groundglass opacification involving both lungs. There is no pleural effusion or pneumothorax. Cardiac silhouette is mildly enlarged and increased in the interim. Pulmonary vasculature appears slightly increased. The remainder of this exam shows no significant interval change compared to the prior study of comparison. IMPRESSION: 1.: There is diffuse groundglass airspace opacification and patchy airspace opacities involving both lung bases the right upper lobe concerning for pneumonia. 2: There is cardiomegaly with mild pulmonary vascular congestion which may be related to congestive heart failure. Dictated on workstation # [id number] Dict: 06/08/22 1202 Trans: 06/08/22 1207 [facility] [id number] Interpreted by: JL ADAMS MD Electronically signed by: Departure Impression Primary Impression: Respiratory failure Qualified Codes: J96.01 - Acute respiratory failure with hypoxia Additional Impression: Pneumonia Qualified Codes: J18.9 - Pneumonia, unspecified organism Disposition: ADMITTED INPATIENT Condition: Stable Admissions Decision to Admit Reason: Admit from ER (General) Decision to Admit/Date: Jun 08, 2022 Time/Decision to Admit Time: 12:25 Departure-Patient Inst. Referrals: CHALO COLBY DO (PCP/Family) Primary Care Physician HEATHER MCKEON MD Jun 08, 2022 11:44
[2022-06-08] MEDS ORDERED: cefTRIAXone 1 GM PRE-MIX 50 ML IV ONE (11:45)
[2022-06-08] MEDS ORDERED: FUROSEMIDE 40 MG/4 ML INJ (LASIX) IVP ONE (11:45)
[2022-06-08] MEDS ORDERED: RT-ALBUTEROL/IPRATROPIUM 3 ML (DUONEB) VIAL IH ONE (11:45)
[2022-06-08 12:04] LABS: BASOPHILS # (AUTO) 0.1 10^3/uL (0.0-0.1); BASOPHILS % (AUTO) 1 % (0-10); EOSINOPHILS # (AUTO) 0.2 10^3/uL (0.0-0.3); EOSINOPHILS % (AUTO) 2 % (0-10); HEMATOCRIT 38 % (35-52); HEMOGLOBIN 12.3 g/dL (11.5-16.0); LYMPHOCYTES # (AUTO) 0.5 10^3/uL (1.0-4.0); LYMPHOCYTES % (AUTO) 4 % (12-44); MEAN CORPUSCULAR HEMOGLOBIN 30 pg (25-34); MEAN CORPUSCULAR HGB CONC 33 g/dL (32-36); MEAN CORPUSCULAR VOLUME 91 fL (80-99); MONOCYTES # (AUTO) 0.8 10^3/uL (0.0-1.0); MONOCYTES % (AUTO) 6 % (0-12); NEUTROPHILS # (AUTO) 11.2 10^3/uL (1.8-7.8); NEUTROPHILS % (AUTO) 87 % (42-75); PLATELET COUNT 225 10^3/uL (130-400); WHITE BLOOD COUNT 12.9 10^3/uL (4.3-11.0)
--- NOTE | 2022-06-08 12:08 | Diagnostic Imaging Report ---
CLINICAL INDICATION: Patient with chest pain, shortness of air and low grade fever since . EXAM: Portable chest x-ray upright view. COMPARISON: Chest x-ray dated 08/10/2021. FINDINGS: There is diffuse groundglass opacifications throughout both lungs with some patchy airspace opacities involving both lung bases right upper lobe regions. There is slight improved aeration of the right upper lobe and right lung base with progression of diffuse groundglass opacification involving both lungs. There is no pleural effusion or pneumothorax. Cardiac silhouette is mildly enlarged and increased in the interim. Pulmonary vasculature appears slightly increased. The remainder of this exam shows no significant interval change compared to the prior study of comparison. IMPRESSION: 1.: There is diffuse groundglass airspace opacification and patchy airspace opacities involving both lung bases the right upper lobe concerning for pneumonia. 2: There is cardiomegaly with mild pulmonary vascular congestion which may be related to congestive heart failure. Dictated by: Dictated on workstation # [id number]
[2022-06-08 12:16] LABS: ALBUMIN 3.6 GM/DL (3.2-4.5); POTASSIUM 3.8 MMOL/L (3.6-5.0)
[2022-06-08 12:17] LABS: CALCIUM 9.1 MG/DL (8.5-10.1)
[2022-06-08 12:18] LABS: TOTAL PROTEIN 7.1 GM/DL (6.4-8.2)
[2022-06-08 12:19] LABS: INR 0.9 (0.8-1.4); PROTHROMBIN TIME PATIENT 12.7 SEC (12.2-14.7)
[2022-06-08 12:20] LABS: BILIRUBIN,TOTAL 0.6 MG/DL (0.1-1.0)
[2022-06-08 12:22] LABS: CREATININE SERUM 0.79 MG/DL (0.60-1.30)
[2022-06-08 12:23] LABS: BAND NEUTROPHILS 0 %; BASOPHILS % (MANUAL) 0 %; EOSINOPHILS % (MANUAL) 2 %; LYMPHOCYTES % (MANUAL) 2 %; MONOCYTES % (MANUAL) 5 %; NEUTROPHILS % (MANUAL) 91 %; RBC MORPH NORMAL
[2022-06-08] MEDS ORDERED: ONDANSETRON 4 MG/2 ML (SDV) Z0FRAN IVP PRN (15:00)
[2022-06-08] MEDS ORDERED: CATHETER FLUSH 10 ML SYR IV PRN (15:00)
[2022-06-08 15:43] VITALS: BP 163/70
[2022-06-08 15:47] VITALS: BP 140/77
[2022-06-08] MEDS ORDERED: RT-ALBUTEROL/IPRATROPIUM 3 ML (DUONEB) VIAL INH PRN (16:00)
--- NOTE | 2022-06-08 16:03 | Consultation-Cardiology ---
HPI-Cardiology Cardiology Consultation: Date of Consultation 06/08/22 Date of Admission 06/08/22 Attending Physician Chalo Colby DO Admitting Physician Admitting Physician: Chalo Colby DO Attending Physician: Chalo Colby DO Consulting Physician TIAN JUAREZ JR, MD HPI: Time Seen by a Provider: 15:59 Chief Complaint: REASON FOR CONSULTATION: Possible heart failure. I had the pleasure of seeing Jocelin on the medical/surgical unit at [facility] in [place], [place] today. She has a history of aortic stenosis, hyperlipidemia, pulmonary hypertension and chronic obstructive pulmonary disease on home oxygen. She normally follows with a managed care director at [facility] in [place], [place]. For about the past week she has had an intermittent cough as well as increasing dyspnea on exertion. She was taking Mucinex at home. Her symptoms progressed over this past weekend. Yesterday she saw her primary care provider who started her on a Medrol dose pack and doxycycline. However, this morning just getting up and walking from her bed to her bathroom made her extremely short of breath. She then came to the emergency room for further evaluation. Her chest x-ray was consistent with pneumonia and possible pulmonary edema. Because of this and her cardiac history, a cardiology consultation was requested. She denies any chest discomfort. She has had some intermittent paroxysmal nocturnal dyspnea but denies orthopnea. She denies pa lpitations. She has had some lightheaded and dizzy spells but denies any syncope. She denies any lower extremity edema. Certain portions of this document may have been dictated utilizing voice recognition technology. Inherent to this technology, typographical and grammatical errors may exist. As much as I am diligent to identify and correct these mistakes, some errors may remain in the document. Review of Systems-Cardiology Review of Systems Other comments Review of 10 organ systems is as per the history of present illness, otherwise negative. However, due to some confusion, her answers may not be entirely reliable. All Other Systems Reviewed Negative Unless Noted: Yes BQT-Tcguak-Cdmbto Hx Patient Social History Smoking Status: Former Smoker Former smoker/When Quit: Sep 25, 2004 2nd Hand Smoke Exposure: No Alcohol Use?: No Pt feels they are or have been: No Immunizations Up To Date Date of Pneumonia Vaccine: Jul 25, 2014 Date of Influenza Vaccine: Jul 25, 2014 Past Medical History PMH As described under Assessment. Family Medical History Family History: Cardiovascular disease 19 FATHER 19 MOTHER Deafness or hearing loss 19 FATHER Diabetes mellitus 19 MOTHER FH: COPD (chronic obstructive pulmonary disease) 19 FATHER FH: cancer 19 FATHER G8 SISTER FH: emphysema 19 FATHER Thyroid disease 19 MOTHER (hypothyroidism) Allergies and Home Medications Allergies Coded Allergies: gabapentin (Verified Allergy, Intermediate, MUSCLE WEAKNESS, 01/29/19) pregabalin (Verified Allergy, Intermediate, MUSCLE WEAKNESS, 01/29/19) azithromycin (Verified Allergy, Unknown, 01/29/19) moxifloxacin HCl (Verified Allergy, Unknown, 01/29/19) Patient Home Medication List Home Medication List Reviewed: Yes Acetylcysteine (N-Wilfji-w-Cysteine) 600 Mg Capsule, 600 MG PO DAILY, (Reported) Entered as Reported by: KYLAH GERONIMO on 03/30/21 100 Amoxicillin (Amoxicillin) 500 Mg Capsule, 1,000 MG PO BID Prescribed by: BESSY MARTINEZ on 03/27/21 1727 Aspirin (Aspirin EC) 81 Mg Tablet.dr, 81 MG PO HS, (Reported) Entered as Reported by: KYLAH GERONIMO on 03/30/21 1006 Atorvastatin Calcium (Atorvastatin Calcium) 20 Mg Tablet, 20 MG PO HS, (Reported) Entered as Reported by: AGUSTO PLASENCIA on 06/13/18 1448 B&C/FA/Zinc/Copper Oxide/Vit E (Stress B-Complex Tablet) 1 Each Tablet, 1 EACH PO DAILY, (Reported) Entered as Reported by: KYLAH GERONIMO on 03/30/21 1006 Buspirone HCl (Buspirone HCl) 15 Mg Tablet, 15 MG PO BID, (Reported) Entered as Reported by: KYLAH GERONIMO on 03/30/21 1006 Calcium Citrate/Vitamin D3 (Calcium Citrate +Vit D3 Tablet) 1 Each Tablet, 2 EACH PO 1200, (Reported) Entered as Reported by: AGUSTO PLASENCIA on 06/13/18 1448 Cholecalciferol (Vitamin D3) (Vitamin D3) 125 Mcg Tablet, 125 MCG PO DAILY, (Reported) Entered as Reported by: KYLAH GERONIMO on 03/30/21 1006 Ferrous Sulfate (Ferosul) 325 Mg Tablet, 325 MG PO DAILY, (Reported) Entered as Reported by: KYLAH GERONIMO on 03/30/21 1006 Fluticasone Propionate (Fluticasone Propionate) 16 Gm [place].susp, 1 SPRAY NSEACH BID, (Reported) Entered as Reported by: KYLAH GERONIMO on 03/30/21 1006 Furosemide (Furosemide) 20 Mg Tablet, 20 MG PO DAILY PRN for FLUID RETENTION, (Reported) Entered as Reported by: KYLAH GERONIMO on 03/30/21 1013 Levomefolate/B6/B12/Algal Oil (Metanx Capsule) 1 Each Capsule, 1 EACH PO HS, (Reported) Entered as Reported by: KYLAH GERONIMO on 03/30/21 1022 Levothyroxine Sodium (Levothyroxine Sodium) 75 Mcg Tablet, 75 MCG PO DAILY, (Reported) Entered as Reported by: AGUSTO PLASENCIA on 06/13/18 1448 Melatonin (Melatonin) 10 Mg Tablet, 10 MG PO HS PRN for SLEEP, (Reported) Entered as Reported by: KYLAH GERONIMO on 03/30/21 1006 Mesalamine (Mesalamine) 1.2 Gm Tablet.dr, 2.4 GM PO 1200 W/MEAL, (Reported) Entered as Reported by: KYLAH GERONIMO on 03/30/21 1006 Montelukast Sodium (Montelukast Sodium) 10 Mg Tablet, 10 MG PO HS, (Reported) Entered as Reported by: AGUSTO PLASENCIA on 06/13/18 1448 Multivits-Min/Iron/FA/Lutein (Centrum Silver Women Tablet) 1 Each Tablet, 1 EACH PO DAILY, (Reported) Entered as Reported by: ESTEE MCFARLAND on 10/04/19 1008 Pantoprazole Sodium (Pantoprazole Sodium) 40 Mg Tablet.dr, 40 MG PO BID Prescribed by: CHALO COLBY on 04/01/21 0855 Potassium Chloride (Potassium Chloride) 10 Meq Tab.er.prt, 10 MEQ PO DAILY PRN for WHEN TAKING FUROSEMIDE, (Reported) Entered as Reported by: KYLAH GERONIMO on 03/30/21 1013 Prednisone (Prednisone) 20 Mg Tab, 20 MG PO BID Prescribed by: CHALO COLBY on 04/06/21 1241 Sertraline HCl (Sertraline HCl) 100 Mg Tablet, 200 MG PO HS, (Reported) Entered as Reported by: AGUSTO PLASENCIA on 06/13/18 1448 Ubidecarenone (Coq-10) 100 Mg Capsule, 100 MG PO DAILY, (Reported) Entered as Reported by: ESTEE MCFARLAND on 10/04/19 1008 Exam Vital Signs Vital Signs Date Time Temp Pulse Resp B/P (MAP) Pulse Ox O2 Delivery O2 Flow Rate FiO2 06/08/22 15:47 36.8 99 95 06/08/22 15:43 18 163/70 (101) Nasal Cannula 4.00 Physical Exam General: Alert. Mild respiratory distress distress on oxygen by nasal cannula. Well nourished and appears stated age. She is obese. Eye: Extraocular movements are intact. Conjunctivae are clear. There are no xanthelasma. HENT: Normocephalic. Atraumatic. Carotid pulsations 2/2 without bruits. Neck: Jugular venous pressure does not appear elevated. No thyromegaly appreciated. Respiratory: Lungs scattered coarse breath sounds, worse in the right midlung zone posteriorly. Respirations are mildly labored. Breath sounds are equal. Symmetrical chest wall expansion. Cardiovascular: Normal rate. Regular rhythm. Distant S1/S2. 2/6 systolic murmur. No gallop. Point of maximal impulse is not appear displaced. Good pulses equal in all extremities. No edema. Gastrointestinal: Soft. Normal bowel sounds. Skin: Skin turgor is normal. There is no pallor. Musculoskeletal: No kyphosis or scoliosis appreciated. Neurologic: Alert and oriented to person, place, time. Cranial nerves 3-12 appear grossly intact. The patient has good motor tone strength in the upper and lower extremities bilaterally. Psychiatric: Cooperative. Appropriate mood & affect but seems to lose her train of thought at times. Labs Laboratory Tests Test 06/08/22 11:57 06/08/22 12:00 Range/Units White Blood Count 12.9 H 4.3-11.0 10^3/uL Red Blood Count 4.15 3.80-5.11 10^6/uL Hemoglobin 12.3 11.5-16.0 g/dL Hematocrit 38 35-52 % Mean Corpuscular Volume 91 80-99 fL Mean Corpuscular Hemoglobin 30 25-34 pg Mean Corpuscular Hemoglobin Concent 33 32-36 g/dL Red Cell Distribution Width 14.6 H 10.0-14.5 % Platelet Count 225 130-400 10^3/uL Mean Platelet Volume 9.0 9.0-12.2 fL Immature Granulocyte % (Auto) 1 % Neutrophils (%) (Auto) 87 H 42-75 % Lymphocytes (%) (Auto) 4 L 12-44 % Monocytes (%) (Auto) 6 0-12 % Eosinophils (%) (Auto) 2 0-10 % Basophils (%) (Auto) 1 0-10 % Neutrophils # (Auto) 11.2 H 1.8-7.8 10^3/uL Lymphocytes # (Auto) 0.5 L 1.0-4.0 10^3/uL Monocytes # (Auto) 0.8 0.0-1.0 10^3/uL Eosinophils # (Auto) 0.2 0.0-0.3 10^3/uL Basophils # (Auto) 0.1 0.0-0.1 10^3/uL Immature Granulocyte # (Auto) 0.1 0.0-0.1 10^3/uL Neutrophils % (Manual) 91 % Lymphocytes % (Manual) 2 % Monocytes % (Manual) 5 % Eosinophils % (Manual) 2 % Basophils % (Manual) 0 % Band Neutrophils 0 % Blood Morphology Comment NORMAL Prothrombin Time 12.7 12.2-14.7 SEC INR Comment 0.9 0.8-1.4 Activated Partial Thromboplast Time 26 24-35 SEC Sodium Level 141 135-145 MMOL/L Potassium Level 3.8 3.6-5.0 MMOL/L Chloride Level 106 98-107 MMOL/L Carbon Dioxide Level 24 21-32 MMOL/L Anion Gap 11 5-14 MMOL/L Blood Urea Nitrogen 15 7-18 MG/DL Creatinine 0.79 0.60-1.30 MG/DL Estimat Glomerular Filtration Rate 75 BUN/Creatinine Ratio 19 Glucose Level 132 H 70-105 MG/DL Calcium Level 9.1 8.5-10.1 MG/DL Corrected Calcium 9.4 8.5-10.1 MG/DL Magnesium Level 2.0 1.6-2.4 MG/DL Total Bilirubin 0.6 0.1-1.0 MG/DL Aspartate Amino Transf (AST/SGOT) 32 5-34 U/L Alanine Aminotransferase (ALT/SGPT) 12 0-55 U/L Alkaline Phosphatase 53 40-136 U/L Troponin I < 0.028 <0.028 NG/ML B-Type Natriuretic Peptide 512.0 H <100.0 PG/ML Total Protein 7.1 6.4-8.2 GM/DL Albumin 3.6 3.2-4.5 GM/DL Influenza Type A (RT-PCR) Not Detected Not Detecte Influenza Type B (RT-PCR) Not Detected Not Detecte SARS-CoV-2 RNA (RT-PCR) Not Detected Not Detecte ECG Impression ECG Comment Sinus rhythm with left atrial abnormality and nonspecific ST depression. Diagnosis/Problems Diagnosis/Problems (1) Pulmonary vascular congestion Assessment & Plan: Her chest x-ray showed possible pulmonary vascular congestion. Some of this could be due to her history of pulmonary hypertension. She was given 1 dose of intravenous furosemide in the emergency room. I will obtain an echocardiogram in the morning. She takes furosemide as needed at home for "volume retention". (2) Acute on chronic respiratory failure with hypoxemia Assessment & Plan: I suspect the primary cause of her acute on chronic respiratory failure is due to possible exacerbation of her chronic obstructive pulmonary disease. She is receiving antibiotics and steroids as well as bronchodilators under the direction of her primary provider. She should continue with home oxygen. (3) Aortic stenosis Assessment & Plan: She tells me she has mild to moderate aortic stenosis. I will obtain an echocardiogram in the morning. (4) Pulmonary hypertension Assessment & Plan: At 1 point she was told she had pulmonary hypertension based on findings had a cardiac catheterization but was later told she does not have pulmonary hypertension. She follows with both a managed care director and litigation services manager in [place], and echo. (5) Mixed hyperlipidemia Assessment & Plan: Continue atorvastatin TIAN JUAREZ JR, MD Jun 08, 2022 16:03
[2022-06-08] MEDS: RT-ALBUTEROL/IPRATROPIUM 3 ML (DUONEB) VIAL INH SCH ×2 (18:46→21:48)
[2022-06-08] MEDS ORDERED: TRZ50T PO (18:48)
[2022-06-08 19:28] VITALS: BP 118/53
[2022-06-08] MEDS ORDERED: MELATONIN 10 MG TABLET PO PRN (19:30)
[2022-06-08] MEDS: DOXYCYCLINE 100 MG (VIBRAMYCIN) TABLET PO SCH (21:00)
[2022-06-08] MEDS: FLUTICASONE NASAL SPRAY (FLONASE) 16 GM BTL NS SCH (21:00)
[2022-06-08] MEDS: MONTELUKAST 10 MG (SINGULAIR) TAB PO SCH (21:00)
[2022-06-08] MEDS: SERTRALINE 100 MG (ZOLOFT) TAB PO SCH (21:00)
[2022-06-08] MEDS: traZODone 50 MG (DESYREL) TAB PO SCH (21:00)
[2022-06-08] MEDS: busPIRone 15 MG (BUSPAR) TABLET PO SCH (21:00)
[2022-06-08] MEDS: ENOXAPARIN 40 MG/0.4 ML (LOVENOX) SYR SC SCH (21:01)
[2022-06-08] MEDS: ACETAMINOPHEN 500 MG TAB (TYLENOL) PO PRN (21:04)
[2022-06-08] MEDS: CATHETER FLUSH 10 ML SYR IV SCH (22:13)
[2022-06-08 23:28] VITALS: BP 135/76
[2022-06-09] MEDS: RT-ALBUTEROL/IPRATROPIUM 3 ML (DUONEB) VIAL INH SCH ×6 (02:36→22:36)
[2022-06-09 03:27] VITALS: BP 122/69
[2022-06-09] MEDS: CATHETER FLUSH 10 ML SYR IV SCH ×3 (06:14→20:09)
[2022-06-09] MEDS: LEVOTHYROXINE 75 MCG (LEVOTHROID) TABLET PO SCH (06:14)
[2022-06-09] MEDS: KCL 20 MEQ TAB (K-DUR) PO SCH (06:14)
[2022-06-09 08:17] VITALS: BP 134/62
[2022-06-09] MEDS: DOXYCYCLINE 100 MG (VIBRAMYCIN) TABLET PO SCH ×2 (08:39→20:07)
[2022-06-09] MEDS: PANTOPRAZOLE 40 MG (PROTONIX) TAB PO SCH (08:39)
[2022-06-09] MEDS: busPIRone 15 MG (BUSPAR) TABLET PO SCH ×2 (08:39→20:07)
[2022-06-09] MEDS: FUROSEMIDE 40 MG/4 ML INJ (LASIX) IVP SCH (08:39)
[2022-06-09] MEDS: cefTRIAXone 1 GM PRE-MIX 50 ML IV SCH (08:40)
[2022-06-09] MEDS: FLUTICASONE NASAL SPRAY (FLONASE) 16 GM BTL NS SCH ×2 (08:40→20:07)
[2022-06-09] MEDS ORDERED: DOXY100C5 PO (10:59)
[2022-06-09] MEDS ORDERED: PANT40TA52 PO (10:59)
[2022-06-09] MEDS ORDERED: PROP15DR OU (10:59)
[2022-06-09] MEDS ORDERED: FLUT1BLS3 INH (10:59)
[2022-06-09] MEDS ORDERED: CALC-694 PO (10:59)
[2022-06-09] MEDS ORDERED: OXYB5TAB13 PO (10:59)
[2022-06-09] MEDS ORDERED: ACET-2267 PO (10:59)
[2022-06-09] MEDS ORDERED: ALBU18HF2 INH (10:59)
[2022-06-09] MEDS ORDERED: MENT1.1L MM (10:59)
[2022-06-09] MEDS ORDERED: LIFI1DRO OU (10:59)
[2022-06-09] MEDS ORDERED: NF-ALLE180 PO (10:59)
[2022-06-09] MEDS ORDERED: TRZ50T PO (10:59)
[2022-06-09] MEDS ORDERED: METH4TAB10 PO (10:59)
[2022-06-09] MEDS ORDERED: GUAI120013 PO (10:59)
[2022-06-09] MEDS ORDERED: FLU QUAD HIGH DOSE 240 MCG/0.7 ML 2022-23 (FLUZONE) IM ONE (11:45)
[2022-06-09 12:14] VITALS: BP 117/56
--- NOTE | 2022-06-09 13:05 | Cardiology Progress Note ---
Progress Note-Cardiology Events since last exam Date Seen by Provider: Jun 09, 2022 Time Seen by Provider: 13:01 Events since last exam I am following her due to shortness of breath and aortic stenosis. Her breathing may be slightly improved. She denies chest discomfort, palpitations, syncope, or peripheral edema. Certain portions of this document may have been dictated utilizing voice recognition technology. Inherent to this technology, typographical and grammatical errors may exist. As much as I am diligent to identify and correct these mistakes, some errors may remain in the document. Vitals Last set of Vitals Signs Vital Signs 06/09/22 15:30 Temp 36.2 Pulse 89 Resp 20 B/P (MAP) 103/55 (71) Pulse Ox 94 O2 Delivery Nasal Cannula O2 Flow Rate 3.00 Exam Vital Signs Vital Signs Date Time Temp Pulse Resp B/P (MAP) Pulse Ox O2 Delivery O2 Flow Rate FiO2 06/09/22 15:30 36.2 89 20 103/55 (71) 94 Nasal Cannula 3.00 Physical Exam General: Alert. Mild respiratory distress when she is moving in her bed and speaking. She is obese. Eye: No xanthelasma. HENT: Normocephalic. Neck: Jugular venous pressure does not appear elevated. Respiratory: Lungs have scattered coarse breath sounds bilaterally. Respirations are non-labored. Breath sounds are equal. Symmetrical chest wall expansion. Cardiovascular: Normal rate. Regular rhythm. 2/6 systolic ejection murmur. No gallop. No edema. Gastrointestinal: Soft. Normal bowel sounds. Skin: Warm. Dry. Neurologic: Alert and oriented to person, place, time. Cranial nerves 3-11 grossly intact. Psychiatric: Cooperative. Appropriate mood & affect. Radiology ECHOCARDIOGRAM (06/08/2022): 1. Left ventricle: The cavity size is normal. There is mild concentric hypertrophy. Systolic function is normal. The estimated ejection fraction is 60-65%. There were no regional wall motion abnormalities identified. Doppler parameters are consistent with abnormal left ventricular relaxation (grade 1 diastolic dysfunction). 2. Left atrium: The left atrium is severely dilated with a volume index ranging from 55-71 mL/m. 3. Mitral valve: The annulus is moderately calcified. There is mild mitral regurgitation. 4. Aortic valve: The aortic valve appears tricuspid with mildly thickened and calcified leaflets with at least mildly restricted leaflet mobility. There is severe aortic stenosis with a mean gradient of 55 mmHg, a peak gradient of 82 mmHg, and a peak velocity of 4.5 m/s. There is mild aortic regurgitation with a pressure half-time of 313 ms. 5. Pulmonary arteries: The estimated pulmonary artery systolic pressure is 44 mmHg assuming a right atrial pressure of 5 mmHg. Diagnosis/Problems Diagnosis/Problems (1) Acute on chronic heart failure with preserved ejection fraction (HFpEF) Assessment & Plan: I initially thought that she may have just had pulmonary congestion due to pulmonary hypertension. However, her pulmonary artery pressure was only mildly elevated on her echocardiogram from this admission and it would not suspect this to cause pulmonary engorgement. She also appears to have severe aortic stenosis and I suspect she may have had some degree of heart failure secondary to the severe aortic stenosis. I concur with ongoing intravenous furosemide. Once we see her renal function start to be affected, then she can probably be changed back over to oral furosemide. She was taking oral furosemide as needed at home. She may need to take a low-dose every day. (2) Aortic stenosis Assessment & Plan: She previously had mild to moderate aortic stenosis. Her echocardiogram from this admission shows severe aortic stenosis. Given that she appears to have heart failure, this is a sign that she may need intervention on the aortic valve. I recommend she follow-up with her regular loin trimmer at [facility] in [place], [place] within several weeks following discharge. (3) Acute on chronic respiratory failure with hypoxemia Assessment & Plan: I suspect this is multifactorial due to possible exacerbation of her chronic obstructive pulmonary disease and heart failure. She is receiving antibiotics and steroids as well as bronchodilators under the direction of her primary provider. She should continue with home oxygen. (4) Pulmonary hypertension Assessment & Plan: Her echocardiogram from this admission shows mild pulmonary hypertension. 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 (5) Mixed hyperlipidemia Assessment & Plan: Continue atorvastatin TIAN JUAREZ JR, MD Jun 09, 2022 13:05
[2022-06-09] MEDS ORDERED: PATIENT MAY USE OWN MEDS, ALL MC SCH (13:15)
[2022-06-09] MEDS ORDERED: MENTHOL MM PRN (13:15)
[2022-06-09 15:30] VITALS: BP 103/55
[2022-06-09] MEDS: CEPACOL SORE THROAT-COUGH LOZENGE PO PRN ×2 (16:54→23:54)
[2022-06-09] MEDS: ARTIFICAL TEARS 0.4 ML UNIT DOSE (REFRESH PLUS) OU PRN (16:54)
--- NOTE | 2022-06-09 17:49 | History & Physical ---
History of Present Illness History of Present Illness Reason for visit/HPI This is an 81 yo female with a history of COPD and pulmonary hypertension who was seen in my office 2 days ago with cough and wheezing. She was started on doxycycline and prednisone with nebulizer treatments every 4hrs. However, she had worsening shortness of air and states her oxygen saturation was dropping into the 80s so she presented to the emergency room for evaluation. She was found to be in acute respiratory distress and was hypoxic on room air with oxygen saturation in the mid-80s. She was place on oxygen via NC at 3L and her oxygen saturation improved to 92-93%. She was found to have bilateral ground glass opacities on her CXR with pulmonary vascular congestion. She was started on IV rocephin and continued on doxycyline and was also given IV lasix. She will be admitted to the medical floor for treatment of her pneumonia with COPD exacerbation as well as cardiac consultation. Date of Admission Jun 08, 2022 at 12:30 Date Seen by a Provider: Jun 09, 2022 Time Seen by a Provider: 12:30 I consulted on this patient on 06/09/22 17:45 Attending Physician Chalo Colby DO Admitting Physician Admitting Physician: Chalo Colby DO Attending Physician: Chalo Colby DO Consult Allergies and Home Medications Allergies Coded Allergies: gabapentin (Verified Allergy, Intermediate, MUSCLE WEAKNESS, 01/29/19) pregabalin (Verified Allergy, Intermediate, MUSCLE WEAKNESS, 01/29/19) azithromycin (Verified Allergy, Unknown, 01/29/19) moxifloxacin HCl (Verified Allergy, Unknown, 01/29/19) Patient Home Medication List Home Medication List Reviewed: Yes Acetaminophen (Tylenol Extra Strength) 500 Mg Tablet, 1,000 MG PO Q8H PRN for PAIN-MILD (1-4), (Reported) Entered as Reported by: KYLAH GERONIMO on 06/09/22 1052 Last Action: Reviewed Albuterol Sulfate (Ventolin Hfa) 90 Mcg Hfa.aer.ad, 2 PUFF INH Q4H PRN for SHORTNESS OF BREATH, (Reported) Entered as Reported by: KYLAH GERONIMO on 06/09/22 105 Last Action: Reviewed Atorvastatin Calcium (Atorvastatin Calcium) 20 Mg Tablet, 20 MG PO HS, (Reported) Entered as Reported by: AGUSTO PLASENCIA on 06/13/18 1448 Last Action: Reviewed Buspirone HCl (Buspirone HCl) 15 Mg Tablet, 15 MG PO BID, (Reported) Entered as Reported by: KYLAH GERONIMO on 03/30/21 1006 Last Action: Reviewed Calcium Carbonate/Vitamin D3 (Calcium 600 + Vit D Caplet) 600 Mg Calcium-10 Mcg (400 Unit) Tablet, 1 EACH PO BID, (Reported) Entered as Reported by: KYLAH GERONIMO on 06/09/22 105 Last Action: Reviewed Doxycycline Hyclate (Doxycycline Hyclate) 100 Mg Capsule, 100 MG PO BID, (Reported) Entered as Reported by: KYLAH GERONIMO on 06/09/22 105 Last Action: Reviewed Fexofenadine HCl (Fexofenadine HCl) 180 Mg Tablet, 180 MG PO DAILY, (Reported) Entered as Reported by: KYLAH GERONIMO on 06/09/22 1059 Last Action: Converted Fluticasone Propionate (Fluticasone Propionate) 16 Gm [place].susp, 1 SPRAY NSEACH BID, (Reported) Entered as Reported by: KYLAH GERONIMO on 03/30/21 1006 Last Action: Reviewed Fluticasone/Umeclidin/Vilanter (Trelegy Ellipta 100-62.5-25) 100-62.5 Blst.w.dev, 1 PUFF INH DAILY, (Reported) Entered as Reported by: KYLAH GERONIMO on 06/09/22 1059 Last Action: Reviewed Furosemide (Furosemide) 20 Mg Tablet, 20-40 MG PO DAILY PRN for FLUID RETENTION, (Reported) Entered as Reported by: KYLAH GERONIMO on 03/30/21 1013 Last Action: Reviewed Guaifenesin (Mucinex) 1,200 Mg Tab.er.12h, 1,200 MG PO BID, (Reported) Entered as Reported by: KYLAH GERONIMO on 06/09/22 105 Last Action: Converted Levomefolate/B6/B12/Algal Oil (Metanx Capsule) 1 Each Capsule, 1 EACH PO HS, (Reported) Entered as Reported by: KYLAH GERONIMO on 03/30/21 1022 Last Action: Reviewed Levothyroxine Sodium (Levothyroxine Sodium) 75 Mcg Tablet, 75 MCG PO DAILY, (Reported) Entered as Reported by: AGUSTO PLASENCIA on 06/13/18 1448 Last Action: Reviewed Lifitegrast (Xiidra) 5 % Droperette, 1 DROP OU BID, (Reported) Entered as Reported by: KYLAH GERONIMO on 06/09/22 105 Last Action: Converted Menthol (Ricola) 1.1 Mg Lozenge, 1 EA MM UD PRN for SORE THROAT, (Reported) Entered as Reported by: KYLAH GERONIMO on 06/09/22 105 Last Action: Converted Methylprednisolone (Methylprednisolone Dose Pack) 4 Mg Tab.ds.pk, MG PO UD, (Reported) Entered as Reported by: KYLAH GERONIMO on 06/09/221058 Last Action: Reviewed Montelukast Sodium (Montelukast Sodium) 10 Mg Tablet, 10 MG PO HS, (Reported) Entered as Reported by: AGUSTO PLASENCIA on 06/13/18 1448 Last Action: Reviewed Multivits-Min/Iron/FA/Lutein (Centrum Silver Women Tablet) 1 Each Tablet, 1 EACH PO DAILY, (Reported) Entered as Reported by: ESTEE MCFARLAND on 10/04/19 1008 Last Action: Reviewed Oxybutynin Chloride (Oxybutynin Chloride) 5 Mg Tablet, 5 MG PO DAILY, (Reported) Entered as Reported by: KYLAH GERONIMO on 06/09/22 105 Last Action: Reviewed Pantoprazole Sodium (Pantoprazole Sodium) 40 Mg Tablet.dr, 40 MG PO DAILY, (Reported) Entered as Reported by: KYLAH GERONIMO on 06/09/22 105 Last Action: Reviewed Potassium Chloride (Potassium Chloride) 10 Meq Tab.er.prt, 10-20 MEQ PO DAILY PRN for WHEN TAKING FUROSEMIDE, (Reported) Entered as Reported by: KYLAH GERONIMO on 03/30/21 1013 Last Action: Reviewed Propylene Glycol/Peg 400 (Systane 0.3-0.4% Eye Drops) 0.3 %-0.4 % Drops, 1-2 DROPS OU UD PRN for DRY EYES, (Reported) Entered as Reported by: KYLAH GERONIMO on 06/09/22 105 Last Action: Converted Sertraline HCl (Sertraline HCl) 100 Mg Tablet, 200 MG PO HS, (Reported) Entered as Reported by: AGUSTO PLASENCIA on 06/13/18 1448 Last Action: Reviewed Trazodone HCl (Trazodone HCl) 50 Mg Tablet, 50 MG PO HS PRN for SLEEP, (Reported) Entered as Reported by: KYLAH GERONIMO on 06/09/22 1059 Last Action: Reviewed Ubidecarenone (Coq-10) 100 Mg Capsule, 100 MG PO HS, (Reported) Entered as Reported by: ESTEE MCFARLAND on 10/04/19 1008 Last Action: Reviewed Discontinued Medications Melatonin (Melatonin) 10 Mg Tablet, 10 MG PO HS PRN for SLEEP, (Reported) Discontinued Reason: No Longer Taking Entered as Reported by: KYLAH GERONIMO on 03/30/21 1006 Last Action: Discontinued Trazodone HCl (Trazodone HCl) 50 Mg Tablet, 50 MG PO HS, (Reported) Discontinued Reason: Duplicate Order Entered as Reported by: CHARLETTE GALDAMEZ on 06/08/22 1848 Last Action: Discontinued Past Sikcphb-Dondxl-Kilkxn Hx Patient Social History Tobacco Use?: Yes Smoking Status: Former Smoker Use of E-Cig and/or Vaping dev: No Substance use?: No Alcohol Use?: Yes Alcohol type: Wine Alcohol Frequency: Rarely Pt feels they are or have been: No Immunizations Up To Date Date of Influenza Vaccine: May 31, 2022 First/Initial COVID19 Vaccinat: 2020 Second COVID19 Vaccination Maikel: 2020 Tetanus Booster (TDap): Less Than 5 Years Date of Pneumonia Vaccine: Jul 25, 2014 Current Status status: No status: No Advance Directives: No Communicates: Verbally Primary Language: Salvadorean Preferred Spoken Language: Salvadorean Is interpretation needed?: No Implanted or Applied Medical D: None Past Medical History Surgeries: Orthopedic Pneumonia, Chronic Bronchitis, Sleep Apnea, COPD Currently Using CPAP: Yes High Cholesterol, Valvular Heart Disease Gastroesophageal Reflux, Diverticulosis Anxiety, Depression Blood Disorders: No Family Medical History Cardiovascular disease 19 FATHER 19 MOTHER Deafness or hearing loss 19 FATHER Diabetes mellitus 19 MOTHER FH: COPD (chronic obstructive pulmonary disease) 19 FATHER FH: cancer 19 FATHER G8 SISTER FH: emphysema 19 FATHER Thyroid disease 19 MOTHER (hypothyroidism) No Pertinent Family Hx Review of Systems Constitutional: fever, weakness EENTM: nose congestion Respiratory: cough, dyspnea on exertion, short of breath, wheezing Cardiovascular: No no symptoms reported, No see HPI, No chest pain, No edema, No Hx of Intervention, No palpitations, No syncope, No vascular heart diseas, No other Gastrointestinal: No RUQ, No LUQ, No RLQ, No LLQ, No no symptoms reported, No see HPI, No abdominal pain, No constipation, No diarrhea, No dysphagia, No hematemesis, No heartburn, No jaundice, No loss of appetite, No melena, No nausea, No vomiting, No other Genitourinary: No no symptoms reported, No see HPI, No decreased output, No discharge, No dysuria, No frequency, No hematuria, No hesitancy, No incontinence, No nocturia, No pain, No other Musculoskeletal: muscle weakness Skin: No no symptoms reported, No see HPI, No change in color, No change in hair/nails, No dryness, No hx of skin cancer, No lesions, No lumps, No pruritus, No rash, No other Psychiatric/Neurological: Weakness Physical Exam Vital Signs Vital Signs - First Documented 06/08/22 11:31 Temp 36.8 Pulse 110 Resp 36 B/P (MAP) 161/97 (118) Pulse Ox 92 O2 Delivery Nasal Cannula O2 Flow Rate 3.00 Capillary Refill : Less Than 3 Seconds Height, Weight, BMI Height: 5'5.00" Weight: 213lbs. 9.0oz. [id number]; 33.79 BMI Method:Stated General Appearance: Mild Distress HEENT: Normal ENT Inspection Neck: Supple Respiratory: Decreased Breath Sounds, Rales, Respiratory Distress, Rhonci Cardiovascular: Regular Rate, Rhythm, Systolic Murmur Gastrointestinal: Normal Bowel Sounds, Non Tender, Soft Rectal: Deferred Back: No CVA Tenderness Extremity: Non Tender, No Calf Tenderness, No Pedal Edema Neurologic/Psychiatric: Alert, Oriented x3 Skin: Warm/Dry Comments Laboratory Tests 06/08/22 11:57: White Blood Count 12.9H, Red Blood Count 4.15, Hemoglobin 12.3, Hematocrit 38, Mean Corpuscular Volume 91, Mean Corpuscular Hemoglobin 30, Mean Corpuscular Hemoglobin Concent 33, Red Cell Distribution Width 14.6H, Platelet Count 225, Mean Platelet Volume 9.0, Immature Granulocyte % (Auto) 1, Neutrophils (%) (Auto) 87H, Lymphocytes (%) (Auto) 4L, Monocytes (%) (Auto) 6, Eosinophils (%) (Auto) 2, Basophils (%) (Auto) 1, Neutrophils # (Auto) 11.2H, Lymphocytes # (Auto) 0.5L, Monocytes # (Auto) 0.8, Eosinophils # (Auto) 0.2, Basophils # (Auto) 0.1, Immature Granulocyte # (Auto) 0.1, Neutrophils % (Manual) 91, Lymphocytes % (Manual) 2, Monocytes % (Manual) 5, Eosinophils % (Manual) 2, Basophils % (Manual) 0, Band Neutrophils 0, Blood Morphology Comment NORMAL, Prothrombin Time 12.7, INR Comment 0.9, Activated Partial Thromboplast Time 26, Sodium Level 141, Potassium Level 3.8, Chloride Level 106, Carbon Dioxide Level 24, Anion Gap 11, Blood Urea Nitrogen 15, Creatinine 0.79, Estimat Glomerular Filtration Rate 75, BUN/Creatinine Ratio 19, Glucose Level 132H, Calcium Level 9.1, Corrected Calcium 9.4, Magnesium Level 2.0, Total Bilirubin 0.6, Aspartate Amino Transf (AST/SGOT) 32, Alanine Aminotransferase (ALT/SGPT) 12, Alkaline Phosphatase 53, Troponin I < 0.028, B-Type Natriuretic Peptide 512.0H, Total Protein 7.1, Albumin 3.6 06/08/22 12:00: Influenza Type A (RT-PCR) Not Detected, Influenza Type B (RT-PCR) Not Detected, SARS-CoV-2 RNA (RT-PCR) Not Detected Assessment/Plan Assessment and Plan 1. Acute on Chronic Respiratory Failure--on oxygen at 2L NC 2. Bilateral Pneumonia--on rocephin and doxycycline 3. COPD with acute exacerbation--on SVNs with duoneb, add prednisone 4. Acute on Chronic Diastolic Congestive Heart Failure--on IV lasix and diuresing well 5. Severe aortic stenosis--ECHO shows worsening so may need to consider surgical consult as outpatient 6. History of pulmonary hypertension--pressures stable on most recent ECHO 7. Hypertension--home meds restarted 8. Weakness--start PT once dyspnea improving Admission Diagnosis Admission Status: Inpatient Order (span 2 midnights) Reason for Inpatient Admission: Will need IV abx and IV lasix for at least 48hrs CHALO COLBY DO Jun 09, 2022 17:49
[2022-06-09] MEDS ORDERED: methylPREDNISolone 40 MG/ML (Solu-MEDROL) VIAL IV NR (18:00)
[2022-06-09] MEDS: guaiFENesin (MUCINEX) 600 MG TAB PO SCH (20:06)
[2022-06-09] MEDS: MONTELUKAST 10 MG (SINGULAIR) TAB PO SCH (20:06)
[2022-06-09] MEDS: traZODone 50 MG (DESYREL) TAB PO SCH (20:06)
[2022-06-09] MEDS: ENOXAPARIN 40 MG/0.4 ML (LOVENOX) SYR SC SCH (20:07)
[2022-06-09] MEDS: SERTRALINE 100 MG (ZOLOFT) TAB PO SCH (20:07)
[2022-06-09 20:29] VITALS: BP 107/64
[2022-06-09] MEDS ORDERED: NON-FORMULARY MEDICATION 1 EA EA (Guaifenesin (Mucinex) 1,200 MG) PO SCH (21:00)
[2022-06-09] MEDS ORDERED: NON-FORMULARY MEDICATION 1 EA EA (Lifitegrast (Xiidra) 1 DROP) OU SCH (21:00)
[2022-06-10 00:40] VITALS: BP 117/70
[2022-06-10] MEDS: RT-ALBUTEROL/IPRATROPIUM 3 ML (DUONEB) VIAL INH SCH ×6 (02:21→22:26)
[2022-06-10 04:08] VITALS: BP 101/58
[2022-06-10 05:39] LABS: HEMATOCRIT 35 % (35-52); HEMOGLOBIN 11.3 g/dL (11.5-16.0); MEAN CORPUSCULAR HEMOGLOBIN 30 pg (25-34); MEAN CORPUSCULAR HGB CONC 32 g/dL (32-36); MEAN CORPUSCULAR VOLUME 92 fL (80-99); PLATELET COUNT 249 10^3/uL (130-400); WHITE BLOOD COUNT 7.2 10^3/uL (4.3-11.0)
[2022-06-10 06:10] LABS: ALBUMIN 3.5 GM/DL (3.2-4.5); BILIRUBIN,TOTAL 0.3 MG/DL (0.1-1.0); CALCIUM 9.5 MG/DL (8.5-10.1); CREATININE SERUM 0.96 MG/DL (0.60-1.30); POTASSIUM 5.1 MMOL/L (3.6-5.0); TOTAL PROTEIN 6.9 GM/DL (6.4-8.2)
[2022-06-10] MEDS: LEVOTHYROXINE 75 MCG (LEVOTHROID) TABLET PO SCH (06:10)
[2022-06-10] MEDS: CATHETER FLUSH 10 ML SYR IV SCH ×3 (06:10→20:36)
[2022-06-10] MEDS: predniSONE 20 MG TAB PO SCH (06:10)
[2022-06-10] MEDS: KCL 20 MEQ TAB (K-DUR) PO SCH (06:10)
[2022-06-10 08:39] VITALS: BP 140/64
--- NOTE | 2022-06-10 08:57 | Diagnostic Imaging Report ---
INDICATION: Shortness of breath. COMPARISON: 06/08/2022. TECHNIQUE: 2 radiographs of the chest dated 06/10/2022. FINDINGS: The cardiac silhouette is upper limits of normal in size. Diffuse interstitial opacities are again noted throughout the bilateral lungs, significantly improved since the prior examination. No significant pneumothorax. Improved fluid/thickening associated with the right minor fissure. No significant pleural effusion. No pneumothorax. No acute osseous abnormality. IMPRESSION: Significantly improving though mild persisting bilateral interstitial opacities, favored related to improving interstitial edema. Improving interstitial infiltrate would be an additional consideration. Improved fluid/thickening along the right minor fissure. Dictated by: Dictated on workstation # [id number]
[2022-06-10] MEDS ORDERED: NON-FORMULARY MEDICATION 1 EA EA (Fexofenadine HCl 180 MG) PO SCH (09:00)
[2022-06-10] MEDS: cefTRIAXone 1 GM PRE-MIX 50 ML IV SCH (09:18)
[2022-06-10] MEDS: FUROSEMIDE 40 MG/4 ML INJ (LASIX) IVP SCH (09:18)
[2022-06-10] MEDS: DOXYCYCLINE 100 MG (VIBRAMYCIN) TABLET PO SCH ×2 (09:19→20:09)
[2022-06-10] MEDS: guaiFENesin (MUCINEX) 600 MG TAB PO SCH ×2 (09:19→20:09)
[2022-06-10] MEDS: LORATADINE (CLARITIN) 10 MG TAB PO SCH (09:19)
[2022-06-10] MEDS: busPIRone 15 MG (BUSPAR) TABLET PO SCH ×2 (09:19→20:09)
[2022-06-10] MEDS: PANTOPRAZOLE 40 MG (PROTONIX) TAB PO SCH (09:19)
[2022-06-10] MEDS: FLUTICASONE NASAL SPRAY (FLONASE) 16 GM BTL NS SCH ×2 (09:20→20:10)
[2022-06-10] MEDS: CEPACOL SORE THROAT-COUGH LOZENGE PO PRN (09:27)
[2022-06-10] MEDS: ARTIFICAL TEARS 0.4 ML UNIT DOSE (REFRESH PLUS) OU PRN ×2 (09:27→20:36)
[2022-06-10 11:50] VITALS: BP 140/64
--- NOTE | 2022-06-10 13:49 | Physical Therapy Evaluation ---
PT Evaluation-General Medical Diagnosis Admission Date Jun 08, 2022 at 12:30 Medical Diagnosis: pneumonia, resp. failure Onset Date: Jun 08, 2022 Therapy Diagnosis Therapy Diagnosis: impaired mobility, strength Height/Weight Height (Feet): 5 Height (Inches): 5.00 Weight (Pounds): 213 Weight (Ounces): 9.0 Precautions Precautions/Isolations: Fall Prevention, Standard Precautions Referral Physician: Earnestine Reason for Referral: Evaluation/Treatment Medical History Pertinent Medical History: CAD, COPD, GERD, HTN, Hypothroidism Additional Medical History Past Medical History Surgeries: Orthopedic Pneumonia, Chronic Bronchitis, Sleep Apnea, COPD Currently Using CPAP: Yes High Cholesterol, Valvular Heart Disease Gastroesophageal Reflux, Diverticulosis Anxiety, Depression Blood Disorders: No Reviewed History: Yes Social History Current Living Status: Alone Entry Into Home: Stairs Without Railing PT Steps Into Home: 1 Prior Prior Level of Function SCALE: Activities may be completed with or without assistive devices. 6-Wwmiddwlby-goyqhef completes the activity by him/herself with no assistance from a helper. 5-Set-up or Clean-up Assistance-helper sets up or cleans up; patient completes activity. [place] assists only prior to or following the activity. 4-Supervision or Touching Assistance-helper provides verbal cues and/or vianca darline/steadying and/or contact guard assistance as patient completes activity. Assistance may be provided throughout the activity or intermittently. 3-Partial/Moderate Assistance-helper does LESS THAN HALF the effort. [place] lifts, holds or supports trunk or limbs, but provides less than half the effort. 2-Substantial/Maximal Assistance-helper does MORE THAN HALF the effort. [place] lifts or holds trunk or limbs and provides more than half the effort. 1-Fkivjtcsx-qijlej does ALL the effort. Patient does none of the effort to complete the activity. Or, the assistance of 2 or more helpers is required for the patient to complete the activity. If activity was not attempted, code reason: 7-Patient Refused. 9-Not Applicable-not attempted and the patient did not perform the activity before the current illness, exacerbation or injury. 10-Not Attempted due to Environmental Limitations-(lack of equipment, weather restraints, etc.). 88-Not Attempted due to Medical Conditions or Safety Concerns. Bed Mobility: 6 Transfers (B,C,W/C): 6 Gait: 6 Stairs: 6 Indoor Mobility (Ambulation): Independent Stairs: Independent used a single point cane on occasion PT Evaluation-Current Subjective Patient in bed pre tx, agrees to PT, has no complaints of pain. Pt/Family Goals to be independent at home Objective Patient Orientation: Person, Place, Situation Attachments: Oxygen ROM/Strength ROM Lower Extremities WNL Strength Lower Extremities BLE grossly 4/5 Sensory Hearing: Functional Sensation Lower Extremities patient had intact light touch sensation in both LE but she states she has neuropathy Transfers Roll Left to Right (QC): 6 Sit to Lying (QC): 6 Lying to Sitting/Side of Bed(Q: 6 Sit to Stand (QC): 4 Chair/Ixj-oc-Gdhuj Xfer(QC): 4 SBA for sit to stand and transfers Gait Does the Patient Walk?: Yes Mode of Locomotion: Walk Anticipated Mode of Locomotion: Walk Walk 10 feet (QC): 4 Walk 50 ft with 2 Turns(QC): 4 Walk 150 ft (QC): 4 Distance: 200' Gait Assistive Device: FWW Comments/Gait Description slow but steady ambulation, slightly SOB during and after ambulation, O2 was 89%-92% durng and after ambulation Assessment/Needs Patient in bed post tx with nurse call, phone, tray, all needs met, patient wanted to get set up to finish her lunch. Patient has impaired mobility and strength, SBA for transfers and ambulation. Rehab Potential: [facility] Home Goals District Commercial Superintendent Goals PT District Commercial Superintendent Goals Time Frame: Jun 17, 2022 Roll Left & Right (QC): 6 Sit to Lying (QC): 6 Lying-Sitting on Side/Bed(QC): 6 Sit to Stand (QC): 6 Chair/Ykv-ut-Lzuci Xfer(QC): 6 Walk 10 feet (QC): 6 Walk 50ft with 2 Turns (QC): 6 Walk 150 ft (QC): 6 PT Plan Problem List Problem List: Activity Tolerance, Functional Strength, Safety, Balance, Gait, Transfer, ROM Treatment/Plan Treatment Plan: Continue Plan of Care Treatment Plan: Education, Functional Activity [place], Functional Strength, Gait, Safety, Therapeutic Exercise, Transfers Treatment Duration: Jun 17, 2022 Frequency: 6 times per week Estimated Hrs Per Day: .25 hour per day Patient and/or Family Agrees t: Yes Safety Risks/Education Patient Education: Gait Training, Transfer Techniques, Correct Positioning, Safety Issues Teaching Recipient: Patient Teaching Methods: Demonstration, Discussion Response to Teaching: Reinforcement Needed Discharge Recommendations Plan Patient will perform bed mobility and transfer training, balance and endurance training, functional strengthening, stair training, gait training, and education, to improve functional mobility and independence at home. Therapy Discharge Recommendati: Scheduled Assistance, Home & Family, Post Acute PT Time Time In: 1324 Time Out: 1338 DATE: Jun 10, 2022 Total Billed Treatment Time: 14 Total Billed Treatment 1 visit ELIO 14' LISA MG PT Jun 10, 2022 13:49
--- NOTE | 2022-06-10 13:49 | Occupational Therapy Eval ---
OT Evaluation-General/PLF Medical Diagnosis Admission Date Jun 08, 2022 at 12:30 Medical Diagnosis: Respiratory Failure Onset Date: Jun 08, 2022 Therapy Diagnosis Therapy Diagnosis: Shortness of Breath Height/Weight Height (Feet): 5 Height (Inches): 5.00 Weight (Pounds): 213 Weight (Ounces): 9.0 Precautions Precautions/Isolations: Fall Prevention, Standard Precautions Referral Physician: Earnestine Referral Reason: Evaluation/Treatment Medical History Pertinent Medical History: CAD, COPD, GERD, HTN, Hypothroidism Current History Pt came to hospital with shortness of breath and was found to have pneumonia and respiratory failure. Pt was independent with all ADLs/IADLs at home. She lives alone in a duplex. She says that she has a cane but only uses it sometimes. She states that she uses 2 L of oxygen at home and uses the CPAP machine. Reviewed History: Yes Social History Home: Single Level (duplex) Current Living Status: Alone Entry Into Home: Stairs Without Railing (she stated she uses 2 pillars) Steps Into Home: 1 ADL-Prior Level of Function SCALE: Activities may be completed with or without assistive devices. 8-Viocnuwqav-zjsezkd completes the activity by him/herself with no assistance from a helper. 5-Set-up or Clean-up Assistance-helper sets up or cleans up; patient completes activity. [place] assists only prior to or following the activity. 4-Supervision or Touching Assistance-helper provides verbal cues and/or touching/steadying and/or contact guard assistance as patient completes activity. Assistance may be provided throughout the activity or intermittently. 3-Partial/Moderate Assistance-helper does LESS THAN HALF the effort. [place] lifts, holds or supports trunk or limbs, but provides less than half the effort. 2-Substantial/Maximal Assistance-helper does MORE THAN HALF the effort. [place] lifts or holds trunk or limbs and provides more than half the effort. 9-Dsufqtkge-zrqgfq does ALL the effort. Patient does none of the effort to complete the activity. Or, the assistance of 2 or more helpers is required for the patient to complete the activity. If activity was not attempted, code reason: 7-Patient Refused. 9-Not Applicable-not attempted and the patient did not perform the activity before the current illness, exacerbation or injury. 10-Not Attempted due to Environmental Limitations-(lack of equipment, weather restraints, etc.). 88-Not Attempted due to Medical Conditions or Safety Concerns. Self Care: Independent Functional Cognition: Independent DME/Equipment: Grab Bars, Tub/Shower Drive Self: Yes OT Current Status Subjective Pt was laying in bed eating upon arrival. Pt agreed to therapy eval. Appearance Pt was left laying in bed with all needs within reach. 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 Bed mobility: independent. Sit<>stand: independent. Ambulation throughout hallways was SBA. No LOB noted. O2 stats were taken in hallways and was at 89% but quickly [place] with deep breaths. Pt able to adjust gait belt while in standing with no concerns. Once seated on EOB, pt was able to reach bilateral feet with no concerns. Pt is able to perform ADLs with no concerns and with independence at this time. Her main concern is SOB and endurance. Education on deep breathing and energy conservation strategies. Pt will be d/c from skilled OT services due to being at baseline with self-cares. Education OT Patient Education: Energy conservation, Progress toward Goal/Update tx plan, Rehab process Teaching Recipient: Patient Teaching Methods: Discussion Response to Teaching: Verbalize Understanding, Return Demonstration OT Chrome Cleaner Goals Longterm Goals 1=Demonstrate adherence to instructed precautions during ADL tasks. 2=Patient will verbalize/demonstrate understanding of assistive devices/modifications for ADL. 3=Patient will improve strength/tolerance for activity to enable patient to perform ADL's. OT Education/Plan Problem List/Assessment Assessment: No Skilled OT Needs ID'd Discharge Recommendations Plan/Recommendations: Discontinue OT Therapy Discharge Recommendati: Home & Family Equpiment Recommendations-D/C: Bath Chair Treatment Plan/Plan of Care Treatment,Training & Education: Yes Patient would benefit from OT for education, treatment and training to promote independence in ADL's, mobility, safety and/or upper extremity function for ADL 's. Plan of Care: ADL Retraining, Functional Mobility Treatment Duration: Jun 10, 2022 Frequency: 1 time per week Estimated Hrs Per Day: .25 hour per day Agreement: Yes Time Start Time: 13:24 Stop Time: 13:39 DATE: Jun 10, 2022 Total Time Billed (hr/min): 15 Billed Treatment Time 1 visit Mariola Penn OT Jun 10, 2022 13:49
[2022-06-10 16:08] VITALS: BP 162/71
--- NOTE | 2022-06-10 18:01 | Progress Note ---
Subjective Date Seen by a Provider: Jun 10, 2022 Time Seen by a Provider: 12:50 Subjective/Events-last exam Fwup Pneumonia, CHF, COPD, Severe aortic stenosis, weakness, HTN. Not as short of air. Diuresing well with furosemide. Objective Exam Vital Signs Date Time Temp Pulse Resp B/P (MAP) Pulse Ox O2 Delivery O2 Flow Rate FiO2 06/10/22 16:08 36.0 94 18 162/71 (101) 96 Vapotherm 3.00 06/10/22 14:36 94 Nasal Cannula 3.00 06/10/22 13:00 88 06/10/22 11:50 36.2 86 18 140/64 (89) 94 Nasal Cannula 3.00 06/10/22 10:47 96 Nasal Cannula 3.00 06/10/22 08:39 36.1 86 18 140/64 (89) 93 Nasal Cannula 3.00 06/10/22 08:00 Nasal Cannula 3.00 06/10/22 07:00 87 06/10/22 06:35 96 Nasal Cannula 3.00 06/10/22 04:08 36.2 87 20 101/58 (72) 95 Nasal Cannula 3.00 06/10/22 01:00 96 06/10/22 00:40 36.5 95 18 117/70 (86) 95 Nasal Cannula 3.00 06/09/22 22:36 93 Nasal Cannula 3.00 06/09/22 20:29 36.3 98 20 107/64 (78) 95 Nasal Cannula 3.00 06/09/22 20:27 95 Nasal Cannula 3.00 06/09/22 19:00 98 06/09/22 18:41 90 Nasal Cannula 3.00 I & O 06/10/22 07:00 Intake Total 2400 ml Output Total 1700 ml Balance 700 ml Capillary Refill : Less Than 3 Seconds General Appearance: No Apparent Distress Respiratory: Decreased Breath Sounds (crackles) Cardiovascular: Regular Rate, Rhythm Gastrointestinal: normal bowel sounds, non tender, soft Extremity: Non Tender, No Calf Tenderness, No Pedal Edema Neurologic/Psychiatric: Alert, Oriented x3 Skin: Warm/Dry Results Lab Laboratory Tests 06/10/22 05:33: White Blood Count 7.2, Red Blood Count 3.83, Hemoglobin 11.3L, Hematocrit 35, Mean Corpuscular Volume 92, Mean Corpuscular Hemoglobin 30, Mean Corpuscular Hemoglobin Concent 32, Red Cell Distribution Width 14.5, Platelet Count 249, Mean Platelet Volume 9.0, Sodium Level 136, Potassium Level 5.1H, Chloride Level 101, Carbon Dioxide Level 24, Anion Gap 11, Blood Urea Nitrogen 24H, Creatinine 0.96, Estimat Glomerular Filtration Rate 59, BUN/Creatinine Ratio 25, Glucose Level 114H, Calcium Level 9.5, Corrected Calcium 9.9, Total Bilirubin 0.3, Aspartate Amino Transf (AST/SGOT) 29, Alanine Aminotransferase (ALT/SGPT) 13, Alkaline Phosphatase 47, Total Protein 6.9, Albumin 3.5 Assessment/Plan Assessment/Plan Assess & Plan/Chief Complaint 1. Pneumonia--continue rocephin, doxycycline 2. Acute on Chronic Diastolic CHF--continue IV lasix 3. COPD with exacerbation--on SVNs and prednisone 4. Acute on Chronic Respiratory Failure--on oxygen via [place] 5. Severe Aortic Stenosis--will see surgery as outpatient 6. Weakness--start PT/OT Clinical Quality Measures Admission Status Admission Dx 1. Acute on Chronic Respiratory Failure--on oxygen at 2L [place] 2. Bilateral Pneumonia--on rocephin and doxycycline 3. COPD with acute exacerbation--on SVNs with duoneb, add prednisone 4. Acute on Chronic Diastolic Congestive Heart Failure--on IV lasix and diuresing well 5. Severe aortic stenosis--ECHO shows worsening so may need to consider surgical consult as outpatient 6. History of pulmonary hypertension--pressures stable on most recent ECHO 7. Hypertension--home meds restarted 8. Weakness--start PT once dyspnea improving CHALO FUENTES DO Jun 10, 2022 18:01
[2022-06-10 19:27] VITALS: BP 120/72
[2022-06-10] MEDS: MONTELUKAST 10 MG (SINGULAIR) TAB PO SCH (20:09)
[2022-06-10] MEDS: traZODone 50 MG (DESYREL) TAB PO SCH (20:09)
[2022-06-10] MEDS: ENOXAPARIN 40 MG/0.4 ML (LOVENOX) SYR SC SCH (20:09)
[2022-06-10] MEDS: SERTRALINE 100 MG (ZOLOFT) TAB PO SCH (20:09)
[2022-06-10] MEDS: ACETAMINOPHEN 500 MG TAB (TYLENOL) PO PRN (22:14)
[2022-06-11] VITALS (7 sets, daily range): BP systolic 102–134; BP diastolic 55–64
[2022-06-11] MEDS: RT-ALBUTEROL/IPRATROPIUM 3 ML (DUONEB) VIAL INH SCH ×5 (02:57→19:54)
[2022-06-11 06:16] LABS: CALCIUM 9.5 MG/DL (8.5-10.1); CREATININE SERUM 1.15 MG/DL (0.60-1.30); POTASSIUM 4.2 MMOL/L (3.6-5.0)
[2022-06-11] MEDS: LEVOTHYROXINE 75 MCG (LEVOTHROID) TABLET PO SCH (06:21)
[2022-06-11] MEDS: CATHETER FLUSH 10 ML SYR IV SCH ×3 (06:22→20:49)
[2022-06-11] MEDS: predniSONE 20 MG TAB PO SCH (06:22)
[2022-06-11] MEDS: FUROSEMIDE 40 MG/4 ML INJ (LASIX) IVP SCH (08:20)
[2022-06-11] MEDS: LORATADINE (CLARITIN) 10 MG TAB PO SCH (08:21)
[2022-06-11] MEDS: DOXYCYCLINE 100 MG (VIBRAMYCIN) TABLET PO SCH ×2 (08:21→20:49)
[2022-06-11] MEDS: guaiFENesin (MUCINEX) 600 MG TAB PO SCH ×2 (08:21→20:49)
[2022-06-11] MEDS: PANTOPRAZOLE 40 MG (PROTONIX) TAB PO SCH (08:21)
[2022-06-11] MEDS: cefTRIAXone 1 GM PRE-MIX 50 ML IV SCH (08:21)
[2022-06-11] MEDS: busPIRone 15 MG (BUSPAR) TABLET PO SCH ×2 (08:21→20:47)
[2022-06-11] MEDS: FLUTICASONE NASAL SPRAY (FLONASE) 16 GM BTL NS SCH ×2 (08:22→20:48)
[2022-06-11] MEDS: ARTIFICAL TEARS 0.4 ML UNIT DOSE (REFRESH PLUS) OU PRN ×2 (08:34→20:51)
--- NOTE | 2022-06-11 10:33 | Progress Note ---
Subjective Date Seen by a Provider: Jun 11, 2022 Time Seen by a Provider: 10:31 Subjective/Events-last exam Fwup Pneumonia, CHF, COPD, Severe aortic stenosis, weakness, HTN. Not coughing as much but more short of air this morning. Objective Exam Vital Signs Date Time Temp Pulse Resp B/P (MAP) Pulse Ox O2 Delivery O2 Flow Rate FiO2 06/11/22 10:05 36.0 77 97 32 06/11/22 07:53 97 Nasal Cannula 3.00 06/11/22 07:39 36.0 79 18 134/64 (87) 91 Nasal Cannula 3.00 06/11/22 07:00 90 06/11/22 04:15 36.3 92 20 116/58 (77) 92 Nasal Cannula 3.00 06/11/22 01:00 95 06/11/22 00:25 36.4 88 20 122/58 (79) 93 Nasal Cannula 3.00 06/10/22 22:30 94 Nasal Cannula 3.00 06/10/22 21:30 Nasal Cannula 3.00 06/10/22 20:31 Nasal Cannula 3.00 06/10/22 19:27 36.6 97 18 120/72 (88) 95 Vapotherm 3.00 06/10/22 19:00 100 06/10/22 18:44 93 Nasal Cannula 3.00 06/10/22 16:08 36.0 94 18 162/71 (101) 96 Vapotherm 3.00 06/10/22 14:36 94 Nasal Cannula 3.00 06/10/22 13:00 88 06/10/22 11:50 36.2 86 18 140/64 (89) 94 Nasal Cannula 3.00 06/10/22 10:47 96 Nasal Cannula 3.00 I & O 06/11/22 07:00 Intake Total 1800 ml Output Total 1500 ml Balance 300 ml Capillary Refill : Less Than 3 Seconds General Appearance: Mild Distress Neck: Supple Respiratory: Decreased Breath Sounds, Rhonci Gastrointestinal: normal bowel sounds, non tender, soft Extremity: Non Tender, No Calf Tenderness, No Pedal Edema Neurologic/Psychiatric: Alert, Oriented x3 Results Lab Laboratory Tests 06/11/22 05:15: Sodium Level 138, Potassium Level 4.2, Chloride Level 102, Carbon Dioxide Level 23, Anion Gap 13, Blood Urea Nitrogen 31H, Creatinine 1.15, Estimat Glomerular Filtration Rate 48, BUN/Creatinine Ratio 27, Glucose Level 94, Calcium Level 9.5 Assessment/Plan Assessment/Plan Assess & Plan/Chief Complaint 1. Pneumonia--continue rocephin, doxycycline, CXR improved and looks like mainly pulmonary vascular congestion 2. Acute on Chronic Diastolic CHF--continue IV lasix 3. COPD with exacerbation--on SVNs and prednisone 4. Acute on Chronic Respiratory Failure--on oxygen via [place], will likely need c ontinuous O2 on discharge 5. 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 Weakness--started PT/OT Clinical Quality Measures Admission Status Admission Dx 1. Acute on Chronic Respiratory Failure--on oxygen at 2L [place] 2. Bilateral Pneumonia--on rocephin and doxycycline 3. COPD with acute exacerbation--on SVNs with duoneb, add prednisone 4. Acute on Chronic Diastolic Congestive Heart Failure--on IV lasix and diuresing well 5. Severe aortic stenosis--ECHO shows worsening so may need to consider surgical consult as outpatient 6. History of pulmonary hypertension--pressures stable on most recent ECHO 7. Hypertension--home meds restarted 8. Weakness--start PT once dyspnea improving CHALO FUENTES DO Jun 11, 2022 10:33
--- NOTE | 2022-06-11 15:10 | Physical Therapy Daily Note ---
PT Daily Note-Current Subjective Patient lying supine in bed upon PT arrival, agreeable to treatment. Rates pain at 0/10 currently. Pain Section J - Health Conditions 1. Rarely or not at all 2. Occasionally 3. Frequently 4. Almost constantly 8. Unable to answer Pain Effect on Sleep: 1 Pain Interference with Therapy: 1 Pain Interference w/Day-to-Day: 1 Mental Status Patient Orientation: Person, Place, Time, Situation Transfers SCALE: Activities may be completed with or without assistive devices. 3-Eeqqdcjywi-mxqxbug completes the activity by him/herself with no assistance from a helper. 5-Set-up or Clean-up Assistance-helper sets up or cleans up; patient completes activity. [place] assists only prior to or following the activity. 4-Supervision or Touching Assistance-helper provides verbal cues and/or touching/steadying and/or contact guard assistance as patient completes activity. Assistance may be provided throughout the activity or intermittently. 3-Partial/Moderate Assistance-helper does LESS THAN HALF the effort. [place] lifts, holds or supports trunk or limbs, but provides less than half the effort. 2-Substantial/Maximal Assistance-helper does MORE THAN HALF the effort. [place] lifts or holds trunk or limbs and provides more than half the effort. 6-Lrbxvtlrg-kjkfhm does ALL the effort. Patient does none of the effort to complete the activity. Or, the assistance of 2 or more helpers is required for the patient to complete the activity. If activity was not attempted, code reason: 7-Patient Refused. 9-Not Applicable-not attempted and the patient did not perform the activity before the current illness, exacerbation or injury. 10-Not Attempted due to Environmental Limitations-(lack of equipment, weather restraints, etc.). 88-Not Attempted due to Medical Conditions or Safety Concerns. Roll Left & Right (QC): 6 Sit to Lying (QC): 6 Lying to Sitting/Side of Bed(Q: 6 Sit to Stand (QC): 6 Chair/Jri-kh-Sabba Xfer(QC): 6 Weight Bearing Right Lower Extremity: Right Full Weight Bearing Left Lower Extremity: Left Full Weight Bearing Gait Training Does the Patient Walk?: Yes Distance: 200 Walk 10 feet (QC): 6 Walk 50 ft with 2 Turns(QC): 4 Walk 150 ft (QC): 4 Gait Persons Needed: 1 Gait Assistive Device: FWW Assessment Current Status: Fair Progress Patient tolerated treatment well. Demonstrates independence with all bed mobility. Patient ambulates 200 feet with FWW, with SBA and verbal cues for safety, progression, posture and conservation of energy. Patient requires 1 brief standing rest break at midpoint of gait training before returning to room. Patient in bed post treatment with all needs met, nursing notified, call light in hand. PT Turn Down Attendant Goals Turn Down Attendant Goals PT Senior Care Goals Time Frame: Jun 17, 2022 Roll Left & Right (QC): 6 Sit to Lying (QC): 6 Lying-Sitting on Side/Bed(QC): 6 Sit to Stand (QC): 6 Chair/Lrb-mz-Hdetv Xfer(QC): 6 Walk 10 feet (QC): 6 Walk 50ft with 2 Turns (QC): 6 Walk 150 ft (QC): 6 PT Plan Treatment/Plan Treatment Plan: Continue Plan of Care Treatment Plan: Education, Functional Activity [place], Functional Strength, Gait, Safety, Therapeutic Exercise, Transfers Treatment Duration: Jun 17, 2022 Frequency: 6 times per week Estimated Hrs Per Day: .25 hour per day Patient and/or Family Agrees t: Yes Safety Risks/Education Patient Education: Gait Training, Transfer Techniques Teaching Recipient: Patient Teaching Methods: Demonstration, Discussion Response to Teaching: Verbalize Understanding, Return Demonstration Time Time In: 1345 Time Out: 1400 DATE: Jun 11, 2022 Total Billed Treatment Time: 15 Total Billed Treatment Visit, BONNIE Rdz PT Jun 11, 2022 15:10
[2022-06-11] MEDS: ENOXAPARIN 40 MG/0.4 ML (LOVENOX) SYR SC SCH (20:46)
[2022-06-11] MEDS: SERTRALINE 100 MG (ZOLOFT) TAB PO SCH (20:46)
[2022-06-11] MEDS: traZODone 50 MG (DESYREL) TAB PO SCH (20:47)
[2022-06-11] MEDS: MONTELUKAST 10 MG (SINGULAIR) TAB PO SCH (20:47)
[2022-06-11] MEDS: ACETAMINOPHEN 500 MG TAB (TYLENOL) PO PRN (23:27)
[2022-06-12] VITALS (7 sets, daily range): BP systolic 109–142; BP diastolic 57–76
[2022-06-12] MEDS: predniSONE 20 MG TAB PO SCH (05:53)
[2022-06-12] MEDS: CATHETER FLUSH 10 ML SYR IV SCH ×3 (05:53→19:37)
[2022-06-12] MEDS: LEVOTHYROXINE 75 MCG (LEVOTHROID) TABLET PO SCH (05:53)
[2022-06-12 06:50] LABS: HEMATOCRIT 41 % (35-52); HEMOGLOBIN 12.9 g/dL (11.5-16.0); MEAN CORPUSCULAR HEMOGLOBIN 29 pg (25-34); MEAN CORPUSCULAR HGB CONC 32 g/dL (32-36); MEAN CORPUSCULAR VOLUME 93 fL (80-99); MEAN PLATELET VOLUME 9.3 fL (9.0-12.2); PLATELET COUNT 285 10^3/uL (130-400); WHITE BLOOD COUNT 8.9 10^3/uL (4.3-11.0)
[2022-06-12 07:05] LABS: CALCIUM 9.6 MG/DL (8.5-10.1); CREATININE SERUM 1.28 MG/DL (0.60-1.30)
[2022-06-12] MEDS: RT-ALBUTEROL/IPRATROPIUM 3 ML (DUONEB) VIAL INH SCH ×4 (08:06→18:53)
[2022-06-12] MEDS: guaiFENesin (MUCINEX) 600 MG TAB PO SCH ×2 (09:22→19:37)
[2022-06-12] MEDS: cefTRIAXone 1 GM PRE-MIX 50 ML IV SCH (09:22)
[2022-06-12] MEDS: PANTOPRAZOLE 40 MG (PROTONIX) TAB PO SCH (09:22)
[2022-06-12] MEDS: LORATADINE (CLARITIN) 10 MG TAB PO SCH (09:22)
[2022-06-12] MEDS: FUROSEMIDE 40 MG/4 ML INJ (LASIX) IVP SCH (09:22)
[2022-06-12] MEDS: FLUTICASONE NASAL SPRAY (FLONASE) 16 GM BTL NS SCH ×2 (09:23→19:36)
[2022-06-12] MEDS: DOXYCYCLINE 100 MG (VIBRAMYCIN) TABLET PO SCH ×2 (09:23→19:36)
[2022-06-12] MEDS: busPIRone 15 MG (BUSPAR) TABLET PO SCH ×2 (09:23→19:36)
--- NOTE | 2022-06-12 11:14 | Physical Therapy Daily Note ---
PT Daily Note-Current Subjective Pt reports that she is feeling good and is eager to get up. Pain Section J - Health Conditions 1. Rarely or not at all 2. Occasionally 3. Frequently 4. Almost constantly 8. Unable to answer Pain Effect on Sleep: 1 Pain Interference with Therapy: 1 Pain Interference w/Day-to-Day: 1 Mental Status Patient Orientation: Person, Place, Time, Situation Attachments: Oxygen Transfers SCALE: Activities may be completed with or without assistive devices. 6-Rtdozaimkg-ajbdsag completes the activity by him/herself with no assistance from a helper. 5-Set-up or Clean-up Assistance-helper sets up or cleans up; patient completes activity. [place] assists only prior to or following the activity. 4-Supervision or Touching Assistance-helper provides verbal cues and/or touching/steadying and/or contact guard assistance as patient completes activity. Assistance may be provided throughout the activity or intermittently. 3-Partial/Moderate Assistance-helper does LESS THAN HALF the effort. [place] lifts, holds or supports trunk or limbs, but provides less than half the effort. 2-Substantial/Maximal Assistance-helper does MORE THAN HALF the effort. [place] lifts or holds trunk or limbs and provides more than half the effort. 1-Xyjieqpna-htbxpl does ALL the effort. Patient does none of the effort to complete the activity. Or, the assistance of 2 or more helpers is required for the patient to complete the activity. If activity was not attempted, code reason: 7-Patient Refused. 9-Not Applicable-not attempted and the patient did not perform the activity before the current illness, exacerbation or injury. 10-Not Attempted due to Environmental Limitations-(lack of equipment, weather restraints, etc.). 88-Not Attempted due to Medical Conditions or Safety Concerns. Roll Left & Right (QC): 6 Sit to Lying (QC): 6 Lying to Sitting/Side of Bed(Q: 6 Sit to Stand (QC): 6 Weight Bearing Right Lower Extremity: Right Full Weight Bearing Left Lower Extremity: Left Full Weight Bearing Gait Training Does the Patient Walk?: Yes Distance: 160ft Gait Persons Needed: 1 Gait Assistive Device: FWW Exercises Supine Ex: LE Protocol Supine Reps: 15 Assessment Current Status: Good Progress Pt is able to perform supine to sit to stand without assistance. She ambulates with the walker with good stability and no issues observed. PT Mcfp Goals Mcfp Goals PT Classification Analyst Goals Time Frame: Jun 17, 2022 Roll Left & Right (QC): 6 Sit to Lying (QC): 6 Lying-Sitting on Side/Bed(QC): 6 Sit to Stand (QC): 6 Chair/Dck-nv-Zywpv Xfer(QC): 6 Walk 10 feet (QC): 6 Walk 50ft with 2 Turns (QC): 6 Walk 150 ft (QC): 6 PT Plan Treatment/Plan Treatment Plan: Continue Plan of Care Treatment Plan: Education, Functional Activity [place], Functional Strength, Gait, Safety, Therapeutic Exercise, Transfers Treatment Duration: Jun 17, 2022 Frequency: 6 times per week Estimated Hrs Per Day: .25 hour per day Patient and/or Family Agrees t: Yes Time Time In: 914 Time Out: 929 DATE: Jun 12, 2022 Total Billed Treatment Time: 15 Total Billed Treatment 1, gt 15 LEANNE MARADIAGA PT Jun 12, 2022 11:14
--- NOTE | 2022-06-12 17:53 | Progress Note ---
Subjective Date Seen by a Provider: Jun 12, 2022 Time Seen by a Provider: 09:45 Subjective/Events-last exam Fwup Pneumonia, CHF, COPD, Severe aortic stenosis, weakness, HTN. Still short of air. Cough improving. Has been up ambulating with PT. Objective Exam Vital Signs Date Time Temp Pulse Resp B/P (MAP) Pulse Ox O2 Delivery O2 Flow Rate FiO2 06/12/22 15:51 95 Nasal Cannula 3.00 06/12/22 15:42 36.5 89 19 119/57 (77) 90 Nasal Cannula 3.00 06/12/22 12:44 92 06/12/22 11:16 93 Nasal Cannula 3.00 06/12/22 11:14 36.1 86 20 123/73 (90) Nasal Cannula 3.00 06/12/22 08:10 96 Nasal Cannula 3.00 06/12/22 08:00 96 Nasal Cannula 3.00 06/12/22 07:36 36.1 83 20 109/69 (82) 96 Nasal Cannula 3.00 06/12/22 07:00 87 06/12/22 04:15 36.2 86 16 126/76 (93) 96 Nasal Cannula 2.00 06/12/22 01:00 86 06/12/22 00:00 36.6 88 16 113/72 (86) 96 Nasal Cannula 3.00 06/11/22 20:50 Nasal Cannula 3.00 06/11/22 19:56 96 Nasal Cannula 2.00 06/11/22 19:08 36.2 85 18 104/64 (77) 93 Nasal Cannula 2.00 2.00 06/11/22 19:00 90 I & O 06/12/22 07:00 Intake Total 2350 ml Output Total 2200 ml Balance 150 ml Capillary Refill : Less Than 3 Seconds General Appearance: No Apparent Distress Neck: Supple Respiratory: Decreased Breath Sounds, Rhonci Gastrointestinal: normal bowel sounds, non tender, soft Extremity: Non Tender, No Calf Tenderness, No Pedal Edema Skin: Warm/Dry Results Lab Laboratory Tests 06/12/22 06:17: White Blood Count 8.9, Red Blood Count 4.40, Hemoglobin 12.9, Hematocrit 41, Mean Corpuscular Volume 93, Mean Corpuscular Hemoglobin 29, Mean Corpuscular Hemoglobin Concent 32, Red Cell Distribution Width 14.5, Platelet Count 285, Mean Platelet Volume 9.3, Sodium Level 138, Potassium Level 4.0, Chloride Level 99, Carbon Dioxide Level 26, Anion Gap 13, Blood Urea Nitrogen 42H, Creatinine 1.28, Estimat Glomerular Filtration Rate 42, BUN/Creatinine Ratio 33, Glucose Level 96, Calcium Level 9.6 Assessment/Plan Assessment/Plan Assess & Plan/Chief Complaint 1. Pneumonia--Last dose of rocephin today, continue doxycycline, CXR in AM 2. Acute on Chronic Diastolic CHF--change to po lasix tomorrow AM, CXR in Am 3. COPD with exacerbation--on SVNs and prednisone 4. Acute on Chronic Respiratory Failure--on oxygen via [place], will likely need continuous O2 on discharge 5. Severe Aortic Stenosis--will see her routine city marshal and surgery as outpatient 6. Weakness--doing PT/OT Clinical Quality Measures Admission Status Admission Dx 1. Acute on Chronic Respiratory Failure--on oxygen at 2L [place] 2. Bilateral Pneumonia--on rocephin and doxycycline 3. COPD with acute exacerbation--on SVNs with duoneb, add prednisone 4. Acute on Chronic Diastolic Congestive Heart Failure--on IV lasix and diuresing well 5. Severe aortic stenosis--ECHO shows worsening so may need to consider surgi alicia consult as outpatient 6. History of pulmonary hypertension--pressures stable on most recent ECHO 7. Hypertension--home meds restarted 8. Weakness--start PT once dyspnea improving CHALO FUENTES DO Jun 12, 2022 17:53
[2022-06-12] MEDS: ENOXAPARIN 40 MG/0.4 ML (LOVENOX) SYR SC SCH (19:36)
[2022-06-12] MEDS: MONTELUKAST 10 MG (SINGULAIR) TAB PO SCH (19:37)
[2022-06-12] MEDS: traZODone 50 MG (DESYREL) TAB PO SCH (19:37)
[2022-06-12] MEDS: SERTRALINE 100 MG (ZOLOFT) TAB PO SCH (19:37)
[2022-06-12] MEDS: ARTIFICAL TEARS 0.4 ML UNIT DOSE (REFRESH PLUS) OU PRN (19:38)
[2022-06-13 03:00] VITALS: BP 120/64
[2022-06-13] MEDS: LEVOTHYROXINE 75 MCG (LEVOTHROID) TABLET PO SCH (05:31)
[2022-06-13] MEDS: CATHETER FLUSH 10 ML SYR IV SCH ×3 (05:31→19:36)
[2022-06-13] MEDS: predniSONE 20 MG TAB PO SCH (05:31)
[2022-06-13 06:07] LABS: HEMATOCRIT 40 % (35-52); HEMOGLOBIN 13.1 g/dL (11.5-16.0); MEAN CORPUSCULAR HEMOGLOBIN 30 pg (25-34); MEAN CORPUSCULAR HGB CONC 33 g/dL (32-36); MEAN CORPUSCULAR VOLUME 91 fL (80-99); PLATELET COUNT 289 10^3/uL (130-400); WHITE BLOOD COUNT 9.1 10^3/uL (4.3-11.0)
[2022-06-13 06:37] LABS: CALCIUM 9.9 MG/DL (8.5-10.1); CREATININE SERUM 1.14 MG/DL (0.60-1.30)
[2022-06-13 07:28] VITALS: BP 109/70
[2022-06-13] MEDS: RT-ALBUTEROL/IPRATROPIUM 3 ML (DUONEB) VIAL INH SCH ×4 (07:33→20:40)
--- NOTE | 2022-06-13 09:38 | Diagnostic Imaging Report ---
CHEST PA/LAT (2 VIEW) Indication: Pulmonary edema Comparison: 06/10/2022 Findings: Diffuse bilateral interstitial opacities remain unchanged. No pleural effusion or pneumothorax. Normal heart size and mediastinal contours. Chronic compression fracture in a lower thoracic vertebra is stable. Impression: Persistent diffuse bilateral interstitial opacities that in the acute setting could be due to edema. In the chronic setting, interstitial lung disease may give this appearance. Dictated by: Dictated on workstation # [id number]
[2022-06-13] MEDS: busPIRone 15 MG (BUSPAR) TABLET PO SCH ×2 (09:56→19:27)
[2022-06-13] MEDS: PANTOPRAZOLE 40 MG (PROTONIX) TAB PO SCH ×2 (09:57→19:27)
[2022-06-13] MEDS: LORATADINE (CLARITIN) 10 MG TAB PO SCH (09:57)
[2022-06-13] MEDS: FLUTICASONE NASAL SPRAY (FLONASE) 16 GM BTL NS SCH ×2 (09:57→19:28)
[2022-06-13] MEDS: FUROSEMIDE 40 MG (LASIX) TAB PO SCH (09:57)
[2022-06-13] MEDS: DOXYCYCLINE 100 MG (VIBRAMYCIN) TABLET PO SCH (09:57)
[2022-06-13] MEDS: guaiFENesin (MUCINEX) 600 MG TAB PO SCH ×2 (09:57→19:28)
[2022-06-13] MEDS ORDERED: ANTACID SUSP 30 ML UDC (MYLANTA) PO PRN (10:30)
[2022-06-13 11:31] VITALS: BP 122/70
--- NOTE | 2022-06-13 15:46 | Progress Note ---
Subjective Date Seen by a Provider: Jun 13, 2022 Time Seen by a Provider: 10:10 Subjective/Events-last exam Fwup Pneumonia, CHF, COPD, Severe aortic stenosis, weakness, HTN. Still short of air and has not been up on her own yet. Objective Exam Vital Signs Date Time Temp Pulse Resp B/P (MAP) Pulse Ox O2 Delivery O2 Flow Rate FiO2 06/13/22 15:34 95 Nasal Cannula 3.00 06/13/22 12:54 91 06/13/22 11:31 36.8 89 20 122/70 (87) 95 Nasal Cannula 3.00 06/13/22 10:57 95 Nasal Cannula 3.00 06/13/22 08:00 96 Nasal Cannula 3.00 06/13/22 07:33 95 Nasal Cannula 3.00 06/13/22 07:28 36.8 84 20 109/70 (83) 96 Nasal Cannula 3.00 06/13/22 07:00 83 06/13/22 03:00 36.2 80 22 120/64 (82) 92 Nasal Cannula 3.00 06/13/22 01:00 87 06/12/22 23:00 36.8 94 22 142/63 (89) 93 Nasal Cannula 3.00 06/12/22 19:45 Nasal Cannula 3.00 06/12/22 19:31 36.4 94 19 133/59 (83) 93 Nasal Cannula 3.00 06/12/22 19:00 111 06/12/22 18:53 92 Nasal Cannula 3.00 06/12/22 15:51 95 Nasal Cannula 3.00 I & O 06/13/22 07:00 Intake Total 2200 ml Output Total 3500 ml Balance -1300 ml Capillary Refill : Less Than 3 Seconds General Appearance: Mild Distress Respiratory: Lungs Clear Cardiovascular: Regular Rate, Rhythm, Systolic Murmur Gastrointestinal: normal bowel sounds, non tender, soft Extremity: Non Tender, No Calf Tenderness, No Pedal Edema Neurologic/Psychiatric: Alert, Oriented x3 Results Lab Laboratory Tests 06/13/22 05:50: White Blood Count 9.1, Red Blood Count 4.42, Hemoglobin 13.1, Hematocrit 40, Mean Corpuscular Volume 91, Mean Corpuscular Hemoglobin 30, Mean Corpuscular Hemoglobin Concent 33, Red Cell Distribution Width 14.2, Platelet Count 289, Mean Platelet Volume 9.0, Sodium Level 136, Potassium Level 4.0, Chloride Level 99, Carbon Dioxide Level 23, Anion Gap 14, Blood Urea Nitrogen 45H, Creatinine 1.14, Estimat Glomerular Filtration Rate 48, BUN/Creatinine Ratio 39, Glucose Level 96, Calcium Level 9.9 Assessment/Plan Assessment/Plan Assess & Plan/Chief Complaint 1. Pneumonia--completed rocephin, continue doxycycline, CXR shows interstitial lung disease/edema 2. Acute on Chronic Diastolic CHF--changed to po lasix 3. COPD with exacerbation--on SVNs and prednisone 4. Acute on Chronic Respiratory Failure--on oxygen via [place], will likely need continuous O2 on discharge--oxygen qualifier in AM 5. 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 Weakness--doing PT/OT, recommend shower today DC plans for tomorrow--refuses home health Clinical Quality Measures Admission Status Admission Dx 1. Acute on Chronic Respiratory Failure--on oxygen at 2L [place] 2. Bilateral Pneumonia--on rocephin and doxycycline 3. COPD with acute exacerbation--on SVNs with duoneb, add prednisone 4. Acute on Chronic Diastolic Congestive Heart Failure--on IV lasix and d iuresing well 5. Severe aortic stenosis--ECHO shows worsening so may need to consider surgical consult as outpatient 6. History of pulmonary hypertension--pressures stable on most recent ECHO 7. Hypertension--home meds restarted 8. Weakness--start PT once dyspnea improving CHALO FUENTES DO Jun 13, 2022 15:46
[2022-06-13 15:49] VITALS: BP 122/73
[2022-06-13] MEDS ORDERED: POTA-177 PO (15:55)
[2022-06-13] MEDS ORDERED: PRD20T PO (15:55)
[2022-06-13] MEDS ORDERED: FURO40TA4 PO (15:55)
[2022-06-13] MEDS: ARTIFICAL TEARS 0.4 ML UNIT DOSE (REFRESH PLUS) OU PRN ×2 (17:03→19:35)
[2022-06-13 19:09] VITALS: BP 90/51
[2022-06-13] MEDS: ENOXAPARIN 40 MG/0.4 ML (LOVENOX) SYR SC SCH (19:27)
[2022-06-13] MEDS: SERTRALINE 100 MG (ZOLOFT) TAB PO SCH (19:28)
[2022-06-13] MEDS: MONTELUKAST 10 MG (SINGULAIR) TAB PO SCH (19:28)
[2022-06-13] MEDS: traZODone 50 MG (DESYREL) TAB PO SCH (19:28)
[2022-06-13 23:01] VITALS: BP 114/69
[2022-06-14 03:22] VITALS: BP 124/81
[2022-06-14] MEDS: LEVOTHYROXINE 75 MCG (LEVOTHROID) TABLET PO SCH (05:37)
[2022-06-14] MEDS: CATHETER FLUSH 10 ML SYR IV SCH (05:38)
[2022-06-14] MEDS: predniSONE 20 MG TAB PO SCH (05:38)
[2022-06-14 07:20] VITALS: BP 106/53
[2022-06-14] MEDS: RT-ALBUTEROL/IPRATROPIUM 3 ML (DUONEB) VIAL INH SCH ×3 (07:22→14:08)
[2022-06-14] MEDS: LORATADINE (CLARITIN) 10 MG TAB PO SCH (08:16)
[2022-06-14] MEDS: busPIRone 15 MG (BUSPAR) TABLET PO SCH (08:16)
[2022-06-14] MEDS: guaiFENesin (MUCINEX) 600 MG TAB PO SCH (08:16)
[2022-06-14] MEDS: FUROSEMIDE 40 MG (LASIX) TAB PO SCH (08:16)
[2022-06-14] MEDS: PANTOPRAZOLE 40 MG (PROTONIX) TAB PO SCH (08:16)
--- NOTE | 2022-06-14 08:46 | Physical Therapy Daily Note ---
PT Daily Note-Current Subjective Patient in bed pre-tx, reports no pain, agrees to PT. Pain Section J - Health Conditions 1. Rarely or not at all 2. Occasionally 3. Frequently 4. Almost constantly 8. Unable to answer Pain Effect on Sleep: 1 Pain Interference with Therapy: 1 Pain Interference w/Day-to-Day: 1 Appearance Patient in bed post-tx with nurse call, phone, tray, all needs met. Mental Status Patient Orientation: Person, Place, Situation Attachments: Oxygen Transfers SCALE: Activities may be completed with or without assistive devices. 4-Etwnqebfnb-wlmwqop completes the activity by him/herself with no assistance from a helper. 5-Set-up or Clean-up Assistance-helper sets up or cleans up; patient completes activity. [place] assists only prior to or following the activity. 4-Supervision or Touching Assistance-helper provides verbal cues and/or touching/steadying and/or contact guard assistance as patient completes activity. Assistance may be provided throughout the activity or intermittently. 3-Partial/Moderate Assistance-helper does LESS THAN HALF the effort. [place] lifts, holds or supports trunk or limbs, but provides less than half the effort. 2-Substantial/Maximal Assistance-helper does MORE THAN HALF the effort. [place] lifts or holds trunk or limbs and provides more than half the effort. 5-Zlasaelar-dqpkqx does ALL the effort. Patient does none of the effort to complete the activity. Or, the assistance of 2 or more helpers is required for the patient to complete the activity. If activity was not attempted, code reason: 7-Patient Refused. 9-Not Applicable-not attempted and the patient did not perform the activity before the current illness, exacerbation or injury. 10-Not Attempted due to Environmental Limitations-(lack of equipment, weather restraints, etc.). 88-Not Attempted due to Medical Conditions or Safety Concerns. Roll Left & Right (QC): 6 Sit to Lying (QC): 6 Lying to Sitting/Side of Bed(Q: 6 Sit to Stand (QC): 4 (SBA) Weight Bearing Right Lower Extremity: Right Full Weight Bearing Left Lower Extremity: Left Full Weight Bearing Gait Training Does the Patient Walk?: Yes Distance: 300' Walk 10 feet (QC): 4 Walk 50 ft with 2 Turns(QC): 4 Walk 150 ft (QC): 4 Gait Persons Needed: 1 Gait Assistive Device: FWW SBA mostly during ambulation, patient reports some light-headedness towards the end of ambulation so then switched to CGA. Patient walks with good gait speed, foot clearance, and step length. Exercises Seated Therapy Exercises: Ankle pumps (20 reps), Long arc quads (10 reps) Treatments Ambulation, LE Strengthening Assessment Current Status: Fair Progress Patient reports some light-headedness towards the end of walking but believes it to be because she has not been using her oxygen (but she did use oxygen during ambulation). Patient reports being able to use the bedside commode independently but is not allowed to use the bathroom on her own yet. PT Fpc Goals Bootmaker Hand Goals PT Fpc Goals Time Frame: Jun 17, 2022 Roll Left & Right (QC): 6 Sit to Lying (QC): 6 Lying-Sitting on Side/Bed(QC): 6 Sit to Stand (QC): 6 Chair/Ouy-tg-Vueap Xfer(QC): 6 Walk 10 feet (QC): 6 Walk 50ft with 2 Turns (QC): 6 Walk 150 ft (QC): 6 PT Plan Problem List Problem List: Activity Tolerance, Functional Strength, Safety, Balance, Gait, Transfer, ROM Treatment/Plan Treatment Plan: Continue Plan of Care Treatment Plan: Education, Functional Activity [place], Functional Strength, Gait, Safety, Therapeutic Exercise, Transfers Treatment Duration: Jun 17, 2022 Frequency: 6 times per week Estimated Hrs Per Day: .25 hour per day Patient and/or Family Agrees t: Yes Safety Risks/Education Patient Education: Gait Training, Transfer Techniques, Correct Positioning, Safety Issues Teaching Recipient: Patient Teaching Methods: Demonstration, Discussion Response to Teaching: Reinforcement Needed Time Time In: 814 Time Out: 829 DATE: Jun 14, 2022 Total Billed Treatment Time: 15 Total Billed Treatment 1 visit FA 15min LISA MG PT Jun 14, 2022 08:46
[2022-06-14 11:41] VITALS: BP 111/59
[2022-06-14 15:42] VITALS: BP 124/60
== END 2022-06-14 16:45 | disposition home or self-care (01) | DRG 193 ==
LOC: EDUNIT# 11:27 → ER 11:29 → 4TH 12:30
PROVIDERS: ADMIT Family Medicine; ATTEND Family Medicine
DX: J18.9 Pneumonia, unspecified organism (principal); I50.33 Acute on chronic diastolic (congestive) heart failure; J96.21 Acute and chronic respiratory failure with hypoxia; J44.1 Chronic obstructive pulmonary disease with (acute) exacerbation; J44.0 Chronic obstructive pulmonary disease with (acute) lower respiratory infection; Z20.822 Contact with and (suspected) exposure to COVID-19; Z99.81 Dependence on supplemental oxygen; I27.20 Pulmonary hypertension, unspecified; Z79.82 Long term (current) use of aspirin; Z79.899 Other long term (current) drug therapy; E78.00 Pure hypercholesterolemia, unspecified; K21.9 Gastro-esophageal reflux disease without esophagitis; K57.90 Diverticulosis of intestine, part unspecified, without perforation or abscess without bleeding; F41.9 Anxiety disorder, unspecified; F32.A Depression, unspecified; I35.0 Nonrheumatic aortic (valve) stenosis; R53.1 Weakness; E78.2 Mixed hyperlipidemia; I11.0 Hypertensive heart disease with heart failure
CPT/HCPCS: 36415; 71045; 71046; 80048; 80053; 83735; 83880; 84484; 85007; 85027; 85610; 85730; 87636; 93005; 93041; 93306; 94640; 94760; 94761; 96365; 96375

== ENCOUNTER 2022-09-22 10:54 | Outpatient (RCR) | payer MEDICARE, OTHER ==
[~2022-09-22 10:54] MED LIST changes: +ACET-2267 PO; +ALBU18HF2 INH; +CALC-694 PO; +DOXY100C5 PO; +FLUT1BLS3 INH; +FURO40TA4 PO; +GUAI120013 PO; +LIFI1DRO OU; +MENT1.1L MM; +METH4TAB10 PO; +NF-ALLE180 PO; +OXYB5TAB13 PO; +PROP15DR OU; +TRZ50T PO
== END 2022-10-05 | disposition home or self-care (01) ==
LOC: CR 10:54
PROVIDERS: ATTEND Internal Medicine Interventional Cardiology
DX: Z29.8 Encounter for other specified prophylactic measures (principal); I35.1 Nonrheumatic aortic (valve) insufficiency
CPT/HCPCS: 93798

== ENCOUNTER 2022-10-29 10:20 | Outpatient (RCR) | payer MEDICARE, OTHER ==
[~2022-10-29 10:20] MED LIST changes: +MONT-47 PO; -MONT10TA21 PO
== END 2022-11-05 | disposition home or self-care (01) ==
LOC: CR 10:20
PROVIDERS: ATTEND Internal Medicine Interventional Cardiology
DX: Z29.8 Encounter for other specified prophylactic measures (principal); Z95.4 Presence of other heart-valve replacement
CPT/HCPCS: 93798

== ENCOUNTER 2023-06-02 13:03 | Outpatient (RCR) | payer MEDICARE, OTHER ==
[2023-05-26] MEDS: FERRIC CARBOXYMALTOSE INJ 750 MG in NS (IVPB) 250 ML 250 ML IV SCH (14:04)
[2023-05-26 14:12] VITALS: BP 121/72
[~2023-06-02] VITALS: Wt 88.7 kg
[~2023-06-02 13:03] MED LIST changes: -OXYB5TAB13 PO; +OXYB5TAB14 PO
[2023-06-02] MEDS: FERRIC CARBOXYMALTOSE INJ 750 MG in NS (IVPB) 250 ML 250 ML IV SCH (13:41)
[2023-06-02 14:13] VITALS: BP 115/52
== END 2023-06-02 14:08 | disposition home or self-care (01) ==
LOC: SDC 13:03
PROVIDERS: ATTEND Family Medicine
DX: Z01.89 Encounter for other specified special examinations (principal)
CPT/HCPCS: 96365

== ENCOUNTER 2023-06-05 09:09 | Emergency (ER) | payer MEDICARE, OTHER ==
[~2023-06-05] VITALS: Ht 160 cm; Wt 85.7 kg
[~2023-06-05 09:09] MED LIST changes: +OXYB5TAB13 PO; -OXYB5TAB14 PO
--- NOTE | 2023-06-05 09:43 | ED Upper Extremity ---
General Chief Complaint: Upper Extremity Stated Complaint: RIGHT SHOULDER Nursing Triage Note: PT TO RM 8 BY WC WITH COMPLAINT OF RIGHT SHOULDER PAIN. STATES SHE SLIPPED OFF HER BED THIS MORNING AND HIT SHOULDER ON THE BED FRAME. Source: patient Exam Limitations: no limitations History of Present Illness Date Seen by Provider: Jun 05, 2023 Time Seen by Provider: 09:40 Initial Comments Patient is an 82-year-old female who presents to the emergency room with a chief complaint of right shoulder pain. She was ambulating back from the bathroom went to sit on her bed, missed the bed, landed on the floor and hit her right shoulder against the bed frame. She denies numbness tingling or weakness to the right upper extremity. She is right-hand dominant. Onset: this morning Pain/Injury Location: right shoulder Method of Injury: fell Modifying Factors: Improves With Immobilization; Worse With Movement; Improves With Rest Allergies and Home Medications Allergies Coded Allergies: gabapentin (Verified Allergy, Intermediate, MUSCLE WEAKNESS, 01/29/19) pregabalin (Verified Allergy, Intermediate, MUSCLE WEAKNESS, 01/29/19) azithromycin (Verified Allergy, Unknown, 01/29/19) moxifloxacin HCl (Verified Allergy, Unknown, 01/29/19) Patient Home Medication List Home Medication List Reviewed: Yes Acetaminophen (Tylenol Extra Strength) 500 Mg Tablet, 1,000 MG PO Q8H PRN for PAIN-MILD (1-4), (Reported) Entered as Reported by: KYLAH GERONIMO on 06/09/22 1059 Albuterol Sulfate (Ventolin Hfa) 90 Mcg Hfa.aer.ad, 2 PUFF INH Q4H PRN for SHORTNESS OF BREATH, (Reported) Entered as Reported by: KYLAH GERONIMO on 06/09/22 1059 Atorvastatin Calcium (Atorvastatin Calcium) 20 Mg Tablet, 20 MG PO HS, (Reported) Entered as Reported by: AGUSTO PLASENCIA on 06/13/18 1448 Buspirone HCl (Buspirone HCl) 15 Mg Tablet, 15 MG PO BID, (Reported) Entered as Reported by: KYLAH GERONIMO on 03/30/21 1006 Calcium Carbonate/Vitamin D3 (Calcium 600 + Vit D Caplet) 600 Mg Calcium-10 Mcg (400 Unit) Tablet, 1 EACH PO BID, (Reported) Entered as Reported by: KYLAH GERONIMO on 06/09/22 1059 Doxycycline Hyclate (Doxycycline Hyclate) 100 Mg Capsule, 100 MG PO BID, (Reported) Entered as Reported by: KYLAH GERONIMO on 06/09/22 1059 Fexofenadine HCl (Fexofenadine HCl) 180 Mg Tablet, 180 MG PO DAILY, (Reported) Entered as Reported by: KYLAH GERONIMO on 06/09/22 1059 Fluticasone Propionate (Fluticasone Propionate) 16 Gm Ranger.susp, 1 SPRAY NSEACH BID, (Reported) Entered as Reported by: KYLAH GERONIMO on 03/30/21 1006 Fluticasone/Umeclidin/Vilanter (Trelegy Ellipta 100-62.5-25) 100-62.5 Blst.w.dev, 1 PUFF INH DAILY, (Reported) Entered as Reported by: KYLAH GERONIMO on 06/09/22 1059 Furosemide (Furosemide) 40 Mg Tablet, 40 MG PO DAILY Prescribed by: CHALO FUENTES on 06/13/22 1555 Guaifenesin (Mucinex) 1,200 Mg Tab.er.12h, 1,200 MG PO BID, (Reported) Entered as Reported by: KYLAH GERONIMO on 06/09/22 1059 Levomefolate/B6/B12/Algal Oil (Metanx Capsule) 1 Each Capsule, 1 EACH PO HS, (Reported) Entered as Reported by: KYLAH GERONIMO on 03/30/21 1022 Levothyroxine Sodium (Levothyroxine Sodium) 75 Mcg Tablet, 75 MCG PO DAILY, (Reported) Entered as Reported by: AGUSTO PLASENCIA on 06/13/18 1448 Lifitegrast (Xiidra) 5 % Droperette, 1 DROP OU BID, (Reported) Entered as Reported by: KYLAH GERONIMO on 06/09/22 1059 Menthol (Ricola) 1.1 Mg Lozenge, 1 EA MM UD PRN for SORE THROAT, (Reported) Entered as Reported by: KYLAH GERONIMO on 06/09/22 1059 Montelukast Sodium (Montelukast Sodium) 10 Mg Tablet, 10 MG PO HS, (Reported) Entered as Reported by: AGUSTO PLASENCIA on 06/13/18 1448 Multivits-Min/Iron/FA/Lutein (Centrum Silver Women Tablet) 1 Each Tablet, 1 EACH PO DAILY, (Reported) Entered as Reported by: ESTEE MCFARLAND on 10/04/19 1008 Pantoprazole Sodium (Pantoprazole Sodium) 40 Mg Tablet.dr, 40 MG PO DAILY, (Reported) Entered as Reported by: KYLAH GERONIMO on 06/09/22 1059 Potassium Chloride (Potassium Chloride) 10 Meq Tab.er.prt, 10 MEQ PO DAILY PRN for WHEN TAKING FUROSEMIDE Prescribed by: CHALO FUENTES on 06/13/22 1555 Prednisone (Prednisone) 20 Mg Tab, 20 MG PO BID Prescribed by: CHALO FUENTES on 06/13/22 1555 Propylene Glycol/Peg 400 (Systane 0.3-0.4% Eye Drops) 0.3 %-0.4 % Drops, 1-2 DROPS OU UD PRN for DRY EYES, (Reported) Entered as Reported by: KYLAH GERONIMO on 06/09/22 1059 Sertraline HCl (Sertraline HCl) 100 Mg Tablet, 200 MG PO HS, (Reported) Entered as Reported by: AGUSTO PLASENCIA on 06/13/18 1448 Trazodone HCl (Trazodone HCl) 50 Mg Tablet, 50 MG PO HS PRN for SLEEP, (Reported) Entered as Reported by: KYLAH GERONIMO on 06/09/22 1059 Ubidecarenone (Coq-10) 100 Mg Capsule, 100 MG PO HS, (Reported) Entered as Reported by: ESTEE MCFARLAND on 10/04/19 1008 Review of Systems Constitutional: see HPI Respiratory: dyspnea on exertion Musculoskeletal: joint pain (right shoulder) Skin: no symptoms reported Past Coqxayb-Oahkko-Fqqsti Hx Patient Social History Tobacco Use?: No Use of E-Cig and/or Vaping dev: No Substance use?: No Alcohol Use?: No Pt feels they are or have been: No Immunizations Up To Date First/Initial COVID19 Vaccinat: 2020 Second COVID19 Vaccination Maikel: 2020 Third COVID19 Vaccination Date: Past Medical History Surgery/Hospitalization HX: In ED in the last week, and has had a previous GI Bleed in the last year Surgeries: Yes (EGD/COLONOSCOPY, CARDIAC CATH; TLK 01/2016 Dr. Gastelum) Orthopedic Respiratory: Yes (o2 @ night, COPD) Pneumonia, Chronic Bronchitis, Sleep Apnea, COPD Currently Using CPAP: Yes Cardiac: Yes (changes in last echo, CAROTID DISEASE) High Cholesterol, Valvular Heart Disease Neurological: No Reproductive Disorders: No Gastrointestinal: Yes Gastroesophageal Reflux, Diverticulosis Musculoskeletal: No Cancer: No Psychosocial: Yes Anxiety, Depression Integumentary: Yes (SHINGLES LEFT ARM ) Blood Disorders: No Family Medical History Cardiovascular disease 19 FATHER 19 MOTHER Deafness or hearing loss 19 FATHER Diabetes mellitus 19 MOTHER FH: COPD (chronic obstructive pulmonary disease) 19 FATHER FH: cancer 19 FATHER G8 SISTER FH: emphysema 19 FATHER Thyroid disease 19 MOTHER (hypothyroidism) No Pertinent Family Hx Physical Exam Vital Signs Vital Signs - First Documented 06/05/23 09:19 Temp 37.0 Pulse 86 Resp 16 B/P (MAP) 143/95 (111) Pulse Ox 94 O2 Delivery Room Air Capillary Refill : Less Than 3 Seconds Height, Weight, BMI Height: 5'5.00" Weight: 213lbs. 9.0oz. 96.530079si; 33.00 BMI Method:Stated General Appearance: WD/WN, no apparent distress HEENT: PERRL/EOMI, other (dry oral mucosa) Neck: normal inspection Respiratory: no respiratory distress, no accessory muscle use Shoulder: normal inspection; No asymmetry; bone tenderness (right clavicle), limited ROM, pain (with ROM) Elbow/Forearm: normal inspection, normal ROM, Right Wrist: Yes normal inspection Hand: normal inspection, normal ROM, Right Progress/Results/Core Measures Results/Orders My Orders Orders - CLEMENTE JAMES MD Hydrocodone/Apap 5/325 Tablet (Hydrocod (06/05/23 10:00) Shoulder, Right, 3 Views (06/05/23 09:55) Medications Given in ED Current Medications Medications Dose Ordered Sig/Belén Route Start Time Stop Time Status Last Admin Dose Admin Acetaminophen/ Hydrocodone Bitart 1 ea ONCE ONCE PO 06/05/23 10:00 06/05/23 10:01 DC 06/05/23 10:26 1 EA Vital Signs/I&O 06/05/23 09:19 Temp 37.0 Pulse 86 Resp 16 B/P (MAP) 143/95 (111) Pulse Ox 94 O2 Delivery Room Air Blood Pressure Mean: 111 Progress Progress Note : Time: 11:02 Progress Note Patient seen and evaluated by me. Evaluation today includes physical exam as well as 3 views of the right shoulder. Pertinent physical exam findings include elderly appearing female in no significant distress. She has very dry oral mucosa. Only pertinent physical exam findings appears to be tenderness to the distal right clavicle. Her right shoulder is not dislocated on physical exam. She has no swelling over the right shoulder or proximal humerus. There are no skin lesions noted around the right shoulder or clavicle. Distal neurovascularly intact with normal range of motion to the right hand, wrist and elbow. Differential diagnosis includes proximal humerus fracture, clavicle fracture, subluxation X-rays independently reviewed and interpreted by me. She has what appears to be a distal right clavicle fracture with dislocation of the fracture fragments, overriding. The shoulder joint itself appears to be intact. Patient is treated with 5 mg of hydrocodone orally here in the emergency department. A sling to the right upper extremity has been placed. Recommended close follow-up with her primary care physician. Encouraged her to wear the sling at all times. She will be given a prescription for hydrocodone for pain control at home. Precautions for constipation regarding opiate medications has been provided. Return precautions also provided. Patient verbalized understanding of the discharge instructions. All questions are sought and answered. Her daughter is also present for the discharge instructions Diagnostic Imaging Diagonstic Imaging: Xray Comments [facility], [place] NAME: PIPE DIAZ Patric [facility] REC#: [id number] PT STATUS: REG ER : 1940 PHYSICIAN: CLEMENTE JAMES MD ADMIT DATE: 06/05/23/ER Draft Date of Exam:06/05/23 SHOULDER, RIGHT, 3 VIEWS EXAMINATION: Right shoulder radiographs, 3 views. COMPARISON: None. HISTORY: 82-year-old female, right shoulder pain. Fall. FINDINGS: There is a displaced fracture at the junction of the middle and lateral thirds of the right clavicle. The primary lateral fracture fragment is superiorly displaced by 9 mm. The acromioclavicular joint is normally aligned. The bones appear potentially demineralized. The humeral head is not dislocated relative to the glenoid. IMPRESSION: 1. Displaced fracture at the junction of the middle and lateral thirds of the right clavicle. 2. The bones appear potentially demineralized. Dictated on workstation # [id number] Dict: 06/05/23 1012 Trans: 06/05/23 1015 [facility] [id number] Interpreted by: BREE KAHN MD Electronically signed by: Departure Impression Primary Impression: Right clavicle fracture Qualified Codes: S42.031A - Displaced fracture of lateral end of right clavicle, initial encounter for closed fracture Disposition: HOME, SELF-CARE Condition: Stable Departure-Patient Inst. Decision time for Depature: 11:04 Referrals: CHALO FUENTES DO (PCP/Family) Primary Care Physician Patient Instructions: Clavicle fracture Add. Discharge Instructions: Please keep the sling on at all times to help stabilize the shoulder and help with pain. You can take hydrocodone, 5 mg with 1 extra strength Tylenol every 6 hours as needed for pain. An ice pack to the right collarbone will also help with discomfort. Please call your primary care provider for a follow-up appointment next week for further evaluation. If you develop more severe pain, numbness or tingling to the right arm or any other emergent, concerning symptoms please return to the emergency room for reevaluation Scripts Hydrocodone/Acetaminophen (Hydrocodone-Acetamin 5-325 mg) 5 Mg-325 Mg Tablet 1 TAB PO Q6H PRN for PAIN-MODERATE (5-7), #15 TAB Prov: CLEMENTE JAMES MD 06/05/23 Copy Copies To 1: CHALO FUENTES KATHRYN M MD Jun 05, 2023 09:43
[2023-06-05] MEDS ORDERED: HYDROcodone/ACETAMINOPHEN 5 MG/325 MG TABLET PO ONE (10:00)
--- NOTE | 2023-06-05 10:15 | Diagnostic Imaging Report ---
EXAMINATION: Right shoulder radiographs, 3 views. COMPARISON: None. HISTORY: 82-year-old female, right shoulder pain. Fall. FINDINGS: There is a displaced fracture at the junction of the middle and lateral thirds of the right clavicle. The primary lateral fracture fragment is superiorly displaced by 9 mm. The acromioclavicular joint is normally aligned. The bones appear potentially demineralized. The humeral head is not dislocated relative to the glenoid. IMPRESSION: 1. Displaced fracture at the junction of the middle and lateral thirds of the right clavicle. 2. The bones appear potentially demineralized. Dictated by: Dictated on workstation # [id number]
[2023-06-05] MEDS ORDERED: ACHD5005 PO (11:06)
[2023-06-05 11:20] VITALS: BP 136/88
== END 2023-06-05 11:20 | disposition home or self-care (01) ==
LOC: EDUNIT# 09:09 → ER 09:11
DX: S42.031A Displaced fracture of lateral end of right clavicle, initial encounter for closed fracture (principal); G47.30 Sleep apnea, unspecified; J42 Unspecified chronic bronchitis; Z99.89 Dependence on other enabling machines and devices; Z99.81 Dependence on supplemental oxygen; W01.190A Fall on same level from slipping, tripping and stumbling with subsequent striking against furniture, initial encounter
CPT/HCPCS: 73030; 99283; A4565

== ENCOUNTER → 2023-06-26 | Outpatient (CLI) | payer MEDICARE, OTHER ==
[~2023-06-26] MED LIST changes: +ACHD5005 PO; -OXYB5TAB13 PO; +OXYB5TAB14 PO
--- NOTE | 2023-06-26 12:23 | Diagnostic Imaging Report ---
Indication: Clavicular fracture. Correlate with the shoulder radiographs of 06/05/2023. Findings: There has been some new bone formation associated with a displaced midshaft clavicular fracture with bony overlap of the CT of the distal fragment. No separation of the AC or CC spaces. No adverse development. Impression: Partial healing of midshaft clavicular fracture. Dictated by: Dictated on workstation # [id number]
== END ==
LOC: RAD 11:18
PROVIDERS: ATTEND Family Medicine
DX: S42.001D Fracture of unspecified part of right clavicle, subsequent encounter for fracture with routine healing (principal); X58.XXXD Exposure to other specified factors, subsequent encounter
CPT/HCPCS: 73000

== ENCOUNTER → 2023-07-18 | Outpatient (CLI) | payer MEDICARE, OTHER ==
--- NOTE | 2023-07-18 16:31 | Diagnostic Imaging Report ---
EXAMINATION: Right clavicle radiographs, 2 views. COMPARISON: June 26, 2023. HISTORY: 82-year-old female, followup clavicle fracture. FINDINGS: There is a comminuted displaced fracture involving the middle third of the right clavicle. The lateral fracture fragment is displaced superiorly by 12 mm. This is fairly similar to the comparison exam. There is no pronounced bony bridging or periosteal reaction. The acromioclavicular joint is unremarkable in alignment. There is valvular hardware. There are predominantly interstitial opacities in the lungs. IMPRESSION: 1. Redemonstrated comminuted displaced fracture of the middle third of the right clavicle without substantial interval healing response or change in fracture alignment. 2. Interstitial opacities in the lungs which are present dating back to at least June 13, 2022 which may reflect chronic lung changes. Recommend correlation for potential active pulmonary symptoms. Dictated by: Dictated on workstation # [id number]
== END ==
LOC: RAD 15:40
PROVIDERS: ATTEND Family Medicine
DX: S42.001D Fracture of unspecified part of right clavicle, subsequent encounter for fracture with routine healing (principal); R91.8 Other nonspecific abnormal finding of lung field; Z91.81 History of falling; X58.XXXD Exposure to other specified factors, subsequent encounter
CPT/HCPCS: 73000